=== PATIENT | male | born 1960 | race Caucasian/White ===

== ENCOUNTER 2016-07-14 09:27 | Observation (INO) | payer SELFPAY ==
[~2016-07-14] VITALS: Ht 172.7 cm; Wt 77.0 kg
[2016-07-14] VITALS (13 sets, daily range): BP systolic 144–235; BP diastolic 69–100; PULSE 60–85; RESP 16–20; TEMP 97.7–98.7; O2SAT 94–100
[~2016-07-14 09:27] MED LIST: ADVI200C9 PO; ASPI81TA82 PO; CARV12.52 PO; GLUC1000 PO; LISI-366 PO
[2016-07-14] MEDS ORDERED: LISI40TA PO (09:49)
[2016-07-14] MEDS ORDERED: METF1000 PO (09:49)
[2016-07-14] MEDS ORDERED: ASPI81CH CHEW (09:49)
[2016-07-14] MEDS: NITROGLYCERIN 0.4 MG SL 25 TABS/BTL SL SCH ×3 (10:09→10:49)
[2016-07-14] MEDS: SODIUM CHLORIDE 0.9% FLUSH 10 ML FLUSH IVF PRN ×2 (10:09→11:57)
[2016-07-14 10:14] LABS: AUTOMATED NEUTROPHIL # 5.5 TH/MM3 (1.8-7.7); BASOPHIL # 0.1 TH/MM3 (0-0.2); BASOPHIL % 1.4 % (0.0-2.0); EOSINOPHIL # 0.2 TH/MM3 (0-0.4); HEMATOCRIT 43.8 % (39.0-51.0); HEMO FLAGS DIFF FINAL; LYMPH % 29.8 % (9.0-44.0); LYMPHOCYTE # 2.7 TH/MM3 (1.0-4.8); MEAN CORPUSCULAR HEMOGLOBIN 30.9 PG (27.0-34.0); MEAN CORPUSCULAR HGB CONC 33.9 % (32.0-36.0); MONO % 7.3 % (0.0-8.0); NEUT % 59.5 % (16.0-70.0); PLATELET COUNT 156 TH/MM3 (150-450); RED BLOOD COUNT 4.82 MIL/MM3 (4.50-5.90); RED CELL DISTRIBUTION WIDTH 13.7 % (11.6-17.2); WHITE BLOOD COUNT 9.2 TH/MM3 (4.0-11.0)
[2016-07-14 10:30] LABS: INTERNATIONAL NORMALIZED RATIO 0.9 RATIO; PROTHROMBIN TIME - PATIENT 10.3 SEC (9.8-11.6)
[2016-07-14 10:44] LABS: ANION GAP 6 MEQ/L (5-15); AST (GOT) 42 U/L (15-37); BICARBONATE 29.8 MEQ/L (21.0-32.0); BLOOD UREA NITROGEN 19 MG/DL (7-18); CHLORIDE 103 MEQ/L (98-107); GLOMERULAR FILTRATION RATE 102 ML/MIN (>89); MAGNESIUM 1.7 MG/DL (1.5-2.5); POTASSIUM 3.6 MEQ/L (3.5-5.1); SODIUM (NA) 139 MEQ/L (136-145)
[2016-07-14 10:49] LABS: ALKALINE PHOSPHATASE 105 U/L (45-117); ALT (GPT) 58 U/L (12-78); TOTAL BILIRUBIN ADULT 0.5 MG/DL (0.2-1.0)
--- NOTE | 2016-07-14 10:51 | RADRPT ---
EXAM DATE/TIME: 07/14/2016 10:22 [facility] COMPARISON: CHEST SINGLE AP, February 03, 2016, 12:43. INDICATIONS : Chest pain and shortness of breath. MEDICAL HISTORY : None. SURGICAL HISTORY : Two cardiac stents. ENCOUNTER: Initial ACUITY: 1 day PAIN SCORE: 8/10 LOCATION: chest FINDINGS: A single view of the chest demonstrates the lungs to be symmetrically aerated without evidence of mas s, infiltrate or effusion. The cardiomediastinal contours are unremarkable. Osseous structures are intact. CONCLUSION: Normal examination. Mabel Gomez MD on July 14, 2016 at 10:50 Board Certified Radiologist. This report was verified electronically.
[2016-07-14 11:28] LABS: CREATINE KINASE 80 U/L (39-308)
--- NOTE | 2016-07-14 11:47 | PD ---
HPI Chief Complaint: Chest Pain Time Seen by Provider: 09:57 Travel History International Travel<30 days: No Contact w/Intl Traveler<30days: No Traveled to known affect area: No History of Present Illness HPI 56-year-old male presents emergency department for chest pain tightness in the center of his chest occasionally radiating down his right arm for the past few days. Patient states Fairly severe approximately 0400 this morning. Patient states he ran out of his baby aspirin subjective full dose aspirin prior to arrival. Has not tried anything else to help relieve his pain. Patient states that approximately 56 years ago patient had a cardiac catheterization requiring stents placed Dr. Watosn did this. 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 He also states that he follows with Doctor Tu Robins and was told that he may have some small carotid bruits and has an "MRI" of his neck ordered which she has not been able to do because doesn't have the funds to do so. He denies any headache focal weakness blurred vision neck pain. And states that "this feels just like last time I had a heart attack". Patient denies any shortness of breath abdominal pain nausea vomiting diarrhea constipation. Patient states she's not had any drugs or alcohol for over 6 months. PFSH Past Medical History Arthritis: Yes (rheumatoid hands) Asthma: No Autoimmune Disease: Yes Blood Disorders: No Depression: Yes Heart Rhythm Problems: No Cancer: No Cardiac Catheterization: Yes Cardiovascular Problems: Yes High Cholesterol: No Chemotherapy: No Chest Pain: Yes Congestive Heart Failure: No Cerebrovascular Accident: No Coronary Artery Disease: Yes Diabetes: Yes Patient Takes Glucophage: Yes Diminished Hearing: Yes (Left) Diverticulitis: Yes Endocrine: Yes (per hx.. diagnosed as diabetic but not currently treated) Gastrointestinal Disorders: Yes GERD: No Genitourinary: Yes Hepatitis: Yes (C) Hiatal Hernia: No Hypertension: Yes Kidney Stones: Yes Musculoskeletal: Yes Neurologic: Yes Psychiatric: No Reproductive: No Respiratory: No Myocardial Infarction: Yes (2009) Thyroid Disease: No Ulcer: No Tetanus Vaccination: Unknown Influenza Vaccination: No Past Surgical History Abdominal Surgery: Yes ( partial colectomy) Appendectomy: Yes Cardiac Surgery: No Cholecystectomy: No Coronary Artery Bypass Graft: No Coronary Stent: Yes (2 STENTS) Ear Surgery: No Endocrine Surgery: No Eye Surgery: No Genitourinary Surgery: No Gynecologic Surgery: No Hysterectomy: No Neurologic Surgery: No Oral Surgery: No Thoracic Surgery: No Tonsillectomy: Yes Other Surgery: Yes Family History Family Myocardial Infarction: Yes Social History 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) Tobacco Use: Yes (1 PPD) Substance Use: No Allergies-Medications (Allergen,Severity, Reaction): Coded Allergies: Anzemet (Verified Allergy, Severe, 02/03/16) Penicillin (Verified Allergy, Severe, 02/03/16) Reported Meds & Prescriptions Reported Meds & Active Scripts Active Reported Lisinopril 40 Mg Tab 40 Mg PO DAILY Aspirin 81 Mg Chew 81 Mg CHEW DAILY Metformin (Metformin HCl) 1,000 Mg Tab 1,000 Mg PO BIDPC With meals Review of Systems Except as stated in HPI: all other systems reviewed are Neg Physical Exam Narrative GENERAL: [Well-developed well-nourished, smells of cigarette smoke in no apparent distress. SKIN: Warm and dry. HEAD: Atraumatic. Normocephalic. EYES: Pupils equal and round. No scleral icterus. No injection or drainage. ENT: No nasal bleeding or discharge. Mucous membranes pink and moist. NECK: Trachea midline. No JVD. CARDIOVASCULAR: Regular rate and rhythm. No murmur appreciated. 2+ bilateral equal pulses in all 4 extremity's. No carotid bruits appreciated. RESPIRATORY: No accessory muscle use. Clear to auscultation. Breath sounds equal bilaterally. GASTROINTESTINAL: Abdomen soft, non-tender, nondistended. Hepatic and splenic margins not palpable. MUSCULOSKELETAL: No obvious deformities. No clubbing. No cyanosis. No edema. NEUROLOGICAL: Awake and alert. No obvious cranial nerve deficits. Motor grossly within normal limits. Normal speech. PSYCHIATRIC: Appropriate mood and affect; insight and judgment normal. Data Data Last Documented VS Vital Signs Date Time Temp Pulse Resp B/P Pulse Ox O2 Delivery O2 Flow Rate FiO2 07/14/16 11:30 62 16 152/72 98 Room Air 07/14/16 09:29 97.7 Orders Electrocardiogram (07/14/16 ) Ckmb (Isoenzyme) Profile (07/14/16 09:57) Complete Blood Count With Diff (07/14/16 09:57) Comprehensive Metabolic Panel (07/14/16 09:57) Magnesium (Mg) (07/14/16 09:57) Prothrombin Time / Inr (Pt) (07/14/16 09:57) Act Partial Throm Time (Ptt) (07/14/16 09:57) Troponin I (07/14/16 09:57) Lipase (07/14/16 09:57) Chest, Single Ap (07/14/16 09:57) Ecg Monitoring (07/14/16 09:57) Bilateral Bp Monitoring (07/14/16 09:57) Iv Access Insert/Monitor (07/14/16 09:57) Oximetry (07/14/16 09:57) Oxygen Administration (07/14/16 09:57) Sodium Chloride 0.9% Flush (Ns Flush) (07/14/16 10:00) Nitroglycerin Sl (Nitrostat Sl) (07/14/16 10:15) Admit Order (Ed Use Only) (07/14/16 ) Labs Laboratory Tests Test 07/14/16 10:00 White Blood Count 9.2 TH/MM3 Red Blood Count 4.82 MIL/MM3 Hemoglobin 14.9 GM/DL Hematocrit 43.8 % Mean Corpuscular Volume 91.0 FL Mean Corpuscular Hemoglobin 30.9 PG Mean Corpuscular Hemoglobin 33.9 % Concent Red Cell Distribution Width 13.7 % Platelet Count 156 TH/MM3 Mean Platelet Volume 10.3 FL Neutrophils (%) (Auto) 59.5 % Lymphocytes (%) (Auto) 29.8 % Monocytes (%) (Auto) 7.3 % Eosinophils (%) (Auto) 2.0 % Basophils (%) (Auto) 1.4 % Neutrophils # (Auto) 5.5 TH/MM3 Lymphocytes # (Auto) 2.7 TH/MM3 Monocytes # (Auto) 0.7 TH/MM3 Eosinophils # (Auto) 0.2 TH/MM3 Basophils # (Auto) 0.1 TH/MM3 CBC Comment DIFF FINAL Differential Comment Prothrombin Time 10.3 SEC Prothromb Time International 0.9 RATIO Ratio Activated Partial 27.0 SEC Thromboplast Time Sodium Level 139 MEQ/L Potassium Level 3.6 MEQ/L Chloride Level 103 MEQ/L Carbon Dioxide Level 29.8 MEQ/L Anion Gap 6 MEQ/L Blood Urea Nitrogen 19 MG/DL Creatinine 0.78 MG/DL Estimat Glomerular Filtration 102 ML/MIN Rate Random Glucose 118 MG/DL Calcium Level 9.0 MG/DL Magnesium Level 1.7 MG/DL Total Bilirubin 0.5 MG/DL Aspartate Amino Transf 42 U/L (AST/SGOT) Alanine Aminotransferase 58 U/L (ALT/SGPT) Alkaline Phosphatase 105 U/L Total Creatine Kinase 80 U/L Troponin I LESS THAN 0.02 NG/ML Total Protein 7.6 GM/DL Albumin 3.7 GM/DL Lipase 102 U/L [facility] Medical Decision Making Medical Screen Exam Complete: Yes Emergency Medical Condition: Yes Interpretation(s) EKG shows sinus bradycardia rate of 59, intervals otherwise within normal limits. Borderline left axis deviation, normal R-wave progression. LVH. No concerning ST T changes. This an abnormal EKG. Differential Diagnosis ACS, AMI, costochondritis, pericarditis, pneumonia. Narrative Course Patient roomed in the emergency department, appears well in no apparent distress. Initial workup including troponin EKG CBC and CMP within normal limits. Chest x-ray within normal limits. Discussed with the patient given his history recommended observation period in the chest pain center and he is agreeable. Last 24 hours Impressions Chest X-Ray 07/14/16 0957 Signed Impressions: Service Date/Time: Thursday, July 14, 2016 10:22 - CONCLUSION: Normal examination. Mabel Gomez MD Nitroglycerin was given and did have some modest relief and his pain he requested something more was given 2 mg morphine. Diagnosis Primary Impression: Chest pain Qualified Code: R07.9 - Chest pain, unspecified type Admitting Information Admitting Physician Requests: Observation Condition: Stable Martinez Lezama MD Jul 14, 2016 11:47
[2016-07-14] MEDS ORDERED: MORPHINE SULFATE 4 MG/ML INJ IV PUSH ONE (12:00)
[2016-07-14] MEDS ORDERED: ACETAMINOPHEN 500 MG CPLT PO PRN (12:15)
[2016-07-14] MEDS ORDERED: NITROGLYCERIN 0.4 MG SL 25 TABS/BTL SL PRN (12:15)
[2016-07-14] MEDS ORDERED: ONDANSETRON HCL 4 MG/2 ML VIAL IV PRN (12:15)
[2016-07-14] MEDS ORDERED: SODIUM CHLORIDE 0.9% FLUSH 10 ML FLUSH IV FLUSH PRN (12:15)
[2016-07-14] MEDS ORDERED: NITROGLYCERIN 2% OINT 1 GM PACKET TOPICAL SCH (14:00)
[2016-07-14] MEDS ORDERED: RESP: ALBUTEROL 2.5 MG/3 ML NEB (PRN) NEB (15:30)
[2016-07-14] MEDS ORDERED: KETOROLAC TROMETHAMINE 30 MG/ML (IVP) VIAL IV PUSH ONE (15:30)
[2016-07-14] MEDS ORDERED: PILL SPLITTER OTHER PRN (15:45)
[2016-07-14] MEDS: METOPROLOL TARTRATE 25 MG TAB PO SCH ×2 (16:00→21:05)
--- NOTE | 2016-07-14 16:14 | EKG ---
Date Performed: 07/14/2016 Time Performed: 13:16:25 PTAGE: 56 years EKG: Sinus rhythm BORDERLINE LEFT AXIS DEVIATION NONSPECIFIC ST & T-WAVE ABNORMALITY ABNORMAL ECG PREVIOUS TRACING : 07/14/2016 09.46 Since previous tracing, no significant change noted DOCTOR: Dustin Sanchez Interpretating Date/Time 07/14/2016 16:12:47
[2016-07-14] MEDS ORDERED: GLUCAGON 1 MG/ML VIAL OTHER PRN (16:15)
[2016-07-14] MEDS ORDERED: DEXTROSE 50% IN WATER 50 ML VIAL(D50) IV PUSH PRN (16:15)
[2016-07-14] MEDS: RESP: ALBUTEROL 2.5 MG/3 ML NEB (SCH) INH ×2 (16:29→20:03)
[2016-07-14] MEDS ORDERED: cloNIDine HCL 0.1 MG TAB PO PRN (16:30)
[2016-07-14] MEDS ORDERED: ACETAMINOPHEN/HYDROcodone 325 MG/5 MG TAB PO PRN (16:45)
--- NOTE | 2016-07-14 17:19 | EKG ---
Date Performed: 07/14/2016 Time Performed: 09:46:41 PTAGE: 56 years EKG: SINUS BRADYCARDIA WITH SINUS ARRHYTHMIA BORDERLINE LEFT AXIS DEVIATION NONSPECIFIC ST & T-W AVE ABNORMALITY ST T abnormality slightly more prominent from the old tracing ABNORMAL ECG NO PREVIOUS TRACING DOCTOR: Landon Campos Interpretating Date/Time 07/14/2016 17:17:43
[2016-07-14 17:35] LABS: TOTAL BILIRUBIN ADULT 0.4 MG/DL (0.2-1.0)
[2016-07-14 17:40] LABS: INDIRECT BILIRUBIN 0.3 MG/DL (0.0-0.8)
--- NOTE | 2016-07-14 18:03 | HHI.HP ---
HPI Primary Care Physician Palmer Mae MD Chief Complaint Fatigue, shortness of breath, chest pain History of Present Illness 56-year-old male with known hypertension, diabetes, coronary artery disease, and cardiac stents presents to emergency room with multiple complaints. Over the past 6 weeks he has been fatigued and short of breath on exertion. Describes left anterior chest discomfort characterized as burning and stabbing, no radiation, nonexertional. Chest discomfort over past 6 weeks can occur at any time. Duration varies from minutes to days, severity varies in intensity. No associated symptoms. No known precipitating or relieving factors. This morning states "my whole body felt warm and I had temporal pain and was afraid my BP was elevated." Chest discomfort combined with temporal headache was "unbearable, so he came to the ER." Review of Systems General: Increasing fatigue 6 weeks. No weakness, fever, chills, recent illness , change in appetite HEENT: Headache improved. No vision changes, no nasal congestion or drainage, no dysphasia CV: As stated above. Continues to have chest discomfort. Chest discomfort not similar when he had NE. Endorses intermittent leg pain bilateral calves with ambulation, sometimes as little as 10 feet, relieved with rest. Pending order for carotid bilateral ultrasound from PCP, able to afford test. States "my physician is concerned about my carotids as he heard something in that area." RESP: No current SOB. Exertional shortness of breath for 6 weeks. Reports "smoker's cough." No wheeze wheeze, rhonchi, or hemoptysis. Denies diagnosis of COPD or use of inhalers. Remote pulmonary function tests completed approximately 5 years agostates "my lungs were good then." GI: No nausea, vomiting, bowel changes, diarrhea, constipation, pain, distention , melena, blood in the stool. No change in appetite, no unintentional weight gain or weight loss EXT: No lower leg edema, intermittent leg pain bilateral calves with ambulation , better with rest MS: No discomfort or change in ROM NEURO: No change in memory, dizziness, difficulty with balance, LOC, motor/ sensory deficits PSYCH: No anxiety and depression SKIN: No rashes, no concerning lesions Past Family Social History Allergies: Coded Allergies: Anzemet (Verified Allergy, Severe, 02/03/16) Penicillin (Verified Allergy, Severe, 02/03/16) Past Medical History Hypertension, diabetes, CAD, hepatitis C, NE, cardiac stents , COPD, diverticulosis Past Surgical History Bowel resection due to perforated diverticuli, appendectomy, tonsillectomy Reported Medications Reported Meds & Active Scripts Active Reported Lisinopril 40 Mg Tab 40 Mg PO DAILY Aspirin 81 Mg Chew 81 Mg CHEW DAILY Metformin (Metformin HCl) 1,000 Mg Tab 1,000 Mg PO BIDPC With meals Active Ordered Medications Current Medications Medications (Trade) Dose Ordered Sig/Canelo Route Start Time Stop Time Status Last Admin (Tylenol) 500 mg Q4H PRN PO 07/14/16 12:15 (Zofran Inj) 4 mg Q6H PRN IV 07/14/16 12:15 (Nitrostat Sl) 0.4 mg Q5M PRN SL 07/14/16 12:15 (Aspirin) 325 mg DAILY PO 07/15/16 09:00 (Lopressor) 12.5 mg Q12HR PO 07/14/16 16:00 07/14/16 16:00 (Pill Splitter) 1 ea UNSCH PRN OTHER 07/14/16 15:45 (Prinivil) 40 mg DAILY PO 07/15/16 09:00 (D50w (Vial) Inj) 25 ml UNSCH PRN IV PUSH 07/14/16 16:15 (Glucagon Inj) 1 mg UNSCH PRN OTHER 07/14/16 16:15 (Catapres) 0.1 mg Q6H PRN PO 07/14/16 16:30 ([place] 5-325 Mg) 1 tab Q6H PRN PO 07/14/16 16:45 Family History Noncontributory for early onset cardiovascular disease Social History Life time smoker since age 10. Smokes one pack cigarettes daily. Denies any alcohol or illegal drug use. , unemployed. Sedentary due to fatigue and lower leg pain on exertion. Past cardiac testing 07/13/15Lexi scan conclusionmild LV dilatation and global hypokinesis. No significant reversible perfusion abnormalities. EF 41%. 2007 Cardiac catheterization-1. Non-ST elevation NE 2. Severe disease of the circumflex 3. Successful stenting of the circumflex 4. Normal LV function. Physical Exam Vital Signs Vital Signs Date Time Temp Pulse Resp B/P Pulse Ox O2 Delivery O2 Flow Rate FiO2 07/14/16 16:28 187/76 07/14/16 15:47 68 07/14/16 15:22 98.7 64 18 187/86 94 07/14/16 12:30 16 07/14/16 12:00 60 16 144/91 98 Room Air 07/14/16 11:30 62 16 152/72 98 Room Air 07/14/16 11:00 62 18 173/91 100 Room Air 07/14/16 11:00 16 07/14/16 10:28 68 18 165/69 97 Room Air 07/14/16 10:01 68 16 191/91 100 Room Air 07/14/16 09:59 16 98 Room Air 07/14/16 09:59 Room Air 07/14/16 09:46 68 18 205/95 100 Room Air 07/14/16 09:45 16 98 Room Air 07/14/16 09:29 97.7 74 20 235/100 100 Room Air Physical Exam GENERAL: Alert WN, WD, NAD, pleasant, male HEAD: NC, AT EYES: Sclera clear, conjunctiva without injection, pupils equal and round ENT: Mucous membranes pink and moist NECK: Supple, no masses, trachea midline CV: RRR, 2/6 systolic murmur, rub, gallop, no JVD, S1-S2 no S3-S4. Bilateral carotid and femoral bruits. Decreased hair distribution bilateral feet and ankles. RESP: Diminished lung sounds throughout, faint expiratory wheeze, prolonged expiratory phase. No crackles or rhonchi. Symmetrical chest rise, nonlabored, able to speak in full sentences ABD: Soft, NT, ND, no masses, positive bowel tones EXT: Pulses +24, no dependent edema. MS: Normal tone 4 extremities, nontender, no obvious deformities, full range of motion NEURO: CN II through CN XII grossly intact, motor strength 5/5, gait WNL PSYCH: A+O 3, pleasant affect, appropriate speech, appropriate mood and affect , insight and judgment SKIN: Normal turgor, normal texture, no lesions, no rashes, sluggish cap refill Laboratory Laboratory Tests Test 07/14/16 07/14/16 10:00 13:15 White Blood Count 9.2 Red Blood Count 4.82 Hemoglobin 14.9 Hematocrit 43.8 Mean Corpuscular Volume 91.0 Mean Corpuscular Hemoglobin 30.9 Mean Corpuscular Hemoglobin 33.9 Concent Red Cell Distribution Width 13.7 Platelet Count 156 Mean Platelet Volume 10.3 Neutrophils (%) (Auto) 59.5 Lymphocytes (%) (Auto) 29.8 Monocytes (%) (Auto) 7.3 Eosinophils (%) (Auto) 2.0 Basophils (%) (Auto) 1.4 Neutrophils # (Auto) 5.5 Lymphocytes # (Auto) 2.7 Monocytes # (Auto) 0.7 Eosinophils # (Auto) 0.2 Basophils # (Auto) 0.1 CBC Comment DIFF FINAL Differential Comment Prothrombin Time 10.3 Prothromb Time International 0.9 Ratio Activated Partial 27.0 Thromboplast Time Sodium Level 139 Potassium Level 3.6 Chloride Level 103 Carbon Dioxide Level 29.8 Anion Gap 6 Blood Urea Nitrogen 19 Creatinine 0.78 Estimat Glomerular Filtration 102 Rate Random Glucose 118 Calcium Level 9.0 Magnesium Level 1.7 Total Bilirubin 0.5 Aspartate Amino Transf 42 (AST/SGOT) Alanine Aminotransferase 58 (ALT/SGPT) Alkaline Phosphatase 105 Total Creatine Kinase 80 73 Troponin I LESS THAN 0.02 0.02 Total Protein 7.6 Albumin 3.7 Lipase 102 Result Diagram: 07/14/16 1000 07/14/16 1000 Imaging Last Impressions Chest X-Ray 07/14/16 0957 Signed Impressions: Service Date/Time: Thursday, July 14, 2016 10:22 - CONCLUSION: Normal examination. Mabel Gomez MD Course EKG 3 EKG show normal sinus rhythm, left axis deviation, and nonspecific ST changes Assessment and Plan Assessment and Plan #1 Chest pain-admitted to chest pain center. Ruled out with 3 EKGs, cardiac enzymes, and will be monitored overnight. Seen and evaluated by Dr. Sanchez. Discussed in length chest pain most likely musculoskeletal chest wall pain, noncardiac in nature. Due to multiple risk factors including will complete chemical stress test and add Metoprolol 12.5 mg twice a day. #2 Hypertensionreorder lisinopril 40 mg daily, clonidine 0.1mg every 6 hours PRN, continue to monitor #3 Diabeteshold metformin, low-dose sliding scale insulin #4 CADbilateral carotid ultrasound, arterial femoral artery ultrasound #5 Tobacco use-discuss and encourage patient in length up the importance of tobacco sensation. Encouraged patient to quit smoking. #6 COPDdiscussed in length importance of following with PCP regarding COPD for further pulmonary studies. Respiratory treatments every 6 and every 2 when necessary. Smoking sensation. #7 Musculoskeletal pain-Toradol 30 mg IV 1 dose, Lortab 5 mg every 6 hours when necessary Korin Zamarripa Jul 14, 2016 17:58
--- NOTE | 2016-07-14 20:20 | RADRPT ---
EXAM DATE/TIME: 07/14/2016 19:36 [facility] COMPARISON: No previous studies available for comparison. INDICATIONS : Possible stenosis. MEDICAL HISTORY : Myocardial infarction. Hypertension. Renal calculi. Hearing loss. Coronary artery disease. Diverticul itis. Rhematoid arthritis. Diabetes. ETOH abuse. Hepatitis C. SURGICAL HISTORY : Tonsillectomy. Coronary artery stent. Appendectomy. Partial colectomy. Left toe amputation. ENCOUNTER: Initial ACUITY: 1 day PAIN SCORE: 0/10 LOCATION: Bilateral neck PEAK SYSTOLIC VELOCITIES (cm/sec): ICA/CCA RATIO: Right: 1.3 Left: 1.0 ICA: Right: 52 Left: 114 CCA: Right: 42 Left: 112 ECA: Right: 58 Left: 135 VERTEBRAL: Right: 65 antegrade Left: 101 antegrade Elevated flow velocities and ICA/CCA ratios have been found to correlate with increased degrees of vessel stenosis, calculated as percentage of diameter relative to a normal segment of distal ICA/CCA FINDINGS: There is mild to moderate visible plaque formation in the carotid arteries bilaterally, especially on the right. There is blunting of the waveforms on the right but no definite evidence for hemodynamica lly significant stenosis. Vertebral artery flow antegrade. CONCLUSION: 1. Mild to moderate visible plaque formation the carotid arteries bilaterally. Abnormal blunted wavef orms in the right common carotid and internal carotid artery that could indicate a more proximal sten osis. Salazar Veloz MD on July 14, 2016 at 20:14 Board Certified Radiologist. This report was verified electronically.
[2016-07-14] MEDS ORDERED: SODIUM CHLORIDE 0.9% FLUSH 10 ML FLUSH IV FLUSH SCH (21:00)
[2016-07-14] MEDS: INSULIN ASPART SUPPLEMENTAL SCALE SQ SCH (21:00)
[2016-07-15] MEDS: RESP: ALBUTEROL 2.5 MG/3 ML NEB (SCH) INH ×2 (03:29→10:00)
[2016-07-15 03:45] VITALS: BP 153/78; PULSE 94; RESP 18; TEMP 97.9; O2SAT 97
[2016-07-15] MEDS: INSULIN ASPART SUPPLEMENTAL SCALE SQ SCH ×2 (07:00→11:00)
[2016-07-15 08:00] VITALS: PULSE 84
[2016-07-15 08:09] VITALS: BP 168/77; PULSE 64; RESP 18; TEMP 98.1; O2SAT 95
[2016-07-15] MEDS ORDERED: LISINOPRIL 20 MG TAB PO SCH (09:00)
[2016-07-15] MEDS ORDERED: ASPIRIN 325 MG TAB PO SCH (09:00)
[2016-07-15] MEDS ORDERED: REGADENOSON INJ 0.4 MG/5 ML SYR ONE (09:43)
[2016-07-15 10:44] VITALS: O2SAT 96
--- NOTE | 2016-07-15 11:32 | RADRPT ---
EXAM DATE/TIME: 07/15/2016 09:21 [facility] COMPARISON: MYOCARDIAL PERF PHARM SPECT, GATED W/EF, July 13, 2015, 8:24. INDICATIONS : Chest discomfort for 6 weeks. Angina. Coronary artery disease. DOSE: 25.8 mCi Tc99m Myoview at stress. 8.1 mCi Tc99m Myoview at rest. 0.4 mg Lexiscan STRESS SYMPTOMS: Chest tightness, headache and flushness. EJECTION FRACTION: 58% MEDICAL HISTORY : Myocardial infarction. Hepatitis C. Hypertension. Smoker. SURGICAL HISTORY : Coronary artery stent. Colon resection. Left toes cut off. ENCOUNTER: Initial ACUITY: 2 months PAIN SCALE: 3/10 LOCATION: Bilateral chest TECHNIQUE: The patient underwent pharmacologic stress with infusion of prescribed dose. Continuous ECG tracing was monitored during stress. Gated SPECT imaging was performed after stress and conventional SPECT i maging was performed at rest. The examination was performed on a SPECT/CT scanner, both attenuation and non-corrected datasets were reviewed. FINDINGS: DISTRIBUTION: The maximum perfused segment at stress is in the septal wall. PERFUSION STUDY: The pattern of perfusion at stress is within normal limits. GATED STUDY: Stable pattern of mild left ventricular chamber enlargement and global slight hypokinesis. CONCLUSION: Stable appearance of mild LV dilation and global hypokinesis. No significant reversible perfusion abn ormality.. RISK CATEGORY: Intermediate (1-3% annual modality rate) Mabel Gomez MD on July 15, 2016 at 11:26 Board Certified Radiologist. This report was verified electronically.
[2016-07-15 12:34] VITALS: BP 169/81; PULSE 63; RESP 18; TEMP 95.8; O2SAT 97
--- NOTE | 2016-07-15 12:34 | HHI.DCPOC ---
Discharge Care Plan Diagnosis: (1) Chest pain (2) Uncontrolled hypertension (3) Hx of coronary artery disease (4) Tobacco dependency (5) Carotid artery disease (6) Peripheral arterial disease (7) COPD (chronic obstructive pulmonary disease) Goals to Promote Your Health * To prevent worsening of your condition and complications * To maintain your health at the optimal level Directions to Meet Your Goals Take your medications as prescribed Follow your dietary instruction Follow activity as directed Keep your appointments as scheduled Take your immunizations and boosters as scheduled If your symptoms worsen call your PCP, if no PCP go to Urgent Care Center or Emergency Room Smoking is Dangerous to Your Health. Avoid second hand smoke Call the 24-hour hour crisis hotline for domestic abuse at Dyana Diaz Jul 15, 2016 12:34
[2016-07-15] MEDS ORDERED: AMLO5TAB2 PO (12:39)
[2016-07-15] MEDS: METOPROLOL TARTRATE 25 MG TAB PO SCH (12:53)
--- NOTE | 2016-07-15 13:14 | RADRPT ---
EXAM DATE/TIME: 07/15/2016 00:00 [facility] COMPARISON: No previous studies available for comparison. INDICATIONS : Bilateral Lower Extremity Claudication TECHNIQUE: Five-station segmental examination of the lower extremities was performed. Pulsed-cuff waveform tracings and pressures were recorded. Ankle-brachial indices and toe-brachial indices were calculated. PRESSURES (mmHg): Brachial (arm): Right 142 Left 147 Lower Thigh: Right 119 Left 90 Calf: Right 130 Left 78 Ankle: Right 131 Left 102 Toe: Right 124 Left 77 ENEIDA: Right 0.89 Left 0.69 TBI: Right 0.84 Left 0.52 PULSED CUFF WAVEFORMS: Demonstrate normal amplitude within the right lower extremity but demonstrates blunting of the wavefo martha within the left knee and ankle as well as the left toe. CONCLUSION: The right ENEIDA is borderline low at the left lower extremity ENEIDA is consistent with lower extremity ar terial disease. Mabel Gomez MD on July 15, 2016 at 13:08 Board Certified Radiologist. This report was verified electronically.
--- NOTE | 2016-07-15 13:38 | TR ---
Date Performed: 07/15/2016 Time Performed: 10:06:44 DOCTOR: Dustin Sanchez DRUG LIST: CLINICAL HISTORY: CHEST PAIN REASON FOR TEST: REASON FOR ENDING: OBSERVATION: CONCLUSION: Lexiscan stress test was performed under standard four minute protocol. Radionucl[place] e was injected one minute prior to ending the test. No electrocardiographic abormalities were present to suggest ischemia. Nuclear imaging and interpretation are pending. COMMENTS:
--- NOTE | 2016-07-15 13:40 | EKG ---
Date Performed: 07/14/2016 Time Performed: 16:11:38 PTAGE: 56 years EKG: Sinus rhythm MARKED LEFT AXIS DEVIATION NONSPECIFIC T-WAVE ABNORMALITY PROLONGED QT INTERVAL ABNORMAL ECG PREVIOUS TRACING : 07/14/2016 13.16 Since previous tracing, no significant change noted DOCTOR: Dustin Sanchez Interpretating Date/Time 07/15/2016 13:39:06
[2016-07-24] MEDS ORDERED: LISI40TA PO (12:07)
[2016-07-24] MEDS ORDERED: METF1000 PO (12:07)
[2016-07-24] MEDS ORDERED: ASPI325T PO (12:07)
[2016-07-24] MEDS ORDERED: AMLO5TAB2 PO (12:07)
[2016-07-24] MEDS ORDERED: PRAV20TA2 PO (12:17)
[2016-09-21] MEDS ORDERED: CILO100T PO ×2 (15:28→15:38)
== END 2016-07-15 16:42 | disposition home or self-care (01) ==
LOC: NEPA 09:27 → NEDA 11:44 → NEPHCDU 13:57
DX: R07.9 Chest pain, unspecified (principal); I10 Essential (primary) hypertension; E11.9 Type 2 diabetes mellitus without complications; I25.10 Atherosclerotic heart disease of native coronary artery without angina pectoris; J44.9 Chronic obstructive pulmonary disease, unspecified; M79.1 Myalgia; F17.200 Nicotine dependence, unspecified, uncomplicated; I25.2 Old myocardial infarction; M06.842 Other specified rheumatoid arthritis, left hand; M06.841 Other specified rheumatoid arthritis, right hand; F32.9 Major depressive disorder, single episode, unspecified; Z79.82 Long term (current) use of aspirin; Z88.0 Allergy status to penicillin; Z88.8 Allergy status to other drugs, medicaments and biological substances; Z95.5 Presence of coronary angioplasty implant and graft; Z89.422 Acquired absence of other left toe(s); Z86.19 Personal history of other infectious and parasitic diseases; Z79.84 Long term (current) use of oral hypoglycemic drugs
CPT/HCPCS: 71010; 78452; 80053; 80076; 82550; 82948; 83690; 83735; 84484; 85025; 85610; 85730; 93005; 93017; 93880; 93923; 94640; 94664; 99285; A9502; G0378; J1885; J2270; J2785; J7613

== ENCOUNTER 2017-02-27 07:12 | Inpatient (IN) | payer SELFPAY ==
[~2017-02-27] VITALS: Ht 172.7 cm; Wt 78.0 kg
[~2017-02-27 07:12] MED LIST changes: -ADVI200C9 PO; +AMLO5TAB2 PO; +ASPI-183 PO; +ASPI-516 CHEW; -ASPI81TA82 PO; -CARV12.52 PO; +CILO100T PO; -GLUC1000 PO; -LISI-366 PO; +LISI40TA PO; +METF1000 PO; +PRAV20TA2 PO
[2017-02-27 07:14] VITALS: BP 170/80; PULSE 84; RESP 16; TEMP 97.8; O2SAT 100
[2017-02-27] MEDS ORDERED: SODIUM CHLORIDE 0.9% FLUSH 10 ML FLUSH IVF PRN ×2 (07:30→08:45)
[2017-02-27] MEDS ORDERED: SODIUM CHLOR 0.9% 1000 ML INJ 1,000 ML IV ONE ×2 (07:30→08:45)
[2017-02-27 07:33] VITALS: BP 165/79; PULSE 82; RESP 18; O2SAT 98
[2017-02-27 07:46] VITALS: PULSE 82; O2SAT 98
--- NOTE | 2017-02-27 07:47 | PD ---
HPI Chief Complaint: Diabetic Time Seen by Provider: 07:24 Travel History International Travel<30 days: No Contact w/Intl Traveler<30days: No Traveled to known affect area: No History of Present Illness HPI 56 y/o male presents with two-week history of general ill feeling, thirsty and increased urination. He states his sugars have also been running high over this timeframe. He states Dr. Mae is his primary care physician and he tried to get in with them but he could not get an appointment for a couple weeks and as it was getting worse he elected to come here. He states his sugar has just been reading high over the past couple weeks with his last sugar checked this morning as high. He states he feels worse when he moves around. He denies other modifying factors. Quality is just not feeling himself and tired. Severity is progressive. Duration is couple of weeks. PFSH Past Medical History Arthritis: Yes (rheumatoid hands) Asthma: No Blood Disorders: No Depression: Yes Heart Rhythm Problems: No Cancer: No Cardiac Catheterization: Yes Cardiovascular Problems: Yes High Cholesterol: No Chemotherapy: No Chest Pain: No Congestive Heart Failure: No Cerebrovascular Accident: No Coronary Artery Disease: Yes Diabetes: Yes Patient Takes Glucophage: Yes Diminished Hearing: Yes (Left) Diverticulitis: Yes Endocrine: Yes (diabetes) Gastrointestinal Disorders: Yes GERD: No Hepatitis: Yes (C) Hiatal Hernia: No Hypertension: Yes Kidney Stones: Yes Psychiatric: No Reproductive: No Respiratory: No Myocardial Infarction: Yes (2009) Thyroid Disease: No Ulcer: No Tetanus Vaccination: < 5 Years Influenza Vaccination: No Past Surgical History Abdominal Surgery: Yes ( partial colectomy) Appendectomy: Yes Cardiac Surgery: No Cholecystectomy: No Coronary Artery Bypass Graft: No Coronary Stent: Yes (2 STENTS) Ear Surgery: No Endocrine Surgery: No Eye Surgery: No Genitourinary Surgery: No Gynecologic Surgery: No Hysterectomy: No Neurologic Surgery: No Oral Surgery: No Thoracic Surgery: No Tonsillectomy: Yes Family History Family Myocardial Infarction: Yes (father had mi) Social History 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) Tobacco Use: Yes (1 PPD) Substance Use: No (states last drug use was one year ago) Allergies-Medications (Allergen,Severity, Reaction): Coded Allergies: [email or web address] (Unverified Allergy, Severe, 12/04/16) penicillin G (Unverified Allergy, Severe, 12/04/16) Reported Meds & Prescriptions Reported Meds & Active Scripts Active Aspirin 325 Mg Tab 325 Mg PO DAILY Amlodipine (Amlodipine Besylate) 5 Mg Tab 5 Mg PO DAILY Lisinopril 40 Mg Tab 40 Mg PO DAILY Metformin (Metformin HCl) 1,000 Mg Tab 1,000 Mg PO BIDPC With meals Review of Systems Except as stated in HPI: all other systems reviewed are Neg Physical Exam Narrative GENERAL: Well-nourished, well-developed patient. SKIN: Warm and dry. HEAD: Normocephalic and atraumatic. EYES: No injection or drainage. ENT: No nasal drainage noted. NECK: Supple, trachea midline. CARDIOVASCULAR: Regular rate and rhythm RESPIRATORY: Breath sounds equal bilaterally at apices. No accessory muscle use. GASTROINTESTINAL: Abdomen soft, non-tender, nondistended. EXTREMITIES: No edema. NEUROLOGICAL: Awake and alert. Moves all extremities and sensory grossly within normal limits. Normal speech. Data Data Last Documented VS Vital Signs Date Time Temp Pulse Resp B/P (MAP) Pulse Ox O2 Delivery O2 Flow Rate FiO2 02/27/17 09:07 73 16 149/73 (98) 96 Room Air 02/27/17 07:14 97.8 Orders Orders Electrocardiogram (02/27/17 07:30) Complete Blood Count With Diff (02/27/17 07:30) Comprehensive Metabolic Panel (02/27/17 07:30) Magnesium (Mg) (02/27/17 07:30) Phosphorus (Po4) (02/27/17 07:30) Beta Hydroxybutyrate (Acetone) (02/27/17 07:30) Urinalysis - C+S If Indicated (02/27/17 07:30) Blood Gas Venous (Vbg) (02/27/17 07:30) Blood Glucose (02/27/17 07:30) Ecg Monitoring (02/27/17 07:30) Iv Access Insert/Monitor (02/27/17 07:30) Oximetry (02/27/17 07:30) NPO (02/27/17 07:30) Sodium Chloride 0.9% Flush (Ns Flush) (02/27/17 07:30) Sodium Chlor 0.9% 1000 Ml Inj (Ns 1000 M (02/27/17 07:30) Troponin I (02/27/17 07:30) Ckmb (Isoenzyme) Profile (02/27/17 07:30) Chest, Single Ap (02/27/17 ) Vascular Access Team Consult/P PRN (02/27/17 07:42) Vascular Poc Ultrasound (02/27/17 ) Sodium Chloride 0.9% Flush (Ns Flush) (02/27/17 08:45) Levofloxacin 750 Mg Premix Inj (Levaquin (02/27/17 08:45) Sodium Chlor 0.9% 1000 Ml Inj (Ns 1000 M (02/27/17 08:45) Admit Order (Ed Use Only) (02/27/17 09:12) Labs Laboratory Tests Test 02/27/17 07:37 02/27/17 08:41 White Blood Count 13.9 TH/MM3 Red Blood Count 5.20 MIL/MM3 Hemoglobin 16.4 GM/DL Hematocrit 48.5 % Mean Corpuscular Volume 93.3 FL Mean Corpuscular Hemoglobin 31.6 PG Mean Corpuscular Hemoglobin Concent 33.9 % Red Cell Distribution Width 12.4 % Platelet Count 170 TH/MM3 Mean Platelet Volume 12.2 FL Neutrophils (%) (Auto) 66.0 % Lymphocytes (%) (Auto) 26.3 % Monocytes (%) (Auto) 5.4 % Eosinophils (%) (Auto) 1.6 % Basophils (%) (Auto) 0.7 % Neutrophils # (Auto) 9.2 TH/MM3 Lymphocytes # (Auto) 3.7 TH/MM3 Monocytes # (Auto) 0.7 TH/MM3 Eosinophils # (Auto) 0.2 TH/MM3 Basophils # (Auto) 0.1 TH/MM3 CBC Comment AUTO DIFF Differential Comment AUTO DIFF CONFIRMED Platelet Estimate NORMAL Platelet Morphology Comment ENLARGED Urine Color LIGHT-YELLOW Urine Turbidity CLEAR Urine pH 5.5 Urine Specific [place] 1.025 Urine Protein NEG mg/dL Urine Glucose (UA) 1000 mg/dL Urine Ketones 10 mg/dL Urine Occult Blood NEG Urine Nitrite NEG Urine Bilirubin NEG Urine Urobilinogen LESS THAN 2.0 MG/DL Urine Leukocyte Esterase NEG Urine RBC 1 /hpf Urine WBC 4 /hpf Urine Squamous Epithelial Cells <1 /hpf Urine Hyaline Casts 1 /lpf Microscopic Urinalysis Comment CULT NOT INDICATED Blood Urea Nitrogen 39 MG/DL Creatinine 1.75 MG/DL Random Glucose 776 MG/DL Total Protein 8.1 GM/DL Albumin 3.9 GM/DL Calcium Level 9.3 MG/DL Phosphorus Level 3.1 MG/DL Magnesium Level 2.1 MG/DL Alkaline Phosphatase 145 U/L Aspartate Amino Transf (AST/SGOT) 44 U/L Alanine Aminotransferase (ALT/SGPT) 55 U/L Total Bilirubin 0.8 MG/DL Sodium Level 121 MEQ/L Potassium Level 4.9 MEQ/L Chloride Level 88 MEQ/L Carbon Dioxide Level 20.4 MEQ/L Anion Gap 13 MEQ/L Estimat Glomerular Filtration Rate 40 ML/MIN Total Creatine Kinase 62 U/L Troponin I LESS THAN 0.02 NG/ML B-Hydroxybutyrate 2.54 MMOL/L Blood Gas Puncture Site DRAWN BY RN Blood Gas Patient Temperature 98.6 Venous Blood pH 7.33 Venous Blood Partial Pressure CO2 48 mmHg Venous Blood Partial Pressure O2 28 mmHg Venous Blood HCO3 25 mmol/L Venous Blood Oxygen Saturation 45 % Venous Blood Oxygen Content 10.3 Vol % Venous Blood Base Excess -0.5 mmol/L Blood Gas Inspired Oxygen 21 % MDM Medical Decision Making Medical Screen Exam Complete: Yes Emergency Medical Condition: Yes Medical Record Reviewed: Yes (past history confirmed) Interpretation(s) EKG is sinus rhythm at 80 without consecutive T-wave inversion or consecutive ST segment elevation or depression, mild Peaked T V3 V4 V5 CBC & BMP Diagram 02/27/17 07:37 Total Protein 8.1, Albumin 3.9, Calcium Level 9.3, Phosphorus Level 3.1, Magnesium Level 2.1, Alkaline Phosphatase 145 H, Aspartate Amino Transf (AST/ SGOT) 44 H, Alanine Aminotransferase (ALT/SGPT) 55, Total Bilirubin 0.8 Last 24 hours Impressions Chest X-Ray 02/27/17 0000 Signed Impressions: Service Date/Time: Monday, February 27, 2017 07:50 - CONCLUSION: 1. No acute cardiopulmonary abnormality is identified to explain the clinical symptoms. 2. Questionable nodular opacity overlying the left lower lung zone. Suggest correlating with any recent chest CTs, if performed. If not available, consider elective chest CT for further evaluation. Moi Fuentes MD given intermittent cough and leukocytosis will treat area on chest xray with levaquin VBG after fluid shows improvement of bicarbonate to 24.6 and pH is 7.33 Differential Diagnosis DKA, electrolyte abnormality, renal failure, UTI, atypical cardiac.... Narrative Course Will check blood work, chest x-ray, urinalysis, EKG and dose with IV fluids and reevaluate when updating patient on chest xray he notes intermittent productive cough, denies other concerns and agrees to admit for fluids and glucose control and further care Physician Communication Physician Communication resident team agrees to admit under dr nielson Diagnosis Primary Impression: Acute renal failure Qualified Codes: N17.9 - Acute kidney failure, unspecified Additional Impressions: Poorly controlled diabetes mellitus Leukocytosis Qualified Codes: D72.829 - Elevated white blood cell count, unspecified Admitting Information Admitting Physician Requests: Admit Bina Becker MD Feb 27, 2017 07:47
[2017-02-27 07:50] LABS: AUTOMATED NEUTROPHIL # 9.2 TH/MM3 (1.8-7.7); BASOPHIL # 0.1 TH/MM3 (0-0.2); BASOPHIL % 0.7 % (0.0-2.0); EOSINOPHIL # 0.2 TH/MM3 (0-0.4); EOSINOPHIL % 1.6 % (0.0-4.0); HEMATOCRIT 48.5 % (39.0-51.0); LYMPH % 26.3 % (9.0-44.0); LYMPHOCYTE # 3.7 TH/MM3 (1.0-4.8); MEAN CELL VOLUME 93.3 FL (80.0-100.0); MEAN CORPUSCULAR HEMOGLOBIN 31.6 PG (27.0-34.0); MEAN CORPUSCULAR HGB CONC 33.9 % (32.0-36.0); MONO % 5.4 % (0.0-8.0); PLATELET COUNT 170 TH/MM3 (150-450); RED CELL DISTRIBUTION WIDTH 12.4 % (11.6-17.2); WHITE BLOOD COUNT 13.9 TH/MM3 (4.0-11.0)
[2017-02-27 07:53] LABS: HEMO FLAGS AUTO DIFF
[2017-02-27 07:59] LABS: BLOOD, URINE NEG (NEG); COMMENT (UR) CULT NOT INDICATED; CULTURE IF INDICATED CULT NOT INDICATED; GLUCOSE,URINE 1000 mg/dL (NEG); HYALINE CAST, URINE 1 /lpf (RARE); KETONE, URINE 10 mg/dL (NEG); NITRITE,URINE NEG (NEG); PH, URINE 5.5 (5.0-8.5); SQUAMOUS EPITHELIAL CELL URINE <1 /hpf (0-5); URINE COLOR LIGHT-YELLOW (YELLW/STRAW)
--- NOTE | 2017-02-27 08:14 | RADRPT ---
EXAM DATE/TIME: 02/27/2017 07:50 [facility] COMPARISON: CHEST SINGLE AP, July 14, 2016, 10:22. INDICATIONS : Short of breath, high blood sugar. MEDICAL HISTORY : Diabetes mellitus type II. Myocardial infarction. SURGICAL HISTORY : Coronary artery stent. ENCOUNTER: Initial ACUITY: 1 day PAIN SCORE: 2/10 LOCATION: Bilateral chest FINDINGS: Portable AP view of the chest demonstrates a normal-sized cardiac silhouette with calcification of th e aorta. No effusion, consolidation, or pneumothorax is seen. There is a questionable nodular opacity overlying the left lower lungs. Bones and soft tissues demonstrate no acute finding. CONCLUSION: 1. No acute cardiopulmonary abnormality is identified to explain the clinical symptoms. 2. Questionable nodular opacity overlying the left lower lung zone. Suggest correlating with any rece nt chest CTs, if performed. If not available, consider elective chest CT for further evaluation. Moi Fuentes MD on February 27, 2017 at 8:11 Board Certified Radiologist. This report was verified electronically.
[2017-02-27 08:18] LABS: ALKALINE PHOSPHATASE 145 U/L (45-117); ALT (GPT) 55 U/L (12-78); ANION GAP 13 MEQ/L (5-15); AST (GOT) 44 U/L (15-37); BETA-HYDROXYBUTYRATE 2.54 MMOL/L (0.00-0.39); BICARBONATE 20.4 MEQ/L (21.0-32.0); BLOOD UREA NITROGEN 39 MG/DL (7-18); CHLORIDE 88 MEQ/L (98-107); GLOMERULAR FILTRATION RATE 40 ML/MIN (>89); MAGNESIUM 2.1 MG/DL (1.5-2.5); POTASSIUM 4.9 MEQ/L (3.5-5.1); TOTAL BILIRUBIN ADULT 0.8 MG/DL (0.2-1.0)
[2017-02-27 08:27] LABS: PLATELET ESTIMATE SMEAR NORMAL (NORMAL); PLATELET MORPHOLOGY ENLARGED (NORMAL)
[2017-02-27 08:28] LABS: SCAN/DIFF AUTO DIFF CONFIRMED
[2017-02-27 08:36] LABS: CREATINE KINASE 62 U/L (39-308)
[2017-02-27 08:38] LABS: SODIUM (NA) 121 MEQ/L (136-145)
[2017-02-27] MEDS ORDERED: LEVOFLOXACIN 750 MG PREMIX INJ 150 ML IV ONE (08:45)
[2017-02-27 08:51] LABS: BLOOD GAS VENOUS BASE EXCESS -0.5 mmol/L (-2-2); BLOOD GAS VENOUS HCO3 25 mmol/L (22-26); BLOOD GAS VENOUS O2 CONTENT 10.3 Vol % (9.0-17.0); BLOOD GAS VENOUS O2 HGB SAT 45 % (70-76); BLOOD GAS VENOUS PCO2 48 mmHg (44-48); BLOOD GAS VENOUS PO2 28 mmHg (35-40); BLOOD GAS VENOUS pH 7.33 (7.360-7.400); TEMP CORR TO 98.6
[2017-02-27 08:53] LABS: CRITICAL VALUE YES
[2017-02-27 08:54] LABS: FIO2 21 %; STAT YES
[2017-02-27 09:07] VITALS: BP 149/73; PULSE 73; RESP 16; O2SAT 96
[2017-02-27] MEDS ORDERED: INSULIN ASPART 1,000 UNITS/10 ML VIAL SQ ONE ×3 (09:30→21:15)
[2017-02-27] MEDS ORDERED: SODIUM CHLORIDE 0.9% FLUSH 10 ML FLUSH IV FLUSH PRN (09:30)
--- NOTE | 2017-02-27 09:35 | HHI.HP ---
HPI Service Family Medicine Primary Care Physician No Primary Care Physician Admission Diagnosis diabetes poor control, acute renal failure Diagnoses: International Travel<30 Days: No Contact w/Intl Traveler<30days: No Known Affected Area: No History of Present Illness Patient is a 56-year-old Male with PMHx for HTN and DM2 presented to the ED due to complaints of malaise for the past 2 weeks. Pt stated that for the past 2 wks he has had symptoms of increased urination, increased thirst and nausea. Pt stated he has eaten very little due to the nausea. Endorses fatigue, low energy , chills, and dysuria. Denies CP, fever, diarrhea. Pt reports he has been taking metformin BID. (Mona Mane MD, R1) Review of Systems Constitutional: COMPLAINS OF: Chills, Change in appetite, DENIES: Fever, Weight loss Endocrine: DENIES: Heat/cold intolerance Eyes: COMPLAINS OF: Blurred vision (since) Ears, nose, mouth, throat: DENIES: Tinnitus, Ear Pain Respiratory: COMPLAINS OF: Cough (2 wks, productive sputum, morfin in color, quantity has remained the same ), Sputum production, DENIES: Wheezing, Hemoptysis, Shortness of breath Cardiovascular: DENIES: Chest pain, Palpitations Gastrointestinal: COMPLAINS OF: Constipation (last BM was 2 weeks ago), Nausea , DENIES: Abdominal pain, Vomiting Musculoskeletal: COMPLAINS OF: Muscle aches (chronic) Integumentary: DENIES: Rash Neurologic: DENIES: Headache, Paresthesias (Mona Mane MD, R1) Past Family Social History Past Medical History Hepatitis C, ischemic heart disease x2 stents (heart attack 6 yrs ago), type 2 diabetes mellitus, hypertension, disease of addiction, disease of alcoholism. Past Surgical History 2000 had diverticulitis with rupture, temporary colostomy and reanastomosis. Reported Medications (Mona Mane MD, R1) Allergies: Coded Allergies: [email or web address] (Unverified Allergy, Severe, 12/04/16) penicillin G (Unverified Allergy, Severe, 12/04/16) Family History 1Father from a motor vehicle accident, mother is 84 and doing reasonably well. -1 sister of breast cancer, a sister and brother are alive and well. -1 son, 1 youngest daughter alive and in good health. -Patient's oldest daughter was murdered 2 weeks ago. 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 Formally educated through 10 years of high school. Pt lives in [place] house (transitional house) Smokes 1 pack per day Denies alcohol and illicit drug use (Mona Mane MD, R1) Physical Exam Vital Signs Vital Signs Date Time Temp Pulse Resp B/P (MAP) Pulse Ox O2 Delivery O2 Flow Rate FiO2 02/27/17 09:07 73 16 149/73 (98) 96 Room Air 02/27/17 07:46 82 98 Room Air 02/27/17 07:33 82 18 98 Room Air 02/27/17 07:33 82 18 165/79 (107) 98 Room Air 02/27/17 07:14 97.8 84 16 170/80 (110) 100 Room Air Physical Exam GENERAL: This is a well-nourished, well-developed patient, in no apparent distress. SKIN: No rashes, ecchymoses or lesions. Cool and dry. HEAD: Atraumatic. Normocephalic. No temporal or scalp tenderness. EYES: Pupils equal round and reactive. Extraocular motions intact. No scleral icterus. No injection or drainage. ENT: Nose without bleeding, purulent drainage or septal hematoma. Throat without erythema, tonsillar hypertrophy or exudate. Uvula midline. Airway patent. NECK: Trachea midline. No JVD or lymphadenopathy. Supple, nontender, no meningeal signs. CARDIOVASCULAR: Normal S1 and S2. Regular rate and rhythm without murmurs, gallops, or rubs. RESPIRATORY: Clear to auscultation. Breath sounds equal bilaterally. No wheezes , rales, or rhonchi. GASTROINTESTINAL: Abdomen soft, non-tender, nondistended. No hepato-splenomegaly , or palpable masses. No guarding. MUSCULOSKELETAL: Extremities without clubbing, cyanosis, or edema. No joint tenderness, effusion, or edema noted. No calf tenderness. Negative Homans sign bilaterally. NEUROLOGICAL: Awake and alert. Cranial nerves II through XII intact. Motor and sensory grossly within normal limits. Five out of 5 muscle strength in all muscle groups. Normal speech. Laboratory Laboratory Tests Test 02/27/17 07:37 02/27/17 08:41 White Blood Count 13.9 Red Blood Count 5.20 Hemoglobin 16.4 Hematocrit 48.5 Mean Corpuscular Volume 93.3 Mean Corpuscular Hemoglobin 31.6 Mean Corpuscular Hemoglobin Concent 33.9 Red Cell Distribution Width 12.4 Platelet Count 170 Mean Platelet Volume 12.2 Neutrophils (%) (Auto) 66.0 Lymphocytes (%) (Auto) 26.3 Monocytes (%) (Auto) 5.4 Eosinophils (%) (Auto) 1.6 Basophils (%) (Auto) 0.7 Neutrophils # (Auto) 9.2 Lymphocytes # (Auto) 3.7 Monocytes # (Auto) 0.7 Eosinophils # (Auto) 0.2 Basophils # (Auto) 0.1 CBC Comment AUTO DIFF Differential Comment AUTO DIFF CONFIRMED Platelet Estimate NORMAL Platelet Morphology Comment ENLARGED Urine Color LIGHT-YELLOW Urine Turbidity CLEAR Urine pH 5.5 Urine Specific [place] 1.025 Urine Protein NEG Urine Glucose (UA) 1000 Urine Ketones 10 Urine Occult Blood NEG Urine Nitrite NEG Urine Bilirubin NEG Urine Urobilinogen LESS THAN 2.0 Urine Leukocyte Esterase NEG Urine RBC 1 Urine WBC 4 Urine Squamous Epithelial Cells <1 Urine Hyaline Casts 1 Microscopic Urinalysis Comment CULT NOT INDICATED Blood Urea Nitrogen 39 Creatinine 1.75 Random Glucose 776 Total Protein 8.1 Albumin 3.9 Calcium Level 9.3 Phosphorus Level 3.1 Magnesium Level 2.1 Alkaline Phosphatase 145 Aspartate Amino Transf (AST/SGOT) 44 Alanine Aminotransferase (ALT/SGPT) 55 Total Bilirubin 0.8 Sodium Level 121 Potassium Level 4.9 Chloride Level 88 Carbon Dioxide Level 20.4 Anion Gap 13 Estimat Glomerular Filtration Rate 40 Total Creatine Kinase 62 Troponin I LESS THAN 0.02 B-Hydroxybutyrate 2.54 Blood Gas Puncture Site DRAWN BY RN Blood Gas Patient Temperature 98.6 Venous Blood pH 7.33 Venous Blood Partial Pressure CO2 48 Venous Blood Partial Pressure O2 28 Venous Blood HCO3 25 Venous Blood Oxygen Saturation 45 Venous Blood Oxygen Content 10.3 Venous Blood Base Excess -0.5 Blood Gas Inspired Oxygen 21 (Mona Mane MD, R1) Result Diagram: 02/27/17 0737 02/27/17 0737 Imaging Last Impressions Chest X-Ray 02/27/17 0000 Signed Impressions: Service Date/Time: Monday, February 27, 2017 07:50 - CONCLUSION: 1. No acute cardiopulmonary abnormality is identified to explain the clinical symptoms. 2. Questionable nodular opacity overlying the left lower lung zone. Suggest correlating with any recent chest CTs, if performed. If not available, consider elective chest CT for further evaluation. Moi Fuentes MD (Mona Mane MD, R1) Septic Shock Reassessment Heart: Regular rate and rhythm Lungs: Clear Skin: Warm, Dry Peripheral Pulses: Bounding Right Radial Bounding Left Radial Bounding Right Popliteal Bounding Left Popliteal Bounding Right Dorsalis Pedis Bounding Left Dorsalis Pedis Bounding Right Posterior Tibial Bounding Left Posterior Tibial Capillary Refill: <2 seconds (Mona Mane MD, R1) Caprini VTE Risk Assessment Caprini VTE Risk Assessment: Mod/High Risk (score >= 2) Caprini Risk Assessment Model Point Value = 1 Point Value = 2 Point Value = 3 Point Value = 5 Age 41-60 Minor surgery BMI > 25 kg/m2 Swollen legs Varicose veins or History of unexplained or recurrent spontaneous Oral contraceptives or hormone replacement Sepsis (< 1 month) Serious lung disease, including pneumonia (< 1 month) Abnormal pulmonary function Acute myocardial infarction Congestive heart failure (< 1 month) History of inflammatory bowel disease Medical patient at bed rest Age 61-74 Arthroscopic surgery Major open surgery (> 45 min) Laparoscopic surgery (> 45 min) Malignancy Confined to bed (> 72 hours) Immobilizing plaster cast Central venous access Age >= 75 History of VTE Family history of VTE Factor V Leiden Prothrombin [id number] Lupus anticoagulant Anticardiolipin antibodies Elevated serum homocysteine Heparin-induced thrombocytopenia Other congenital or acquired thrombophilia Stroke (< 1 month) Elective arthroplasty Hip, pelvis, or leg fracture Acute spinal cord injury (< 1 month) Prophylaxis Regimen Total Risk Factor Score Risk Level Prophylaxis Regimen 0-1 Low Early ambulation 2 Moderate Order ONE of the following: *Sequential Compression Device (SCD) *Heparin 5000 units SQ BID 3-4 Higher Order ONE of the following medications: *Heparin 5000 units SQ TID *Enoxaparin/Lovenox 40 mg SQ daily (WT < 150 kg, CrCl > 30 mL/min) *Enoxaparin/Lovenox 30 mg SQ daily (WT < 150 kg, CrCl > 10-29 mL/min) *Enoxaparin/Lovenox 30 mg SQ BID (WT < 150 kg, CrCl > 30 mL/min) AND/OR *Sequential Compression Device (SCD) 5 or more Highest Order ONE of the following medications: *Heparin 5000 units SQ TID (Preferred with Epidurals) *Enoxaparin/Lovenox 40 mg SQ daily (WT < 150 kg, CrCl > 30 mL/min) *Enoxaparin/Lovenox 30 mg SQ daily (WT < 150 kg, CrCl > 10-29 mL/min) *Enoxaparin/Lovenox 30 mg SQ BID (WT < 150 kg, CrCl > 30 mL/min) AND *Sequential Compression Device (SCD) (Mona Mane MD, R1) Assessment and Plan Assessment and Plan Patient is a 56-year-old Male presented to the ED due to 2 week hx of malaise, dysuria. Patient admitted for management of HHS. Code Status Full code Discussed Condition With sdw Dr. Chavez and Dr. Gallagher (Mona Mane MD, R1) Attending Attestation Patient seen and examined. Case reviewed and discussed with the resident team. Agree with plan of care as discussed with me and documented in the resident note. pt seen on admission with the residents. agree with treatment for HHS (Amy Chavez MD) Problem List: (1) Type 2 diabetes mellitus with hyperosmolar nonketotic hyperglycemia ICD Codes: E11.01 - Type 2 diabetes mellitus with hyperosmolarity with coma Status: Acute Plan: Patient found to have blood glucose of 776 on admission. Pt currently stable. -In the ED pt given fluid bolus x 2 -Beta-hydroxybutyrate 2.54, WBC- 13.9. H/H WNL, VBG- 7.33/ Co2-48/ pO2-28/HCO3- 25 -negative- UA -Na- 121, likely pseudohyponatremia, corrected 132, will continue to monitor -c/w IVF 1/2NS-Kcl @ 250mls/hr -Pt given 20 units of insulin to help control hyperglycemia, will continue to monitor and adjust insulin as needed -last A1C- 9 on 07/12/15, will repeat -BG checks Q1h until BG 200 then will restart patient on diabetic diet -f/u series BMP Q4h (2) Hypertension ICD Codes: I10 - Essential (primary) hypertension Status: Acute Plan: slightly hypertensive on admission 165/79 -c/w HTN home medications -continue to monitor vs (3) Nutrition, metabolism, and development symptoms ICD Codes: R63.8 - Other symptoms and signs concerning food and fluid intake Plan: Fluids: 250mls/hr 1/2NS and KCl 20mEq Electrolytes: Na-121 on admission, will continue to monitor and replete at needed Nutrition: NPO, once BG read of 200 will restart diabetic diet DVT ppx: lovenox 40mg Q24h SQ (Mona Mane MD, R1) Physician Certification 2 Midnight Certification Type: Admission for Inpatient Services Order for Inpatient Services The services are ordered in accordance with Medicare regulations or non- Medicare payer requirements, as applicable. In the case of services not specified as inpatient-only, they are appropriately provided as inpatient services in accordance with the 2-midnight benchmark. Estimated LOS (days): 2 days is the estimated time the patient will need to remain in the hospital, assuming treatment plan goals are met and no additional complications. Post-Hospital Plan: Not yet determined (Mona Mane MD, R1) Problem Qualifiers (1) Hypertension: Qualified Codes: I10 - Essential (primary) hypertension Mona Mane MD, R1 Feb 27, 2017 09:35 Amy Chavez MD Feb 28, 2017 13:55
[2017-02-27] MEDS ORDERED: ONDANSETRON HCL 4 MG/2 ML VIAL IVP PRN (10:30)
[2017-02-27] MEDS ORDERED: SENNOSIDES 8.6 MG TAB PO PRN (10:30)
[2017-02-27] MEDS ORDERED: LACTULOSE SYRUP 20 GM/30 ML CUP PO PRN (10:30)
[2017-02-27] MEDS ORDERED: ZOLPIDEM TARTRATE 5 MG TAB PO PRN (10:30)
[2017-02-27] MEDS ORDERED: BISACODYL 10 MG SUPP RECTAL PRN (10:30)
[2017-02-27] MEDS ORDERED: MAGNESIUM HYDROXIDE SUSP 30 ML CUP PO PRN (10:30)
[2017-02-27] MEDS ORDERED: NALOXONE HCL 0.4 MG/ML AMP IV PUSH PRN (10:30)
[2017-02-27] MEDS ORDERED: ACETAMINOPHEN 325 MG TAB PO PRN (10:30)
[2017-02-27] MEDS: 1/2 NS + KCL 20 MEQ INJ 1,000 ML IV SCH ×3 (11:33→17:16)
[2017-02-27] MEDS: DOCUSATE SODIUM 50 MG/SENNA 8.6 MG TAB PO SCH ×2 (11:34→20:43)
--- NOTE | 2017-02-27 12:51 | EKG ---
Date Performed: 02/27/2017 Time Performed: 07:47:59 PTAGE: 56 years EKG: Sinus rhythm MARKED LEFT AXIS DEVIATION NONSPECIFIC T-WAVE ABNORMALITY ABNORMAL ECG PREVIOUS TRACING : 07/14/2016 16.11 DOCTOR: Ash Fletcher Interpretating Date/Time 02/27/2017 12:49:04
[2017-02-27 13:44] LABS: BICARBONATE 23.3 MEQ/L (21.0-32.0)
[2017-02-27] MEDS: ENOXAPARIN SODIUM 40 MG/0.4 ML SYRINGE SQ SCH (14:04)
[2017-02-27] MEDS ORDERED: DEXTROSE 50% IN WATER 50 ML VIAL(D50) IV PUSH PRN (14:45)
[2017-02-27] MEDS ORDERED: GLUCAGON 1 MG/ML VIAL OTHER PRN (14:45)
[2017-02-27 16:00] LABS: POTASSIUM 4.7 MEQ/L (3.5-5.1)
[2017-02-27 16:03] VITALS: BP 134/65; PULSE 69; RESP 18; TEMP 98.3; O2SAT 96
[2017-02-27] MEDS ORDERED: PROMETHAZINE INJ 25 MG/ML VIAL IM PRN (16:15)
[2017-02-27] MEDS: LISINOPRIL 20 MG TAB PO SCH (17:12)
[2017-02-27 20:00] VITALS: BP 122/61; PULSE 79; PULSE 80; RESP 18; TEMP 98.7; O2SAT 99
[2017-02-27] MEDS: NS + KCL 20 MEQ INJ 1,000 ML IV SCH (20:41)
[2017-02-27] MEDS ORDERED: INSULIN DETEMIR 100 UNITS/ML VIAL SQ SCH (21:00)
[2017-02-27] MEDS ORDERED: INSULIN ASPART SUPPLEMENTAL SCALE SQ SCH (21:00)
[2017-02-27] MEDS ORDERED: SODIUM CHLORIDE 0.9% FLUSH 10 ML FLUSH IV FLUSH SCH (21:00)
[2017-02-27] MEDS ORDERED: INSULIN DETEMIR 100 UNITS/ML VIAL SQ ONE (21:15)
[2017-02-28] VITALS (8 sets, daily range): BP systolic 128–148; BP diastolic 60–71; PULSE 66–74; RESP 18–20; TEMP 98.1–98.8; O2SAT 95–99
[2017-02-28] MEDS: NS + KCL 20 MEQ INJ 1,000 ML IV SCH ×3 (05:16→19:27)
[2017-02-28] MEDS: INSULIN ASPART SUPPLEMENTAL SCALE SQ SCH ×4 (08:00→22:23)
[2017-02-28] MEDS: INSULIN ASPART 1,000 UNITS/10 ML VIAL SQ SCH ×3 (08:00→17:00)
[2017-02-28 08:32] LABS: AUTOMATED NEUTROPHIL # 5.8 TH/MM3 (1.8-7.7); BASOPHIL % 0.4 % (0.0-2.0); EOSINOPHIL # 0.2 TH/MM3 (0-0.4); EOSINOPHIL % 2.3 % (0.0-4.0); HEMATOCRIT 39.9 % (39.0-51.0); HEMO FLAGS DIFF FINAL; LYMPH % 29.2 % (9.0-44.0); LYMPHOCYTE # 2.7 TH/MM3 (1.0-4.8); MEAN CELL VOLUME 89.7 FL (80.0-100.0); MEAN CORPUSCULAR HEMOGLOBIN 31.2 PG (27.0-34.0); MEAN CORPUSCULAR HGB CONC 34.8 % (32.0-36.0); MONO % 5.1 % (0.0-8.0); PLATELET COUNT 130 TH/MM3 (150-450); RED BLOOD COUNT 4.45 MIL/MM3 (4.50-5.90); RED CELL DISTRIBUTION WIDTH 12.1 % (11.6-17.2); WHITE BLOOD COUNT 9.2 TH/MM3 (4.0-11.0)
[2017-02-28] MEDS: amLODIPine BESYLATE 5 MG TAB PO SCH (08:43)
[2017-02-28] MEDS: ASPIRIN 325 MG TAB PO SCH (08:43)
[2017-02-28] MEDS: INSULIN DETEMIR 100 UNITS/ML VIAL SQ SCH ×2 (08:44→22:23)
[2017-02-28] MEDS: DOCUSATE SODIUM 50 MG/SENNA 8.6 MG TAB PO SCH ×2 (08:44→21:00)
[2017-02-28] MEDS: LISINOPRIL 20 MG TAB PO SCH (08:44)
[2017-02-28 08:49] LABS: POTASSIUM 4.1 MEQ/L (3.5-5.1)
--- NOTE | 2017-02-28 12:09 | HHI.HP ---
[facility] Service Family Medicine Primary Care Physician No Primary Care Physician Admission Diagnosis diabetes poor control, acute renal failure Diagnoses: (1) Type 2 diabetes mellitus with hyperosmolar nonketotic hyperglycemia Diagnosis: Principal (2) Hypertension Diagnosis: Principal (3) Nutrition, metabolism, and development symptoms Diagnosis: Principal International Travel<30 Days: No Contact w/Intl Traveler<30days: No Known Affected Area: No History of Present Illness Mr Abarca is a 56-year-old Male with PMHx for HTN and DM2 who presented to the ED due to complaints of malaise for the past 2 weeks. Pt stated that for the past 2 wks he has had symptoms of increased urination, increased thirst and nausea. Pt stated he has eaten very little due to the nausea. Endorses fatigue, low energy, chills, and dysuria. Denies CP, fever, diarrhea. Pt reports he has been taking metformin BID. He suffered the loss of his daughter because of murder 2 weeks ago and has been grieving for that period of time. Overnight, he had improvement of his glucoses overall and wishes to talk to a Supply Planner. He has used insulin in the past and reports being comfortable with this and with checking his glucoses at home. He denied any suicidal or homicidal ideation when he was admitted. There is however a temporal link between his grief and his worsening health with the high sugars. He does not feel back to normal today. Review of Systems Other Constitutional: COMPLAINS OF: Chills, Change in appetite, DENIES: Fever, Weight loss Endocrine: DENIES: Heat/cold intolerance Eyes: COMPLAINS OF: Blurred vision (since) Ears, nose, mouth, throat: DENIES: Tinnitus, Ear Pain Respiratory: COMPLAINS OF: Cough (2 wks, productive sputum, morfin in color, quantity has remained the same ), Sputum production, DENIES: Wheezing, Hemoptysis, Shortness of breath Cardiovascular: DENIES: Chest pain, Palpitations Gastrointestinal: COMPLAINS OF: Constipation (last BM was 2 weeks ago), Nausea , DENIES: Abdominal pain, Vomiting Musculoskeletal: COMPLAINS OF: Muscle aches (chronic) Integumentary: DENIES: Rash Neurologic: DENIES: Headache, Paresthesias Past Family Social History Past Medical History Hepatitis C, ischemic heart disease x2 stents (heart attack 6 yrs ago), type 2 diabetes mellitus, hypertension, disease of addiction, disease of alcoholism. Past Surgical History 2001 had diverticulitis with rupture, temporary colostomy and reanastomosis. Allergies: Coded Allergies: [email or web address] (Unverified Allergy, Severe, 12/04/16) penicillin G (Unverified Allergy, Severe, 12/04/16) Family History Father from a motor vehicle accident, mother is 84 and doing reasonably well. -1 sister of breast cancer, a sister and brother are alive and well. -1 son, 1 youngest daughter alive and in good health. -Patient's oldest daughter was murdered 2 weeks ago. 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 Formally educated through 10 years of high school. Pt lives in [facility] (transitional house) Smokes 1 pack per day Denies alcohol and illicit drug use Physical Exam Vital Signs Vital Signs Date Time Temp Pulse Resp B/P (MAP) Pulse Ox O2 Delivery O2 Flow Rate FiO2 02/28/17 09:00 99 Room Air 02/28/17 08:00 98.1 70 20 143/66 (91) 99 02/28/17 04:00 98.3 73 18 136/65 (88) 99 02/28/17 00:00 98.8 68 18 128/60 (82) 95 02/27/17 20:00 79 02/27/17 20:00 Room Air 02/27/17 20:00 98.7 80 18 122/61 (81) 99 02/27/17 17:12 02/27/17 16:03 98.3 69 18 134/65 (88) 96 02/27/17 16:00 96 Room Air Physical Exam GENERAL: This is a well-nourished, well-developed patient, in no apparent physical distress. No ketone smell on his breath. No increased rate of breathing. hungry SKIN: No rashes, ecchymoses or lesions. Cool and dry. HEAD: Atraumatic. Normocephalic. EYES: Pupils equal round and reactive. Extraocular motions intact. No scleral icterus. No injection or drainage. ENT: Nose without bleeding, purulent drainage or septal hematoma. Throat without erythema, tonsillar hypertrophy or exudate. Uvula midline. Airway patent. NECK: Trachea midline. No JVD or lymphadenopathy. Supple, nontender, no meningeal signs. CARDIOVASCULAR: Normal S1 and S2. Regular rate and rhythm without murmurs, gallops, or rubs. RESPIRATORY: Clear to auscultation. Breath sounds equal bilaterally. No wheezes , rales, or rhonchi. GASTROINTESTINAL: Abdomen soft, non-tender, nondistended. No hepato-splenomegaly , or palpable masses. No guarding. MUSCULOSKELETAL: Extremities without clubbing, cyanosis, or edema. No joint tenderness, effusion, or edema noted. No calf tenderness. Negative Homans sign bilaterally. NEUROLOGICAL: Awake and alert. Cranial nerves II through XII intact. Motor and sensory grossly within normal limits including feet. Five out of 5 muscle strength in all muscle groups. Normal speech. Laboratory Laboratory Tests Test 02/27/17 12:15 02/27/17 15:26 02/28/17 07:40 Blood Urea Nitrogen 35 32 24 Creatinine 1.38 1.12 0.76 Random Glucose 477 296 258 Calcium Level 8.9 8.4 8.3 Sodium Level 132 132 134 Potassium Level 5.0 4.7 4.1 Chloride Level 99 103 105 Carbon Dioxide Level 23.3 24.0 20.0 Anion Gap 10 5 9 Estimat Glomerular Filtration Rate 53 67 105 White Blood Count 9.2 Red Blood Count 4.45 Hemoglobin 13.9 Hematocrit 39.9 Mean Corpuscular Volume 89.7 Mean Corpuscular Hemoglobin 31.2 Mean Corpuscular Hemoglobin Concent 34.8 Red Cell Distribution Width 12.1 Platelet Count 130 Mean Platelet Volume 11.6 Neutrophils (%) (Auto) 63.0 Lymphocytes (%) (Auto) 29.2 Monocytes (%) (Auto) 5.1 Eosinophils (%) (Auto) 2.3 Basophils (%) (Auto) 0.4 Neutrophils # (Auto) 5.8 Lymphocytes # (Auto) 2.7 Monocytes # (Auto) 0.5 Eosinophils # (Auto) 0.2 Basophils # (Auto) 0.0 CBC Comment DIFF FINAL Differential Comment Date/Time Source Procedure Growth Status 02/28/17 06:00 Urine Clean Catch Urine Culture Pending Received Result Diagram: 02/28/17 0740 02/28/17 0740 Imaging Last Impressions Chest X-Ray 02/27/17 0000 Signed Impressions: Service Date/Time: Monday, February 27, 2017 07:50 - CONCLUSION: 1. No acute cardiopulmonary abnormality is identified to explain the clinical symptoms. 2. Questionable nodular opacity overlying the left lower lung zone. Suggest correlating with any recent chest CTs, if performed. If not available, consider elective chest CT for further evaluation. MD Duong Can VTE Risk Assessment Caprini VTE Risk Assessment: Mod/High Risk (score >= 2) Caprini Risk Assessment Model Point Value = 1 Point Value = 2 Point Value = 3 Point Value = 5 Age 41-60 Minor surgery BMI > 25 kg/m2 Swollen legs Varicose veins or History of unexplained or recurrent spontaneous Oral contraceptives or hormone replacement Sepsis (< 1 month) Serious lung disease, including pneumonia (< 1 month) Abnormal pulmonary function Acute myocardial infarction Congestive heart failure (< 1 month) History of inflammatory bowel disease Medical patient at bed rest Age 61-74 Arthroscopic surgery Major open surgery (> 45 min) Laparoscopic surgery (> 45 min) Malignancy Confined to bed (> 72 hours) Immobilizing plaster cast Central venous access Age >= 75 History of VTE Family history of VTE Factor V Leiden Prothrombin [id number] Lupus anticoagulant Anticardiolipin antibodies Elevated serum homocysteine Heparin-induced thrombocytopenia Other congenital or acquired thrombophilia Stroke (< 1 month) Elective arthroplasty Hip, pelvis, or leg fracture Acute spinal cord injury (< 1 month) Prophylaxis Regimen Total Risk Factor Score Risk Level Prophylaxis Regimen 0-1 Low Early ambulation 2 Moderate Order ONE of the following: *Sequential Compression Device (SCD) *Heparin 5000 units SQ BID 3-4 Higher Order ONE of the following medications: *Heparin 5000 units SQ TID *Enoxaparin/Lovenox 40 mg SQ daily (WT < 150 kg, CrCl > 30 mL/min) *Enoxaparin/Lovenox 30 mg SQ daily (WT < 150 kg, CrCl > 10-29 mL/min) *Enoxaparin/Lovenox 30 mg SQ BID (WT < 150 kg, CrCl > 30 mL/min) AND/OR *Sequential Compression Device (SCD) 5 or more Highest Order ONE of the following medications: *Heparin 5000 units SQ TID (Preferred with Epidurals) *Enoxaparin/Lovenox 40 mg SQ daily (WT < 150 kg, CrCl > 30 mL/min) *Enoxaparin/Lovenox 30 mg SQ daily (WT < 150 kg, CrCl > 10-29 mL/min) *Enoxaparin/Lovenox 30 mg SQ BID (WT < 150 kg, CrCl > 30 mL/min) AND *Sequential Compression Device (SCD) Assessment and Plan Assessment and Plan Patient is a 56-year-old Male presented to the ED due to 2 week hx of malaise, dysuria. Patient admitted for management of HHS. Problem List: (1) Type 2 diabetes mellitus with hyperosmolar nonketotic hyperglycemia ICD Codes: E11.01 - Type 2 diabetes mellitus with hyperosmolarity with coma Status: Acute Plan: Patient found to have blood glucose of 776 on admission. Pt currently stable. -In the ED pt given fluid bolus x 2 -Beta-hydroxybutyrate 2.54, WBC- 13.9. H/H WNL, VBG- 7.33/ Co2-48/ pO2-28/HCO3- 25 -negative- UA -Na- 121, likely pseudohyponatremia, corrected 132, will continue to monitor -c/w IVF 1/2NS-Kcl @ 250mls/hr -Pt given 20 units of insulin to help control hyperglycemia, will continue to monitor and adjust insulin as needed -last A1C- 9 on 07/12/15, will repeat -BG checks Q1h until BG 200 then will restart patient on diabetic diet -f/u series BMP Q4h, can check less frequently today as he is improved with HHS patients normally require 6-8 liters of fluid so will continue that today (2) Hypertension ICD Codes: I10 - Essential (primary) hypertension Status: Acute Plan: slightly hypertensive on admission 165/79 -c/w HTN home medications -continue to monitor vs (3) Nutrition, metabolism, and development symptoms ICD Codes: R63.8 - Other symptoms and signs concerning food and fluid intake Plan: Fluids: 250mls/hr 1/2NS and KCl 20mEq Electrolytes: Na-121 on admission, will continue to monitor and replete at needed Nutrition: NPO, once BG read of 200 will restart diabetic diet DVT ppx: lovenox 40mg Q24h SQ will watch for any signs of alcohol withdrawal as he had a substance abuse problem but has been abstinent for awhile but grief can increase the chance of relapse Problem Qualifiers (1) Hypertension: Qualified Codes: I10 - Essential (primary) hypertension Amy Chavez MD Feb 28, 2017 12:09
[2017-02-28] MEDS: ENOXAPARIN SODIUM 40 MG/0.4 ML SYRINGE SQ SCH (13:00)
[2017-02-28 20:57] LABS: HEMOGLOBIN A1a 1.1 %; HEMOGLOBIN A1b 1.4 %; HEMOGLOBIN Ao 70.5 %; HEMOGLOBIN F 2.4 %; HEMOGLOBIN LA1C 3.2 %
[2017-03-01] VITALS: BP 121/60; PULSE 71; RESP 16; TEMP 98.5; O2SAT 97
[2017-03-01] MEDS: NS + KCL 20 MEQ INJ 1,000 ML IV SCH ×3 (00:27→06:44)
[2017-03-01 04:00] VITALS: BP 150/74; PULSE 68; RESP 18; TEMP 98.4; O2SAT 95
[2017-03-01] MEDS: INSULIN ASPART 1,000 UNITS/10 ML VIAL SQ SCH (08:00)
[2017-03-01] MEDS: INSULIN ASPART SUPPLEMENTAL SCALE SQ SCH (08:00)
[2017-03-01] MEDS: INSULIN DETEMIR 100 UNITS/ML VIAL SQ SCH (09:00)
[2017-03-01 09:24] VITALS: BP 158/79; PULSE 66; RESP 18; TEMP 98.4; O2SAT 94
[2017-03-01] MEDS: LISINOPRIL 20 MG TAB PO SCH (09:25)
[2017-03-01] MEDS: amLODIPine BESYLATE 5 MG TAB PO SCH (09:25)
[2017-03-01] MEDS: DOCUSATE SODIUM 50 MG/SENNA 8.6 MG TAB PO SCH (09:25)
[2017-03-01] MEDS: ASPIRIN 325 MG TAB PO SCH (09:26)
[2017-03-01 09:55] LABS: BICARBONATE 19.1 MEQ/L (21.0-32.0)
[2017-03-01] MEDS ORDERED: NOVOINJ3 SQ (10:36)
--- NOTE | 2017-03-01 10:37 | HHI.DCPOC ---
Discharge Care Plan Diagnosis: (1) Type 2 diabetes mellitus with hyperosmolar nonketotic hyperglycemia (2) Acute renal failure (3) Hypertension (4) Dyslipidemia (high LDL; low HDL) Goals to Promote Your Health * To prevent worsening of your condition and complications * To maintain your health at the optimal level Directions to Meet Your Goals Take your medications as prescribed Follow your dietary instruction Follow activity as directed Keep your appointments as scheduled Take your immunizations and boosters as scheduled If your symptoms worsen call your PCP, if no PCP go to Urgent Care Center or Emergency Room Smoking is Dangerous to Your Health. Avoid second hand smoke Call the 24-hour hour crisis hotline for domestic abuse at Sunday Gallagher MD R2 Mar 01, 2017 10:37 am
[2017-03-01] MEDS ORDERED: NOVOLOGP2 SQ (12:34)
[2017-03-01] MEDS ORDERED: [UNRECOGNIZED DRUG - CODE] (12:34)
--- NOTE | 2017-03-01 12:38 | HHI.FPPN ---
Subjective Remarks No acute events overnight. Vitals as noted below. Today he feels well, denies CP /SOB. Still a little lightheaded occasionally but much less so than admission. Would like to go home today. (Sunday Gallagher MD R2) Objective Vitals Vital Signs Date Time Temp Pulse Resp B/P (MAP) Pulse Ox O2 Delivery O2 Flow Rate FiO2 03/01/17 09:24 98.4 66 18 158/79 (105) 94 03/01/17 04:00 98.4 68 18 150/74 (99) 95 03/01/17 04:00 Room Air 03/01/17 00:00 Room Air 03/01/17 00:00 98.5 71 16 121/60 (80) 97 02/28/17 20:13 73 02/28/17 20:00 98.1 74 18 137/69 (91) 97 02/28/17 20:00 Room Air 02/28/17 16:00 98.2 66 20 141/67 (91) 96 I/O 02/28/17 02/28/17 02/28/17 03/01/17 03/01/17 03/01/17 07:00 15:00 23:00 07:00 15:00 23:00 Intake Total 1324 ml 960 ml 2457 ml Output Total 800 ml 1100 ml 1600 ml 400 ml Balance 524 ml -140 ml 857 ml -400 ml Intake Oral 240 ml 960 ml 750 ml IV Total 1084 ml 1707 ml Output Urine Total 800 ml 1100 ml 1600 ml 400 ml # Voids 1 # Bowel Movements 1 1 1 (Sunday Gallagher MD R2) Result Diagram: 02/28/17 0740 03/01/17 0735 Imaging Last Impressions Chest X-Ray 02/27/17 0000 Signed Impressions: Service Date/Time: Monday, February 27, 2017 07:50 - CONCLUSION: 1. No acute cardiopulmonary abnormality is identified to explain the clinical symptoms. 2. Questionable nodular opacity overlying the left lower lung zone. Suggest correlating with any recent chest CTs, if performed. If not available, consider elective chest CT for further evaluation. Moi Fuentes MD Objective Remarks Gen: WDWN thin adult white male sitting in chair by window in NAD Vitals: As above Lungs: CTAB. No distress. No crackles or wheezes. Heart: NRRR, normal S1/S2, no murmur MSK: No cyanosis or edema Neuro: Awake, alert. Moves all extremities without difficulty. (Sunday Gallagher MD R2) A/P Assessment and Plan Patient is a 56-year-old male presenting with: (Sunday Gallagher MD R2) Attending Attestation Patient seen and examined. Case reviewed and discussed with the resident team. Agree with plan of care as discussed with me and documented in the resident note. he knows how to use insulin to keep his glucoses from rising too high. after his daughters he may have eaten very poorly and may be fine in the future on his regular diabetic meds (Amy Chavez MD) Problem List: (1) Type 2 diabetes mellitus with hyperosmolar nonketotic hyperglycemia ICD Codes: E11.01 - Type 2 diabetes mellitus with hyperosmolarity with coma Status: Resolved Plan: Patient found to have blood glucose of 776 on admission. Corrected with insulin. BSG last 24 hours 145-255 -Discharge home with metformin 1000 mg BIDPC and sliding scale insulin -F/u with Dr. Mae in 3-5 days (2) Hypertension ICD Codes: I10 - Essential (primary) hypertension Status: Chronic Plan: BP normal for most measurements, but occasionally in the 150s - Continue home BP meds - F/u with Dr. Mae as above (Sunday Gallagher MD R2) Problem Qualifiers (1) Hypertension: Qualified Codes: I10 - Essential (primary) hypertension Sunday Gallagher MD R2 Mar 01, 2017 12:38 Amy Chavez MD Mar 02, 2017 15:28
--- NOTE | 2017-03-01 13:37 | HHI.DS ---
Discharge Summary Admission Date Feb 27, 2017 at 09:16 Discharge Date: Mar 01, 2017 Admitting Diagnosis diabetes poor control, acute renal failure (1) Type 2 diabetes mellitus with hyperosmolar nonketotic hyperglycemia Diagnosis: Principal Plan: Patient found to have blood glucose of 776 on admission. Corrected with insulin. BSG last 24 hours 145-255 -Discharge home with metformin 1000 mg BIDPC and sliding scale insulin -F/u with Dr. Mae in 3-5 days ICD Codes: E11.01 - Type 2 diabetes mellitus with hyperosmolarity with coma Status: Resolved (2) Hypertension Diagnosis: Secondary Plan: BP normal for most measurements, but occasionally in the 150s - Continue home BP meds - F/u with Dr. Mae as above ICD Codes: I10 - Essential (primary) hypertension Status: Chronic Brief History Mr Abarca is a 56-year-old Male with PMHx for HTN and DM2 who presented to the ED due to complaints of malaise for the past 2 weeks. Pt stated that for the past 2 wks he has had symptoms of increased urination, increased thirst and nausea. Pt stated he has eaten very little due to the nausea. Endorses fatigue, low energy, chills, and dysuria. Denies CP, fever, diarrhea. Pt reports he has been taking metformin BID. He suffered the loss of his daughter because of murder 2 weeks ago and has been grieving for that period of time. Overnight, he had improvement of his glucoses overall and wishes to talk to a Head Of Talent Management. He has used insulin in the past and reports being comfortable with this and with checking his glucoses at home. He denied any suicidal or homicidal ideation when he was admitted. There is however a temporal link between his grief and his worsening health with the high sugars. He does not feel back to normal today. CBC/BMP: 02/28/17 0740 03/01/17 0735 Significant Findings Laboratory Tests Test 02/27/17 07:37 02/27/17 08:41 02/27/17 12:15 02/27/17 15:26 White Blood Count 13.9 TH/MM3 (4.0-11.0) Mean Platelet Volume 12.2 FL (7.0-11.0) Neutrophils # (Auto) 9.2 TH/MM3 (1.8-7.7) Platelet Morphology Comment ENLARGED (NORMAL) Urine Glucose (UA) 1000 mg/dL (NEG) Urine Ketones 10 mg/dL (NEG) Blood Urea Nitrogen 39 MG/DL (7-18) 35 MG/DL (7-18) 32 MG/DL (7-18) Creatinine 1.75 MG/DL (0.60-1.30) 1.38 MG/DL (0.60-1.30) Random Glucose 776 MG/DL (74-106) 477 MG/DL (74-106) 296 MG/DL (74-106) Alkaline Phosphatase 145 U/L (45-117) Aspartate Amino Transf (AST/SGOT) 44 U/L (15-37) Sodium Level 121 MEQ/L (136-145) 132 MEQ/L (136-145) 132 MEQ/L (136-145) Chloride Level 88 MEQ/L (98-107) Carbon Dioxide Level 20.4 MEQ/L (21.0-32.0) Estimat Glomerular Filtration Rate 40 ML/MIN (>89) 53 ML/MIN (>89) 67 ML/MIN (>89) Troponin I LESS THAN 0.02 NG/ML B-Hydroxybutyrate 2.54 MMOL/L (0.00-0.39) Venous Blood pH 7.33 (7.360-7.400) Venous Blood Partial Pressure O2 28 mmHg (35-40) Venous Blood Oxygen Saturation 45 % (70-76) Calcium Level 8.4 MG/DL (8.5-10.1) Test 02/28/17 07:40 03/01/17 07:35 Red Blood Count 4.45 MIL/MM3 (4.50-5.90) Platelet Count 130 TH/MM3 (150-450) Mean Platelet Volume 11.6 FL (7.0-11.0) Blood Urea Nitrogen 24 MG/DL (7-18) Random Glucose 258 MG/DL (74-106) 189 MG/DL (74-106) Calcium Level 8.3 MG/DL (8.5-10.1) 7.8 MG/DL (8.5-10.1) Sodium Level 134 MEQ/L (136-145) Carbon Dioxide Level 20.0 MEQ/L (21.0-32.0) 19.1 MEQ/L (21.0-32.0) Hemoglobin A1c 15.5 % (4.3-6.0) Imaging Last Impressions Chest X-Ray 02/27/17 0000 Signed Impressions: Service Date/Time: Monday, February 27, 2017 07:50 - CONCLUSION: 1. No acute cardiopulmonary abnormality is identified to explain the clinical symptoms. 2. Questionable nodular opacity overlying the left lower lung zone. Suggest correlating with any recent chest CTs, if performed. If not available, consider elective chest CT for further evaluation. Moi Fuentes MD PE at Discharge Gen: WDWN thin adult white male sitting in chair by window in NAD Vitals: As above Lungs: CTAB. No distress. No crackles or wheezes. Heart: NRRR, normal S1/S2, no murmur MSK: No cyanosis or edema Neuro: Awake, alert. Moves all extremities without difficulty. Hospital Course Admitted due to uncontrolled diabetes with HHS without coma. Initial glucose 776. He was made NPO and given short-acting subcutaneous insulin which brought sugar down to the mid-200s. Patient was given a diet and an insulin regimen including long-acting and preprandial insulin was started, titrated to maintain blood sugar goal 140-180. IV fluids were also started due to acute renal failure which resolved on hospital day 1. Blood sugar stable for discharge on hospital day 2. He is to be discharged with his home metformin as well as a sliding scale insulin. Follow up with PCP advised in 3-5 days. Pt Condition on Discharge: Good Discharge Disposition: Discharge Home Discharge Instructions DIET: Follow Instructions for: Diabetic Diet Activities you can perform: Regular-No Restrictions Follow up Referrals: PCP Follow-up - 3-5 Days with Palmer Mae MD New Medications: Easy Comfort Insulin Syr 31G X 5/16" 0.5 ml (Easy Comfort Insulin Syr 31G X 5/16 " 0.5 ml) 31 Gauge X 5/16" Mis EA .ROUTE DIRECTED for Blood Sugar Management, #1 For sliding scale insulin administration before meals and at bedtime Insulin Aspart Inj (Novolog Inj) 1,000 Unit/10 Ml Vial 1-9 UNITS SQ ACHS for Blood Sugar Management, #10 ML 0 Refills Max dose at bedtime:(4)units; sugars less than 70,(0)units; sugars 150-199,(1) unit; sugars 200-249,(3) units; sugars 250-299,(5) units; sugars 300-349,(7) units; sugars greater than 349,(9) units Continued Medications: Amlodipine (Amlodipine) 5 Mg Tab 5 MG PO DAILY for Blood Pressure Management, #30 TAB 11 Refills Aspirin (Aspirin) 325 Mg Tab 325 MG PO DAILY, #100 TAB 0 Refills Lisinopril (Lisinopril) 40 Mg Tab 40 MG PO DAILY for Blood Pressure Management, #30 TAB 11 Refills Metformin (Metformin) 1,000 Mg Tab 1000 MG PO BIDPC for Blood Sugar Management, #60 TAB 11 Refills With meals Sunday Gallagher MD R2 Mar 01, 2017 13:37
[2017-03-05] MEDS ORDERED: AMLO10TA2 PO ×2 (11:51→12:02)
[2017-03-05] MEDS ORDERED: insulin SQ (11:51)
[2017-03-05] MEDS ORDERED: BUPR150CR PO (11:59)
[2017-03-05] MEDS ORDERED: LISI40TA PO (12:02)
[2017-03-05] MEDS ORDERED: METF1000 PO (12:02)
== END 2017-03-01 12:42 | disposition home or self-care (01) | DRG 638 ==
LOC: NEPE 07:12 → NEDA 09:16 → N04B 15:37
PROVIDERS: ADMIT Family Medicine; ATTEND Family Medicine
DX: E11.00 Type 2 diabetes mellitus with hyperosmolarity without nonketotic hyperglycemic-hyperosmolar coma (NKHHC) (principal); N17.9 Acute kidney failure, unspecified; E11.65 Type 2 diabetes mellitus with hyperglycemia; I10 Essential (primary) hypertension; I25.10 Atherosclerotic heart disease of native coronary artery without angina pectoris; I25.2 Old myocardial infarction; H91.92 Unspecified hearing loss, left ear; F17.210 Nicotine dependence, cigarettes, uncomplicated; F32.9 Major depressive disorder, single episode, unspecified; Z79.84 Long term (current) use of oral hypoglycemic drugs; Z86.19 Personal history of other infectious and parasitic diseases; Z88.0 Allergy status to penicillin; Z95.5 Presence of coronary angioplasty implant and graft
CPT/HCPCS: 71010; 76937; 80048; 80053; 81001; 82010; 82550; 82805; 82948; 83036; 83735; 84100; 84484; 85025; 87086; 93005; 96374; J1650; J1815; J1956; J3480; J7030

== ENCOUNTER 2017-07-22 13:20 | Inpatient (IN) | payer SELFPAY ==
[2017-07-22] VITALS (13 sets, daily range): BP systolic 140–172; BP diastolic 72–93; PULSE 70–89; RESP 11–20; TEMP 98.3–98.4; O2SAT 93–100
[~2017-07-22] VITALS: Ht 172.7 cm; Wt 79.4 kg
[~2017-07-22 13:20] MED LIST changes: +AMLO10TA2 PO; -AMLO5TAB2 PO; -ASPI-516 CHEW; +BUPR150CR PO; -CILO100T PO; +NOVO7030P2 SQ; +NOVOLOGP2 SQ; -PRAV20TA2 PO; +[UNRECOGNIZED DRUG - CODE]; +insulin SQ
--- NOTE | 2017-07-22 14:20 | RADRPT ---
EXAM DATE/TIME: 07/22/2017 13:59 [facility] COMPARISON: No previous studies available for comparison. INDICATIONS : Chest pain. Dizziness. Headache. Disoriented. MEDICAL HISTORY : Diabetes mellitus type II. Myocardial infarction. SURGICAL HISTORY : Coronary artery stent. ENCOUNTER: Subsequent ACUITY: 2 days PAIN SCORE: 5/10 LOCATION: Left upper chest FINDINGS: PA and lateral views of the chest demonstrate the lungs to be symmetrically aerated without evidence of mass, infiltrate or effusion. The cardiomediastinal contours are unremarkable. Osseous structure s are intact. CONCLUSION: The lungs are clear. Les Ann MD on July 22, 2017 at 14:18 Board Certified Radiologist. This report was verified electronically.
[2017-07-22] MEDS ORDERED: ASPIRIN 81 MG CHEW TAB PO ONE (15:00)
--- NOTE | 2017-07-22 15:03 | PD ---
HPI Chief Complaint: Chest Pain Time Seen by Provider: 14:46 Travel History International Travel<30 days: No Contact w/Intl Traveler<30days: No Traveled to known affect area: No History of Present Illness HPI 57-year-old male with history of diabetes, hypertension, CAD with 2 cardiac stents, here for evaluation of chest pain, lightheadedness, dizziness, head pain. Patient reports his symptoms started a couple of days ago with intermittent episodes of lightheadedness with bitemporal pain. This morning he began to experience left-sided chest pain which he describes as a pressure. He reports that his symptoms collectively feel similar to when he had an GA several years ago that required cardiac stents. Chart review shows that the patient has had issues with substance abuse. He states he is currently in drug court and has not used alcohol or any illicit drugs in over a year and a half. He denies fevers or chills. No paresthesias or motor deficits. He does smoke cigarettes. PFSH Past Medical History Arthritis: Yes (rheumatoid hands) Asthma: No Autoimmune Disease: No Blood Disorders: No Depression: Yes Heart Rhythm Problems: No Cancer: No Cardiac Catheterization: Yes Cardiovascular Problems: Yes High Cholesterol: No Chemotherapy: No Chest Pain: No Congestive Heart Failure: No Cerebrovascular Accident: No Coronary Artery Disease: Yes Diabetes: Yes Diminished Hearing: Yes (Left) Diverticulitis: Yes Endocrine: Yes (diabetes) Gastrointestinal Disorders: Yes GERD: No Genitourinary: Yes Hepatitis: Yes (C) Hiatal Hernia: No Hypertension: Yes Kidney Stones: Yes Musculoskeletal: Yes Neurologic: Yes Psychiatric: No Reproductive: No Respiratory: No Myocardial Infarction: Yes (2009) Thyroid Disease: No Ulcer: No Past Surgical History Abdominal Surgery: Yes ( partial colectomy) Appendectomy: Yes Cardiac Surgery: No Cholecystectomy: No Coronary Artery Bypass Graft: No Coronary Stent: Yes (2 STENTS) Ear Surgery: No Endocrine Surgery: No Eye Surgery: No Genitourinary Surgery: No Gynecologic Surgery: No Hysterectomy: No Neurologic Surgery: No Oral Surgery: No Thoracic Surgery: No Tonsillectomy: Yes Social History 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) Tobacco Use: Yes (1 PPD) Substance Use: Yes (extensive drug abuse) Allergies-Medications (Allergen,Severity, Reaction): Coded Allergies: dolasetron (Unverified Allergy, Severe, 07/22/17) penicillin G (Unverified Allergy, Severe, 07/22/17) Reported Meds & Prescriptions Reported Meds & Active Scripts Active Novolin 70-30 Inj (Insulin Human Isoph/Insulin Regular) 1,000 Unit/10 Ml Vial 15 Units SQ TWICE A DAY Amlodipine (Amlodipine Besylate) 10 Mg Tab 10 Mg PO DAILY Lisinopril 40 Mg Tab 40 Mg PO DAILY Metformin (Metformin HCl) 1,000 Mg Tab 1,000 Mg PO BIDPC With meals Novolog Inj (Insulin Aspart) 1,000 Unit/10 Ml Vial 1-9 Units SQ ACHS Max dose at bedtime:(4)units; sugars less than 70,(0)units; sugars 150-199,(1) unit; sugars 200-249,(3) units; sugars 250-299,(5) units; sugars 300-349,(7) units; sugars greater than 349,(9) units Aspirin 325 Mg Tab 325 Mg PO DAILY Review of Systems Except as stated in HPI: all other systems reviewed are Neg Physical Exam Narrative GENERAL: Well-developed, well-nourished, comfortable, no apparent distress. SKIN: Focused skin assessment warm/dry. HEAD: Atraumatic. Normocephalic. EYES: Pupils equal and round. No scleral icterus. No injection or drainage. ENT: Mucous membranes pink and moist. NECK: Trachea midline. No JVD. CARDIOVASCULAR: Regular rate and rhythm. Distal pulses brisk and equal bilaterally. RESPIRATORY: No accessory muscle use. Clear to auscultation. Breath sounds equal bilaterally. GASTROINTESTINAL: Abdomen soft, non-tender, nondistended. MUSCULOSKELETAL: No obvious deformities. No clubbing. No cyanosis. No edema. NEUROLOGICAL: Awake and alert. No obvious cranial nerve deficits. Motor grossly within normal limits. Normal speech. PSYCHIATRIC: Appropriate mood and affect; insight and judgment normal. Data Data Last Documented VS Vital Signs Date Time Temp Pulse Resp B/P (MAP) Pulse Ox O2 Delivery O2 Flow Rate FiO2 07/22/17 16:30 72 19 153/81 (105) Room Air 07/22/17 16:05 96 07/22/17 13:38 98.4 Orders Orders Electrocardiogram (07/22/17 13:40) Basic Metabolic Panel (Bmp) (07/22/17 13:40) Ckmb (Isoenzyme) Profile (07/22/17 13:40) Complete Blood Count With Diff (07/22/17 13:40) Magnesium (Mg) (07/22/17 13:40) Prothrombin Time / Inr (Pt) (07/22/17 13:40) Act Partial Throm Time (Ptt) (07/22/17 13:40) Troponin I (07/22/17 13:40) Chest, Pa & Lat (07/22/17 13:40) Urinalysis - C+S If Indicated (07/22/17 14:58) Drug Screen, Random Urine (07/22/17 14:58) Aspirin Chew (Aspirin Chew) (07/22/17 15:00) Nitroglycerin Sl (Nitrostat Sl) (07/22/17 15:00) Labs Laboratory Tests Test 07/22/17 15:00 07/22/17 15:20 Urine Color YELLOW Urine Turbidity CLEAR Urine pH 6.5 Urine Specific [place] 1.023 Urine Protein NEG mg/dL Urine Glucose (UA) NEG mg/dL Urine Ketones NEG mg/dL Urine Occult Blood NEG Urine Nitrite NEG Urine Bilirubin NEG Urine Urobilinogen 2.0 MG/DL Urine Leukocyte Esterase NEG Urine RBC 1 /hpf Urine WBC LESS THAN 1 /hpf Urine Mucus FEW /lpf Microscopic Urinalysis Comment CULT NOT INDICATED Urine Opiates Screen NEG Urine Barbiturates Screen NEG Urine Amphetamines Screen NEG Urine Benzodiazepines Screen NEG Urine Cocaine Screen NEG Urine Cannabinoids Screen NEG White Blood Count 9.6 TH/MM3 Red Blood Count 4.74 MIL/MM3 Hemoglobin 14.6 GM/DL Hematocrit 42.4 % Mean Corpuscular Volume 89.6 FL Mean Corpuscular Hemoglobin 30.9 PG Mean Corpuscular Hemoglobin Concent 34.5 % Red Cell Distribution Width 12.9 % Platelet Count 215 TH/MM3 Mean Platelet Volume 9.4 FL Neutrophils (%) (Auto) 52.9 % Lymphocytes (%) (Auto) 39.0 % Monocytes (%) (Auto) 5.4 % Eosinophils (%) (Auto) 2.1 % Basophils (%) (Auto) 0.6 % Neutrophils # (Auto) 5.1 TH/MM3 Lymphocytes # (Auto) 3.7 TH/MM3 Monocytes # (Auto) 0.5 TH/MM3 Eosinophils # (Auto) 0.2 TH/MM3 Basophils # (Auto) 0.1 TH/MM3 CBC Comment DIFF FINAL Differential Comment Prothrombin Time 9.8 SEC Prothromb Time International Ratio 1.0 RATIO Activated Partial Thromboplast Time 24.8 SEC Blood Urea Nitrogen 18 MG/DL Creatinine 0.80 MG/DL Random Glucose 165 MG/DL Calcium Level 8.8 MG/DL Magnesium Level 1.7 MG/DL Sodium Level 140 MEQ/L Potassium Level 4.0 MEQ/L Chloride Level 105 MEQ/L Carbon Dioxide Level 27.5 MEQ/L Anion Gap 8 MEQ/L Estimat Glomerular Filtration Rate 99 ML/MIN Total Creatine Kinase 47 U/L Troponin I LESS THAN 0.02 NG/ML MDM Medical Decision Making Medical Screen Exam Complete: Yes Emergency Medical Condition: Yes Medical Record Reviewed: Yes Interpretation(s) EKG: Sinus, rate 77, normal axis, normal intervals, no acute ischemic abnormality. Differential Diagnosis ACS, pneumothorax, pericarditis, PE, pneumonia, musculoskeletal pain Narrative Course Vital signs reviewed. CBC is unremarkable. BMP is unremarkable. Cardiac enzymes are negative. Chest x-ray: The lungs are clear. The patient was made aware of all findings. He is resting comfortably. Reports no improvement in pain with nitroglycerin. He was given a full aspirin. He overall appears comfortable. He will be admitted to the chest pain center for further cardiac evaluation. He is amenable to this plan. Diagnosis Primary Impression: Chest pain Qualified Codes: R07.9 - Chest pain, unspecified Additional Impression: Type 2 diabetes mellitus with hyperosmolar nonketotic hyperglycemia Stanislav Sinha MD Jul 22, 2017 15:03
[2017-07-22] MEDS: NITROGLYCERIN 0.4 MG SL 25 TABS/BTL SL SCH ×3 (15:32→16:42)
[2017-07-22 15:44] LABS: AUTOMATED NEUTROPHIL # 5.1 TH/MM3 (1.8-7.7); BASOPHIL # 0.1 TH/MM3 (0-0.2); BASOPHIL % 0.6 % (0.0-2.0); EOSINOPHIL # 0.2 TH/MM3 (0-0.4); EOSINOPHIL % 2.1 % (0.0-4.0); HEMATOCRIT 42.4 % (39.0-51.0); HEMOGLOBIN 14.6 GM/DL (13.0-17.0); LYMPHOCYTE # 3.7 TH/MM3 (1.0-4.8); MEAN CELL VOLUME 89.6 FL (80.0-100.0); MEAN CORPUSCULAR HEMOGLOBIN 30.9 PG (27.0-34.0); MEAN CORPUSCULAR HGB CONC 34.5 % (32.0-36.0); MEAN PLATELET VOLUME 9.4 FL (7.0-11.0); MONO % 5.4 % (0.0-8.0); MONOCYTE # 0.5 TH/MM3 (0-0.9); NEUT % 52.9 % (16.0-70.0); PLATELET COUNT 215 TH/MM3 (150-450); RED BLOOD COUNT 4.74 MIL/MM3 (4.50-5.90); RED CELL DISTRIBUTION WIDTH 12.9 % (11.6-17.2); WHITE BLOOD COUNT 9.6 TH/MM3 (4.0-11.0)
[2017-07-22 15:58] LABS: PROTHROMBIN TIME - PATIENT 9.8 SEC (9.8-11.6)
[2017-07-22 16:00] LABS: BILIRUBIN, URINE NEG (NEG); BLOOD, URINE NEG (NEG); GLUCOSE,URINE NEG (NEG); KETONE, URINE NEG (NEG); MUCUS URINE FEW /lpf (OCC); NITRITE,URINE NEG (NEG); PH, URINE 6.5 (5.0-8.5); URINE COLOR YELLOW (YELLW/STRAW); URINE LEUKOCYTE ESTERASE NEG (NEG)
[2017-07-22 16:06] LABS: BICARBONATE 27.5 MEQ/L (21.0-32.0); BLOOD UREA NITROGEN 18 MG/DL (7-18); CALCIUM 8.8 MG/DL (8.5-10.1); CHLORIDE 105 MEQ/L (98-107); GLOMERULAR FILTRATION RATE 99 ML/MIN (>89); GLUCOSE,RANDOM 165 MG/DL (74-106); MAGNESIUM 1.7 MG/DL (1.5-2.5); SODIUM (NA) 140 MEQ/L (136-145)
[2017-07-22 16:09] LABS: TROPONIN I LESS THAN 0.02 NG/ML (0.02-0.05)
[2017-07-22] MEDS ORDERED: SODIUM CHLORIDE 0.9% FLUSH 10 ML FLUSH IV FLUSH PRN (19:15)
[2017-07-22] MEDS ORDERED: ACETAMINOPHEN 325 MG TAB PO ONE (20:15)
[2017-07-22 20:18] LABS: TROPONIN I LESS THAN 0.02 NG/ML (0.02-0.05)
[2017-07-22] MEDS: SODIUM CHLORIDE 0.9% FLUSH 10 ML FLUSH IV FLUSH SCH (23:13)
[2017-07-22] MEDS ORDERED: MORPHINE SULFATE 4 MG/ML INJ IV SCH (23:15)
[2017-07-22 23:35] LABS: TROPONIN I LESS THAN 0.02 NG/ML (0.02-0.05)
[2017-07-23] VITALS (10 sets, daily range): BP systolic 131–172; BP diastolic 67–84; PULSE 68–92; RESP 15–18; TEMP 98.1–98.7; O2SAT 94–98
[2017-07-23] MEDS ORDERED: NITROGLYCERIN 0.4 MG SL 25 TABS/BTL SL PRN (07:30)
[2017-07-23] MEDS ORDERED: ONDANSETRON HCL 4 MG/2 ML VIAL IV PUSH PRN (07:30)
--- NOTE | 2017-07-23 08:18 | HHI.HP ---
HPI Primary Care Physician Palmer Mae MD Chief Complaint Dizziness, headache, chest pain History of Present Illness 57 year old male with known CAD, cardiac stents, and current smoker presents to ER with multiple complaints. Onset 3 days ago. Reports episodes of "feeling dizzy" followed by "feeling extremely cold and disoriented and my temples hurt. " Episodes fairly regularly last 3 days. No vision changes, fever, or current illness. Upon awakening yesterday symptoms continued with accompanying chest pain. Location left anterior chest. Characterized as sharp. Moderate in severity. No radiation. Duration lasted all day "until maybe 9 pm." Associated symptoms of dyspnea and nausea. Endorses nausea may be due to headache. Denied vomiting or diaphoresis. No known precipitating factors. Relieving factors "pain shot given in ER." Denies any current chest pain. Endorses similar pain in the past approximately 7 years ago before requiring cardiac stents. Currently reports headache in "my temples." Endorses sinus drainage and congestion. No vision changes. No LOC. No recent injury or trauma. Review of Systems General: No fatigue,weakness, fever, chills, recent illness, or change in appetite. As stated above. HEENT: Intermittent headaches located bilateral temples, no vision changes. Current nasal congestion with intermittent drainage. CV: As states above. No current chest pain or pressure. Endorses intermittent leg pain after walking short distances. Continues to have intermittent dizziness, described as "feeling disoriented or foggy." RESP: No SOB, cough, wheeze or recent URI. Current smoker. GI: Nausea resolved. No vomiting or bowel changes. : No dysuria, urgency, frequency EXT: No lower leg edema, no paraesthesias MS: No discomfort or change in ROM NEURO: No change in memory, difficulty with balance, LOC, or motor/sensory deficits PSYCH: No anxiety, depression SKIN: No rashes, no concerning lesions Past Family Social History Allergies: Coded Allergies: dolasetron (Unverified Allergy, Severe, 07/22/17) penicillin G (Unverified Allergy, Severe, 07/22/17) Past Medical History Hypertension, type 2 diabetes, coronary artery disease, hepatitis C, [place], diverticulosis, COPD Past Surgical History Bowel resection due to perforated diverticulitis, appendectomy, tonsillectomy, Left foot trauma with repair (age 6) Reported Medications Reported Meds & Active Scripts Active Novolin 70-30 Inj (Insulin Human Isoph/Insulin Regular) 1,000 Unit/10 Ml Vial 15 Units SQ TWICE A DAY Amlodipine (Amlodipine Besylate) 10 Mg Tab 10 Mg PO DAILY Lisinopril 40 Mg Tab 40 Mg PO DAILY Metformin (Metformin HCl) 1,000 Mg Tab 1,000 Mg PO BIDPC With meals Novolog Inj (Insulin Aspart) 1,000 Unit/10 Ml Vial 1-9 Units SQ ACHS Max dose at bedtime:(4)units; sugars less than 70,(0)units; sugars 150-199,(1) unit; sugars 200-249,(3) units; sugars 250-299,(5) units; sugars 300-349,(7) units; sugars greater than 349,(9) units Aspirin 325 Mg Tab 325 Mg PO DAILY Active Ordered Medications Current Medications Medications (Trade) Dose Ordered Sig/Canelo Route Start Time Stop Time Status Last Admin (NS Flush) 2 ml UNSCH PRN IV FLUSH 07/22/17 19:15 (NS Flush) 2 ml BID IV FLUSH 07/22/17 21:00 07/22/17 23:13 (Tylenol) 500 mg Q4H PRN PO 07/23/17 07:30 (Zofran Inj) 4 mg Q6H PRN IV PUSH 07/23/17 07:30 UNV (Nitrostat Sl) 0.4 mg Q5M PRN SL 07/23/17 07:30 (Aspirin) 325 mg DAILY PO 07/23/17 09:00 Family History Noncontributory for early onset cardiovascular disease. Social History Known coronary artery disease, diabetes, and hypertension. Not on cholesterol medication due to hepatitis C history. Current smoker 47 year pack history. Denies any alcohol or illegal drug use. Endorse a sedentary lifestyle. Past cardiac testing 07/15/2016 Lexiscan-stable pattern of mild LV dilatation and global hypokinesis. No signs of reversible perfusion. EF 58% 07/13/2015 Lexiscan-mild LV dilatation and global hypokinesis. No significant reversible perfusion abnormalities. EF 43% 2007 cardiac catheterization 1. Non-ST elevation [place] 2. Severe disease of the circumflex. 3. Successful stenting of the circumflex. 4. Normal LV function. Physical Exam Vital Signs Vital Signs Date Time Temp Pulse Resp B/P (MAP) Pulse Ox O2 Delivery O2 Flow Rate FiO2 07/23/17 07:07 98.5 80 18 136/76 (96) 94 07/23/17 04:05 69 07/23/17 03:50 98.1 78 18 140/74 (96) 95 07/22/17 23:28 17 07/22/17 23:21 80 07/22/17 23:02 21 07/22/17 22:21 98.3 82 18 149/72 (97) 93 07/22/17 20:18 07/22/17 19:42 83 18 164/85 (111) 98 Nasal Cannula 2.00 07/22/17 18:30 74 15 168/90 (116) 97 Nasal Cannula 2.00 07/22/17 18:00 74 15 163/91 (115) 97 Nasal Cannula 2.00 07/22/17 17:30 70 11 157/81 (106) 96 Nasal Cannula 2.00 07/22/17 17:00 72 12 140/82 (101) 96 Nasal Cannula 2.00 07/22/17 16:55 14 07/22/17 16:44 87 12 148/93 (111) 94 Nasal Cannula 2.00 07/22/17 16:30 72 19 153/81 (105) Room Air 07/22/17 16:05 70 20 150/82 (104) 96 Room Air 07/22/17 15:30 74 12 149/79 (102) 95 Room Air 07/22/17 15:13 80 12 170/82 (111) 96 Room Air 07/22/17 13:38 98.4 89 18 172/79 (110) 100 Physical Exam GENERAL: Alert WN, WD, NAD, male HEAD: NC, AT EYES: Sclera clear, conjunctiva without injection, pupils equal and round NECK: Supple, no masses, trachea midline CV: RRR, 2/6 systolic murmur, rub, gallop, no JVD, S1-S2 no S3-S4. Bilateral carotid and femoral bruits. RESP: Diminished lungs throughout bilateral, no crackles, wheeze, or rhonchi, symmetrical chest rise, nonlabored, able to speak in full sentences ABD: Soft, NT, ND, no masses, positive bowel tones EXT: Pulses x2+4, no dependent edema MS: Normal tone x4 extremities, left foot obvious deformities s/p traumatic injury, full range of motion NEURO: CN II through CN XII grossly intact, motor strength 5/5 PSYCH: A+Ox3, pleasant affect, appropriate speech, mood, insight and judgment SKIN: Normal turgor, normal texture, no lesions, no rashes, decreased bilateral extremities hair distribution Laboratory Laboratory Tests Test 07/22/17 15:00 07/22/17 15:20 07/22/17 19:00 07/22/17 22:40 Urine Color YELLOW Urine Turbidity CLEAR Urine pH 6.5 Urine Specific [place] 1.023 Urine Protein NEG Urine Glucose (UA) NEG Urine Ketones NEG Urine Occult Blood NEG Urine Nitrite NEG Urine Bilirubin NEG Urine Urobilinogen 2.0 Urine Leukocyte Esterase NEG Urine RBC 1 Urine WBC LESS THAN 1 Urine Mucus FEW Microscopic Urinalysis Comment CULT NOT INDICATED Urine Opiates Screen NEG Urine Barbiturates Screen NEG Urine Amphetamines Screen NEG Urine Benzodiazepines Screen NEG Urine Cocaine Screen NEG Urine Cannabinoids Screen NEG White Blood Count 9.6 Red Blood Count 4.74 Hemoglobin 14.6 Hematocrit 42.4 Mean Corpuscular Volume 89.6 Mean Corpuscular Hemoglobin 30.9 Mean Corpuscular Hemoglobin Concent 34.5 Red Cell Distribution Width 12.9 Platelet Count 215 Mean Platelet Volume 9.4 Neutrophils (%) (Auto) 52.9 Lymphocytes (%) (Auto) 39.0 Monocytes (%) (Auto) 5.4 Eosinophils (%) (Auto) 2.1 Basophils (%) (Auto) 0.6 Neutrophils # (Auto) 5.1 Lymphocytes # (Auto) 3.7 Monocytes # (Auto) 0.5 Eosinophils # (Auto) 0.2 Basophils # (Auto) 0.1 CBC Comment DIFF FINAL Differential Comment Prothrombin Time 9.8 Prothromb Time International Ratio 1.0 Activated Partial Thromboplast Time 24.8 Blood Urea Nitrogen 18 Creatinine 0.80 Random Glucose 165 Calcium Level 8.8 Magnesium Level 1.7 Sodium Level 140 Potassium Level 4.0 Chloride Level 105 Carbon Dioxide Level 27.5 Anion Gap 8 Estimat Glomerular Filtration Rate 99 Total Creatine Kinase 47 38 37 Troponin I LESS THAN 0.02 LESS THAN 0.02 LESS THAN 0.02 Result Diagram: 07/22/17 1520 07/22/17 1520 Imaging Last 48 hours Impressions Chest X-Ray 07/22/17 1340 Signed Impressions: Service Date/Time: Saturday, July 22, 2017 13:59 - CONCLUSION: The lungs are clear. Les Ann MD Course EKG Normal sinus rhythm, left axis deviation, nonspecific ST changes Caprini VTE Risk Assessment Caprini VTE Risk Assessment: No/Low Risk (score <= 1) Caprini Risk Assessment Model Point Value = 1 Point Value = 2 Point Value = 3 Point Value = 5 Age 41-60 Minor surgery BMI > 25 kg/m2 Swollen legs Varicose veins or History of unexplained or recurrent spontaneous Oral contraceptives or hormone replacement Sepsis (< 1 month) Serious lung disease, including pneumonia (< 1 month) Abnormal pulmonary function Acute myocardial infarction Congestive heart failure (< 1 month) History of inflammatory bowel disease Medical patient at bed rest Age 61-74 Arthroscopic surgery Major open surgery (> 45 min) Laparoscopic surgery (> 45 min) Malignancy Confined to bed (> 72 hours) Immobilizing plaster cast Central venous access Age >= 75 History of VTE Family history of VTE Factor V Leiden Prothrombin [id number] Lupus anticoagulant Anticardiolipin antibodies Elevated serum homocysteine Heparin-induced thrombocytopenia Other congenital or acquired thrombophilia Stroke (< 1 month) Elective arthroplasty Hip, pelvis, or leg fracture Acute spinal cord injury (< 1 month) Prophylaxis Regimen Total Risk Factor Score Risk Level Prophylaxis Regimen 0-1 Low Early ambulation 2 Moderate Order ONE of the following: *Sequential Compression Device (SCD) *Heparin 5000 units SQ BID 3-4 Higher Order ONE of the following medications: *Heparin 5000 units SQ TID *Enoxaparin/Lovenox 40 mg SQ daily (WT < 150 kg, CrCl > 30 mL/min) *Enoxaparin/Lovenox 30 mg SQ daily (WT < 150 kg, CrCl > 10-29 mL/min) *Enoxaparin/Lovenox 30 mg SQ BID (WT < 150 kg, CrCl > 30 mL/min) AND/OR *Sequential Compression Device (SCD) 5 or more Highest Order ONE of the following medications: *Heparin 5000 units SQ TID (Preferred with Epidurals) *Enoxaparin/Lovenox 40 mg SQ daily (WT < 150 kg, CrCl > 30 mL/min) *Enoxaparin/Lovenox 30 mg SQ daily (WT < 150 kg, CrCl > 10-29 mL/min) *Enoxaparin/Lovenox 30 mg SQ BID (WT < 150 kg, CrCl > 30 mL/min) AND *Sequential Compression Device (SCD) Assessment and Plan Assessment and Plan #1 Chest pain-no chest pain center. Ruled out with 3 sets of EKGs, cardiac enzymes, monitor on telemetry overnight. Seen and evaluated by Dr. Zuleyka Watson. Discussed because of his past cardiac history, will proceed with chemical cardiac testing this a.m. If unremarkable, plans to be discharged with follow-up with Dr. Mae. Patient agreeable to plan of care. #2 Cephalgia-encouraged use of Tylenol, discussed discomfort may be related to sinus pressure and current allergy symptoms, encouraged symptom management with OTC medication, keeping a headache dairy, and follow up with his PCP. #3 History of hypertension-continue lisinopril and amlodipine #4 History of CAD-encouraged establishing with a director voice, continue aspirin , Lexiscan this morning. Upon discharge last year metoprolol prescription provided, it is unclear why he no longer taking. Discussed importance of beta victoria therapy. Follow up with PCP. #5 Tobacco use-strongly encouraged and stressed the importance of tobacco cessation. Instructed to quit smoking, especially with reported claudication after walking short distances. #6 History of Hepatitis C-discussed speaking with his PCP to determine if he is a candidate for hepatitis curative medications. Discussed calling local health department for possible assistance or programs for Hepatitis C curative therapy. Korin Zamarripa Jul 23, 2017 08:18
[2017-07-23] MEDS ORDERED: DEXTROSE 50% IN WATER 50 ML VIAL(D50) IV PUSH PRN ×2 (08:30→17:15)
[2017-07-23] MEDS ORDERED: GLUCAGON 1 MG/ML VIAL OTHER PRN (08:30)
[2017-07-23] MEDS: ACETAMINOPHEN 500 MG CPLT PO PRN ×2 (08:49→20:46)
[2017-07-23] MEDS: SODIUM CHLORIDE 0.9% FLUSH 10 ML FLUSH IV FLUSH SCH ×3 (08:50→20:31)
[2017-07-23] MEDS ORDERED: LISINOPRIL 20 MG TAB PO SCH (09:00)
[2017-07-23] MEDS ORDERED: ASPIRIN 325 MG TAB PO SCH (09:00)
[2017-07-23] MEDS ORDERED: PILL SPLITTER OTHER PRN (10:45)
[2017-07-23] MEDS ORDERED: REGADENOSON INJ 0.4 MG/5 ML SYR ONE (10:47)
[2017-07-23] MEDS ORDERED: PROMETHAZINE HCL 25 MG TAB PO PRN (11:00)
[2017-07-23] MEDS: INSULIN ASPART SUPPLEMENTAL SCALE SQ SCH ×3 (12:00→20:47)
--- NOTE | 2017-07-23 12:09 | RADRPT ---
EXAM DATE/TIME: 07/23/2017 10:32 [facility] COMPARISON: MYOCARDIAL PERF PHARM SPECT, GATED W/EF, July 15, 2016, 9:21. INDICATIONS : Left sided chest pain. Angina. Coronary artery disease. DOSE: 26.1 mCi Tc99m Myoview at stress. 8.1 mCi Tc99m Myoview at rest. 0.4 mg Lexiscan STRESS SYMPTOMS: Shortness of breath. EJECTION FRACTION: 43% (prior ejection fraction in June 2016 was 58%). MEDICAL HISTORY : Myocardial infarction. Hypertension. Hepatitis C. SURGICAL HISTORY : Coronary artery stent. CABG Colectomy. ENCOUNTER: Initial ACUITY: 1 day PAIN SCALE: 3/10 LOCATION: Left chest TECHNIQUE: The patient underwent pharmacologic stress with infusion of prescribed dose. Continuous ECG tracing was monitored during stress. Gated SPECT imaging was performed after stress and conventional SPECT i maging was performed at rest. The examination was performed on a SPECT/CT scanner, both attenuation and non-corrected datasets were reviewed. FINDINGS: DISTRIBUTION: The maximum perfused segment at stress is in the infero-septal wall. PERFUSION STUDY: There is mild decreased perfusion in the inferior lateral wall, approximately 40% less than the best perfused wall. There is evidence of mild, incomplete redistribution and this segment. The summed stre ss score is 8. The pattern of uptake throughout the remainder of the left ventricular segments is wit hin normal limits. GATED STUDY: There is decreased wall motion in the inferolateral segments and no significant wall thickening appre ciated. Intact wall motion in the upper segments.. CONCLUSION: 1. Small size moderate severity partially reversible perfusion defect involving the inferolateral wal l apical and mid ventricular segments. There is associated hypokinesia in these segments. 2. The overall ejection fraction has decreased significantly since prior exam in June 2016, now wisam ured at 43%. RISK CATEGORY: Intermediate (1-3% Annual Mortality Rate) Les Ann MD on July 23, 2017 at 12:02 Board Certified Radiologist. This report was verified electronically.
[2017-07-23] MEDS ORDERED: NITROGLYCERIN INJ 5 ML ONE (14:11)
[2017-07-23] MEDS ORDERED: VERAPAMIL HCL 5 MG/2 ML VIAL ONE (14:11)
[2017-07-23] MEDS ORDERED: HEPARIN-NS/PF FLUSH BAG 2,000 ML IV FLUSH ONE (14:11)
[2017-07-23] MEDS ORDERED: HEPARIN SODIUM - IV 10,000 UNITS/10 ML VIAL ONE (14:11)
[2017-07-23] MEDS ORDERED: MIDAZOLAM HCL 2 MG/2 ML VIAL ONE (14:11)
--- NOTE | 2017-07-23 14:32 | MB ---
cc: Yang Hood DO DATE: 07/23/2017 REASON FOR CONSULTATION: Chest pain, abnormal stress test. HISTORY OF PRESENT ILLNESS: Arcadio Abarca is a pleasant 57-year-old male who presented to [facility] Emergency Room due to multiple symptoms. He states that he has had chest pain, which is located over the left side of his wall and characterized as sharp versus achy. It does not appear to radiate anywhere. It had been on and off all throughout the day until later that night. He has also been short of breath and somewhat nauseous. He also had some headaches, but this has since resolved. He states that pain is similar to around 7 years ago when he required a cardiac stent. In seeing him, he is currently without chest pain, shortness of breath or headache. PAST MEDICAL HISTORY: 1. Coronary artery disease. 2. Hypertension. 3. Type 2 diabetes mellitus. 4. Hepatitis C. 5. Diverticulosis. 6. Chronic obstructive pulmonary disease. PAST SURGICAL HISTORY: 1. Bowel resection due to perforated diverticulitis. 2. Appendectomy. 3. Tonsillectomy. 4. Left foot trauma with repair (age 6). ALLERGIES: 1. . 2. PENICILLIN. MEDICATIONS: 1. Norvasc 10 mg daily. 2. Lisinopril 10 mg daily. 3. Aspirin 325 mg daily. 4. Metformin 1000 mg b.i.d. 5. NovoLog sliding scale. 6. Novolin 70/30, 15 units twice a day. FAMILY HISTORY: Denies premature coronary artery disease or sudden cardiac within the family. SOCIAL HISTORY: The patient has smoked for a number of years around a pack per day. Denies alcohol or drug abuse. REVIEW OF SYSTEMS: Fourteen systems were reviewed including osteopathic pertinent positives and negatives above, otherwise negative. PHYSICAL EXAMINATION: VITAL SIGNS: Temperature 98.7, heart rate 73, blood pressure 131/74, respirations 18, pulse oximetry 95% on room air. GENERAL: The patient appears well, no acute distress. Alert, awake and oriented x 3. HEENT: Extraocular muscles intact. Mucous membranes moist. NECK: Supple. No JVD at 45 degrees. No carotid bruits heard bilaterally. Carotid upstroke is brisk in nature. HEART: Regular rate and rhythm. Positive for and second heart sounds with no noted murmurs, gallops or rubs. LUNGS: Clear to auscultation bilaterally. No wheezes, rales or rhonchi. ABDOMEN: Soft, nontender, nondistended. No organomegaly noted. EXTREMITIES: Show no clubbing, cyanosis or edema. Femoral distal pulses are intact bilaterally. NEUROLOGIC: No focal deficits. SKIN: Warm, dry and intact. OSTEOPATHIC: No kyphoscoliosis, lordosis or paraspinal tender points. LABORATORY DATA: Hemoglobin 14.6, hematocrit 42.4, platelets 215. Potassium 4.0, BUN 18, creatinine 0.8. Troponin negative x 3. Electrocardiogram (07/22/2017 at 2227): Sinus rhythm, PVC, incomplete right bundle branch block, left anterior fascicular block, possible age undetermined inferior infarct. IMPRESSION: 1. Atypical chest pain. 2. Abnormal stress test. 3. History of coronary artery disease. 4. History of hepatitis C. 5. Hypertension. 6. Diabetes mellitus. 7. Chronic obstructive pulmonary disease. RECOMMENDATIONS: 1. Mr. Abarca presented due to chest pain and was found to have an abnormal stress test and so, he will be recommended cardiac catheterization. Risks, benefits and alternatives have been explained to him and he consented to such. 2. He will continue to be n.p.o. We will plan to cath this afternoon. 3. His metformin will need to be held for 48 hours post-cath. 4. Further recommendations will be made based on the hospital course. 5. Risks, benefits and alternatives have been explained to him and he consented to such. Thank you for allowing me to see Arcadio Abarca. If there are any questions, please do not hesitate to call. DO ARABELLA Márquez/STELLA , 02:10 PM , 02:31 PM
--- NOTE | 2017-07-23 15:24 | CATHPROC ---
[facility] HIS Report Study Information Study Number Admission Scheduled Start Study Start [id number] Jul 22 2017 4:45PM 07/23/2017 Jul 23 2017 2:07PM [facility] Cardiac Catheterization Admit Source Facility Department Emergency department [facility] Physician and Clinical Staff Initial Yang Ellis Billing Department Supervisor Jacqui Lynn,RN Recorder Amy Red,RT(R) Scrub June HoweRT(R) (BS) Procedures Performed Procedure Location (Site) Vessel Name Coronary Angiograms LCA Left Coronary Coronary Angiograms RCA Right Coronary L Heart Cath PTCA ADD ON'S Wire insertion Radial (right) Radial Art. Equipment Time Real Estate Transaction Manager Description Size Mfg Part Number Used/Scraped TRANSDUCER, TRUWAVE [id number] 14:23 SHIPLEY Xtelligent Media * Used W/QuantaporeCK *[id number] *[id number] *[id number] 14:23 Hotalot PACK, CCL CUSTOM * Used *[id number] 14:23 Hotalot SUPPORT, ARTERIAL ADULT 30050 *[id number] Used [id number] 14:42 MEDTRONIC JL 3.5 DXTERITY CATHETER FR 5 Used *[id number] 14:52 MEDTRONIC/AVE EBU 3.5 Z2 GUIDE CATHETER FR 6 Used *[id number] 14:55 cisimple 30 SU INDEFLATOR Used *[id number] BAND, RADIAL COMPRESSION TR [id number] 14:46 Embarke MEDICAL 29CM Used LARGE 29 *[id number] 14:23 cisimple WIRE, EXCHANGE 260CM 3MMJ 260CM Used *[id number] 14:23 NAMIC MANIFOLD, 4 PORT * Used *[id number] 14:23 NYCOMED OMNIPAQUE, 350 MG, 150ML 150ML [id number] Used 14:55 NYCOMED OMNIPAQUE, 350 MG, 50ML 50ML [id number] Used [id number] 14:23 [employer] MEDICAL BLANKET,WARM AIR CCL * Used *[id number] SHEATH, FR6 TRANSRADIAL RM*[id number] 14:23 TER[employer]artis [employer] MEDICAL FR 6 Used SLENDER 10CM *[id number] 14:53 VOL[place]O PRIME WIRE, VERRATA 185CM 185CM [id number] *[id number] Used Equipment Model, Serial, Lot Number and Expiration Data Description Model Number Serial Number Lot Number Expiration Date DANIEL GUERRERO [id number] 06-19-2020 History: Current Medications Medication Dosage/Unit Route Frequency Last Date/Time Taken Glucophage NOVOLOG LISINOPRIL ASA Insulin History: Allergies Allergy Reaction penicillin G dolasetron History: Risk Factors Family History of Hypertension Dyslipidemia Previous [place] Previous Heart Failure Premature CAD No Yes Yes No No Prior Valve Prior PCI Prior PCIDate Prior CABG Surgery No Yes 04/22/2007 No Cerebrovascular Peripheral Artery Chronic Lung On Dialysis Diabetes Diabetes Therapy Disease Disease Disease No No Yes Yes Yes Oral History: Risk Factors Selection Items Current Smoker History: CV Disease Selection Items Known CAD History: Stress Tests Stress or Imaging Studies Performed Yes Standard Exercise Stress Test No Stress Echo No Stress Test SPECT Stress Test SPECT Result Stress Test SPECT Ischemia Risk/Extent Yes Positive Intermediate Stress Test CMR No Cardiac CTA Coronary Calcium Score No No History: Other Disease Selection Items CAD HTN History: Other Current Smoker Method Yes Cigarettes Labs Hgb (g/dl) Hct (%) RBC (MIL/MM3) WBC (l/cumm) Platelets (thousands) 11.60-17.00 35.00-51.00 4.00-5.90 4.00-11.00 150.00-450.00 14.6 42.4 4.7 96 215 Glucose (mg/dl) BUN (mg/dl) Creatinine (mg/dl) BUN:Creatinine (1:x) 74.00-106.00 7.00-18.00 0.50-1.30 10.00-20.00 165 18 0.8 22.5 Na (meq/l) K (meq/l) Cl (meq/l) CO2 (mmol/L) Ca (mg/dl) 136.00-145.00 3.50-5.10 98.00-107.00 21.00-32.00 8.50-10.10 140 4 105 27.5 8.8 INR (PTT:PT) 0.90-1.10 1 Troponin I (ng/ml) CPK (u/l) CPK-MB (ng/ML) 0.02-0.05 26.00-308.00 0.50-3.60 0.02 37 Not Drawn Medication Medication Total Dose (Bolus/Oral) Medication Total Dosage/Unit 1% XYLOCAINE 20 mL FENTANYL 25 mcg HEPARIN 5000 units RADIAL COCKTAIL 5 mL (Bolus) VERSED 1 mg Medications (Bolus/Oral) Medication Time Given Dosage/Unit Administered By Reason VERSED 07/23/2017 2:31:53 PM 1 mg Jacqui Lynn 1 mg VERSED given in lab by Jacqui Lynn, MAYRA via Peripheral IV. FENTANYL 07/23/2017 2:32:05 PM 25 mcg Jacqui Lynn 25 mcg FENTANYL given in lab by Jacqui Lynn, MAYRA via Peripheral IV. 1% XYLOCAINE 07/23/2017 2:32:30 PM 20 mL Yang Hood 20 mL 1% XYLOCAINE given in lab by Yang Hood in Right Radial via Subcutaneous. Ntg 200mcg Verapamil 2.5mg Heparin RADIAL COCKTAIL 07/23/2017 2:37:00 PM 5 mL (Bolus) Raz Hoodent 3000U 5 mL (Bolus) RADIAL COCKTAIL given in lab by Yang Hood via Radial. Using [Solution Name]. R carlos: Ntg 200mcg Verapamil 2.5mg Heparin 3000U. 3400 units of heparin HEPARIN 07/23/2017 2:52:33 PM 5000 units Jacqui Lynn 5000 units HEPARIN given in lab by Jacqui Lynn, MAYRA via Peripheral IV. Medication (Drip) Medication Time Given Dosage/Unit Concentration/Unit Diluent (ml) Solutio n IV Solutions 07/23/2017 2:07:34 PM 0 mL (IV) 500 NaCl .9 Patient arrived on IV Solutions in Right Antecubital via Peripheral IV. Pump/Drip Flow = 20 ml/hr usi ng NaCl .9. Initial Case Assessment Cardiovascular HR Rhythm NIBP Chest Pain 77 reg 178/90 0 Edema Present Skin color Skin None Normal Warm Circulatory - Right Pulses Dorsalis Pedis Femoral 2 3 Scale (0,1,2,3,4,d) Circulatory - Left Pulses Dorsalis Pedis Femoral 2 3 Scale (0,1,2,3,4,d) Circulatory - Lower Extremities Color Lower Right Color Lower Left Normal Normal Neurological State Oriented to time-place- Alert Moves all extremities person Respiration - General Respiration Rate SpO2 (%) (B/min) 11 96 Final Case Assessment Cardiovascular HR Rhythm NIBP Chest Pain 79 reg 155/94 0 Edema Present Skin color Skin None Normal Warm Circulatory - Right Pulses Dorsalis Pedis Femoral 2 3 Scale (0,1,2,3,4,d) Circulatory - Left Pulses Dorsalis Pedis Femoral 2 3 Scale (0,1,2,3,4,d) Circulatory - Lower Extremities Color Lower Right Color Lower Left Normal Normal Neurological State Oriented to time-place- Alert Moves all extremities person Respiration - General Respiration Rate SpO2 (%) (B/min) 8 97 Chronological Log Time Study Chronological Log 14:05:16 Patient arrived via Bed. 14:07:22 Patient Name, D.O.B, / Armband Verified By R.N. 14:07:23 Consent signed by the physician and the patient and verified by the [facility] staff. 14:07:24 Pre-op and post- op instructions given; patient acknowledges understanding of instructions. 14:07:25 Verbal Stimulation=2 Physical Stimulation=2 Airway=2 Respiration=2 TOTAL=8. (0=absent, 1=li mited, 2=present) 14:07:26 Presedation assessment performed by [facility] RN. 14:07:29 Patient has been NPO for More than 6Hrs. 14:07:30 Skin Breakdown-none 14:07:32 Patient Warmer Placed on the Table. 14:07:33 Ortiz Prominences Protected 14:07:33 A # 20 IV was noted in the Antecubital (right). Grade = 0 14:07:34 Patient arrived on IV Solutions in Right Antecubital via Peripheral IV. Pump/Drip Flow = 20 ml/hr using NaCl .9. 14:07:35 History and physical on the chart or being dictated. Assessment: Initial Case, HR=77 BPM, Rhythm=reg, BAFL=771/90 mmhg, Chest Pain=0, Edema=None, Co derik=Normal, Skin = Warm Right Pulses: Jimmie Ped=2, Femoral=3 Left Pulses: Jimmie Ped=2, Femoral=3 14:07:36 Lower Right Extremities: Color=Normal Lower Left Extremities: Color=Normal Neurological: State=Alert, Ox3, POLK Respiration: Resp=11 B/min, SpO2=96 % Vitals capture started with the following parameters, Patient=Adult, Interval=5 min, Initial Pr gbhdnb=364 mmHg, 14:10:34 Deflation Rate=5 mmHg, Cuff placed on left arm 14:11:14 HR=75 bpm, PTMX=815/75 mmhg, SpO2=96.0 %, Resp=15 B/min, Pain=0, Rafy=10, Watts=2 14:16:15 HR=75 bpm, OHJD=151/87 mmhg, SpO2=97.0 %, Resp=8 B/min, Pain=0, Rafy=10, Watts=2 14:18:53 Reference ECG taken 14:21:16 HR=80 bpm, QFAY=304/90 mmhg, SpO2=97.0 %, Resp=11 B/min, Pain=0, Rafy=10, Watts=2 14:22:36 Right Radial and groin(s) prepped with 2% chlorhexidine, and draped after a 3 min. waiting time. 14:22:45 MD arrived. 14:26:21 HR=72 bpm, LBFB=601/79 mmhg, SpO2=97.0 %, Resp=13 B/min, Pain=0, Rafy=10, Watts=2 14:29:31 Pressure channel 1 zeroed. 14:31:18 HR=77 bpm, JCGW=559/83 mmhg, SpO2=98.0 %, Resp=10 B/min Time Out. Correct patient, correct procedure, correct physician, power injector not loaded with contrast with surgical 14:31:19 team present. Time Out Concurred by MD and individual staff in procedure. 14:31:29 Case Start 14:31:53 1 mg VERSED given in lab by Jacqui Lynn, MAYRA via Peripheral IV. 14:32:05 25 mcg FENTANYL given in lab by Jacqui Lynn, MAYRA via Peripheral IV. 14:32:30 20 mL 1% XYLOCAINE given in lab by Yang Hood in Right Radial via Subcutaneous. 14:36:13 HR=81 bpm, XXRH=798/88 mmhg, SpO2=97.0 %, Resp=11 B/min, Pain=0, Rafy=10, Watts=2 14:36:36 Access site was Radial Artery. 14:36:43 A wire was inserted via Radial (right). A SHEATH, FR6 TRANSRADIAL SLENDER 10CM FR 6 was advanced into the Radial (right) using the Perc utaneous 14:36:50 technique. 5 mL (Bolus) RADIAL COCKTAIL given in lab by Yang Hood via Radial. Using [Solution Na me]. Reason: Ntg 14:37:00 200mcg Verapamil 2.5mg Heparin 3000U. 3400 units of heparin A JR 4.0 INFINITI CATHETER FR 5 was advanced over a wire. OMNIPAQUE, 350 MG, 150ML 150ML was us ed for 14:37:43 injections. Recorded Pressure: LV, HR=92, Condition=Condition 1 14:39:10 (Left Ventricle) LV 152/2/5 Recorded Pressure: LV, Ao, HR=91, Condition=Condition 1 14:39:27 (Left Ventricle) LV 155/0/5, (Aorta) Ao 156/80/112 14:40:26 The RCA was injected and visualized at various angles. OMNIPAQUE, 350 MG, 150ML 150ML used . Recorded Pressure: Ao, HR=85, Condition=Condition 1 14:40:57 (Aorta) Ao 146/76/105 14:41:14 HR=84 bpm, XYRL=566/78 mmhg, SpO2=93.0 %, Resp=16 B/min, Pain=0, Rafy=10, Watts=2 14:41:14 Catheter was removed A JL 3.5 DXTERITY CATHETER FR 5 was advanced over a wire. OMNIPAQUE, 350 MG, 150ML 150ML was us ed for 14:41:39 injections. 14:46:13 HR=80 bpm, TTWX=933/87 mmhg, SpO2=94.0 %, Resp=11 B/min, Pain=0, Rafy=10, Watts=2 14:50:02 The LCA was injected and visualized at various angles. OMNIPAQUE, 350 MG, 150ML 150ML used . 14:51:10 Catheter was removed 14:51:17 HR=73 bpm, TRIU=640/79 mmhg, SpO2=95.0 %, Resp=11 B/min, Pain=0, Rafy=10, Watts=2 A EBU 3.5 Z2 GUIDE CATHETER FR 6 was advanced over a wire. OMNIPAQUE, 350 MG, 150ML 150ML was u sed for 14:51:28 injections. 14:52:33 5000 units HEPARIN given in lab by Jacqui Lynn RN via Peripheral IV. 14:54:43 OMNIPAQUE, 350 MG, 50ML 50ML and 30 SU INDEFLATOR added. 14:56:13 HR=73 bpm, XFLD=505/81 mmhg, SpO2=94.0 %, Resp=12 B/min, Pain=0, Rafy=10, Watts=2 14:56:27 Pressure channel 1 zeroed. 14:58:00 A PRIME WIRE, VERRATA 185CM 185CM was inserted via Radial (right). 15:01:15 HR=75 bpm, OBBH=937/83 mmhg, SpO2=94.0 %, Resp=16 B/min, Pain=0, Rafy=10, Watts=2 15:04:23 Interventional wire has crossed the lesion 15:05:58 Flow Wire was was placed in the LAD Mid. The FFR measures ~FFR~ percent. The IFR measures 0 .89 Percent. 15:06:14 HR=76 bpm, RDFH=875/94 mmhg, SpO2=95.0 %, Resp=12 B/min, Pain=0, Rafy=10, Watts=2 15:06:46 The PRIME WIRE, VERRATA 185CM 185CM was removed. 15:07:44 Catheter was removed Assessment: Final Case, HR=79 BPM, Rhythm=reg, JVFI=731/94 mmhg, Chest Pain=0, Edema=None, [place] r=Normal, Skin = Warm Right Pulses: Jimmie Ped=2, Femoral=3 Left Pulses: Jimmie Ped=2, Femoral=3 15:07:52 Lower Right Extremities: Color=Normal Lower Left Extremities: Color=Normal Neurological: State=Alert, Ox3, POLK Respiration: Resp=8 B/min, SpO2=97 % 15:08:24 Catheter(s) removed without difficulty Radial Compression Device Used. 11 mLs of air placed in BAND, RADIAL COMPRESSION TR LARGE 29 29 CM. Affected 15:08:27 hand 98 % O2 saturation. 15:08:41 Case End 15:09:06 Sterile dressing applied to site 15:09:09 No case complications noted. 15:09:10 Cine recording checked. 15:09:12 Bedside Report will be given. 15:09:17 A Left Heart Cath was performed. 15:09:19 Clinical correlaton risk stratification. 15:11:19 HR=72 bpm, WGKQ=175/77 mmhg, SpO2=97.0 %, Resp=8 B/min, Pain=0, Rafy=10, Watts=2 End Study - Contrast Media Used In Study Contrast Total Opened (mL) Total Used (mL) Total Wasted (mL) Omnipaque 75 75 0 End Study - Maximum Contrast Load Max Contrast Load (mL) 512.5 End Study - Radiation Exposure Fluoro Time (minutes) 6.4 End Study - Sheaths Sheaths Pulled By Sheath Hold Time (min) June Howe End Study - Patient Disposition Complications Transferred To No Critical Care Bed
--- NOTE | 2017-07-23 16:22 | MA ---
cc: Yang Hood DO DATE: 07/23/2017 PROCEDURE: Left heart catheterization, coronary angiogram, moderate sedation 40 minutes, IFR LAD. PREPROCEDURE DIAGNOSIS: Chest pain, abnormal stress test. POSTPROCEDURE DIAGNOSIS: Multivessel coronary artery disease. MEDICATIONS: Versed 0.5 mg, fentanyl 25 mcg, verapamil 2.5 mg, nitro 200 mcg, heparin 8400 units. CONTRAST USED: 75 mL FLUOROSCOPY: 6.4 minutes. SEDATION: Moderate sedation 40 minutes. ESTIMATED BLOOD LOSS: 10 mL PROCEDURAL SUMMARY: Salazar Abarca is a pleasant 57-year-old male who presented to [facility] Emergency Room due to chest pain. He underwent stress testing which showed inferolateral ischemia. Because of this, he was recommended cardiac catheterization. Risks, benefits and alternatives were explained and he consented to such. He was brought to the lab and prepped in the usual sterile fashion. The right radial artery was accessed using modified Seldinger technique and placement of a 5/6 Italian slender sheath. This was easily aspirated and flushed. A JR4 was advanced over J-wire to the ascending aorta and across the aortic valve for measurement of left ventricular pressure. This was pulled back across the aortic valve showing no significant gradient of aortic stenosis. JR4 was used to perform selective angiography of the right coronary artery system. This is exchanged out for a JL 3.5, which was used to perform selective angiography of the left coronary artery system. As there was concern for significant disease of the RCA as well as an occlusion of the left circumflex and at least moderate disease of the LAD, I felt that further investigation of the LAD was necessary to determine possibility of coronary artery bypass grafting candidacy. An EBU guide was engaged in the left main. The patient was given additional heparin. A Prowater wire was advanced into the distal LAD. IFR was measured at 0.89, showing significant stenosis. The wire was removed. The guide was removed over a J wire. Radial band was placed over the arteriotomy site for hemostasis. The patient left the union laborer cardiovascularly stable. FINDINGS: Left main normal size vessel with 30% disease ostial. It bifurcates into an LAD and circumflex. LAD normal size vessel with no significant disease in the proximal portion. The mid portion after 2 diagonals has a 70% lesion. The first diagonal is normal size with no significant disease. The second diagonal has ostial 60% disease. Left circumflex 100% occluded in the proximal portion at the previous stent. Distally, there is significant otcg-mo-gmuv collaterals which fill a large obtuse marginal. RCA 70-80% long tubular lesion throughout the mid portion. Distally it is a dominant vessel with a 60% lesion before the takeoff of the PDA and PLB. It does supply minimal collaterals to the distal left circumflex. LVEDP 5. IMPRESSION: 1. Multivessel coronary artery disease. 2. Chest pain. 3. Abnormal stress test. 4. Tobacco abuse. RECOMMENDATIONS: 1. Mr. Abarca presented with chest pain and was found to have multivessel disease. Because of that, we recommended coronary artery bypass grafting. 2. I have discussed the case with CT surgery and they will see him in consultation. 3. As he did have chest pain at rest, which was similar to when he needed his previous stent, I feel it is reasonable to place him on a heparin drip 1 hour after his TR band is removed. 4. We will check a 2-D echo to look at his overall left ventricular function, cardiac structure and possible valvulopathies. 5. As he did present with chest pain while at rest and will be worked up from CT surgery standpoint, I feel that he should be made inpatient and consideration of bypass grafting while inpatient. 6. I will plan on stopping his SATHISH inhibitor therapy in anticipation of coronary artery bypass grafting. He will be placed on beta victoria and statin therapy. Thank you for allowing me to see Phong Abarca. If there are any questions, please do not hesitate to call. Yang Hood DO VGP/TL , 03:53 PM , 04:21 PM
[2017-07-23] MEDS ORDERED: IOHEXOL 350 MG/ML 100 ML BTL (for Cath Lab) OTHER ONE (16:27)
[2017-07-23] MEDS ORDERED: PAPAVERINE INJ 60 MG, NITROGLYCERIN INJ 100 MCG, DILTIAZEM INJ 100 MG in SODIUM CHLORID... IRRIGATION SCH (17:15)
[2017-07-23] MEDS ORDERED: INSULIN REGULAR (IV INFUSION) 100 UNITS in SODIUM CHLORIDE 0.9% INJ 99 ML IV PRN (17:15)
[2017-07-23] MEDS ORDERED: METOPROLOL TARTRATE 25 MG TAB PO SCH (17:15)
[2017-07-23] MEDS ORDERED: VANCOMYCIN INJ 1,250 MG in SODIUM CHLOR 0.9% 250 ML INJ 250 ML IV SCH (17:15)
[2017-07-23] MEDS ORDERED: CHLORHEXIDINE GLUCONATE 4% SOLN 120 ML BTL TOPICAL SCH (17:15)
[2017-07-23] MEDS ORDERED: VANCOMYCIN INJ 1,000 MG in SODIUM CHLORIDE 0.9% IRR BTL 1,000 ML IRRIGATION SCH (17:15)
[2017-07-23] MEDS ORDERED: SODIUM CHLORIDE 0.9% FLUSH 10 ML FLUSH IV FLUSH PRN (17:15)
--- NOTE | 2017-07-23 17:31 | TR ---
Date Performed: 07/23/2017 Time Performed: 10:53:59 DOCTOR: Zuleyka Watson DRUG LIST: CLINICAL HISTORY: ANGINA CHEST PAIN REASON FOR TEST: Angina REASON FOR ENDING: OBSERVATION: CONCLUSION: Lexiscan stress test was performed under standard four minute protocol. Radionuclid e was injected one minute prior to ending the test. No electrocardiographic abormalities were present to suggest ischemia. Nuclear imaging and interpretation are pending. COMMENTS:
[2017-07-23 17:34] LABS: HEMATOCRIT 40.7 % (39.0-51.0); HEMOGLOBIN 13.9 GM/DL (13.0-17.0); MEAN CELL VOLUME 89.1 FL (80.0-100.0); MEAN CORPUSCULAR HEMOGLOBIN 30.5 PG (27.0-34.0); MEAN CORPUSCULAR HGB CONC 34.2 % (32.0-36.0); MEAN PLATELET VOLUME 10.2 FL (7.0-11.0); PLATELET COUNT 198 TH/MM3 (150-450); RED BLOOD COUNT 4.56 MIL/MM3 (4.50-5.90); RED CELL DISTRIBUTION WIDTH 12.8 % (11.6-17.2); WHITE BLOOD COUNT 11.4 TH/MM3 (4.0-11.0)
--- NOTE | 2017-07-23 17:36 | EKG ---
Date Performed: 07/22/2017 Time Performed: 22:27:54 PTAGE: 57 years EKG: Sinus rhythm WITH OCCASIONAL VENTRICULAR PREMATURE COMPLEXES INCOMPLETE RIGHT BUNDLE BRANCH BLOCK LEFT ANTERIOR F ASCICULAR BLOCK INFERIOR MYOCARDIAL INFARCTION ABNORMAL ECG Since PREVIOUS TRACING , no significant change noted PREVIOUS TRACIN07/22/2017 18.32 DOCTOR: Zuleyka Watson Interpretating Date/Time 07/23/2017 17:35:13
--- NOTE | 2017-07-23 17:37 | EKG ---
Date Performed: 07/22/2017 Time Performed: 18:32:42 PTAGE: 57 years EKG: Sinus rhythm WITH SINUS ARRHYTHMIA MARKED LEFT AXIS DEVIATION ABNORMAL ECG Since PREVIOUS TRACING , no significant change noted DOCTOR: Zuleyka Watson Interpretating Date/Time 07/23/2017 17:35:57
--- NOTE | 2017-07-23 17:38 | EKG ---
Date Performed: 07/22/2017 Time Performed: 14:24:02 PTAGE: 57 years EKG: Sinus rhythm MARKED LEFT AXIS DEVIATION ABNORMAL ECG Since PREVIOUS TRACING , no significant change noted PREVIOUS TRACIN02/27/2017 07.47 DOCTOR: Zuleyka Watson Interpretating Date/Time 07/23/2017 17:37:20
[2017-07-23 17:41] LABS: INTERNATIONAL NORMALIZED RATIO 1.1 RATIO
[2017-07-23] MEDS: METOPROLOL TARTRATE 25 MG TAB PO SCH (20:31)
[2017-07-23] MEDS: ATORVASTATIN 80 MG TAB PO SCH (20:31)
[2017-07-23] MEDS: HEPARIN-D5W 25,000 U/250 ML 250 ML IV PRN (20:32)
--- NOTE | 2017-07-23 21:16 | HHI.HP ---
[facility] Service Family Medicine Primary Care Physician Palmer Mae MD Admission Diagnosis Chest Pain Diagnoses: International Travel<30 Days: No Contact w/Intl Traveler<30days: No Known Affected Area: No History of Present Illness Mr. Abarca is a 57-year-old white male with a past medical history of hypertension, CAD, diabetes presenting to to our team for consult after a cardiac catheterization showing multivessel disease. He states that his symptoms started 3 days ago when he started experiencing pain in his bilateral temples. He also felt like the room was spinning. Yesterday he started having chest pain and shortness of breath. Pain was located in his left chest and was a sharp, aching pain. No radiation. Nothing made the pain worse or better. He is also experiencing blurry vision and tinnitus. No heart palpitations. He states that he usually does not have this type of pain, but has bilateral calf pain when he walks. (Lucy Clarke MD R1) Review of Systems Constitutional: COMPLAINS OF: Chills, Dizziness, DENIES: Fever Eyes: COMPLAINS OF: Blurred vision Ears, nose, mouth, throat: COMPLAINS OF: Tinnitus, Vertigo Respiratory: COMPLAINS OF: Shortness of breath Cardiovascular: COMPLAINS OF: Chest pain, DENIES: Palpitations Gastrointestinal: DENIES: Black stools, Bloody stools Integumentary: DENIES: Rash (Lucy Clarke MD R1) Past Family Social History Past Medical History Hypertension Diabetes Rheumatoid arthritis Hepatitis C CAD Past Surgical History Colectomy due to perforation Tonsillectomy Previous cardiac stent placement Reported Medications Reported Meds & Active Scripts Active Novolin 70-30 Inj (Insulin Human Isoph/Insulin Regular) 1,000 Unit/10 Ml Vial 15 Units SQ TWICE A DAY Amlodipine (Amlodipine Besylate) 10 Mg Tab 10 Mg PO DAILY Lisinopril 40 Mg Tab 40 Mg PO DAILY Metformin (Metformin HCl) 1,000 Mg Tab 1,000 Mg PO BIDPC With meals Novolog Inj (Insulin Aspart) 1,000 Unit/10 Ml Vial 1-9 Units SQ ACHS Max dose at bedtime:(4)units; sugars less than 70,(0)units; sugars 150-199,(1) unit; sugars 200-249,(3) units; sugars 250-299,(5) units; sugars 300-349,(7) units; sugars greater than 349,(9) units Aspirin 325 Mg Tab 325 Mg PO DAILY (Lucy Clarke MD R1) Allergies: Coded Allergies: dolasetron (Unverified Allergy, Severe, 07/22/17) penicillin G (Unverified Allergy, Severe, 07/22/17) Family History Father-heart disease Mother-unknown medical history Social History Lives alone 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, heroin, and cocaine Smokes a pack of cigarettes per day, 50 years (Lucy Clarke MD R1) Physical Exam Vital Signs Vital Signs Date Time Temp Pulse Resp B/P (MAP) Pulse Ox O2 Delivery O2 Flow Rate FiO2 07/23/17 15:46 95 Room Air 07/23/17 12:26 98.7 73 18 131/74 (93) 95 07/23/17 08:50 96 21 07/23/17 07:07 98.5 80 18 136/76 (96) 94 07/23/17 04:05 69 07/23/17 03:50 98.1 78 18 140/74 (96) 95 07/22/17 23:28 17 07/22/17 23:21 80 07/22/17 23:02 21 07/22/17 22:21 98.3 82 18 149/72 (97) 93 Physical Exam GENERAL: This is a well-nourished, well-developed patient lying in bed, in no apparent distress. SKIN: No rashes, ecchymoses or lesions. Cool and dry. HEAD: Atraumatic. Normocephalic. EYES: Pupils equal round and reactive. Extraocular motions intact. No scleral icterus. No injection or drainage. ENT: Nose without bleeding, purulent drainage or septal hematoma. Throat without erythema, tonsillar hypertrophy or exudate. Uvula midline. Airway patent. NECK: Trachea midline. No JVD or lymphadenopathy. Supple, nontender, no meningeal signs. CARDIOVASCULAR: Regular rate and rhythm without murmurs, gallops, or rubs. RESPIRATORY: Clear to auscultation. Breath sounds equal bilaterally. No wheezes , rales, or rhonchi. GASTROINTESTINAL: Abdomen soft, non-tender, nondistended. No hepato-splenomegaly , or palpable masses. No guarding. MUSCULOSKELETAL: Extremities without clubbing, cyanosis, or edema. No joint tenderness, effusion, or edema noted. No calf tenderness. NEUROLOGICAL: Awake and alert. Motor and sensory grossly within normal limits. Normal speech. Laboratory Laboratory Tests Test 07/22/17 22:40 07/23/17 16:50 Total Creatine Kinase 37 Troponin I LESS THAN 0.02 White Blood Count 11.4 Red Blood Count 4.56 Hemoglobin 13.9 Hematocrit 40.7 Mean Corpuscular Volume 89.1 Mean Corpuscular Hemoglobin 30.5 Mean Corpuscular Hemoglobin Concent 34.2 Red Cell Distribution Width 12.8 Platelet Count 198 Mean Platelet Volume 10.2 Prothrombin Time 11.0 Prothromb Time International Ratio 1.1 Activated Partial Thromboplast Time 86.4 (Lucy Clarke MD R1) Result Diagram: 07/23/17 1650 07/22/17 1520 Imaging Last Impressions Myocardial Perfusion Scan Nuc Med 07/23/17 0000 Signed Impressions: Service Date/Time: Sunday, July 23, 2017 10:32 - CONCLUSION: 1. Small size moderate severity partially reversible perfusion defect involving the inferolateral wall apical and mid ventricular segments. There is associated hypokinesia in these segments. 2. The overall ejection fraction has decreased significantly since prior exam in June 2016, now measured at 43%%. RISK CATEGORY: Intermediate (1-3%% Annual Mortality Rate) Les Ann MD Chest X-Ray 07/22/17 1340 Signed Impressions: Service Date/Time: Saturday, July 22, 2017 13:59 - CONCLUSION: The lungs are clear. Les Ann MD (Lucy Clarke MD R1) Caprini VTE Risk Assessment Caprini VTE Risk Assessment: Mod/High Risk (score >= 2) Caprini Risk Assessment Model Point Value = 1 Point Value = 2 Point Value = 3 Point Value = 5 Age 41-60 Minor surgery BMI > 25 kg/m2 Swollen legs Varicose veins or History of unexplained or recurrent spontaneous Oral contraceptives or hormone replacement Sepsis (< 1 month) Serious lung disease, including pneumonia (< 1 month) Abnormal pulmonary function Acute myocardial infarction Congestive heart failure (< 1 month) History of inflammatory bowel disease Medical patient at bed rest Age 61-74 Arthroscopic surgery Major open surgery (> 45 min) Laparoscopic surgery (> 45 min) Malignancy Confined to bed (> 72 hours) Immobilizing plaster cast Central venous access Age >= 75 History of VTE Family history of VTE Factor V Leiden Prothrombin [id number] Lupus anticoagulant Anticardiolipin antibodies Elevated serum homocysteine Heparin-induced thrombocytopenia Other congenital or acquired thrombophilia Stroke (< 1 month) Elective arthroplasty Hip, pelvis, or leg fracture Acute spinal cord injury (< 1 month) Prophylaxis Regimen Total Risk Factor Score Risk Level Prophylaxis Regimen 0-1 Low Early ambulation 2 Moderate Order ONE of the following: *Sequential Compression Device (SCD) *Heparin 5000 units SQ BID 3-4 Higher Order ONE of the following medications: *Heparin 5000 units SQ TID *Enoxaparin/Lovenox 40 mg SQ daily (WT < 150 kg, CrCl > 30 mL/min) *Enoxaparin/Lovenox 30 mg SQ daily (WT < 150 kg, CrCl > 10-29 mL/min) *Enoxaparin/Lovenox 30 mg SQ BID (WT < 150 kg, CrCl > 30 mL/min) AND/OR *Sequential Compression Device (SCD) 5 or more Highest Order ONE of the following medications: *Heparin 5000 units SQ TID (Preferred with Epidurals) *Enoxaparin/Lovenox 40 mg SQ daily (WT < 150 kg, CrCl > 30 mL/min) *Enoxaparin/Lovenox 30 mg SQ daily (WT < 150 kg, CrCl > 10-29 mL/min) *Enoxaparin/Lovenox 30 mg SQ BID (WT < 150 kg, CrCl > 30 mL/min) AND *Sequential Compression Device (SCD) (Lucy Clarke MD R1) Assessment and Plan Assessment and Plan 57-year-old white male with past medical history of CAD, hypertension, diabetes presenting with chest pain. We are being consulted for his medical management. Code Status Full code Discussed Condition With Drs. Chavez and Clay (Lucy Clarke MD R1) Attending Attestation Patient seen and examined. Case reviewed and discussed with the resident team. Agree with plan of care as discussed with me and documented in the resident note. he was seen in the post cath unit, he was doing well and amenable to getting bypass (Amy Chavez MD) Problem List: (1) CAD (coronary artery disease) ICD Codes: I25.10 - Atherosclerotic heart disease of [place] coronary artery without angina pectoris Status: Chronic Plan: 57-year-old white male with a past medical history of coronary artery disease status post previous stent placement presenting with chest pain. Troponins negative 3. EKG showing inferior myocardial infarction. Cardiac stress test was abnormal. Patient status post cardiac catheterization which showed multivessel coronary artery disease. CT surgery consulted by Cardiology for coronary artery bypass grafting Cardiology recommendations -Heparin drip -Echocardiogram -D/C SATHISH inhibitor and place on beta-v[place] and statin Atorvastatin 80 mg at bedtime Metoprolol tartrate 25 mg every 12 hours (2) Hypertension ICD Codes: I10 - Essential (primary) hypertension Status: Chronic Plan: Amlodipine 10 mg p.o. daily Metoprolol tartrate 25 mg p.o. every 12 hours (3) Type 2 diabetes mellitus ICD Codes: E11.9 - Type 2 diabetes mellitus without complications Status: Chronic Plan: Bedside glucose monitoring Sliding scale NovoLog insulin low dose regimen Hypoglycemia protocol (4) FEN Status: Acute Plan: Fluids: none at this time Electrolytes: monitor and replete as needed Nutrition: NPO DVT Prophylaxis: Early ambulation. Heparin drip GI Prophylaxis: None indicated at this time (Lucy Clarke MD R1) Physician Certification 2 Midnight Certification Type: Admission for Inpatient Services Order for Inpatient Services The services are ordered in accordance with Medicare regulations or non- Medicare payer requirements, as applicable. In the case of services not specified as inpatient-only, they are appropriately provided as inpatient services in accordance with the 2-midnight benchmark. Estimated LOS (days): 4 days is the estimated time the patient will need to remain in the hospital, assuming treatment plan goals are met and no additional complications. Post-Hospital Plan: Not yet determined (Lucy Clarke MD R1) Problem Qualifiers (1) CAD (coronary artery disease): Qualified Codes: I25.110 - Atherosclerotic heart disease of [place] coronary artery with unstable angina pectoris (2) Hypertension: Qualified Codes: I10 - Essential (primary) hypertension (3) Type 2 diabetes mellitus: Qualified Codes: E11.8 - Type 2 diabetes mellitus with unspecified complications Lucy Clarke MD R1 Jul 23, 2017 21:16 Amy Chavez MD Jul 24, 2017 15:12
[2017-07-23] MEDS ORDERED: IBUPROFEN 800 MG TAB PO ONE (21:45)
[2017-07-23] MEDS ORDERED: HEPARIN SODIUM - IV 10,000 UNITS/10 ML VIAL IV PUSH PRN ×2 (21:45)
--- NOTE | 2017-07-23 23:18 | RADRPT ---
EXAM DATE/TIME: 07/23/2017 22:22 [facility] COMPARISON: No previous studies available for comparison. INDICATIONS : PreOp cardiac surgery. MEDICAL HISTORY : Myocardial infarction. Hypertension. Renal calculi. Hearing loss. Coronary artery disease. Diverticul itis. Rhematoid arthritis. Diabetes. ETOH abuse. Hepatitis C. SURGICAL HISTORY : Tonsillectomy. Coronary artery stent. Appendectomy. Partial colectomy. Left toe amputation. ENCOUNTER: Initial ACUITY: 1 day PAIN SCORE: 0/10 LOCATION: Bilateral legs. TECHNIQUE: Venous ultrasound of the left and right leg was performed from the inguinal ligament to the proximal calf. Real-time, color Doppler and spectral tracing, compression and augmentation techniques were us ed. FINDINGS: RIGHT LEG: There is normal compressibility of the deep venous system from the inguinal region to the proximal ca lf. No echogenic clot is seen in the lumen of the common femoral, femoral, popliteal, and posterior tibial veins. There is a normal response of the venous system to proximal and distal augmentation an d respiration. LEFT LEG: There is normal compressibility of the deep venous system from the inguinal region to the proximal ca lf. No echogenic clot is seen in the lumen of the common femoral, femoral, popliteal, and posterior tibial veins. There is a normal response of the venous system to proximal and distal augmentation an d respiration. CONCLUSION: Normal examination. Moi Pan MD on July 23, 2017 at 23:16 Board Certified Radiologist. This report was verified electronically.
--- NOTE | 2017-07-23 23:18 | RADRPT ---
EXAM DATE/TIME: 07/23/2017 22:08 [facility] COMPARISON: No previous studies available for comparison. INDICATIONS : PreOp cardiac surgery. MEDICAL HISTORY : Myocardial infarction. Hypertension. Renal calculi. Hearing loss. Coronary artery disease. Diverticul itis. Rhematoid arthritis. Diabetes. ETOH abuse. Hepatitis C. SURGICAL HISTORY : Tonsillectomy. Coronary artery stent. Appendectomy. Partial colectomy. Left toe amputation. ENCOUNTER: Subsequent ACUITY: 1 day PAIN SCORE: 0/10 LOCATION: Bilateral neck PEAK SYSTOLIC VELOCITIES (cm/sec): ICA/CCA RATIO: Right: 1.4 Left: 0.8 ICA: Right: 46.1 Left: 85.0 CCA: Right: 33.9 Left: 105.7 ECA: Right: 51.1 Left: 115.6 VERTEBRAL: Right: 56.5 antegrade Left: 77.3 antegrade Elevated flow velocities and ICA/CCA ratios have been found to correlate with increased degrees of vessel stenosis, calculated as percentage of diameter relative to a normal segment of distal ICA/CCA FINDINGS: RIGHT CAROTID: Moderate calcific plaquing. No significant stenosis is visualized. The waveforms are within normal l imits. LEFT CAROTID: Moderate calcific plaquing. No significant stenosis is visualized. The waveforms are within normal l imits. VERTEBRAL ARTERIES: Antegrade flow is seen in both vertebral arteries. MISCELLANEOUS: None. CONCLUSION: No evidence of flow-limiting carotid stenosis. Moi Pan MD on July 23, 2017 at 23:15 Board Certified Radiologist. This report was verified electronically.
--- NOTE | 2017-07-23 23:23 | RADRPT ---
EXAM DATE/TIME: 07/23/2017 22:29 [facility] COMPARISON: No previous studies available for comparison. INDICATIONS : PreOp cardiac surgery. MEDICAL HISTORY : Myocardial infarction. Hypertension. Renal calculi. Hearing loss. Coronary artery disease. Diverticul itis. Rhematoid arthritis. Diabetes. ETOH abuse. Hepatitis C. SURGICAL HISTORY : Tonsillectomy. Coronary artery stent. Appendectomy. Partial colectomy. Left toe amputation. ENCOUNTER: Initial ACUITY: 1 day PAIN SCORE: 0/10 LOCATION: Bilateral legs. GREATER SAPHENOUS VEIN THIGH: PROXIMAL: Right 6 mm Left 7 mm MID: Right 2 mm Left 3 mm DISTAL: Right 2 mm Left 2 mm CALF: PROXIMAL: Right 2 mm Left 2 mm MID: Right 2 mm Left Non-visualized DISTAL: Right 1 mm Left Non-visualized FINDINGS: The venous system of the lower extremities are patent by color Doppler imaging. Measurements of the leg veins (in mm) are listed above. CONCLUSION: Patent saphenous veins bilaterally Moi Pan MD on July 23, 2017 at 23:20 Board Certified Radiologist. This report was verified electronically.
[2017-07-24] VITALS (28 sets, daily range): BP systolic 120–163; BP diastolic 59–80; PULSE 58–92; RESP 15–16; TEMP 98.1–98.8; O2SAT 95–98
[2017-07-24 04:14] LABS: AUTOMATED NEUTROPHIL # 5.3 TH/MM3 (1.8-7.7); BASOPHIL % 0.5 % (0.0-2.0); EOSINOPHIL # 0.3 TH/MM3 (0-0.4); EOSINOPHIL % 3.2 % (0.0-4.0); HEMATOCRIT 41.2 % (39.0-51.0); HEMOGLOBIN 14.1 GM/DL (13.0-17.0); MEAN CELL VOLUME 89.2 FL (80.0-100.0); MEAN CORPUSCULAR HEMOGLOBIN 30.6 PG (27.0-34.0); MEAN CORPUSCULAR HGB CONC 34.3 % (32.0-36.0); MEAN PLATELET VOLUME 9.7 FL (7.0-11.0); MONO % 6.4 % (0.0-8.0); MONOCYTE # 0.7 TH/MM3 (0-0.9); NEUT % 50.9 % (16.0-70.0); PLATELET COUNT 190 TH/MM3 (150-450); RED BLOOD COUNT 4.62 MIL/MM3 (4.50-5.90); RED CELL DISTRIBUTION WIDTH 12.7 % (11.6-17.2); WHITE BLOOD COUNT 10.4 TH/MM3 (4.0-11.0)
[2017-07-24 04:46] LABS: ALBUMIN 3.2 GM/DL (3.4-5.0); AST (GOT) 40 U/L (15-37); BLOOD UREA NITROGEN 19 MG/DL (7-18); CALCIUM 8.8 MG/DL (8.5-10.1); CHLORIDE 105 MEQ/L (98-107); CREATININE 0.77 MG/DL (0.60-1.30); DIRECT BILIRUBIN ADULT 0.1 MG/DL (0.0-0.2); GLOMERULAR FILTRATION RATE 103 ML/MIN (>89); GLUCOSE,RANDOM 133 MG/DL (74-106); SODIUM (NA) 139 MEQ/L (136-145)
[2017-07-24 04:47] LABS: ALT (GPT) 53 U/L (12-78); CHOLESTEROL 163 MG/DL (120-200); TRIGLYCERIDES 124 MG/DL (42-150)
[2017-07-24 04:49] LABS: ALKALINE PHOSPHATASE 104 U/L (45-117); HDL CHOLESTEROL 28.1 MG/DL (40.0-60.0); INDIRECT BILIRUBIN 0.3 MG/DL (0.0-0.8); LDL CHOLESTEROL 110 MG/DL (0-99); TOTAL BILIRUBIN ADULT 0.4 MG/DL (0.2-1.0); TOTAL PROTEIN 7.3 GM/DL (6.4-8.2)
[2017-07-24] MEDS: INSULIN ASPART SUPPLEMENTAL SCALE SQ SCH ×4 (07:47→20:55)
[2017-07-24] MEDS: ASPIRIN 81 MG CHEW TAB CHEW SCH (08:33)
[2017-07-24] MEDS: METOPROLOL TARTRATE 25 MG TAB PO SCH ×2 (08:33→20:55)
[2017-07-24] MEDS: SODIUM CHLORIDE 0.9% FLUSH 10 ML FLUSH IV FLUSH SCH ×3 (08:34→20:56)
[2017-07-24] MEDS: ACETAMINOPHEN 500 MG CPLT PO PRN ×2 (08:36→17:47)
--- NOTE | 2017-07-24 10:30 | PD.CAR.PN ---
CVT Progress Note Subjective/Hospital Course: 57/ male presented with chest pain , Hx CAD stent 7 years ago + cath / for surgery in am no chest pain last pm sts data discussed with pt RISK SCORES About the STS Risk Calculator Procedure: CAB Only Risk of Mortality: 0.816% Morbidity or Mortality: 10.599% Long Length of Stay: 4.211% Short Length of Stay: 52.529% Permanent Stroke: 0.728% Prolonged Ventilation: 7.502% DSW Infection: 0.662% Renal Failure: 1.438% Reoperation: 4.401% Objective: GENERAL: SKIN: Warm and dry. HEAD: Normocephalic. EYES: No scleral icterus. No injection or drainage. NECK: Supple, trachea midline. No JVD or lymphadenopathy. CARDIOVASCULAR: Regular rate and rhythm without murmurs, gallops, or rubs. RESPIRATORY: Breath sounds equal bilaterally. No accessory muscle use. GASTROINTESTINAL: Abdomen soft, non-tender, nondistended. MUSCULOSKELETAL: No cyanosis, or edema. BACK: Nontender without obvious deformity. No CVA tenderness. Vital Signs Date Time Temp Pulse Resp B/P (MAP) Pulse Ox O2 Delivery O2 Flow Rate FiO2 07/24/17 10:00 60 07/24/17 09:00 70 07/24/17 08:00 92 07/24/17 07:46 98.1 68 16 144/77 (99) 97 07/24/17 07:00 62 07/24/17 06:21 63 07/24/17 05:00 63 07/24/17 04:00 65 07/24/17 03:37 98.2 70 15 145/80 (101) 96 07/24/17 03:00 67 07/24/17 02:00 65 07/24/17 01:00 65 07/24/17 00:00 69 07/23/17 23:47 98.2 68 15 140/67 (91) 98 07/23/17 23:00 69 07/23/17 22:00 72 07/23/17 21:00 82 07/23/17 20:30 92 07/23/17 20:30 98.6 82 15 172/84 (113) 97 07/23/17 15:46 95 Room Air 07/23/17 12:26 98.7 73 18 131/74 (93) 95 Labs: Laboratory Tests Test 07/24/17 03:40 07/24/17 09:44 White Blood Count 10.4 TH/MM3 (4.0-11.0) Red Blood Count 4.62 MIL/MM3 (4.50-5.90) Hemoglobin 14.1 GM/DL (13.0-17.0) Hematocrit 41.2 % (39.0-51.0) Mean Corpuscular Volume 89.2 FL (80.0-100.0) Mean Corpuscular Hemoglobin 30.6 PG (27.0-34.0) Mean Corpuscular Hemoglobin Concent 34.3 % (32.0-36.0) Red Cell Distribution Width 12.7 % (11.6-17.2) Platelet Count 190 TH/MM3 (150-450) Mean Platelet Volume 9.7 FL (7.0-11.0) Neutrophils (%) (Auto) 50.9 % (16.0-70.0) Lymphocytes (%) (Auto) 39.0 % (9.0-44.0) Monocytes (%) (Auto) 6.4 % (0.0-8.0) Eosinophils (%) (Auto) 3.2 % (0.0-4.0) Basophils (%) (Auto) 0.5 % (0.0-2.0) Neutrophils # (Auto) 5.3 TH/MM3 (1.8-7.7) Lymphocytes # (Auto) 4.0 TH/MM3 (1.0-4.8) Monocytes # (Auto) 0.7 TH/MM3 (0-0.9) Eosinophils # (Auto) 0.3 TH/MM3 (0-0.4) Basophils # (Auto) 0.0 TH/MM3 (0-0.2) CBC Comment DIFF FINAL Differential Comment Activated Partial Thromboplast Time 37.1 SEC (24.3-30.1) Blood Urea Nitrogen 19 MG/DL (7-18) Creatinine 0.77 MG/DL (0.60-1.30) Random Glucose 133 MG/DL (74-106) Total Protein 7.3 GM/DL (6.4-8.2) Albumin 3.2 GM/DL (3.4-5.0) Calcium Level 8.8 MG/DL (8.5-10.1) Alkaline Phosphatase 104 U/L (45-117) Aspartate Amino Transf (AST/SGOT) 40 U/L (15-37) Alanine Aminotransferase (ALT/SGPT) 53 U/L (12-78) Total Bilirubin 0.4 MG/DL (0.2-1.0) Direct Bilirubin 0.1 MG/DL (0.0-0.2) Sodium Level 139 MEQ/L (136-145) Potassium Level 3.8 MEQ/L (3.5-5.1) Chloride Level 105 MEQ/L (98-107) Carbon Dioxide Level 25.0 MEQ/L (21.0-32.0) Anion Gap 9 MEQ/L (5-15) Estimat Glomerular Filtration Rate 103 ML/MIN (>89) Indirect Bilirubin 0.3 MG/DL (0.0-0.8) Triglycerides Level 124 MG/DL (42-150) Cholesterol Level 163 MG/DL (120-200) LDL Cholesterol 110 MG/DL (0-99) HDL Cholesterol 28.1 MG/DL (40.0-60.0) Cholesterol/HDL Ratio 5.80 RATIO Result Diagram: 07/24/17 0340 07/24/17 0340 Telemetry: NSR (1) Unstable angina Plan: for surgery in am (2) Tobacco dependency (3) COPD (chronic obstructive pulmonary disease) (4) CAD (coronary artery disease) (5) HTN (hypertension) (6) Type 2 diabetes mellitus Mabel Gonzalez Jul 24, 2017 10:30
--- NOTE | 2017-07-24 10:57 | MB ---
cc: Mabel Gonzalez Jacqueline R ARNP DATE: 07/24/2017 HISTORY OF PRESENT ILLNESS: A 57-year-old male presented with chest pain, has a history of a coronary stent to the circumflex [address] Watson, nonradiating. The pain was off and on throughout the day prior to coming in. He also had some headaches. The pain he states was similar to the pain he had when he required his cardiac stent. Troponins were negative; however, he had a nuclear stress test, which showed a small-sized, moderately reversible perfusion defect in the inferolateral wall with an EF of approximately 43%. He underwent cardiac catheterization by Dr. Hood, which showed left main disease at 40%, proximal LAD 20%, mid-distal 70%, diagonal 60%, the circumflex 100% and the RCA 70%. We were consulted to evaluate for coronary artery bypass grafting x4. PAST MEDICAL HISTORY: Includes coronary artery disease, hypertension, diabetes mellitus type 2, hepatitis C, diverticulosis, COPD. PAST SURGICAL HISTORY: Include bowel resection due to a perforated diverticulitis [address] Frazier, appendectomy, tonsillectomy. He had some left foot trauma repair at age 6. ALLERGIES: INCLUDE DOLASETRON AND PENICILLIN. HOME MEDICATIONS: Include: 1. Norvasc. 2. Lisinopril. 3. Aspirin. 4. Metformin. 5. NovoLog insulin twice a day. FAMILY HISTORY: Denies any premature coronary artery disease or sudden cardiac . SOCIAL HISTORY: The patient is single, does have 2 grown children. The patient has been smoking for approximately 50 years. 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 He has been in a drug treatment program since and alcohol addictions program. REVIEW OF SYSTEMS: GENERAL: No night sweats, fever, heat and cold intolerance. SKIN: No psoriasis, itching or hives. HEENT: No blurred vision, hearing loss. RESPIRATORY: Some shortness of breath. No cough. CARDIOVASCULAR: As above in the HPI. GASTROINTESTINAL: No diarrhea or vomiting. GENITOURINARY: No burning, frequency, urgency. CENTRAL NERVOUS SYSTEM: No history of TIA, CVA or seizure disorder. ENDOCRINOLOGY: Positive for diabetes. PHYSICAL EXAMINATION: VITAL SIGNS: Blood pressure 140/70, heart rate of 70, afebrile. O2 saturation 97 on room air. GENERAL: Awake, alert, in no acute distress. HEENT: Head is normocephalic, atraumatic. Pupils equal and reactive. Oral mucosa pink, moist. NECK: Supple. No JVD. CARDIOVASCULAR: Heart sounds S1, S2. Regular rate and rhythm. No rubs, murmurs, or gallops. LUNGS: Clear to auscultation. No wheezes, rales or rhonchi. ABDOMEN: Soft, nontender. No masses or organomegaly. EXTREMITIES: No cyanosis, clubbing, or edema. LABORATORY DATA: Shows hemoglobin 14, hematocrit of 41, white cell count of 10, platelet count of 190. Sodium 139, potassium 3.8, BUN 19, creatinine 0.77, AST of 40, ALT of 53. Troponin negative. Triglycerides 124, cholesterol 163, LDL 110, HDL 28. INR 1.0. Urinalysis is unremarkable. Tox screen is negative. MRSA pending. IMAGING STUDIES: Carotid ultrasound unremarkable. Lower extremity ultrasound, no DVT. IMPRESSION: This is a 57-year-old male with multiple risk factors including coronary artery disease, hypertension, diabetes mellitus. Cardiac solis have been evaluated by Dr. Sudha Hunter. PLAN: Plan will be for coronary artery bypass grafting x4. Plan will be for 07/25/2017. Further planning per Dr. Sudha Hunter. PREET Bynum MD JRT/STELLA , 10:27 AM , 10:56 AM
--- NOTE | 2017-07-24 12:29 | ECHRPT ---
Indication: CAD CONCLUSIONS The left ventricular systolic function is moderately reduced with an estimated ejection fraction in the range of 40-45%. Wall thickness is measured at the upper limits of normal. Normal left ventricular size. [id number] mitral valve regurgitation. There is trace tricuspid valve regurgitation. Trivial pulmonary valve regurgitation. BP: 144 / 77 HR: 61 Rhythm: Sinus MEASUREMENTS (Male / Female) Normal Values Technical Quality:Fair 2D ECHO LV Diastolic Diameter PLAX 4.7 cm 4.2 - 5.9 / 3.9 - 5.3 cm LV Systolic Diameter PLAX 3.7 cm IVS Diastolic Thickness 1.0 cm 0.6 - 1.0 / 0.6 - 0.9 cm LVPW Diastolic Thickness 0.9 cm 0.6 - 1.0 / 0.6 - 0.9 cm LV Relative Wall Thickness 0.4 RV Internal Dim ED PLAX 3.9 cm LVOT Diameter 2.3 cm LA Systolic Diameter LX 3.6 cm 3.0 - 4.0 / 2.7 - 3.8 cm M-MODE Aortic Root Diameter MM 2.9 cm LA Systolic Diameter MM 3.8 cm LA Ao Ratio MM 1.3 AV Cusp Separation MM 2.0 cm DOPPLER AV Peak Velocity 112.0 cm/s AV Peak Gradient 5.0 mmHg LVOT Peak Velocity 79.7 cm/s LVOT Peak Gradient 2.5 mmHg AV Area Cont Eq pk 3.0 cm MV Area PHT 3.3 cm Mitral E Point Velocity 49.8 cm/s Mitral A Point Velocity 66.7 cm/s Mitral E to A Ratio 0.7 LV E' Lateral Velocity 7.9 cm/s Mitral E to LV E' Lateral Ratio 6.3 LV E' Septal Velocity 5.9 cm/s Mitral E to LV E' Septal Ratio 8.4 FINDINGS LEFT VENTRICLE The left ventricular systolic function is moderately reduced with an estimated ejection fraction in the range of 40-45%. Wall thickness is measured at the upper limits of normal. Normal left ventricular size. RIGHT VENTRICLE Normal right ventricular size and systolic function. LEFT ATRIUM The left atrial size is normal. RIGHT ATRIUM The right atrial size is normal. ATRIAL SEPTUM Normal atrial septal thickness without atrial level shunting by limited color doppler interrogation. AORTA The aortic root and proximal ascending aorta are normal in size on limited imaging. MITRAL VALVE Structurally normal mitral valve. [id number] mitral valve regurgitation. AORTIC VALVE Trileaflet aortic valve. No aortic valve stenosis or regurgitation. TRICUSPID VALVE Structurally normal tricuspid valve. There is trace tricuspid valve regurgitation. PULMONARY VALVE Trivial pulmonary valve regurgitation. VESSELS The inferior vena cava is normal in size. PERICARDIUM No pericardial effusion. Leonel Olmos MD, FACC, [facility] [place] (Electronically Signed) Final Date:24 July 2017 12:28
[2017-07-24] MEDS: HEPARIN-D5W 25,000 U/250 ML 250 ML IV PRN (13:26)
--- NOTE | 2017-07-24 14:31 | PD.CARD.PN ---
Subjective Subjective Remarks No events overnight No chest pain Objective Medications Current Medications Medications (Trade) Dose Ordered Sig/Canelo Route Start Time Stop Time Status Last Admin (Tylenol) 500 mg Q4H PRN PO 07/23/17 07:30 07/24/17 08:36 (Nitrostat Sl) 0.4 mg Q5M PRN SL 07/23/17 07:30 (Norvasc) 10 mg DAILY PO 07/23/17 09:00 07/24/17 08:33 (D50w (Vial) Inj) 50 ml UNSCH PRN IV PUSH 07/23/17 08:30 (Glucagon Inj) 1 mg UNSCH PRN OTHER 07/23/17 08:30 (NovoLOG SUPPLEMENTAL SCALE) 1 ACHS SLIDING SCALE SQ 07/23/17 12:00 07/24/17 11:29 (Phenergan) 12.5 mg Q6H PRN PO 07/23/17 11:00 (Pill Splitter) 1 ea UNSCH PRN OTHER 07/23/17 10:45 (Heparin Inj) 5,000 units UNSCH PRN IV PUSH 07/23/17 21:45 (Heparin Inj) 2,500 units UNSCH PRN IV PUSH 07/23/17 21:45 07/24/17 04:33 Heparin Sodium/ Dextrose 250 ml @ 10 mls/hr TITRATE PRN IV 07/23/17 15:45 07/24/17 13:26 (Lopressor) 25 mg Q12HR PO 07/23/17 21:00 07/24/17 08:33 (Aspirin Chew) 81 mg DAILY CHEW 07/24/17 09:00 07/24/17 08:33 (Lipitor) 80 mg HS PO 07/23/17 21:00 07/23/17 20:31 (NS Flush) 2 ml BID IV FLUSH 07/23/17 21:00 (NS Flush) 2 ml UNSCH PRN IV FLUSH 07/23/17 17:15 Papaverine HCl 60 mg/Nitroglycerin 100 mcg/Diltiazem HCl 100 mg/Sodium Chloride 100 ml @ 0 mls/hr BOOK COVERER IRRIGATION 07/23/17 17:15 07/30/17 17:14 Vancomycin HCl 1000 mg/Sodium Chloride 1,000 ml @ 0 mls/hr BOOK COVERER IRRIGATION 07/23/17 17:15 07/30/17 17:14 Vancomycin HCl 1250 mg/Sodium Chloride 262.5 ml @ 262.5 mls/ hr BOOK COVERER IV 07/23/17 17:15 07/30/17 17:14 (Lopressor) 12.5 mg BOOK COVERER PO 07/23/17 17:15 07/30/17 17:14 (Hibiclens 4% Top Soln) 1 applic BOOK COVERER TOPICAL 07/23/17 17:15 07/30/17 17:14 Insulin Human Regular 100 units/ Sodium Chloride 100 ml @ 3 mls/hr TITRATE PRN IV 07/23/17 17:15 07/30/17 17:14 (D50w (Vial) Inj) 50 ml UNSCH PRN IV PUSH 07/23/17 17:15 (Cardizem) 60 mg Q6HR PO 07/24/17 18:00 Vital Signs / I&O Vital Signs Date Time Temp Pulse Resp B/P (MAP) Pulse Ox O2 Delivery O2 Flow Rate FiO2 07/24/17 14:00 63 07/24/17 13:00 70 07/24/17 12:00 58 07/24/17 11:24 98.5 63 16 136/73 (94) 95 07/24/17 11:00 62 07/24/17 10:00 60 07/24/17 09:00 70 07/24/17 08:00 92 07/24/17 07:46 98.1 68 16 144/77 (99) 97 07/24/17 07:46 68 07/24/17 07:00 62 07/24/17 06:21 63 07/24/17 05:00 63 07/24/17 04:00 65 07/24/17 03:37 98.2 70 15 145/80 (101) 96 07/24/17 03:00 67 07/24/17 02:00 65 07/24/17 01:00 65 07/24/17 00:00 69 07/23/17 23:47 98.2 68 15 140/67 (91) 98 07/23/17 23:00 69 07/23/17 22:00 72 07/23/17 21:00 82 07/23/17 20:30 92 07/23/17 20:30 98.6 82 15 172/84 (113) 97 07/23/17 15:46 95 Room Air I/O 07/23/17 07/23/17 07/23/17 07/24/17 07/24/17 07/24/17 07:00 15:00 23:00 07:00 15:00 23:00 Intake Total 572 ml Output Total 300 ml Balance 272 ml Intake Oral 480 ml IV Total 92 ml Output Urine Total 300 ml # Bowel Movements 0 Physical Exam GENERAL: NAD, AAOx3 SKIN: Warm and dry. HEAD: Atraumatic. Normocephalic. EYES: Pupils equal and round. No scleral icterus. No injection or drainage. ENT: No nasal bleeding or discharge. Mucous membranes pink and moist. NECK: Trachea midline. No JVD. CARDIOVASCULAR: Regular rate and rhythm. RESPIRATORY: No accessory muscle use. Clear to auscultation. Breath sounds equal bilaterally. GASTROINTESTINAL: Abdomen soft, non-tender, nondistended. Hepatic and splenic margins not palpable. MUSCULOSKELETAL: Extremities without clubbing, cyanosis, or edema. No obvious deformities. Right radial no hematoma, neurovascularly intact NEUROLOGICAL: Awake and alert. No obvious cranial nerve deficits. Motor grossly within normal limits. Five out of 5 muscle strength in the arms and legs. Normal speech. PSYCHIATRIC: Appropriate mood and affect; insight and judgment normal. Laboratory Laboratory Tests Test 07/23/17 16:50 07/23/17 22:14 07/24/17 03:40 07/24/17 09:44 White Blood Count 11.4 TH/MM3 10.4 TH/MM3 Red Blood Count 4.56 MIL/MM3 4.62 MIL/MM3 Hemoglobin 13.9 GM/DL 14.1 GM/DL Hematocrit 40.7 % 41.2 % Mean Corpuscular Volume 89.1 FL 89.2 FL Mean Corpuscular Hemoglobin 30.5 PG 30.6 PG Mean Corpuscular Hemoglobin Concent 34.2 % 34.3 % Red Cell Distribution Width 12.8 % 12.7 % Platelet Count 198 TH/MM3 190 TH/MM3 Mean Platelet Volume 10.2 FL 9.7 FL Prothrombin Time 11.0 SEC Prothromb Time International Ratio 1.1 RATIO Activated Partial Thromboplast Time 86.4 SEC 29.9 SEC 37.1 SEC Neutrophils (%) (Auto) 50.9 % Lymphocytes (%) (Auto) 39.0 % Monocytes (%) (Auto) 6.4 % Eosinophils (%) (Auto) 3.2 % Basophils (%) (Auto) 0.5 % Neutrophils # (Auto) 5.3 TH/MM3 Lymphocytes # (Auto) 4.0 TH/MM3 Monocytes # (Auto) 0.7 TH/MM3 Eosinophils # (Auto) 0.3 TH/MM3 Basophils # (Auto) 0.0 TH/MM3 CBC Comment DIFF FINAL Differential Comment Blood Urea Nitrogen 19 MG/DL Creatinine 0.77 MG/DL Random Glucose 133 MG/DL Total Protein 7.3 GM/DL Albumin 3.2 GM/DL Calcium Level 8.8 MG/DL Alkaline Phosphatase 104 U/L Aspartate Amino Transf (AST/SGOT) 40 U/L Alanine Aminotransferase (ALT/SGPT) 53 U/L Total Bilirubin 0.4 MG/DL Direct Bilirubin 0.1 MG/DL Sodium Level 139 MEQ/L Potassium Level 3.8 MEQ/L Chloride Level 105 MEQ/L Carbon Dioxide Level 25.0 MEQ/L Anion Gap 9 MEQ/L Estimat Glomerular Filtration Rate 103 ML/MIN Indirect Bilirubin 0.3 MG/DL Triglycerides Level 124 MG/DL Cholesterol Level 163 MG/DL LDL Cholesterol 110 MG/DL HDL Cholesterol 28.1 MG/DL Cholesterol/HDL Ratio 5.80 RATIO Nasal Screen MRSA (PCR) MRSA NOT DETECTED Test 07/24/17 11:01 Activated Partial Thromboplast Time 42.8 SEC Assessment and Plan Problem List: (1) Unstable angina ICD Codes: I20.0 - Unstable angina (2) Tobacco dependency ICD Codes: F17.200 - Nicotine dependence, unspecified, uncomplicated Status: Acute (3) COPD (chronic obstructive pulmonary disease) ICD Codes: J44.9 - Chronic obstructive pulmonary disease, unspecified Status: Acute (4) CAD (coronary artery disease) ICD Codes: I25.10 - Atherosclerotic heart disease of [place] coronary artery without angina pectoris Status: Chronic (5) HTN (hypertension) ICD Codes: I10 - Essential (primary) hypertension (6) Type 2 diabetes mellitus ICD Codes: E11.9 - Type 2 diabetes mellitus without complications Status: Chronic Assessment and Plan 1) MVCAD Plan for CABG tomorrow Con't heparin drip 2) Tobacco cessation 3) EF 40-45% 4) SATHISH-I stopped for anticipated CABG Yang Hood DO Jul 24, 2017 14:31
--- NOTE | 2017-07-24 15:09 | HHI.HP ---
[facility] Service Family Medicine Primary Care Physician Palmer Mae MD Admission Diagnosis Chest Pain Diagnoses: (1) CAD (coronary artery disease) Diagnosis: Principal (2) Hypertension Diagnosis: Principal (3) Type 2 diabetes mellitus Diagnosis: Principal (4) FEN Diagnosis: Principal International Travel<30 Days: No Contact w/Intl Traveler<30days: No Known Affected Area: No History of Present Illness Mr. Abarca is a 57-year-old white male with a past medical history of hypertension, CAD, diabetes presenting to to our team for consult after a cardiac catheterization showed multivessel disease. He states that his symptoms started 3 days ago when he started experiencing pain in his bilateral temples. He also felt like the room was spinning. the day before yesterday he started having chest pain and shortness of breath. Pain was located in his left chest and was a sharp, aching pain. No radiation. Nothing made the pain worse or better. He is also experiencing blurry vision and tinnitus. No heart palpitations. He states that he usually does not have this type of pain, but has bilateral calf pain when he walks. He was originally in the chest pain center and had a positive stress test. His subsequent cath showed multivessel disease so he has been referred for bypass which is expected tomorrow. Review of Systems Constitutional: DENIES: Diaphoretic episodes, Fever Ears, nose, mouth, throat: DENIES: Running Nose, Sinus Pain Respiratory: COMPLAINS OF: Shortness of breath, DENIES: Sputum production Cardiovascular: COMPLAINS OF: Chest pain, Dyspnea on Exertion Gastrointestinal: DENIES: Abdominal pain Musculoskeletal: COMPLAINS OF: Back pain Integumentary: DENIES: Abnormal pigmentation Neurologic: DENIES: Abnormal gait, Tremor, Poor Balance Other Constitutional: COMPLAINS OF: Chills, Dizziness, DENIES: Fever Eyes: COMPLAINS OF: Blurred vision Ears, nose, mouth, throat: COMPLAINS OF: Tinnitus, Vertigo Respiratory: COMPLAINS OF: Shortness of breath Cardiovascular: COMPLAINS OF: Chest pain, DENIES: Palpitations Gastrointestinal: DENIES: Black stools, Bloody stools Integumentary: DENIES: Rash Past Family Social History Past Medical History Hypertension Diabetes Rheumatoid arthritis Hepatitis C CAD Past Surgical History Colectomy due to perforation Tonsillectomy Previous cardiac stent placement Allergies: Coded Allergies: [email or web address] (Unverified Allergy, Severe, 07/22/17) penicillin G (Unverified Allergy, Severe, 07/22/17) Family History Father-heart disease Mother-unknown medical history Social History Lives alone 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, heroin, and cocaine Smokes a pack of cigarettes per day, 50 years Physical Exam Vital Signs Vital Signs Date Time Temp Pulse Resp B/P (MAP) Pulse Ox O2 Delivery O2 Flow Rate FiO2 07/24/17 14:00 63 07/24/17 13:00 70 07/24/17 12:00 58 07/24/17 11:24 98.5 63 16 136/73 (94) 95 07/24/17 11:00 62 07/24/17 10:00 60 07/24/17 09:00 70 07/24/17 08:00 92 07/24/17 07:46 98.1 68 16 144/77 (99) 97 07/24/17 07:46 68 07/24/17 07:00 62 07/24/17 06:21 63 07/24/17 05:00 63 07/24/17 04:00 65 07/24/17 03:37 98.2 70 15 145/80 (101) 96 07/24/17 03:00 67 07/24/17 02:00 65 07/24/17 01:00 65 07/24/17 00:00 69 07/23/17 23:47 98.2 68 15 140/67 (91) 98 07/23/17 23:00 69 07/23/17 22:00 72 07/23/17 21:00 82 07/23/17 20:30 92 07/23/17 20:30 98.6 82 15 172/84 (113) 97 07/23/17 15:46 95 Room Air Physical Exam GENERAL: This is a well-nourished, well-developed patient lying in bed, in no apparent distress. SKIN: No rashes, ecchymoses or lesions. Cool and dry. HEAD: Atraumatic. Normocephalic. EYES: Pupils equal round and reactive. Extraocular motions intact. No scleral icterus. No injection or drainage. ENT: Nose without bleeding, purulent drainage or septal hematoma. Airway patent. NECK: Trachea midline. No JVD or lymphadenopathy. Supple, nontender, no meningeal signs. CARDIOVASCULAR: Regular rate and rhythm with systolic 2/4 murmur, no gallops, or rubs. RESPIRATORY: Clear to auscultation. Breath sounds equal bilaterally. No wheezes , rales, or rhonchi. GASTROINTESTINAL: Abdomen soft, non-tender, nondistended. No hepato-splenomegaly , or palpable masses. No guarding. MUSCULOSKELETAL: Extremities without clubbing, cyanosis, or edema. No joint tenderness, effusion, or edema noted. No calf tenderness. NEUROLOGICAL: Awake and alert. Motor and sensory grossly within normal limits. Normal speech. Laboratory Laboratory Tests Test 07/23/17 16:50 07/23/17 22:14 07/24/17 03:40 07/24/17 09:44 White Blood Count 11.4 10.4 Red Blood Count 4.56 4.62 Hemoglobin 13.9 14.1 Hematocrit 40.7 41.2 Mean Corpuscular Volume 89.1 89.2 Mean Corpuscular Hemoglobin 30.5 30.6 Mean Corpuscular Hemoglobin Concent 34.2 34.3 Red Cell Distribution Width 12.8 12.7 Platelet Count 198 190 Mean Platelet Volume 10.2 9.7 Prothrombin Time 11.0 Prothromb Time International Ratio 1.1 Activated Partial Thromboplast Time 86.4 29.9 37.1 Neutrophils (%) (Auto) 50.9 Lymphocytes (%) (Auto) 39.0 Monocytes (%) (Auto) 6.4 Eosinophils (%) (Auto) 3.2 Basophils (%) (Auto) 0.5 Neutrophils # (Auto) 5.3 Lymphocytes # (Auto) 4.0 Monocytes # (Auto) 0.7 Eosinophils # (Auto) 0.3 Basophils # (Auto) 0.0 CBC Comment DIFF FINAL Differential Comment Blood Urea Nitrogen 19 Creatinine 0.77 Random Glucose 133 Total Protein 7.3 Albumin 3.2 Calcium Level 8.8 Alkaline Phosphatase 104 Aspartate Amino Transf (AST/SGOT) 40 Alanine Aminotransferase (ALT/SGPT) 53 Total Bilirubin 0.4 Direct Bilirubin 0.1 Sodium Level 139 Potassium Level 3.8 Chloride Level 105 Carbon Dioxide Level 25.0 Anion Gap 9 Estimat Glomerular Filtration Rate 103 Indirect Bilirubin 0.3 Triglycerides Level 124 Cholesterol Level 163 LDL Cholesterol 110 HDL Cholesterol 28.1 Cholesterol/HDL Ratio 5.80 Nasal Screen MRSA (PCR) MRSA NOT DETECTED Test 07/24/17 11:01 Activated Partial Thromboplast Time 42.8 Result Diagram: 07/24/17 0340 07/24/17 0340 Imaging Last Impressions Myocardial Perfusion Scan Nuc Med 07/23/17 0000 Signed Impressions: Service Date/Time: Sunday, July 23, 2017 10:32 - CONCLUSION: 1. Small size moderate severity partially reversible perfusion defect involving the inferolateral wall apical and mid ventricular segments. There is associated hypokinesia in these segments. 2. The overall ejection fraction has decreased significantly since prior exam in June 2016, now measured at 43%%. RISK CATEGORY: Intermediate (1-3%% Annual Mortality Rate) Les Ann MD Chest X-Ray 07/22/17 1340 Signed Impressions: Service Date/Time: Saturday, July 22, 2017 13:59 - CONCLUSION: The lungs are clear. Les Ann MD Caprini VTE Risk Assessment Caprini VTE Risk Assessment: Mod/High Risk (score >= 2) Caprini Risk Assessment Model Point Value = 1 Point Value = 2 Point Value = 3 Point Value = 5 Age 41-60 Minor surgery BMI > 25 kg/m2 Swollen legs Varicose veins or History of unexplained or recurrent spontaneous Oral contraceptives or hormone replacement Sepsis (< 1 month) Serious lung disease, including pneumonia (< 1 month) Abnormal pulmonary function Acute myocardial infarction Congestive heart failure (< 1 month) History of inflammatory bowel disease Medical patient at bed rest Age 61-74 Arthroscopic surgery Major open surgery (> 45 min) Laparoscopic surgery (> 45 min) Malignancy Confined to bed (> 72 hours) Immobilizing plaster cast Central venous access Age >= 75 History of VTE Family history of VTE Factor V Leiden Prothrombin [id number] Lupus anticoagulant Anticardiolipin antibodies Elevated serum homocysteine Heparin-induced thrombocytopenia Other congenital or acquired thrombophilia Stroke (< 1 month) Elective arthroplasty Hip, pelvis, or leg fracture Acute spinal cord injury (< 1 month) Prophylaxis Regimen Total Risk Factor Score Risk Level Prophylaxis Regimen 0-1 Low Early ambulation 2 Moderate Order ONE of the following: *Sequential Compression Device (SCD) *Heparin 5000 units SQ BID 3-4 Higher Order ONE of the following medications: *Heparin 5000 units SQ TID *Enoxaparin/Lovenox 40 mg SQ daily (WT < 150 kg, CrCl > 30 mL/min) *Enoxaparin/Lovenox 30 mg SQ daily (WT < 150 kg, CrCl > 10-29 mL/min) *Enoxaparin/Lovenox 30 mg SQ BID (WT < 150 kg, CrCl > 30 mL/min) AND/OR *Sequential Compression Device (SCD) 5 or more Highest Order ONE of the following medications: *Heparin 5000 units SQ TID (Preferred with Epidurals) *Enoxaparin/Lovenox 40 mg SQ daily (WT < 150 kg, CrCl > 30 mL/min) *Enoxaparin/Lovenox 30 mg SQ daily (WT < 150 kg, CrCl > 10-29 mL/min) *Enoxaparin/Lovenox 30 mg SQ BID (WT < 150 kg, CrCl > 30 mL/min) AND *Sequential Compression Device (SCD) Assessment and Plan Assessment and Plan 57-year-old white male with past medical history of CAD, hypertension, diabetes presenting with chest pain. We are being admitting as he will need bypass surgery Problem List: (1) CAD (coronary artery disease) ICD Codes: I25.10 - Atherosclerotic heart disease of [place] coronary artery without angina pectoris Status: Chronic Plan: 57-year-old white male with a past medical history of coronary artery disease status post previous stent placement presenting with chest pain. Troponins negative 3. EKG showing inferior myocardial infarction. Cardiac stress test was abnormal. Patient status post cardiac catheterization which showed multivessel coronary artery disease. CT surgery consulted by Cardiology for coronary artery bypass grafting Cardiology recommendations -Heparin drip -Echocardiogram -D/C SATHISH inhibitor and place on beta-victor[place] and statin Atorvastatin 80 mg at bedtime Metoprolol tartrate 25 mg every 12 hours (2) Hypertension ICD Codes: I10 - Essential (primary) hypertension Status: Chronic Plan: Amlodipine 10 mg p.o. daily Metoprolol tartrate 25 mg p.o. every 12 hours (3) Type 2 diabetes mellitus ICD Codes: E11.9 - Type 2 diabetes mellitus without complications Status: Chronic Plan: Bedside glucose monitoring Sliding scale NovoLog insulin low dose regimen Hypoglycemia protocol (4) FEN Status: Acute Plan: Fluids: none at this time Electrolytes: monitor and replete as needed Nutrition: NPO after midnight DVT Prophylaxis: Early ambulation. Heparin drip GI Prophylaxis: None indicated at this time Physician Certification 2 Midnight Certification Type: Admission for Inpatient Services Order for Inpatient Services The services are ordered in accordance with Medicare regulations or non- Medicare payer requirements, as applicable. In the case of services not specified as inpatient-only, they are appropriately provided as inpatient services in accordance with the 2-midnight benchmark. Estimated LOS (days): 5 5 days is the estimated time the patient will need to remain in the hospital, assuming treatment plan goals are met and no additional complications. Post-Hospital Plan: Not yet determined Problem Qualifiers (1) CAD (coronary artery disease): Qualified Codes: I25.110 - Atherosclerotic heart disease of [place] coronary artery with unstable angina pectoris (2) Hypertension: Qualified Codes: I10 - Essential (primary) hypertension (3) Type 2 diabetes mellitus: Qualified Codes: E11.8 - Type 2 diabetes mellitus with unspecified complications Amy Chavez MD Jul 24, 2017 15:08
[2017-07-24] MEDS ORDERED: DILTIAZEM HCL 60 MG TAB PO SCH (18:00)
[2017-07-24 20:47] LABS: HEMOGLOBIN A1C 8.1 % (4.3-6.0)
[2017-07-24] MEDS: ATORVASTATIN 80 MG TAB PO SCH (20:55)
[2017-07-25] VITALS (15 sets, daily range): BP systolic 93–149; BP diastolic 45–75; PULSE 56–83; RESP 16–20; TEMP 97.7–98.6; O2SAT 90–98
[2017-07-25] MEDS: METOPROLOL TARTRATE 25 MG TAB PO SCH (05:55)
[2017-07-25] MEDS ORDERED: HEPARIN SODIUM - SQ 10,000 UNITS/ML VIAL ONE (06:24)
[2017-07-25] MEDS ORDERED: VANCOMYCIN HCL 1000 MG VIAL ONE (06:24)
[2017-07-25] MEDS ORDERED: methylPREDNISolone SOD SUCC 125 MG/2 ML VIAL ONE (06:24)
[2017-07-25] MEDS ORDERED: POVIDONE IODINE 5% (ANTISEPSIS KIT) 4 APPLICATIONS EACH NARE PRN (06:30)
[2017-07-25] MEDS ORDERED: LACTATED RINGER'S 1000 ML IV PRN (06:30)
[2017-07-25] MEDS ORDERED: CHLORHEXIDINE GLUCONATE 2 % 1 PACK (2 CLOTHS) TOPICAL PRN (06:30)
[2017-07-25] MEDS ORDERED: ACETAMINOPHEN 1000 MG/100 ML 100 ML IV ONE (06:42)
[2017-07-25] MEDS ORDERED: SUGAMMADEX SODIUM 200 MG/2 ML VIAL IV PUSH ONE (06:42)
[2017-07-25] MEDS ORDERED: fentaNYL CITRATE 250 MCG/5 ML AMP ONE ×2 (06:43→08:41)
[2017-07-25] MEDS ORDERED: MIDAZOLAM HCL 5 MG/5 ML VIAL ONE (06:43)
[2017-07-25] MEDS ORDERED: ALBUMIN 25% INJ 50 ML IV ONE (07:33)
[2017-07-25] MEDS ORDERED: POTASSIUM CHLORIDE 20 MEQ/10 ML VIAL ONE (07:33)
[2017-07-25] MEDS ORDERED: CARDIOPLEGIC IRR 2,000 ML ONE (07:33)
[2017-07-25] MEDS ORDERED: CALCIUM CHLORIDE 10% SOLN 1 GRAM/10 ML SYR ONE (07:34)
[2017-07-25] MEDS ORDERED: HEPARIN SODIUM - IV 10,000 UNITS/10 ML VIAL ONE (07:34)
[2017-07-25] MEDS ORDERED: SODIUM BICARBONATE 8.4% INJ 50 ML ONE (07:34)
[2017-07-25] MEDS ORDERED: MANNITOL INJ 100 ML ONE (07:34)
[2017-07-25] MEDS: INSULIN ASPART SUPPLEMENTAL SCALE SQ SCH ×2 (08:00→10:53)
[2017-07-25] MEDS: ASPIRIN 81 MG CHEW TAB CHEW SCH (09:00)
[2017-07-25] MEDS: SODIUM CHLORIDE 0.9% FLUSH 10 ML FLUSH IV FLUSH SCH ×3 (09:00→22:10)
--- NOTE | 2017-07-25 11:04 | PD.OP ---
cc: Zuleyka Watson MD; Sudha Hunter MD; Yang Hood DO Operative Report Date of Surgery: Jul 25, 2017 Preoperative Diagnosis: (1) CAD (coronary artery disease) (2) Unstable angina Postoperative Diagnosis: same Procedure: CABG x 4 DOLAN to LAD SVG to D2 SVG to OM SVG to PDA EVH Anesthesia: Dr. Reese Surgeon: Sudha Hunter Statement Clerks Supervisor(s): MART Cameron Operation and Findings: The risks, benefits, complications, treatment options, and expected outcomes were discussed with the patient. The possibilities of reaction to medication, pulmonary aspiration, perforation of viscus, bleeding, recurrent infection, the need for additional procedures, failure to diagnose a condition, and creating a complication requiring transfusion or operation were discussed with the patient. The patient concurred with the proposed plan, giving informed consent. The site of surgery properly noted/marked. The patient was taken to Operating Room, identified as Arcadio Abarca and the procedure verified as CABG, EVH. A Time Out was held and the above information confirmed. Standard monitoring lines and Betancourt catheter were placed. General anesthesia was induced. The patient was prepped and draped in a sterile fashion. A median sternotomy was performed and electrocautery was used to obtain hemostasis. The left internal mammary artery was procured as a pedicle from the 7th rib to the 1st rib in the usual manner. Simultaneously left greater saphenous vein was procured from the left leg using a minimally invasive endoscopic technique. The vein was prepared for anastomosis and the leg wound was irrigated and closed in 2 layers. The pericardium was opened and a pericardial sling was created using interrupted 0 silk sutures. The patient was heparinized for cardiopulmonary bypass and the distal mammary pedicle was instrumented for anastomosis. The heart was instrumented for cardiopulmonary bypass in the usual manner. Antegrade blood cardioplegia was employed. The patient was placed on cardiopulmonary bypass. An aortic cross-clamp was applied and the heart was arrested using cold blood cardioplegia. Antegrade cardioplegia was administered after he each anastomosis. After adequate arrest, the distal right coronary circulation was investigated and the PDA was opened with a [place] blade and found to be a 1.5 millimeter good target. Saphenous vein was approximated to the PDA artery using a running 7 0 Prolene suture. The graft was measured for length and orientation and the proximal anastomosis was constructed to the ascending aorta using a running 5 0 Prolene suture after creating an aortotomy with a 5 millimeter punch. The OM artery was opened with a [place] blade and found to be a 1.5 millimeter good target. Saphenous vein was approximated to the OM artery using a running 7 0 Prolene suture. The graft was measured for length and orientation and the proximal anastomosis was constructed to the ascending aorta using a running 5 0 Prolene suture after creating an aortotomy with a 5 millimeter punch. The 2nd diagonal artery was then opened with a [place] blade and found to be a 1.5 millimeter good target. Saphenous vein was approximated to the D2 artery using a running 7 0 Prolene suture. The graft was measured for length and orientation and was suspended from the pericardium. The distal LAD was opened with a [place] blade and found to be a 1.5 millimeter good target. The left internal mammary artery was approximated to the LAD using a running 7 0 Prolene suture. The pedicle was attached to the epicardium using interrupted 5 0 silk suture. The patient was systemically rewarmed and received a hotshot dose of warm blood cardioplegia. The aorta was vented and the proximal anastomosis to the D2 graft was accomplished using a running 5 0 Prolene suture after creating an aortotomy was a 5 millimeter punch. The cross-clamp was removed and all proximal and distal anastomoses were examined for hemostasis. The patient was weaned from cardiopulmonary bypass. Protamine was given. There was no adverse reaction. Decannulation was carried out without incident. Wound was checked for hemostasis which was obtained using electrocautery. A 36 [place] mediastinal and 32 [place] left pleural chest tubes were placed and secured to the skin with 0 silk suture. The sternum was closed with stainless steel wire. The fascia was closed with 1. PDS. The subcutaneous tissue was closed using a running 2-0 Vicryl suture. The skin was closed with 4-0 Monocryl. Sterile dressings were placed. At the end of the operation, all sponge, instruments, and needle counts were correct. The patient was transferred to the CVICU in stable condition. Findings: Good distal targets. Palpable scattered areas of plaque in the ascending aorta XC: 58 min CPB: 71 min Drains: mediastinal x 1 pleural x 1 Complications: none Disposition: to CVICU in stable condition Sudha Hunter MD Jul 25, 2017 11:04
[2017-07-25] MEDS ORDERED: LACTATED RINGER'S 1000 ML INJ 500 ML IV PRN (11:05)
[2017-07-25] MEDS ORDERED: MAGNESIUM SULFATE INJ 2 GM in SODIUM CHLORIDE 0.9% INJ 100 ML IV PRN ×4 (11:15)
[2017-07-25] MEDS ORDERED: ACETAMINOPHEN 650 MG SUPP RECTAL PRN (11:15)
[2017-07-25] MEDS ORDERED: SODIUM BICARBONATE 8.4% SOLN 50 MEQ/50 ML VIAL IV PUSH PRN ×2 (11:15)
[2017-07-25] MEDS ORDERED: Post-op Orders (for Pharmacy) OTHER ONE (11:15)
[2017-07-25] MEDS ORDERED: ACETAMINOPHEN 325 MG TAB PO PRN (11:15)
[2017-07-25] MEDS ORDERED: ONDANSETRON HCL 4 MG/2 ML VIAL IV PUSH PRN (11:15)
[2017-07-25] MEDS ORDERED: RESP: ALBUTEROL 2.5 MG/IPRATROPIUM 0.5 MG NEB (PRN) NEB (11:15)
[2017-07-25] MEDS ORDERED: DEXTROSE 50% IN WATER 50 ML VIAL(D50) IV PUSH PRN (11:15)
[2017-07-25] MEDS ORDERED: POTASSIUM CHLORIDE 20 MEQ CONTROLLED RELEASE TAB PO PRN ×2 (11:15)
[2017-07-25] MEDS ORDERED: ALBUMIN 5% INJ 250 ML IV PRN (11:15)
[2017-07-25] MEDS ORDERED: SODIUM CHLORIDE 0.9% FLUSH 10 ML FLUSH IV FLUSH PRN (11:15)
[2017-07-25] MEDS ORDERED: RESP: RACEPINEPHRINE 2.25% 0.5 ML NEB NEB PRN (11:15)
[2017-07-25] MEDS ORDERED: CLEVIDIPINE INJ 50 ML IV PRN (11:15)
[2017-07-25] MEDS ORDERED: DEXMEDETOMIDINE INJ 200 MCG in SODIUM CHLORIDE 0.9% INJ 50 ML IV PRN (11:15)
[2017-07-25] MEDS ORDERED: METOPROLOL TARTRATE 5 MG/5 ML VIAL IV PUSH PRN (11:15)
[2017-07-25] MEDS ORDERED: hydrALAZINE HCL 20 MG/ML VIAL IV PUSH PRN (11:15)
[2017-07-25] MEDS ORDERED: CALCIUM CHLORIDE INJ 1 GM in SODIUM CHLORIDE 0.9% INJ 100 ML IV PRN (11:15)
[2017-07-25] MEDS ORDERED: CALCIUM CHLORIDE 10% 1 GRAM/10 ML VIAL IV PUSH PRN (11:15)
[2017-07-25] MEDS ORDERED: INSULIN REGULAR (IV INFUSION) 100 UNITS in SODIUM CHLORIDE 0.9% INJ 99 ML IV PRN (11:15)
[2017-07-25] MEDS ORDERED: POTASSIUM CHLOR 20 MEQ PREMIX 100 ML IV PRN ×3 (11:15)
[2017-07-25] MEDS ORDERED: NITROGLYCERIN 50 MG/DEXTROSE 5% SOLN 250 ML BTL IV ONE (12:00)
[2017-07-25] MEDS ORDERED: NORMOSOL R INJ 1,000 ML IV ONE (12:00)
[2017-07-25] MEDS ORDERED: PHENYLEPHRINE HCL 10 MG/ML VIAL IV ONE (12:00)
[2017-07-25] MEDS ORDERED: PROTAMINE SULFATE 250 MG/25 ML VIAL IV ONE (12:00)
[2017-07-25] MEDS ORDERED: VECURONIUM BROMIDE 10 MG VIAL IV ONE (12:00)
[2017-07-25] MEDS ORDERED: LACTATED RINGER'S 1000 ML INJ 2,000 ML IV ONE (12:00)
[2017-07-25] MEDS ORDERED: MAGNESIUM SULFATE 1 GM/2 ML VIAL IV ONE (12:00)
[2017-07-25] MEDS ORDERED: DEXMEDETOMIDINE HCL 200 MCG/2 ML VIAL IV ONE (12:00)
[2017-07-25] MEDS ORDERED: HEPARIN SODIUM - SQ 10,000 UNITS/ML VIAL OTHER ONE (12:00)
[2017-07-25] MEDS ORDERED: ARTIFICIAL TEARS OPTH OINT 3.5 APPLIC/3.5 GM TUBO EACH EYE ONE (12:00)
[2017-07-25] MEDS ORDERED: SODIUM CHLORID 0.9% 500 ML INJ 500 ML IV ONE (12:00)
[2017-07-25] MEDS ORDERED: ePHEDrine/NS 25 MG/5 ML SYRINGE IV ONE (12:00)
[2017-07-25] MEDS ORDERED: PHENYLEPH/NS 1000 MCG/10 ML SYR IV ONE (12:00)
[2017-07-25] MEDS ORDERED: NS 100 ML (PAB BAG) 300 ML IV ONE (12:00)
[2017-07-25] MEDS ORDERED: AMINOCAPROIC ACID INJ 250 MG/ML 20 ML VIAL IV ONE (12:00)
[2017-07-25] MEDS ORDERED: SODIUM CHLOR 0.9% 250 ML INJ 750 ML IV ONE (12:00)
--- NOTE | 2017-07-25 12:41 | RADRPT ---
EXAM DATE/TIME: 07/25/2017 11:56 [place] COMPARISON: CHEST PA & LAT, July 22, 2017, 13:59. INDICATIONS : Post CABG MEDICAL HISTORY : Myocardial infarction. Hypertension. Renal calculi. Hearing loss. Coronary artery disease. Diverticul itis. Rhematoid arthritis. Diabetes. ETOH abuse. Hepatitis C. SURGICAL HISTORY : Tonsillectomy. Coronary artery stent. Appendectomy. Partial colectomy. Left toe amputationt ENCOUNTER: Subsequent ACUITY: 3 days PAIN SCORE: Non-responsive. LOCATION: chest FINDINGS: Mild atelectasis at the bases, left more so than right. No effusion. No pneumothorax. Heart size within normal limits. Patient is immediate status post median sternotomy and CABG. There i s mediastinal drain and left chest tube. No pneumothorax. There is a nasogastric tube and tip projects over the right medial lung base. Endotracheal tube tip i s approximately 4 cm above the lesvia. There is a left subclavian central venous catheter with tip in the superior vena cava. CONCLUSION: 1. Postop CABG. The nasogastric tube is in the right lung, relayed to the postoperative team by phone . 2. Otherwise appropriate position of the lines and tubes. 3. Mild bibasilar atelectasis. No pneumothorax. Moi Ross MD on July 25, 2017 at 12:34 Board Certified Radiologist. This report was verified electronically.
[2017-07-25] MEDS: ACETAMINOPHEN 1000 MG/100 ML 100 ML IV SCH ×2 (12:48→17:58)
--- NOTE | 2017-07-25 12:56 | PD.CARD.PN ---
Subjective Subjective Remarks Post-CABG Intubated and sedated No vasopressors Objective Medications Current Medications Medications (Trade) Dose Ordered Sig/Canelo Route Start Time Stop Time Status Last Admin (Tylenol) 500 mg Q4H PRN PO 07/23/17 07:30 07/24/17 17:47 (Norvasc) 10 mg DAILY PO 07/23/17 09:00 07/24/17 08:33 (Phenergan) 12.5 mg Q6H PRN PO 07/23/17 11:00 (Pill Splitter) 1 ea UNSCH PRN OTHER 07/23/17 10:45 (Aspirin Chew) 81 mg DAILY CHEW 07/24/17 09:00 07/24/17 08:33 (Lipitor) 80 mg HS PO 07/23/17 21:00 07/24/17 20:55 (NS Flush) 2 ml BID IV FLUSH 07/23/17 21:00 (NS Flush) 2 ml UNSCH PRN IV FLUSH 07/23/17 17:15 Papaverine HCl 60 mg/Nitroglycerin 100 mcg/Diltiazem HCl 100 mg/Sodium Chloride 100 ml @ 0 mls/hr PATTERN DUPLICATOR IRRIGATION 07/23/17 17:15 07/30/17 17:14 07/25/17 09:08 Vancomycin HCl 1000 mg/Sodium Chloride 1,000 ml @ 0 mls/hr PATTERN DUPLICATOR IRRIGATION 07/23/17 17:15 07/30/17 17:14 07/25/17 09:16 Vancomycin HCl 1250 mg/Sodium Chloride 262.5 ml @ 262.5 mls/ hr PATTERN DUPLICATOR IV 07/23/17 17:15 07/30/17 17:14 07/25/17 07:30 (Lopressor) 12.5 mg PATTERN DUPLICATOR PO 07/23/17 17:15 07/30/17 17:14 (Hibiclens 4% Top Soln) 1 applic PATTERN DUPLICATOR TOPICAL 07/23/17 17:15 07/30/17 17:14 07/25/17 05:55 (D50w (Vial) Inj) 50 ml UNSCH PRN IV PUSH 07/23/17 17:15 Lactated Ringer's 1,000 ml @ 30 mls/hr Q24H PRN IV 07/25/17 06:30 07/28/17 06:29 (Chlorhexidine 2% Cloth) 3 pack PATTERN DUPLICATOR PRN TOPICAL 07/25/17 06:30 07/28/17 06:29 (NS Flush) 2 ml BID IV FLUSH 07/25/17 21:00 UNV (NS Flush) 2 ml UNSCH PRN IV FLUSH 07/25/17 11:15 UNV Dexmedetomidine HCl 200 mcg/ Sodium Chloride 52 ml @ 3.87 mls/hr TITRATE PRN IV 07/25/17 11:15 Clevidipine 50 ml @ 2 mls/hr TITRATE PRN IV 07/25/17 11:15 Albumin Human 250 ml @ 250 mls/hr UNSCH PRN IV 07/25/17 11:15 Lactated Ringer's 500 ml @ 500 mls/hr Q1H PRN IV 07/25/17 11:05 UNV (Post-op Orders (for Pharmacy)) STAT ONCE OTHER 07/25/17 11:15 07/25/17 11:16 UNV Vancomycin HCl 1000 mg/Sodium Chloride 250 ml @ 250 mls/hr Q12H IV 07/25/17 19:00 07/26/17 19:59 (Aspirin Chew) 81 mg DAILY PO 07/26/17 09:00 UNV (Protonix) 40 mg DAILY@06 PO 07/26/17 06:00 UNV (Cordarone) 400 mg Q8HR PO 07/25/17 14:00 UNV (Tylenol) 650 mg Q4H PRN PO 07/25/17 11:15 UNV (Tylenol Supp) 650 mg Q4H PRN RECTAL 07/25/17 11:15 UNV Acetaminophen 100 ml @ 400 mls/hr Q6H IV 07/25/17 13:00 07/26/17 07:14 07/25/17 12:48 (Percocet 5-325 Mg) 1 tab Q3H PRN PO 07/25/17 11:15 UNV (fentaNYL INJ) 25 mcg Q1H PRN IV PUSH 07/25/17 11:15 (Zofran Inj) 4 mg Q6H PRN IV PUSH 07/25/17 11:15 UNV (Apresoline Inj) 10 mg Q4H PRN IV PUSH 07/25/17 11:15 UNV (Lopressor Inj) 2.5 mg Q1H PRN IV PUSH 07/25/17 11:15 UNV Potassium Chloride 100 ml @ 50 mls/hr UNSCH PRN IV 07/25/17 11:15 Potassium Chloride 100 ml @ 50 mls/hr UNSCH PRN IV 07/25/17 11:15 Potassium Chloride 100 ml @ 50 mls/hr UNSCH PRN IV 07/25/17 11:15 (KCl) 20 meq UNSCH PRN PO 07/25/17 11:15 UNV (KCl) 40 meq UNSCH PRN PO 07/25/17 11:15 UNV Magnesium Sulfate 2 gm/Sodium Chloride 104 ml @ 100 mls/hr UNSCH PRN IV 07/25/17 11:15 Magnesium Sulfate 2 gm/Sodium Chloride 104 ml @ 50 mls/hr UNSCH PRN IV 07/25/17 11:15 Calcium Chloride 1 gm/Sodium Chloride 110 ml @ 100 mls/hr UNSCH PRN IV 07/25/17 11:15 (Calcium Chloride Inj) 0.5 gm UNSCH PRN IV PUSH 07/25/17 11:15 UNV Insulin Human Regular 100 units/ Sodium Chloride 100 ml @ 3 mls/hr TITRATE PRN IV 07/25/17 11:15 (D50w (Vial) Inj) 50 ml UNSCH PRN IV PUSH 07/25/17 11:15 UNV (Sodium Bicarbonate 8.4% Inj) 50 meq UNSCH PRN IV PUSH 07/25/17 11:15 UNV (Sodium Bicarbonate 8.4% Inj) 100 meq UNSCH PRN IV PUSH 07/25/17 11:15 UNV (Duoneb Neb) 1 ampule Q6HR NEB NEB 07/25/17 16:00 UNV (Duoneb Neb) 1 ampule Q2HR NEB PRN NEB 07/25/17 11:15 UNV (Racepinephrine 2.25% Neb) 0.5 ml UNSCH X1 PRN NEB 07/25/17 11:15 UNV Vital Signs / I&O Vital Signs Date Time Temp Pulse Resp B/P (MAP) Pulse Ox O2 Delivery O2 Flow Rate FiO2 07/25/17 12:32 76 07/25/17 11:30 98.3 72 18 95/54 (68) 90 101/48 (65) 07/25/17 11:30 60 07/25/17 11:28 93 60 07/25/17 06:00 66 07/25/17 04:30 98.6 63 16 149/75 (99) 98 07/25/17 04:00 64 07/25/17 03:00 58 07/25/17 02:00 56 07/25/17 01:00 62 07/25/17 00:00 64 07/25/17 00:00 98.5 64 16 129/60 (83) 98 07/24/17 23:00 62 07/24/17 22:00 64 07/24/17 21:00 63 07/24/17 20:45 98 21 07/24/17 20:00 98.7 66 16 163/80 (107) 98 07/24/17 20:00 66 07/24/17 18:00 73 07/24/17 17:00 75 07/24/17 16:00 70 07/24/17 15:44 98.8 70 16 120/59 (79) 98 07/24/17 15:00 73 07/24/17 14:00 63 07/24/17 13:00 70 I/O 07/24/17 07/24/17 07/24/17 07/25/17 07/25/17 07/25/17 07:00 15:00 23:00 07:00 15:00 23:00 Intake Total 572 ml 840 ml 240 ml 2750 ml Output Total 300 ml 900 ml 600 ml 300 ml Balance 272 ml -60 ml -360 ml 2450 ml Intake Oral 480 ml 840 ml 240 ml IV Total 92 ml Autotransfusion 750 ml Other 2000 ml Output Urine Total 300 ml 900 ml 600 ml 300 ml # Bowel Movements 0 1 Physical Exam GENERAL: Intubated and sedated SKIN: Warm and dry. HEAD: Atraumatic. Normocephalic. EYES: Pupils equal and round. No scleral icterus. No injection or drainage. ENT: No nasal bleeding or discharge. Mucous membranes pink and moist. NECK: Trachea midline. No JVD. CARDIOVASCULAR: Regular rate and rhythm. Sternotomy covered RESPIRATORY: No accessory muscle use. Clear to auscultation. Breath sounds equal bilaterally. GASTROINTESTINAL: Abdomen soft, non-tender, nondistended. Hepatic and splenic margins not palpable. MUSCULOSKELETAL: Extremities without clubbing, cyanosis, or edema. No obvious deformities. Right radial no hematoma, neurovascularly intact NEUROLOGICAL: Intubated and sedated Laboratory Laboratory Tests Test 07/24/17 17:09 Activated Partial Thromboplast Time 44.7 SEC Assessment and Plan Problem List: (1) Unstable angina ICD Codes: I20.0 - Unstable angina (2) Tobacco dependency ICD Codes: F17.200 - Nicotine dependence, unspecified, uncomplicated Status: Acute (3) COPD (chronic obstructive pulmonary disease) ICD Codes: J44.9 - Chronic obstructive pulmonary disease, unspecified Status: Acute (4) CAD (coronary artery disease) ICD Codes: I25.10 - Atherosclerotic heart disease of [place] coronary artery without angina pectoris Status: Chronic (5) HTN (hypertension) ICD Codes: I10 - Essential (primary) hypertension (6) Type 2 diabetes mellitus ICD Codes: E11.9 - Type 2 diabetes mellitus without complications Status: Chronic Assessment and Plan 1) MVCAD s/p CABGx4 POD #0 DOLAN to LAD SVG to D2 SVG to OM SVG to PDA 2) Tobacco cessation 3) EF 40-45% 4) SATHISH-I stopped for anticipated CABG 5) Extubate per CT surgery criteria Problem Qualifiers (1) CAD (coronary artery disease): Qualified Codes: I25.110 - Atherosclerotic heart disease of [place] coronary artery with unstable angina pectoris (2) Type 2 diabetes mellitus: Qualified Codes: E11.8 - Type 2 diabetes mellitus with unspecified complications Yang Hood DO Jul 25, 2017 12:56
[2017-07-25] MEDS: AMIODARONE 200 MG TAB PO SCH ×2 (14:00→22:10)
--- NOTE | 2017-07-25 16:00 | HHI.FF ---
Face to Face Verification Diagnosis: (1) Type 2 diabetes mellitus with hyperosmolar nonketotic hyperglycemia (2) Tobacco abuse (3) CAD (coronary artery disease) (4) Hypertension (5) COPD (chronic obstructive pulmonary disease) (6) S/P CABG x 4 Home Health Nursing Order: Signs/symptoms of disease process Diabetic education Medication education-adverse effect Wound care and dressing changes Nursing assessment with vital signs Instructions: Heart and Vascular Surgery patients *Special attention to sternal dressing Mandatory frequency Assess and evaluation, 4 days in a row The next week 3X week 2 times a week for 4 weeks 1 time a week for 5 weeks Schedule Heart and Vascular patients for full 60 day certification period Initial visit Review Open Heart Surgery Discharge Instructions (Sternal precautions, Activity, Elastic hose, Incision care, Driving, Incentive spirometry, Smoking, [place], Work and other) Need Betadine to paint incision Medication reconciliation Importance of follow up care/ check on appointments Make calendar record temperature daily When to call [facility] nurse, review instructions, phone list Incentive Spirometry, demonstration Visit 1- Begin discharge instruction for patient family and/ or caregiver using teach back method- Signs and symptoms of infection Disease characteristics Medicines and side effects Foods and nutrition/ appetite Infection control/ hand washing/ hygiene Visit 2- Continue teaching Discharge instructions- include additional information on smoking cessation , sternal dressing (sternal vac) Visit 3- Continue teaching- Cough and deep breathing, incision monitoring. Choose my plate Visit 4- Continue teaching- Discuss limitations Discuss how they are feeling Discuss progress toward goals Remaining visits- continue teaching and monitoring For any questions please call : Saturday 8am-5pm Heart & Vascular Surgery Office ( Dr. Chacon & Dr. Hunter), After Hours / Nights (5pm -8am) Weekends and Holidays Please call [facility] Cardiac Intermediate Care Unit (CIC) Charge Nurse PREVENA Single Use Negative Wound Therapy System Caregiver Instruction Sheet 1. A Prevena dressing system was applied to the chest incision during surgery , to promote wound healing. It works via a suction device (negative pressure wound therapy) to remove low to moderate levels of exudate (drainage) and infectious materials. We recommend that the device stay in place for up to seven days, from day of surgery. 2. Day of Surgery___4// Day of Removal __4/12/18 3. The dressing should only be removed by a health rn patient care. Please arrange removal of device to coincide with Home Health visit and or with Nursing staff at Rehab 4. If skin reddening or irritation of skin occurs, or excessive drainage, please notify the Cardiovascular Surgeons office at [phone]. 5. Light showering is permissible; however the pump should be disconnected and placed in safe location, where it will not get wet. The dressing should not be exposed to direct spray or submerged in water. No bath tub / shower only. Ensure the end of the tubing attached to the dressing is facing down so that water does not enter the top of the tube. 6. To remove Prevena dressing: press purple button to turn off device / remove the suction. Then disconnect the tubing from the pump. The fixation strips should be stretched away from the skin and the dressing lifted at one corner and peeled back until it has been fully removed. 7. After removal, it is ok to shower daily using liquid dial soap and clean wash cloth, rinse and pat dry, and leave incision open to air dry. For any concerns regarding Prevena dressing, and or wounds, please contact Della Ventura, patient navigator at [phone] or notify the Cardiovascular Surgeons office at [phone]. Incentive spirometry Q1 hr x 10, while awake, also use acapella device hourly whole awake Sternal Breast Bone Precautions: NO pushing or pulling, ( pt must use sternal pillow to support chest with all activities and with coughing ( takes up to 3 months breast bone to heal ) Daily incision care: ok to shower daily, no tub bath. Wash all incisions with liquid dial soap, clean wash cloth to each site, rinse and pat dry. Observe for any signs of infection, such as drainage which is dark yellow, barrow, green or foul smelling. Immediately report to the surgeon any drainage from the chest incision, or legs, and for any abnormal drainage from the chest tube sites. Notify surgeon if any temp >101.5 degrees F. When specialty dressing removed/ or if you do not have one, continue to shower daily as above, then rinse and pat incision dry and paint with betadine daily x 5 days. Allow steri strips to fall off if you have any. Avoid lotions, creams, salves, oils, etc. for the first month Please see attached forms for additional instructions regarding post Open Heart specialty wound vacuum dressings. HAIDER or Prevena , Dressing to be removed by Nursing staff on For Dr. Hunter patients , please obtain CBC, BMP, PA & Lat CXR in 2 weeks, results to Dr. Hunter ( prescription will be given) ( ) (Tele: [phone]) , F/U appointment: as per [place] instructions: PCP in 2 weeks, CV surgeon 2 weeks, [employer] Trainer 3-4 weeks For any questions regarding incisions/ dressing / meds / post op care or above Symptoms, Saturday 8am-5pm Heart & Vascular Surgery Office ( Dr. Chacon & Dr. Hunter), After Hours / Nights (5pm -8am) Weekends and Holidays Please call [facility] Cardiac Intermediate Care Unit (CIC) Charge Nurse I have seen patient Arcadio Arreola Jr Tevin on 07/25/17. My clinical findings support the need for the requested home health care services because: Deconditioned w/ increased weakness I certify that my clinical findings support that this patient is homebound because: Post-op weakness Mabel Gonzalez Jul 25, 2017 16:00
[2017-07-25] MEDS: RESP: ALBUTEROL 2.5 MG/IPRATROPIUM 0.5 MG NEB (SCH) NEB ×2 (16:48→22:20)
--- NOTE | 2017-07-25 17:49 | HHI.FPPN ---
Subjective Remarks Patient seen and examined s/p CABG today. Patient is awake sitting in chair. Patient endorses chest pain at the site of surgery. Denies crushing or radiation of the pain. Denies SOB or other respiratory complaints. He is otherwise without complaints or questions. (Reggie Williamson MD R2) Objective Vitals Vital Signs Date Time Temp Pulse Resp B/P (MAP) Pulse Ox O2 Delivery O2 Flow Rate FiO2 07/25/17 15:00 71 07/25/17 15:00 97.7 79 18 104/62 (76) 97 93/45 (61) 07/25/17 13:30 96 Nasal Cannula 4.00 07/25/17 13:30 97 Nasal Cannula 4.00 07/25/17 13:30 96 Nasal Cannula 4 07/25/17 12:32 76 07/25/17 11:30 98.3 72 18 95/54 (68) 90 101/48 (65) 07/25/17 11:30 60 07/25/17 11:28 93 60 07/25/17 06:00 66 07/25/17 04:30 98.6 63 16 149/75 (99) 98 07/25/17 04:00 64 07/25/17 03:00 58 07/25/17 02:00 56 07/25/17 01:00 62 07/25/17 00:00 64 07/25/17 00:00 98.5 64 16 129/60 (83) 98 07/24/17 23:00 62 07/24/17 22:00 64 07/24/17 21:00 63 07/24/17 20:45 98 21 07/24/17 20:00 98.7 66 16 163/80 (107) 98 07/24/17 20:00 66 07/24/17 18:00 73 I/O 07/24/17 07/24/17 07/24/17 07/25/17 07/25/17 07/25/17 06:59 14:59 22:59 06:59 14:59 22:59 Intake Total 572 ml 840 ml 240 ml 3100 ml Output Total 300 ml 900 ml 600 ml 300 ml Balance 272 ml -60 ml -360 ml 2800 ml Intake Oral 480 ml 840 ml 240 ml IV Total 92 ml 350 ml Autotransfusion 750 ml Other 2000 ml Output Urine Total 300 ml 900 ml 600 ml 300 ml # Bowel Movements 0 1 (Reggie Williamson MD R2) Result Diagram: 07/24/17 03407/24/17 034 Objective Remarks GENERAL: Sitting in chair, NAD SKIN: No rashes, ecchymoses or lesions. Cool and dry. HEAD: Atraumatic. Normocephalic. EYES: EOMI. No scleral icterus. No injection or drainage. ENT: Airway patent. MMM. NECK: Trachea midline. No JVD. Supple. CARDIOVASCULAR: Regular rate and rhythm without murmurs, gallops, or rubs. RESPIRATORY: Clear to auscultation. Breath sounds equal bilaterally. No wheezes , rales, or rhonchi. GASTROINTESTINAL: Abdomen soft, non-tender, nondistended MUSCULOSKELETAL: Extremities without edema. No calf tenderness. NEUROLOGICAL: Awake and alert. Motor and sensory grossly within normal limits. Normal speech. (Reggie Williamson MD R2) A/P Assessment and Plan 57-year-old white male with past medical history of CAD, hypertension, diabetes presented with chest pain and found to have multivessel CAD on cath by cardiology, now s/p CABG x4. (Reggie Williamson MD R2) Attending Attestation Patient seen and examined. Case reviewed and discussed with the resident team. Agree with plan of care as discussed with me and documented in the resident note. he is doing remarkably well and has no complaints (Amy Chavez MD) Problem List: (1) CAD (coronary artery disease) ICD Codes: I25.10 - Atherosclerotic heart disease of [place] coronary artery without angina pectoris Status: Chronic Plan: 57-year-old white male with a past medical history of coronary artery disease status post previous stent placement presented with chest pain. Troponins negative 3. EKG showing inferior myocardial infarction. Cardiac stress test was abnormal. Patient status post cardiac catheterization which showed multivessel coronary artery disease. CT surgery consulted by Cardiology, patient underwent CABG x4 Continue management in the postop period per CT surgery (2) Hypertension ICD Codes: I10 - Essential (primary) hypertension Status: Chronic Plan: Amlodipine 10 mg p.o. daily (3) Type 2 diabetes mellitus ICD Codes: E11.9 - Type 2 diabetes mellitus without complications Status: Chronic Plan: Bedside glucose monitoring Sliding scale NovoLog insulin low dose regimen (4) FEN Status: Acute Plan: Fluids: none at this time Electrolytes: monitor and replete as needed Nutrition: Heart healthy DVT ppx: per CT surgery GI ppx: protonix (Reggie Williamson MD R2) Problem Qualifiers (1) CAD (coronary artery disease): Qualified Codes: I25.110 - Atherosclerotic heart disease of [place] coronary artery with unstable angina pectoris (2) Hypertension: Qualified Codes: I10 - Essential (primary) hypertension (3) Type 2 diabetes mellitus: Qualified Codes: E11.8 - Type 2 diabetes mellitus with unspecified complications Reggie Williamson MD R2 Jul 25, 2017 17:49 Amy Chavez MD Jul 28, 2017 11:57
[2017-07-25] MEDS: oxyCODONE/ACETAMINOPHEN 5 MG/325 MG TAB PO PRN ×2 (18:12→22:26)
[2017-07-25] MEDS: VANCOMYCIN INJ 1,000 MG in SODIUM CHLOR 0.9% 250 ML INJ 250 ML IV SCH (18:29)
[2017-07-25] MEDS: ATORVASTATIN 80 MG TAB PO SCH (22:09)
[2017-07-26] VITALS (10 sets, daily range): BP systolic 99–137; BP diastolic 58–66; PULSE 72–96; RESP 18–20; TEMP 97.8–98.7; O2SAT 92–98
[2017-07-26] MEDS: ACETAMINOPHEN 1000 MG/100 ML 100 ML IV SCH ×2 (00:05→05:43)
[2017-07-26] MEDS: RESP: ALBUTEROL 2.5 MG/IPRATROPIUM 0.5 MG NEB (SCH) NEB ×3 (04:11→20:51)
[2017-07-26] MEDS: oxyCODONE/ACETAMINOPHEN 5 MG/325 MG TAB PO PRN ×5 (04:31→23:41)
[2017-07-26] MEDS: PANTOPRAZOLE SOD 40 MG DELAYED RELEASE TAB PO SCH (05:42)
[2017-07-26] MEDS: AMIODARONE 200 MG TAB PO SCH ×3 (05:42→20:42)
[2017-07-26] MEDS: VANCOMYCIN INJ 1,000 MG in SODIUM CHLOR 0.9% 250 ML INJ 250 ML IV SCH ×2 (05:44→17:58)
[2017-07-26 06:10] LABS: HEMATOCRIT 33.8 % (39.0-51.0); HEMOGLOBIN 11.4 GM/DL (13.0-17.0); MEAN CELL VOLUME 90.4 FL (80.0-100.0); MEAN CORPUSCULAR HEMOGLOBIN 30.6 PG (27.0-34.0); MEAN CORPUSCULAR HGB CONC 33.8 % (32.0-36.0); MEAN PLATELET VOLUME 10.2 FL (7.0-11.0); PLATELET COUNT 132 TH/MM3 (150-450); RED BLOOD COUNT 3.74 MIL/MM3 (4.50-5.90); RED CELL DISTRIBUTION WIDTH 12.5 % (11.6-17.2); WHITE BLOOD COUNT 20.7 TH/MM3 (4.0-11.0)
--- NOTE | 2017-07-26 06:21 | RADRPT ---
EXAM DATE/TIME: 07/26/2017 05:15 [place] COMPARISON: CHEST SINGLE AP, July 25, 2017, 11:56. INDICATIONS : Status post CABG MEDICAL HISTORY : Myocardial infarction. Hypertension. Renal calculi. Hearing loss. Coronary artery disease. Diverticul itis. Rhematoid arthritis. Diabetes. ETOH abuse. Hepatitis C. SURGICAL HISTORY : Tonsillectomy. Coronary artery stent. Appendectomy. Partial colectomy. Left toe amputation. ENCOUNTER: Initial ACUITY: 1 day PAIN SCORE: Non-responsive. LOCATION: Bilateral chest FINDINGS: Single AP view of the chest. Median sternotomy wires are again seen. Endotracheal tube and nasogastri c tube are no longer present. Left subclavian central venous catheter and left-sided chest tube remai n in place. Lung volumes are decreased. Mild bilateral symmetric lower lung zone opacity likely repre sent atelectasis. No evidence of pleural effusion or pneumothorax. CONCLUSION: Endotracheal tube and nasogastric tube no longer seen. Decreased lung volumes with mild bilateral low er lung zone opacity likely representing atelectasis. Noel Amaya MD on July 26, 2017 at 6:17 Board Certified Radiologist. This report was verified electronically.
[2017-07-26 06:46] LABS: BICARBONATE 23.3 MEQ/L (21.0-32.0); CALCIUM 7.8 MG/DL (8.5-10.1); CREATININE 0.68 MG/DL (0.60-1.30); MAGNESIUM 1.8 MG/DL (1.5-2.5)
[2017-07-26] MEDS ORDERED: SOD PHOSPHATE/SOD BIPHOSPHATE (ADULT) ENEMA 133ML RECTAL PRN (08:45)
[2017-07-26] MEDS ORDERED: GLUCAGON 1 MG/ML VIAL OTHER PRN (08:45)
[2017-07-26] MEDS ORDERED: BISACODYL 10 MG SUPP RECTAL PRN (08:45)
[2017-07-26] MEDS ORDERED: DEXTROSE 50% IN WATER 50 ML VIAL(D50) IV PUSH PRN (08:45)
--- NOTE | 2017-07-26 08:47 | EKG ---
Date Performed: 07/26/2017 Time Performed: 04:25:44 PTAGE: 57 years EKG: Sinus rhythm Inferior infarct - age undetermined Abnormal ECG NO PREVIOUS TRACING DOCTOR: Lefty May Interpretating Date/Time 07/26/2017 08:45:03
[2017-07-26] MEDS ORDERED: POTASSIUM CHLORIDE 10 MEQ CONTROLLED RELEASE TAB PO ONE (09:00)
[2017-07-26] MEDS: SODIUM CHLORIDE 0.9% FLUSH 10 ML FLUSH IV FLUSH SCH ×2 (09:00→20:41)
[2017-07-26] MEDS ORDERED: INSULIN DETEMIR 100 UNITS/ML VIAL SQ ONE (09:10)
[2017-07-26] MEDS ORDERED: FUROSEMIDE 20 MG/2 ML VIAL IV PUSH ONE (09:15)
[2017-07-26] MEDS: ASPIRIN 81 MG CHEW TAB PO SCH (09:34)
[2017-07-26] MEDS: MAGNESIUM HYDROXIDE SUSP 30 ML CUP PO SCH (09:34)
[2017-07-26] MEDS: MULTIVITAMINS/MINERALS THERAPEUTIC TAB PO SCH (09:35)
[2017-07-26] MEDS: DOCUSATE SODIUM 100 MG CAP PO SCH ×2 (09:35→20:41)
--- NOTE | 2017-07-26 09:36 | HHI.FPPN ---
Subjective Remarks Patient seen and examined this morning. He states that he is doing well. Has no complaints at this time. His pain is well-controlled. He is eating/drinking well. His griffin was d/c'd and he has urinated. No BM. No chest pain sx like he had upon admission, but does have pain at the surgical site. No shortness of breath, no abdominal pain, no nausea/vomiting. He has not yet ambulated, will later today with PT. (Lucy Clarke MD R1) Objective Vitals Vital Signs Date Time Temp Pulse Resp B/P (MAP) Pulse Ox O2 Delivery O2 Flow Rate FiO2 07/26/17 07:00 97 Nasal Cannula 4.00 07/26/17 07:00 84 07/26/17 07:00 98.0 83 18 99/64 (76) 97 Arterial Line 07/26/17 06:30 20 07/26/17 06:30 20 07/26/17 04:00 98.3 85 20 110/62 (78) 94 07/26/17 03:00 82 07/26/17 01:00 94 Nasal Cannula 4.00 07/26/17 00:00 97.8 96 20 103/58 (73) 92 07/25/17 23:50 20 07/25/17 23:00 83 07/25/17 22:20 95 Nasal Cannula 3.00 07/25/17 19:30 94 Nasal Cannula 3.00 07/25/17 19:00 75 07/25/17 19:00 97.8 74 20 103/57 (72) 94 07/25/17 15:00 71 07/25/17 15:00 97.7 79 18 104/62 (76) 97 93/45 (61) 07/25/17 13:30 96 Nasal Cannula 4.00 07/25/17 13:30 97 Nasal Cannula 4.00 07/25/17 13:30 96 Nasal Cannula 4 07/25/17 12:32 76 07/25/17 11:30 98.3 72 18 95/54 (68) 90 101/48 (65) 07/25/17 11:30 60 07/25/17 11:28 93 60 I/O 07/25/17 07/25/17 07/25/17 07/26/17 07/26/17 07/26/17 07:00 15:00 23:00 07:00 15:00 23:00 Intake Total 240 ml 3100 ml 730 ml 1243 ml 354 ml Output Total 600 ml 300 ml 1215 ml 1915 ml Balance -360 ml 2800 ml -485 ml -672 ml 354 ml Intake Oral 240 ml 480 ml 960 ml IV Total 350 ml 250 ml 283 ml 354 ml Autotransfusion 750 ml Other 2000 ml Output Urine Total 600 ml 300 ml 1025 ml 1655 ml Gastric Drainage Total 0 ml Chest Tube Drainage Total 190 ml 260 ml # Bowel Movements 1 0 0 (Lucy Clarke MD R1) Result Diagram: 07/26/17 0530 07/26/17 0530 Imaging Last Impressions Chest X-Ray 07/26/17 0500 Signed Impressions: Service Date/Time: Wednesday, July 26, 2017 05:15 - CONCLUSION: Endotracheal tube and nasogastric tube no longer seen. Decreased lung volumes with mild bilateral lower lung zone opacity likely representing atelectasis. Noel Amaya MD Myocardial Perfusion Scan Nuc Med 07/23/17 0000 Signed Impressions: Service Date/Time: Sunday, July 23, 2017 10:32 - CONCLUSION: 1. Small size moderate severity partially reversible perfusion defect involving the inferolateral wall apical and mid ventricular segments. There is associated hypokinesia in these segments. 2. The overall ejection fraction has decreased significantly since prior exam in June 2016, now measured at 43%%. RISK CATEGORY: Intermediate (1-3%% Annual Mortality Rate) Les Ann MD Lower Extremity Ultrasound 07/23/17 0000 Signed Impressions: Service Date/Time: Sunday, July 23, 2017 22:29 - CONCLUSION: Patent saphenous veins bilaterally Moi Pan MD Carotid Artery Ultrasound 07/23/17 0000 Signed Impressions: Service Date/Time: Sunday, July 23, 2017 22:08 - CONCLUSION: No evidence of flow-limiting carotid stenosis. Moi Pan MD Objective Remarks GENERAL: Sitting in chair, NAD SKIN: No rashes, ecchymoses or lesions. Cool and dry. Midline chest wound vac dressing suctioning sanguinous fluid HEAD: Atraumatic. Normocephalic. EYES: EOMI. No scleral icterus. No injection or drainage. ENT: Airway patent. MMM. NECK: Trachea midline. No JVD. Supple. CARDIOVASCULAR: Regular rate and rhythm without murmurs, gallops, or rubs. RESPIRATORY: Clear to auscultation. Breath sounds equal bilaterally. No wheezes , rales, or rhonchi. GASTROINTESTINAL: Abdomen soft, non-tender, nondistended MUSCULOSKELETAL: Extremities without edema. No calf tenderness. NEUROLOGICAL: Awake and alert. Motor and sensory grossly within normal limits. Normal speech. Procedures Cardiac catheterization on 07/23 CABG x4 on 07/25 (Lucy Clarke MD R1) A/P Assessment and Plan 57-year-old white male with past medical history of CAD, hypertension, diabetes presented with chest pain and found to have multivessel CAD on cath by cardiology, now s/p CABG x4. (Lucy Clarke MD R1) Attending Attestation Patient seen and examined. Case reviewed and discussed with the resident team. Agree with plan of care as discussed with me and documented in the resident note. still has chest tube but otherwise is great (Amy Chavez MD) Problem List: (1) CAD (coronary artery disease) ICD Codes: I25.10 - Atherosclerotic heart disease of [place] coronary artery without angina pectoris Status: Chronic Plan: 57-year-old white male with a past medical history of coronary artery disease status post previous stent placement presented with chest pain. Troponins negative 3. EKG showing inferior myocardial infarction. Cardiac stress test was abnormal. Patient status post cardiac catheterization which showed multivessel coronary artery disease. CT surgery consulted by Cardiology, patient underwent CABG x4 on 07/25, now POD #1 Continue management in the postop period per CT surgery (2) Hypertension ICD Codes: I10 - Essential (primary) hypertension Status: Chronic Plan: Amlodipine 10 mg p.o. daily (3) Type 2 diabetes mellitus ICD Codes: E11.9 - Type 2 diabetes mellitus without complications Status: Chronic Plan: Bedside glucose monitoring Sliding scale NovoLog insulin low dose regimen (4) FEN Status: Acute Plan: Fluids: none at this time Electrolytes: monitor and replete as needed Nutrition: Heart healthy DVT ppx: per CT surgery GI ppx: protonix (Lucy Clarke MD R1) Problem Qualifiers (1) CAD (coronary artery disease): Qualified Codes: I25.110 - Atherosclerotic heart disease of [place] coronary artery with unstable angina pectoris (2) Hypertension: Qualified Codes: I10 - Essential (primary) hypertension (3) Type 2 diabetes mellitus: Qualified Codes: E11.8 - Type 2 diabetes mellitus with unspecified complications Lucy Clarke MD R1 Jul 26, 2017 09:36 Amy Chavez MD Jul 28, 2017 11:57
--- NOTE | 2017-07-26 10:06 | PD.CAR.PN ---
CVT Progress Note Subjective/Hospital Course: A 57-year-old male presented with chest pain, has a history of a coronary stent to the circumflex [address] Watson, nonradiating. He stated that the pain was similar to the pain he had when he required his cardiac stent. Troponins were negative; however, he had a nuclear stress test, which showed a small-sized, moderately reversible perfusion defect in the inferolateral wall with an EF of approximately 43%. He underwent cardiac catheterization by Dr. Hood, which showed left main disease at 40%, proximal LAD 20%, mid-distal 70 %, diagonal 60%, the circumflex 100% and the RCA 70%. We were consulted to evaluate for coronary artery bypass grafting x4. PAST MEDICAL HISTORY: Includes coronary artery disease, hypertension, diabetes mellitus type 2, hepatitis C, diverticulosis, COPD. PAST SURGICAL HISTORY: Include bowel resection due to a perforated diverticulitis [address] Frazier, 07/25 surgery : CABG x 4, DOLAN to LAD, SVG to D2, SVG to OM, SVG to PDA, L EVH extubated after surgery + IV steroids x 1 , crystalloid 2000cc, 750cc cell saver, 150cc EBL 07/26 remains on 02 at 4 liter gentle diuresis , pulm toileting nebs, ezpap OOB ambulate , start low dose BB this evening transfer to stepdown Objective: GENERAL: A& O x 3 SKIN: Warm and dry. prevena dressing to chest / incision intact to left leg HEAD: Normocephalic. EYES: No scleral icterus. No injection or drainage. NECK: Supple, trachea midline. No JVD or lymphadenopathy. CARDIOVASCULAR: Regular rate and rhythm without murmurs, gallops, or rubs. RESPIRATORY: Breath sounds equal bilaterally. No accessory muscle use. few crackles in bases , chest tube to wall suction/ drained 260cc/ 12hrs GASTROINTESTINAL: Abdomen soft, non-tender, nondistended. MUSCULOSKELETAL: No cyanosis, or edema. BACK: Nontender without obvious deformity. No CVA tenderness. Vital Signs Date Time Temp Pulse Resp B/P (MAP) Pulse Ox O2 Delivery O2 Flow Rate FiO2 07/26/17 07:00 97 Nasal Cannula 4.00 07/26/17 07:00 84 07/26/17 07:00 98.0 83 18 99/64 (76) 97 Arterial Line 07/26/17 06:30 20 07/26/17 06:30 20 07/26/17 04:00 98.3 85 20 110/62 (78) 94 07/26/17 03:00 82 07/26/17 01:00 94 Nasal Cannula 4.00 07/26/17 00:00 97.8 96 20 103/58 (73) 92 07/25/17 23:50 20 07/25/17 23:00 83 07/25/17 22:20 95 Nasal Cannula 3.00 07/25/17 19:30 94 Nasal Cannula 3.00 07/25/17 19:00 75 07/25/17 19:00 97.8 74 20 103/57 (72) 94 07/25/17 15:00 71 07/25/17 15:00 97.7 79 18 104/62 (76) 97 93/45 (61) 07/25/17 13:30 96 Nasal Cannula 4.00 07/25/17 13:30 97 Nasal Cannula 4.00 07/25/17 13:30 96 Nasal Cannula 4 07/25/17 12:32 76 07/25/17 11:30 98.3 72 18 95/54 (68) 90 101/48 (65) 07/25/17 11:30 60 07/25/17 11:28 93 60 Labs: Laboratory Tests Test 07/26/17 05:30 White Blood Count 20.7 TH/MM3 (4.0-11.0) Red Blood Count 3.74 MIL/MM3 (4.50-5.90) Hemoglobin 11.4 GM/DL (13.0-17.0) Hematocrit 33.8 % (39.0-51.0) Mean Corpuscular Volume 90.4 FL (80.0-100.0) Mean Corpuscular Hemoglobin 30.6 PG (27.0-34.0) Mean Corpuscular Hemoglobin Concent 33.8 % (32.0-36.0) Red Cell Distribution Width 12.5 % (11.6-17.2) Platelet Count 132 TH/MM3 (150-450) Mean Platelet Volume 10.2 FL (7.0-11.0) Blood Urea Nitrogen 16 MG/DL (7-18) Creatinine 0.68 MG/DL (0.60-1.30) Random Glucose 134 MG/DL (74-106) Calcium Level 7.8 MG/DL (8.5-10.1) Magnesium Level 1.8 MG/DL (1.5-2.5) Sodium Level 137 MEQ/L (136-145) Potassium Level 4.2 MEQ/L (3.5-5.1) Chloride Level 105 MEQ/L (98-107) Carbon Dioxide Level 23.3 MEQ/L (21.0-32.0) Anion Gap 9 MEQ/L (5-15) Estimat Glomerular Filtration Rate 119 ML/MIN (>89) Result Diagram: 07/26/1730 07/26/17529 (1) Unstable angina (2) S/P CABG x 4 Plan: ASA, statin BB OOB ambulate gentle diuresis pulm toileting CM to eval HHC at discharge (3) Tobacco dependency Plan: smoking cessation (4) COPD (chronic obstructive pulmonary disease) Plan: nebs, wean 02 (5) CAD (coronary artery disease) (6) HTN (hypertension) (7) Type 2 diabetes mellitus Plan: insulin sliding scale diabetic diet bid levemir Problem Qualifiers (1) CAD (coronary artery disease): Qualified Codes: I25.110 - Atherosclerotic heart disease of [place] coronary artery with unstable angina pectoris (2) Type 2 diabetes mellitus: Qualified Codes: E11.8 - Type 2 diabetes mellitus with unspecified complications Mabel Gonzalez Jul 26, 2017 10:06
[2017-07-26] MEDS: INSULIN ASPART SUPPLEMENTAL SCALE SQ SCH ×4 (10:29→22:53)
--- NOTE | 2017-07-26 12:53 | PD.CARD.PN ---
Subjective Subjective Remarks Post-CABG Extubated, doing well Appropriate incisional pain Objective Medications Current Medications Medications (Trade) Dose Ordered Sig/Canelo Route Start Time Stop Time Status Last Admin (Tylenol) 500 mg Q4H PRN PO 07/23/17 07:30 07/24/17 17:47 (Phenergan) 12.5 mg Q6H PRN PO 07/23/17 11:00 (Pill Splitter) 1 ea UNSCH PRN OTHER 07/23/17 10:45 (Lipitor) 80 mg HS PO 07/23/17 21:00 07/25/17 22:09 (NS Flush) 2 ml BID IV FLUSH 07/25/17 21:00 (NS Flush) 2 ml UNSCH PRN IV FLUSH 07/25/17 11:15 Vancomycin HCl 1000 mg/Sodium Chloride 250 ml @ 250 mls/hr Q12H IV 07/25/17 19:00 07/26/17 19:59 07/26/17 05:44 (Aspirin Chew) 81 mg DAILY PO 07/26/17 09:00 07/26/17 09:34 (Protonix) 40 mg DAILY@06 PO 07/26/17 06:00 07/26/17 05:42 (Cordarone) 400 mg Q8HR PO 07/25/17 14:00 07/26/17 05:42 (Tylenol) 650 mg Q4H PRN PO 07/25/17 11:15 (Percocet 5-325 Mg) 1 tab Q3H PRN PO 07/25/17 11:15 07/26/17 11:33 (Zofran Inj) 4 mg Q6H PRN IV PUSH 07/25/17 11:15 (Lopressor Inj) 2.5 mg Q1H PRN IV PUSH 07/25/17 11:15 (D50w (Vial) Inj) 50 ml UNSCH PRN IV PUSH 07/25/17 11:15 (Duoneb Neb) 1 ampule Q2HR NEB PRN NEB 07/25/17 11:15 (Duoneb Neb) 1 ampule Q6HR WHILE AWAKE NEB NEB 07/26/17 14:00 07/28/17 13:59 (Colace) 100 mg BID PO 07/26/17 09:15 07/26/17 09:35 (Theragran M Tab) 1 tab DAILY PO 07/26/17 09:15 07/26/17 09:35 (Milk Of Magnesia Liq) 30 ml DAILY PO 07/26/17 09:00 07/26/17 09:34 (Dulcolax Supp) 10 mg UNSCH PRN RECTAL 07/26/17 08:45 (Miralax) 17 gm DAILY PO 07/27/17 09:00 (Senokot) 8.6 mg HS PO 07/26/17 21:00 (Fleets Enema (Adult)) 118 ml UNSCH PRN RECTAL 07/26/17 08:45 (Lopressor) 12.5 mg BID PO 07/26/17 21:00 (NovoLOG SUPPLEMENTAL SCALE) 1 02,06,10,14,18,22 SQ 07/26/17 10:00 07/27/17 09:59 07/26/17 10:29 (D50w (Vial) Inj) 50 ml UNSCH PRN IV PUSH 07/26/17 08:45 (Glucagon Inj) 1 mg UNSCH PRN OTHER 07/26/17 08:45 (NovoLOG SUPPLEMENTAL SCALE) 1 ACHS SQ 07/27/17 12:00 (Levemir Inj) 5 units Q12HR SQ 07/26/17 21:00 Vital Signs / I&O Vital Signs Date Time Temp Pulse Resp B/P (MAP) Pulse Ox O2 Delivery O2 Flow Rate FiO2 07/26/17 11:00 83 07/26/17 11:00 98.1 82 18 114/60 (78) 94 07/26/17 07:00 97 Nasal Cannula 4.00 07/26/17 07:00 84 07/26/17 07:00 98.0 83 18 99/64 (76) 97 Arterial Line 07/26/17 06:30 20 07/26/17 06:30 20 07/26/17 04:00 98.3 85 20 110/62 (78) 94 07/26/17 03:00 82 07/26/17 01:00 94 Nasal Cannula 4.00 07/26/17 00:00 97.8 96 20 103/58 (73) 92 07/25/17 23:50 20 07/25/17 23:00 83 07/25/17 22:20 95 Nasal Cannula 3.00 07/25/17 19:30 94 Nasal Cannula 3.00 07/25/17 19:00 75 07/25/17 19:00 97.8 74 20 103/57 (72) 94 07/25/17 15:00 71 07/25/17 15:00 97.7 79 18 104/62 (76) 97 93/45 (61) 07/25/17 13:30 96 Nasal Cannula 4.00 07/25/17 13:30 97 Nasal Cannula 4.00 07/25/17 13:30 96 Nasal Cannula 4 I/O 07/25/17 07/25/17 07/25/17 07/26/17 07/26/17 07/26/17 07:00 15:00 23:00 07:00 15:00 23:00 Intake Total 240 ml 3100 ml 730 ml 1243 ml 354 ml Output Total 600 ml 300 ml 1215 ml 1915 ml Balance -360 ml 2800 ml -485 ml -672 ml 354 ml Intake Oral 240 ml 480 ml 960 ml IV Total 350 ml 250 ml 283 ml 354 ml Autotransfusion 750 ml Other 2000 ml Output Urine Total 600 ml 300 ml 1025 ml 1655 ml Gastric Drainage Total 0 ml Chest Tube Drainage Total 190 ml 260 ml # Bowel Movements 1 0 0 Physical Exam GENERAL: NAD, AAOx3 SKIN: Warm and dry. HEAD: Atraumatic. Normocephalic. EYES: Pupils equal and round. No scleral icterus. No injection or drainage. ENT: No nasal bleeding or discharge. Mucous membranes pink and moist. NECK: Trachea midline. No JVD. CARDIOVASCULAR: Regular rate and rhythm. Sternotomy covered RESPIRATORY: No accessory muscle use. Clear to auscultation. Breath sounds equal bilaterally. GASTROINTESTINAL: Abdomen soft, non-tender, nondistended. Hepatic and splenic margins not palpable. MUSCULOSKELETAL: Extremities without clubbing, cyanosis, or edema. No obvious deformities. Right radial no hematoma, neurovascularly intact NEUROLOGICAL: No focal deficits Laboratory Laboratory Tests Test 07/26/17 05:30 White Blood Count 20.7 TH/MM3 Red Blood Count 3.74 MIL/MM3 Hemoglobin 11.4 GM/DL Hematocrit 33.8 % Mean Corpuscular Volume 90.4 FL Mean Corpuscular Hemoglobin 30.6 PG Mean Corpuscular Hemoglobin Concent 33.8 % Red Cell Distribution Width 12.5 % Platelet Count 132 TH/MM3 Mean Platelet Volume 10.2 FL Blood Urea Nitrogen 16 MG/DL Creatinine 0.68 MG/DL Random Glucose 134 MG/DL Calcium Level 7.8 MG/DL Magnesium Level 1.8 MG/DL Sodium Level 137 MEQ/L Potassium Level 4.2 MEQ/L Chloride Level 105 MEQ/L Carbon Dioxide Level 23.3 MEQ/L Anion Gap 9 MEQ/L Estimat Glomerular Filtration Rate 119 ML/MIN Imaging Last 24 hours Impressions Chest X-Ray 07/26/17 0500 Signed Impressions: Service Date/Time: Wednesday, July 26, 2017 05:15 - CONCLUSION: Endotracheal tube and nasogastric tube no longer seen. Decreased lung volumes with mild bilateral lower lung zone opacity likely representing atelectasis. Noel Amaya MD Assessment and Plan Problem List: (1) Unstable angina ICD Codes: I20.0 - Unstable angina (2) S/P CABG x 4 ICD Codes: Z95.1 - Presence of aortocoronary bypass graft (3) Tobacco dependency ICD Codes: F17.200 - Nicotine dependence, unspecified, uncomplicated Status: Acute (4) COPD (chronic obstructive pulmonary disease) ICD Codes: J44.9 - Chronic obstructive pulmonary disease, unspecified Status: Acute (5) CAD (coronary artery disease) ICD Codes: I25.10 - Atherosclerotic heart disease of [place] coronary artery without angina pectoris Status: Chronic (6) HTN (hypertension) ICD Codes: I10 - Essential (primary) hypertension (7) Type 2 diabetes mellitus ICD Codes: E11.9 - Type 2 diabetes mellitus without complications Status: Chronic Assessment and Plan 1) MVCAD s/p CABGx4 POD #1 DOLAN to LAD SVG to D2 SVG to OM SVG to PDA 2) Tobacco cessation 3) EF 40-45% 4) BB/ASA/Amio/Statin 5) Plan to move to Step-down Problem Qualifiers (1) CAD (coronary artery disease): Qualified Codes: I25.110 - Atherosclerotic heart disease of [place] coronary artery with unstable angina pectoris (2) Type 2 diabetes mellitus: Qualified Codes: E11.8 - Type 2 diabetes mellitus with unspecified complications Yang Hood DO Jul 26, 2017 12:53
[2017-07-26] MEDS: ATORVASTATIN 80 MG TAB PO SCH (20:41)
[2017-07-26] MEDS: METOPROLOL TARTRATE 25 MG TAB PO SCH (20:41)
[2017-07-26] MEDS: SENNOSIDES 8.6 MG TAB PO SCH (20:41)
[2017-07-26] MEDS: INSULIN DETEMIR 100 UNITS/ML VIAL SQ SCH (20:41)
[2017-07-27] VITALS (22 sets, daily range): BP systolic 106–146; BP diastolic 62–78; PULSE 74–88; RESP 16–20; TEMP 97.8–98.8; O2SAT 92–97
[2017-07-27] MEDS: INSULIN ASPART SUPPLEMENTAL SCALE SQ SCH ×5 (02:00→21:03)
[2017-07-27] MEDS: oxyCODONE/ACETAMINOPHEN 5 MG/325 MG TAB PO PRN ×6 (02:40→20:51)
[2017-07-27 05:31] LABS: AUTOMATED NEUTROPHIL # 13.5 TH/MM3 (1.8-7.7); BASOPHIL # 0.1 TH/MM3 (0-0.2); BASOPHIL % 0.3 % (0.0-2.0); EOSINOPHIL # 0.1 TH/MM3 (0-0.4); EOSINOPHIL % 0.5 % (0.0-4.0); HEMATOCRIT 34.2 % (39.0-51.0); HEMOGLOBIN 11.6 GM/DL (13.0-17.0); LYMPH % 19.6 % (9.0-44.0); LYMPHOCYTE # 3.7 TH/MM3 (1.0-4.8); MEAN CELL VOLUME 89.7 FL (80.0-100.0); MEAN CORPUSCULAR HEMOGLOBIN 30.4 PG (27.0-34.0); MEAN CORPUSCULAR HGB CONC 33.9 % (32.0-36.0); MEAN PLATELET VOLUME 10.4 FL (7.0-11.0); MONO % 8.3 % (0.0-8.0); MONOCYTE # 1.6 TH/MM3 (0-0.9); NEUT % 71.3 % (16.0-70.0); PLATELET COUNT 141 TH/MM3 (150-450); RED BLOOD COUNT 3.82 MIL/MM3 (4.50-5.90); RED CELL DISTRIBUTION WIDTH 13.1 % (11.6-17.2); WHITE BLOOD COUNT 18.9 TH/MM3 (4.0-11.0)
[2017-07-27] MEDS: AMIODARONE 200 MG TAB PO SCH ×3 (05:39→20:51)
[2017-07-27] MEDS: PANTOPRAZOLE SOD 40 MG DELAYED RELEASE TAB PO SCH (05:39)
[2017-07-27 06:04] LABS: BICARBONATE 27.6 MEQ/L (21.0-32.0); CALCIUM 8.5 MG/DL (8.5-10.1); CREATININE 0.73 MG/DL (0.60-1.30); MAGNESIUM 1.7 MG/DL (1.5-2.5)
[2017-07-27] MEDS ORDERED: oxyCODONE/ACETAMINOPHEN 5 MG/325 MG TAB PO PRN (07:15)
[2017-07-27] MEDS: RESP: ALBUTEROL 2.5 MG/IPRATROPIUM 0.5 MG NEB (SCH) NEB ×2 (07:18→19:50)
[2017-07-27] MEDS: INSULIN DETEMIR 100 UNITS/ML VIAL SQ SCH ×2 (08:16→21:03)
[2017-07-27] MEDS: POLYETHYLENE GLYCOL 17 GM PKG PO SCH (08:16)
[2017-07-27] MEDS: METOPROLOL TARTRATE 25 MG TAB PO SCH ×2 (08:16→20:53)
[2017-07-27] MEDS: MULTIVITAMINS/MINERALS THERAPEUTIC TAB PO SCH (08:16)
[2017-07-27] MEDS: MAGNESIUM HYDROXIDE SUSP 30 ML CUP PO SCH (08:16)
[2017-07-27] MEDS: DOCUSATE SODIUM 100 MG CAP PO SCH ×2 (08:17→20:52)
[2017-07-27] MEDS: ASPIRIN 81 MG CHEW TAB PO SCH (08:17)
[2017-07-27] MEDS: SODIUM CHLORIDE 0.9% FLUSH 10 ML FLUSH IV FLUSH SCH ×2 (08:17→20:58)
--- NOTE | 2017-07-27 10:25 | PD.CAR.PN ---
CVT Progress Note Subjective/Hospital Course: A 57-year-old male presented with chest pain, has a history of a coronary stent to the circumflex [address] Watson, nonradiating. He stated that the pain was similar to the pain he had when he required his cardiac stent. Troponins were negative; however, he had a nuclear stress test, which showed a small-sized, moderately reversible perfusion defect in the inferolateral wall with an EF of approximately 43%. He underwent cardiac catheterization by Dr. Hood, which showed left main disease at 40%, proximal LAD 20%, mid-distal 70 %, diagonal 60%, the circumflex 100% and the RCA 70%. We were consulted to evaluate for coronary artery bypass grafting x4. PAST MEDICAL HISTORY: Includes coronary artery disease, hypertension, diabetes mellitus type 2, hepatitis C, diverticulosis, COPD. PAST SURGICAL HISTORY: Include bowel resection due to a perforated diverticulitis [address] Frazier, 07/25 surgery : CABG x 4, DOLAN to LAD, SVG to D2, SVG to OM, SVG to PDA, L EVH extubated after surgery + IV steroids x 1 , crystalloid 2000cc, 750cc cell saver, 150cc EBL 07/26 remains on 02 at 4 liter gentle diuresis , pulm toileting nebs, ezpap OOB ambulate , start low dose BB this evening transfer to stepdown 07/[address] Ambulate Objective: Vital Signs Date Time Temp Pulse Resp B/P (MAP) Pulse Ox O2 Delivery O2 Flow Rate FiO2 07/27/17 08:00 98.8 78 18 115/75 (88) 97 07/27/17 08:00 78 07/27/17 08:00 97 Nasal Cannula 2.00 07/27/17 07:18 96 Nasal Cannula 2.00 07/27/17 03:27 78 07/27/17 03:27 98.5 88 20 146/66 (92) 93 07/26/17 23:20 98.5 72 19 122/64 (83) 95 07/26/17 23:20 87 07/26/17 20:51 93 Nasal Cannula 2.00 07/26/17 19:40 84 07/26/17 19:40 Nasal Cannula 2.00 07/26/17 19:40 98.7 89 20 121/60 (80) 93 07/26/17 16:00 81 07/26/17 16:00 98.1 81 18 137/66 (89) 98 07/26/17 11:00 83 07/26/17 11:00 98.1 82 18 114/60 (78) 94 Labs: Laboratory Tests Test 07/27/17 05:10 White Blood Count 18.9 TH/MM3 (4.0-11.0) Red Blood Count 3.82 MIL/MM3 (4.50-5.90) Hemoglobin 11.6 GM/DL (13.0-17.0) Hematocrit 34.2 % (39.0-51.0) Mean Corpuscular Volume 89.7 FL (80.0-100.0) Mean Corpuscular Hemoglobin 30.4 PG (27.0-34.0) Mean Corpuscular Hemoglobin Concent 33.9 % (32.0-36.0) Red Cell Distribution Width 13.1 % (11.6-17.2) Platelet Count 141 TH/MM3 (150-450) Mean Platelet Volume 10.4 FL (7.0-11.0) Neutrophils (%) (Auto) 71.3 % (16.0-70.0) Lymphocytes (%) (Auto) 19.6 % (9.0-44.0) Monocytes (%) (Auto) 8.3 % (0.0-8.0) Eosinophils (%) (Auto) 0.5 % (0.0-4.0) Basophils (%) (Auto) 0.3 % (0.0-2.0) Neutrophils # (Auto) 13.5 TH/MM3 (1.8-7.7) Lymphocytes # (Auto) 3.7 TH/MM3 (1.0-4.8) Monocytes # (Auto) 1.6 TH/MM3 (0-0.9) Eosinophils # (Auto) 0.1 TH/MM3 (0-0.4) Basophils # (Auto) 0.1 TH/MM3 (0-0.2) CBC Comment DIFF FINAL Differential Comment Blood Urea Nitrogen 17 MG/DL (7-18) Creatinine 0.73 MG/DL (0.60-1.30) Random Glucose 102 MG/DL (74-106) Calcium Level 8.5 MG/DL (8.5-10.1) Magnesium Level 1.7 MG/DL (1.5-2.5) Sodium Level 135 MEQ/L (136-145) Potassium Level 4.3 MEQ/L (3.5-5.1) Chloride Level 100 MEQ/L (98-107) Carbon Dioxide Level 27.6 MEQ/L (21.0-32.0) Anion Gap 7 MEQ/L (5-15) Estimat Glomerular Filtration Rate 110 ML/MIN (>89) Result Diagram: 07/27/17 0510 07/27/17 0510 (1) Unstable angina (2) S/P CABG x 4 (3) Tobacco dependency (4) COPD (chronic obstructive pulmonary disease) (5) CAD (coronary artery disease) (6) HTN (hypertension) (7) Type 2 diabetes mellitus Problem Qualifiers (1) CAD (coronary artery disease): Qualified Codes: I25.110 - Atherosclerotic heart disease of [place] coronary artery with unstable angina pectoris (2) Type 2 diabetes mellitus: Qualified Codes: E11.8 - Type 2 diabetes mellitus with unspecified complications Lenard Chacon MD Jul 27, 2017 10:25
[2017-07-27] MEDS ORDERED: FUROSEMIDE 20 MG/2 ML VIAL IV PUSH ONE (11:00)
--- NOTE | 2017-07-27 11:01 | PD.CARD.PN ---
Subjective Subjective Remarks Doing well, up and ambulating with PT Appropriate incisional pain Objective Medications Current Medications Medications (Trade) Dose Ordered Sig/Canelo Route Start Time Stop Time Status Last Admin (Tylenol) 500 mg Q4H PRN PO 07/23/17 07:30 07/24/17 17:47 (Phenergan) 12.5 mg Q6H PRN PO 07/23/17 11:00 (Pill Splitter) 1 ea UNSCH PRN OTHER 07/23/17 10:45 (Lipitor) 80 mg HS PO 07/23/17 21:00 07/26/17 20:41 (NS Flush) 2 ml BID IV FLUSH 07/25/17 21:00 07/27/17 08:17 (NS Flush) 2 ml UNSCH PRN IV FLUSH 07/25/17 11:15 (Aspirin Chew) 81 mg DAILY PO 07/26/17 09:00 07/27/17 08:17 (Protonix) 40 mg DAILY@06 PO 07/26/17 06:00 07/27/17 05:39 (Cordarone) 400 mg Q8HR PO 07/25/17 14:00 07/27/17 05:39 (Tylenol) 650 mg Q4H PRN PO 07/25/17 11:15 (Zofran Inj) 4 mg Q6H PRN IV PUSH 07/25/17 11:15 (Lopressor Inj) 2.5 mg Q1H PRN IV PUSH 07/25/17 11:15 (Duoneb Neb) 1 ampule Q2HR NEB PRN NEB 07/25/17 11:15 (Duoneb Neb) 1 ampule Q6HR WHILE AWAKE NEB NEB 07/26/17 14:00 07/28/17 13:59 07/27/17 07:18 (Colace) 100 mg BID PO 07/26/17 09:15 07/27/17 08:17 (Theragran M Tab) 1 tab DAILY PO 07/26/17 09:15 07/27/17 08:16 (Milk Of Magnesia Liq) 30 ml DAILY PO 07/26/17 09:00 07/27/17 08:16 (Dulcolax Supp) 10 mg UNSCH PRN RECTAL 07/26/17 08:45 (Miralax) 17 gm DAILY PO 07/27/17 09:00 07/27/17 08:16 (Senokot) 8.6 mg HS PO 07/26/17 21:00 07/26/17 20:41 (Fleets Enema (Adult)) 118 ml UNSCH PRN RECTAL 07/26/17 08:45 (Lopressor) 12.5 mg BID PO 07/26/17 21:00 07/27/17 08:16 (D50w (Vial) Inj) 50 ml UNSCH PRN IV PUSH 07/26/17 08:45 (Glucagon Inj) 1 mg UNSCH PRN OTHER 07/26/17 08:45 (NovoLOG SUPPLEMENTAL SCALE) 1 ACHS SQ 07/27/17 12:00 (Levemir Inj) 5 units Q12HR SQ 07/26/17 21:00 07/27/17 08:16 (Percocet 5-325 Mg) 1 tab Q4H PRN PO 07/27/17 07:15 (Percocet 5-325 Mg) 2 tab Q4H PRN PO 07/27/17 07:15 07/27/17 08:45 (Lasix Inj) 20 mg ONCE ONCE IV PUSH 07/27/17 11:00 07/27/17 11:01 Vital Signs / I&O Vital Signs Date Time Temp Pulse Resp B/P (MAP) Pulse Ox O2 Delivery O2 Flow Rate FiO2 07/27/17 08:00 98.8 78 18 115/75 (88) 97 07/27/17 08:00 78 07/27/17 08:00 97 Nasal Cannula 2.00 07/27/17 07:18 96 Nasal Cannula 2.00 07/27/17 03:27 78 07/27/17 03:27 98.5 88 20 146/66 (92) 93 07/26/17 23:20 98.5 72 19 122/64 (83) 95 07/26/17 23:20 87 07/26/17 20:51 93 Nasal Cannula 2.00 07/26/17 19:40 84 07/26/17 19:40 Nasal Cannula 2.00 07/26/17 19:40 98.7 89 20 121/60 (80) 93 07/26/17 16:00 81 07/26/17 16:00 98.1 81 18 137/66 (89) 98 I/O 4/6/07/26/17 07/26/17 07/27/17 07/27/17 07/27/17 07:00 15:00 23:00 07:00 15:00 23:00 Intake Total 1243 ml 354 ml 650 ml 480 ml Output Total 1915 ml 560 ml 845 ml Balance -672 ml 354 ml 90 ml -365 ml Intake Oral 960 ml 400 ml 480 ml IV Total 283 ml 354 ml 250 ml Output Urine Total 1655 ml 400 ml 705 ml Chest Tube Drainage Total 260 ml 160 ml 140 ml # Bowel Movements 0 0 0 Physical Exam GENERAL: NAD, AAOx3 SKIN: Warm and dry. HEAD: Atraumatic. Normocephalic. EYES: Pupils equal and round. No scleral icterus. No injection or drainage. ENT: No nasal bleeding or discharge. Mucous membranes pink and moist. NECK: Trachea midline. No JVD. CARDIOVASCULAR: Regular rate and rhythm. Sternotomy covered RESPIRATORY: No accessory muscle use. Clear to auscultation. Breath sounds equal bilaterally. GASTROINTESTINAL: Abdomen soft, non-tender, nondistended. Hepatic and splenic margins not palpable. MUSCULOSKELETAL: Extremities without clubbing, cyanosis, or edema. No obvious deformities. Right radial no hematoma, neurovascularly intact NEUROLOGICAL: No focal deficits Laboratory Laboratory Tests Test 07/27/17 05:10 White Blood Count 18.9 TH/MM3 Red Blood Count 3.82 MIL/MM3 Hemoglobin 11.6 GM/DL Hematocrit 34.2 % Mean Corpuscular Volume 89.7 FL Mean Corpuscular Hemoglobin 30.4 PG Mean Corpuscular Hemoglobin Concent 33.9 % Red Cell Distribution Width 13.1 % Platelet Count 141 TH/MM3 Mean Platelet Volume 10.4 FL Neutrophils (%) (Auto) 71.3 % Lymphocytes (%) (Auto) 19.6 % Monocytes (%) (Auto) 8.3 % Eosinophils (%) (Auto) 0.5 % Basophils (%) (Auto) 0.3 % Neutrophils # (Auto) 13.5 TH/MM3 Lymphocytes # (Auto) 3.7 TH/MM3 Monocytes # (Auto) 1.6 TH/MM3 Eosinophils # (Auto) 0.1 TH/MM3 Basophils # (Auto) 0.1 TH/MM3 CBC Comment DIFF FINAL Differential Comment Blood Urea Nitrogen 17 MG/DL Creatinine 0.73 MG/DL Random Glucose 102 MG/DL Calcium Level 8.5 MG/DL Magnesium Level 1.7 MG/DL Sodium Level 135 MEQ/L Potassium Level 4.3 MEQ/L Chloride Level 100 MEQ/L Carbon Dioxide Level 27.6 MEQ/L Anion Gap 7 MEQ/L Estimat Glomerular Filtration Rate 110 ML/MIN Assessment and Plan Problem List: (1) Unstable angina ICD Codes: I20.0 - Unstable angina (2) S/P CABG x 4 ICD Codes: Z95.1 - Presence of aortocoronary bypass graft (3) Tobacco dependency ICD Codes: F17.200 - Nicotine dependence, unspecified, uncomplicated Status: Acute (4) COPD (chronic obstructive pulmonary disease) ICD Codes: J44.9 - Chronic obstructive pulmonary disease, unspecified Status: Acute (5) CAD (coronary artery disease) ICD Codes: I25.10 - Atherosclerotic heart disease of [place] coronary artery without angina pectoris Status: Chronic (6) HTN (hypertension) ICD Codes: I10 - Essential (primary) hypertension (7) Type 2 diabetes mellitus ICD Codes: E11.9 - Type 2 diabetes mellitus without complications Status: Chronic Assessment and Plan 1) MVCAD s/p CABGx4 POD #2 DOLAN to LAD SVG to D2 SVG to OM SVG to PDA 2) Tobacco cessation 3) EF 40-45% 4) BB/ASA/Amio/Statin 5) Chest tubes output 300 Problem Qualifiers (1) CAD (coronary artery disease): Qualified Codes: I25.110 - Atherosclerotic heart disease of [place] coronary artery with unstable angina pectoris (2) Type 2 diabetes mellitus: Qualified Codes: E11.8 - Type 2 diabetes mellitus with unspecified complications Yang Hood DO Jul 27, 2017 11:01
--- NOTE | 2017-07-27 11:08 | HHI.FPPN ---
Subjective Remarks Patient seen and examined this morning. He states that he is doing well. Still having a lot of chest pain where his wound VAC is suctioning. Otherwise, no other complaints. No anginal chest pain, no shortness of breath, no abdominal pain, no nausea or vomiting, no fevers or chills. (Lucy Clarke MD R1) Objective Vitals Vital Signs Date Time Temp Pulse Resp B/P (MAP) Pulse Ox O2 Delivery O2 Flow Rate FiO2 07/27/17 08:00 98.8 78 18 115/75 (88) 97 07/27/17 08:00 78 07/27/17 08:00 97 Nasal Cannula 2.00 07/27/17 07:18 96 Nasal Cannula 2.00 07/27/17 03:27 78 07/27/17 03:27 98.5 88 20 146/66 (92) 93 07/26/17 23:20 98.5 72 19 122/64 (83) 95 07/26/17 23:20 87 07/26/17 20:51 93 Nasal Cannula 2.00 07/26/17 19:40 84 07/26/17 19:40 Nasal Cannula 2.00 07/26/17 19:40 98.7 89 20 121/60 (80) 93 07/26/17 16:00 81 07/26/17 16:00 98.1 81 18 137/66 (89) 98 I/O 07/26/17 07/26/17 07/26/17 07/27/17 07/27/17 07/27/17 07:00 15:00 23:00 07:00 15:00 23:00 Intake Total 1243 ml 354 ml 650 ml 480 ml Output Total 1915 ml 560 ml 845 ml Balance -672 ml 354 ml 90 ml -365 ml Intake Oral 960 ml 400 ml 480 ml IV Total 283 ml 354 ml 250 ml Output Urine Total 1655 ml 400 ml 705 ml Chest Tube Drainage Total 260 ml 160 ml 140 ml # Bowel Movements 0 0 0 (Lucy Clarke MD R1) Result Diagram: 07/27/17 0510 07/27/17 0510 Objective Remarks GENERAL: Sitting in chair, NAD SKIN: No rashes, ecchymoses or lesions. Cool and dry. Midline chest wound vac dressing suctioning sanguinous fluid HEAD: Atraumatic. Normocephalic. EYES: EOMI. No scleral icterus. No injection or drainage. ENT: Airway patent. MMM. NECK: Trachea midline. No JVD. Supple. CARDIOVASCULAR: Regular rate and rhythm without murmurs, gallops, or rubs. RESPIRATORY: Clear to auscultation. Breath sounds equal bilaterally. No wheezes , rales, or rhonchi. GASTROINTESTINAL: Abdomen soft, non-tender, nondistended MUSCULOSKELETAL: Extremities without edema. No calf tenderness. NEUROLOGICAL: Awake and alert. Motor and sensory grossly within normal limits. Normal speech. Procedures Cardiac catheterization on 07/23 CABG x4 on 07/25 (Lucy Clarke MD R1) A/P Assessment and Plan 57-year-old white male with past medical history of CAD, hypertension, diabetes presented with chest pain and found to have multivessel CAD on cath by cardiology, now s/p CABG x4. (Lucy Clarke MD R1) Attending Attestation Patient seen and examined. Case reviewed and discussed with the resident team. Agree with plan of care as discussed with me and documented in the resident note. progressing daily (Amy Chavez MD) Problem List: (1) CAD (coronary artery disease) ICD Codes: I25.10 - Atherosclerotic heart disease of [place] coronary artery without angina pectoris Status: Chronic Plan: 57-year-old white male with a past medical history of coronary artery disease status post previous stent placement presented with chest pain. Troponins negative 3. EKG showing inferior myocardial infarction. Cardiac stress test was abnormal. Patient status post cardiac catheterization which showed multivessel coronary artery disease. CT surgery consulted by Cardiology, patient underwent CABG x4 on 07/25, now POD #2 Continue management in the postop period per CT surgery (2) Hypertension ICD Codes: I10 - Essential (primary) hypertension Status: Chronic Plan: Amlodipine 10 mg p.o. daily (3) Type 2 diabetes mellitus ICD Codes: E11.9 - Type 2 diabetes mellitus without complications Status: Chronic Plan: Bedside glucose monitoring Sliding scale NovoLog insulin low dose regimen (4) FEN Status: Acute Plan: Fluids: none at this time Electrolytes: monitor and replete as needed Nutrition: Heart healthy DVT ppx: per CT surgery GI ppx: protonix (Lucy Clarke MD R1) Problem Qualifiers (1) CAD (coronary artery disease): Qualified Codes: I25.110 - Atherosclerotic heart disease of [place] coronary artery with unstable angina pectoris (2) Hypertension: Qualified Codes: I10 - Essential (primary) hypertension (3) Type 2 diabetes mellitus: Qualified Codes: E11.8 - Type 2 diabetes mellitus with unspecified complications Lucy Clarke MD R1 Jul 27, 2017 11:08 Amy Chavez MD Jul 28, 2017 11:58
[2017-07-27] MEDS: ATORVASTATIN 80 MG TAB PO SCH (20:51)
[2017-07-27] MEDS: SENNOSIDES 8.6 MG TAB PO SCH (20:52)
[2017-07-28] VITALS (28 sets, daily range): BP systolic 112–158; BP diastolic 60–73; PULSE 69–84; RESP 0–20; TEMP 98–98.9; O2SAT 92–95
[2017-07-28] MEDS: oxyCODONE/ACETAMINOPHEN 5 MG/325 MG TAB PO PRN ×6 (00:40→21:06)
[2017-07-28] MEDS: AMIODARONE 200 MG TAB PO SCH ×3 (04:27→21:06)
[2017-07-28] MEDS: PANTOPRAZOLE SOD 40 MG DELAYED RELEASE TAB PO SCH (04:27)
[2017-07-28] MEDS: RESP: ALBUTEROL 2.5 MG/IPRATROPIUM 0.5 MG NEB (SCH) NEB (07:47)
[2017-07-28] MEDS: INSULIN ASPART SUPPLEMENTAL SCALE SQ SCH ×4 (08:00→21:49)
[2017-07-28] MEDS: MULTIVITAMINS/MINERALS THERAPEUTIC TAB PO SCH (08:40)
[2017-07-28] MEDS: POLYETHYLENE GLYCOL 17 GM PKG PO SCH (08:41)
[2017-07-28] MEDS: DOCUSATE SODIUM 100 MG CAP PO SCH ×2 (08:41→21:00)
[2017-07-28] MEDS: ASPIRIN 81 MG CHEW TAB PO SCH (08:41)
[2017-07-28] MEDS: METOPROLOL TARTRATE 25 MG TAB PO SCH ×2 (08:41→21:06)
[2017-07-28] MEDS: MAGNESIUM HYDROXIDE SUSP 30 ML CUP PO SCH (08:42)
[2017-07-28] MEDS: INSULIN DETEMIR 100 UNITS/ML VIAL SQ SCH ×2 (08:42→21:49)
[2017-07-28] MEDS: SODIUM CHLORIDE 0.9% FLUSH 10 ML FLUSH IV FLUSH SCH ×2 (08:42→21:07)
--- NOTE | 2017-07-28 11:10 | HHI.FPPN ---
Subjective Remarks Patient seen and examined this morning. He states that he is doing great. He has no complaints. No chest pain (other than at the incision site), no shortness of breath, no abdominal pain, no nausea vomiting, no fevers or chills. Has not had a bowel movement. (Lucy Clarke MD R1) Objective Vitals Vital Signs Date Time Temp Pulse Resp B/P (MAP) Pulse Ox O2 Delivery O2 Flow Rate FiO2 07/28/17 10:00 74 07/28/17 09:00 80 07/28/17 08:00 74 07/28/17 07:47 92 21 07/28/17 07:29 71 07/28/17 07:29 98.1 69 18 130/60 (83) 94 07/28/17 07:29 94 Room Air 07/28/17 06:28 78 07/28/17 05:28 72 07/28/17 04:44 73 07/28/17 04:40 98.6 74 17 119/63 (81) 93 07/28/17 03:28 79 07/28/17 02:28 72 07/28/17 01:12 74 07/28/17 00:13 77 07/27/17 23:35 98.8 78 16 106/62 (77) 92 07/27/17 23:34 77 07/27/17 22:35 85 07/27/17 21:00 82 07/27/17 20:15 78 07/27/17 20:05 98.8 82 17 133/67 (89) 97 07/27/17 20:05 97 Room Air 07/27/17 19:52 93 07/27/17 19:09 85 07/27/17 18:00 82 07/27/17 17:00 82 07/27/17 16:00 78 07/27/17 15:30 97.8 81 18 138/78 (98) 95 07/27/17 15:30 81 07/27/17 15:00 80 07/27/17 14:00 82 07/27/17 13:00 88 07/27/17 12:00 75 07/27/17 12:00 96 Nasal Cannula 2.00 07/27/17 12:00 98.6 77 16 130/74 (92) 95 I/O 4/7/18 4/707/27/17 07/28/17 07/28/17 07/28/17 07:00 15:00 23:00 07:00 15:00 23:00 Intake Total 480 ml 1080 ml 480 ml Output Total 845 ml 1595 ml 1155 ml Balance -365 ml -515 ml -675 ml Intake Oral 480 ml 1080 ml 480 ml Output Urine Total 705 ml 1475 ml 1075 ml Chest Tube Drainage Total 140 ml 120 ml 80 ml # Bowel Movements 0 0 (Lucy Clarke MD R1) Result Diagram: 07/27/17 0510 07/27/17 0510 Imaging Last Impressions Chest X-Ray 07/26/17 0500 Signed Impressions: Service Date/Time: Wednesday, July 26, 2017 05:15 - CONCLUSION: Endotracheal tube and nasogastric tube no longer seen. Decreased lung volumes with mild bilateral lower lung zone opacity likely representing atelectasis. Noel Amaya MD Myocardial Perfusion Scan Nuc Med 07/23/17 0000 Signed Impressions: Service Date/Time: Sunday, July 23, 2017 10:32 - CONCLUSION: 1. Small size moderate severity partially reversible perfusion defect involving the inferolateral wall apical and mid ventricular segments. There is associated hypokinesia in these segments. 2. The overall ejection fraction has decreased significantly since prior exam in June 2016, now measured at 43%%. RISK CATEGORY: Intermediate (1-3%% Annual Mortality Rate) Les Ann MD Lower Extremity Ultrasound 07/23/17 0000 Signed Impressions: Service Date/Time: Sunday, July 23, 2017 22:29 - CONCLUSION: Patent saphenous veins bilaterally Moi Pan MD Carotid Artery Ultrasound 07/23/17 0000 Signed Impressions: Service Date/Time: Sunday, July 23, 2017 22:08 - CONCLUSION: No evidence of flow-limiting carotid stenosis. Moi Pan MD Objective Remarks GENERAL: Sitting in chair, NAD SKIN: No rashes, ecchymoses or lesions. Cool and dry. Midline chest wound vac dressing suctioning sanguinous fluid HEAD: Atraumatic. Normocephalic. EYES: EOMI. No scleral icterus. No injection or drainage. ENT: Airway patent. MMM. NECK: Trachea midline. No JVD. Supple. CARDIOVASCULAR: Regular rate and rhythm without murmurs, gallops, or rubs. RESPIRATORY: Clear to auscultation. Breath sounds equal bilaterally. No wheezes , rales, or rhonchi. GASTROINTESTINAL: Abdomen soft, non-tender, nondistended MUSCULOSKELETAL: Extremities without edema. No calf tenderness. NEUROLOGICAL: Awake and alert. Motor and sensory grossly within normal limits. Normal speech. Procedures Cardiac catheterization on 07/23 CABG x4 on 07/25 (Lucy Clarke MD R1) A/P Assessment and Plan 57-year-old white male with past medical history of CAD, hypertension, diabetes presented with chest pain and found to have multivessel CAD on cath by cardiology, now s/p CABG x4. (Lucy Clarke MD R1) Attending Attestation Patient seen and examined. Case reviewed and discussed with the resident team. Agree with plan of care as discussed with me and documented in the resident note. getting his chest tube out today, plans on going home tomorrow if all goes well (Amy Chavez MD) Problem List: (1) CAD (coronary artery disease) ICD Codes: I25.10 - Atherosclerotic heart disease of [place] coronary artery without angina pectoris Status: Chronic Plan: 57-year-old white male with a past medical history of coronary artery disease status post previous stent placement presented with chest pain. Troponin negative 3. EKG showing inferior myocardial infarction. Cardiac stress test was abnormal. Patient status post cardiac catheterization which showed multivessel coronary artery disease. CT surgery consulted by Cardiology, patient underwent CABG x4 on 07/25, now POD #3 Continue management in the postop period per CT surgery (2) Hypertension ICD Codes: I10 - Essential (primary) hypertension Status: Chronic Plan: Amlodipine 10 mg p.o. daily (3) Type 2 diabetes mellitus ICD Codes: E11.9 - Type 2 diabetes mellitus without complications Status: Chronic Plan: Bedside glucose monitoring Sliding scale NovoLog insulin low dose regimen (4) FEN Status: Acute Plan: Fluids: none at this time Electrolytes: monitor and replete as needed Nutrition: Heart healthy DVT ppx: per CT surgery GI ppx: protonix (Lucy Clarke MD R1) Problem Qualifiers (1) CAD (coronary artery disease): Qualified Codes: I25.110 - Atherosclerotic heart disease of [place] coronary artery with unstable angina pectoris (2) Hypertension: Qualified Codes: I10 - Essential (primary) hypertension (3) Type 2 diabetes mellitus: Qualified Codes: E11.8 - Type 2 diabetes mellitus with unspecified complications Lucy Clarke MD R1 Jul 28, 2017 11:10 Amy Chavez MD Jul 28, 2017 11:59
--- NOTE | 2017-07-28 13:06 | PD.CARD.PN ---
Subjective Subjective Remarks Doing well, up and ambulating with PT Appropriate incisional pain Objective Medications Current Medications Medications (Trade) Dose Ordered Sig/Canelo Route Start Time Stop Time Status Last Admin (Tylenol) 500 mg Q4H PRN PO 07/23/17 07:30 07/24/17 17:47 (Phenergan) 12.5 mg Q6H PRN PO 07/23/17 11:00 (Pill Splitter) 1 ea UNSCH PRN OTHER 07/23/17 10:45 (Lipitor) 80 mg HS PO 07/23/17 21:00 07/27/17 20:51 (NS Flush) 2 ml BID IV FLUSH 07/25/17 21:00 07/28/17 08:42 (NS Flush) 2 ml UNSCH PRN IV FLUSH 07/25/17 11:15 (Aspirin Chew) 81 mg DAILY PO 07/26/17 09:00 07/28/17 08:41 (Protonix) 40 mg DAILY@06 PO 07/26/17 06:00 07/28/17 04:27 (Cordarone) 400 mg Q8HR PO 07/25/17 14:00 07/28/17 12:55 (Tylenol) 650 mg Q4H PRN PO 07/25/17 11:15 (Zofran Inj) 4 mg Q6H PRN IV PUSH 07/25/17 11:15 (Lopressor Inj) 2.5 mg Q1H PRN IV PUSH 07/25/17 11:15 (Duoneb Neb) 1 ampule Q2HR NEB PRN NEB 07/25/17 11:15 (Duoneb Neb) 1 ampule Q6HR WHILE AWAKE NEB NEB 07/26/17 14:00 07/28/17 13:59 07/28/17 07:47 (Colace) 100 mg BID PO 07/26/17 09:15 07/28/17 08:41 (Theragran M Tab) 1 tab DAILY PO 07/26/17 09:15 07/28/17 08:40 (Milk Of Magnesia Liq) 30 ml DAILY PO 07/26/17 09:00 07/28/17 08:42 (Dulcolax Supp) 10 mg UNSCH PRN RECTAL 07/26/17 08:45 (Miralax) 17 gm DAILY PO 07/27/17 09:00 07/28/17 08:41 (Senokot) 8.6 mg HS PO 07/26/17 21:00 07/27/17 20:52 (Fleets Enema (Adult)) 118 ml UNSCH PRN RECTAL 07/26/17 08:45 (Lopressor) 12.5 mg BID PO 07/26/17 21:00 07/28/17 08:41 (D50w (Vial) Inj) 50 ml UNSCH PRN IV PUSH 07/26/17 08:45 (Glucagon Inj) 1 mg UNSCH PRN OTHER 07/26/17 08:45 (NovoLOG SUPPLEMENTAL SCALE) 1 ACHS SQ 07/27/17 12:00 07/28/17 12:00 (Levemir Inj) 5 units Q12HR SQ 07/26/17 21:00 07/28/17 08:42 (Percocet 5-325 Mg) 1 tab Q4H PRN PO 07/27/17 07:15 (Percocet 5-325 Mg) 2 tab Q4H PRN PO 07/27/17 07:15 07/28/17 12:55 Vital Signs / I&O Vital Signs Date Time Temp Pulse Resp B/P (MAP) Pulse Ox O2 Delivery O2 Flow Rate FiO2 07/28/17 12:00 83 07/28/17 11:00 98.5 78 0 131/63 (85) 94 07/28/17 11:00 72 07/28/17 10:00 74 07/28/17 09:00 80 07/28/17 08:00 74 07/28/17 07:47 92 21 07/28/17 07:29 71 07/28/17 07:29 98.1 69 18 130/60 (83) 94 07/28/17 07:29 94 Room Air 07/28/17 06:28 78 07/28/17 05:28 72 07/28/17 04:44 73 07/28/17 04:40 98.6 74 17 119/63 (81) 93 07/28/17 03:28 79 07/28/17 02:28 72 07/28/17 01:12 74 07/28/17 00:13 77 07/27/17 23:35 98.8 78 16 106/62 (77) 92 07/27/17 23:34 77 07/27/17 22:35 85 07/27/17 21:00 82 07/27/17 20:15 78 07/27/17 20:05 98.8 82 17 133/67 (89) 97 07/27/17 20:05 97 Room Air 07/27/17 19:52 93 07/27/17 19:09 85 07/27/17 18:00 82 07/27/17 17:00 82 07/27/17 16:00 78 07/27/17 15:30 97.8 81 18 138/78 (98) 95 07/27/17 15:30 81 07/27/17 15:00 80 07/27/17 14:00 82 I/O 07/27/17 07/27/17 07/27/17 07/28/17 07/28/17 07/28/17 07:00 15:00 23:00 07:00 15:00 23:00 Intake Total 480 ml 1080 ml 480 ml Output Total 845 ml 1595 ml 1155 ml Balance -365 ml -515 ml -675 ml Intake Oral 480 ml 1080 ml 480 ml Output Urine Total 705 ml 1475 ml 1075 ml Chest Tube Drainage Total 140 ml 120 ml 80 ml # Bowel Movements 0 0 Physical Exam GENERAL: NAD, AAOx3 SKIN: Warm and dry. HEAD: Atraumatic. Normocephalic. EYES: Pupils equal and round. No scleral icterus. No injection or drainage. ENT: No nasal bleeding or discharge. Mucous membranes pink and moist. NECK: Trachea midline. No JVD. CARDIOVASCULAR: Regular rate and rhythm. Sternotomy covered RESPIRATORY: No accessory muscle use. Clear to auscultation. Breath sounds equal bilaterally. GASTROINTESTINAL: Abdomen soft, non-tender, nondistended. Hepatic and splenic margins not palpable. MUSCULOSKELETAL: Extremities without clubbing, cyanosis, or edema. No obvious deformities. Right radial no hematoma, neurovascularly intact NEUROLOGICAL: No focal deficits Assessment and Plan Problem List: (1) Unstable angina ICD Codes: I20.0 - Unstable angina (2) S/P CABG x 4 ICD Codes: Z95.1 - Presence of aortocoronary bypass graft (3) Tobacco dependency ICD Codes: F17.200 - Nicotine dependence, unspecified, uncomplicated Status: Acute (4) COPD (chronic obstructive pulmonary disease) ICD Codes: J44.9 - Chronic obstructive pulmonary disease, unspecified Status: Acute (5) CAD (coronary artery disease) ICD Codes: I25.10 - Atherosclerotic heart disease of [place] coronary artery without angina pectoris Status: Chronic (6) HTN (hypertension) ICD Codes: I10 - Essential (primary) hypertension (7) Type 2 diabetes mellitus ICD Codes: E11.9 - Type 2 diabetes mellitus without complications Status: Chronic Assessment and Plan 1) MVCAD s/p CABGx4 POD #3 DOLAN to LAD SVG to D2 SVG to OM SVG to PDA 2) Tobacco cessation 3) EF 40-45% 4) BB/ASA/Amio/Statin Possible SATHISH-I before discharge 5) Chest tubes possible out today Problem Qualifiers (1) CAD (coronary artery disease): Qualified Codes: I25.110 - Atherosclerotic heart disease of [place] coronary artery with unstable angina pectoris (2) Type 2 diabetes mellitus: Qualified Codes: E11.8 - Type 2 diabetes mellitus with unspecified complications Yang Hood DO Jul 28, 2017 13:06
--- NOTE | 2017-07-28 13:16 | PD.CAR.PN ---
CVT Progress Note Subjective/Hospital Course: A 57-year-old male presented with chest pain, has a history of a coronary stent to the circumflex [address] Watson, nonradiating. He stated that the pain was similar to the pain he had when he required his cardiac stent. Troponins were negative; however, he had a nuclear stress test, which showed a small-sized, moderately reversible perfusion defect in the inferolateral wall with an EF of approximately 43%. He underwent cardiac catheterization by Dr. Hood, which showed left main disease at 40%, proximal LAD 20%, mid-distal 70 %, diagonal 60%, the circumflex 100% and the RCA 70%. We were consulted to evaluate for coronary artery bypass grafting x4. PAST MEDICAL HISTORY: Includes coronary artery disease, hypertension, diabetes mellitus type 2, hepatitis C, diverticulosis, COPD. PAST SURGICAL HISTORY: Include bowel resection due to a perforated diverticulitis [address] Frazier, 07/25 surgery : CABG x 4, DOLAN to LAD, SVG to D2, SVG to OM, SVG to PDA, L EVH extubated after surgery + IV steroids x 1 , crystalloid 2000cc, 750cc cell saver, 150cc EBL 07/26 remains on 02 at 4 liter gentle diuresis , pulm toileting nebs, ezpap OOB ambulate , start low dose BB this evening transfer to stepdown 07/[address] Ambulate 07/28 Doing well D/C CT Wean Oxygen Discharge planning Objective: Vital Signs Date Time Temp Pulse Resp B/P (MAP) Pulse Ox O2 Delivery O2 Flow Rate FiO2 07/28/17 13:00 81 07/28/17 12:00 83 07/28/17 11:00 98.5 78 0 131/63 (85) 94 07/28/17 11:00 72 07/28/17 10:00 74 07/28/17 09:00 80 07/28/17 08:00 74 07/28/17 07:47 92 21 07/28/17 07:29 71 07/28/17 07:29 98.1 69 18 130/60 (83) 94 07/28/17 07:29 94 Room Air 07/28/17 06:28 78 07/28/17 05:28 72 07/28/17 04:44 73 07/28/17 04:40 98.6 74 17 119/63 (81) 93 07/28/17 03:28 79 07/28/17 02:28 72 07/28/17 01:12 74 07/28/17 00:13 77 07/27/17 23:35 98.8 78 16 106/62 (77) 92 07/27/17 23:34 77 07/27/17 22:35 85 07/27/17 21:00 82 07/27/17 20:15 78 07/27/17 20:05 98.8 82 17 133/67 (89) 97 07/27/17 20:05 97 Room Air 07/27/17 19:52 93 07/27/17 19:09 85 07/27/17 18:00 82 07/27/17 17:00 82 07/27/17 16:00 78 07/27/17 15:30 97.8 81 18 138/78 (98) 95 07/27/17 15:30 81 07/27/17 15:00 80 07/27/17 14:00 82 Result Diagram: 07/27/17 0510 07/27/17 0510 (1) Unstable angina (2) S/P CABG x 4 (3) Tobacco dependency (4) COPD (chronic obstructive pulmonary disease) (5) CAD (coronary artery disease) (6) HTN (hypertension) (7) Type 2 diabetes mellitus Problem Qualifiers (1) CAD (coronary artery disease): Qualified Codes: I25.110 - Atherosclerotic heart disease of [place] coronary artery with unstable angina pectoris (2) Type 2 diabetes mellitus: Qualified Codes: E11.8 - Type 2 diabetes mellitus with unspecified complications Lenard Chacon MD Jul 28, 2017 13:16
[2017-07-28] MEDS: SENNOSIDES 8.6 MG TAB PO SCH (21:00)
[2017-07-28] MEDS: ATORVASTATIN 80 MG TAB PO SCH (21:06)
[2017-07-29] VITALS (18 sets, daily range): BP systolic 130–154; BP diastolic 66–70; PULSE 65–114; RESP 18–19; TEMP 97.6–98.6; O2SAT 95–96
[2017-07-29] MEDS: oxyCODONE/ACETAMINOPHEN 5 MG/325 MG TAB PO PRN ×4 (01:01→13:48)
[2017-07-29] MEDS: AMIODARONE 200 MG TAB PO SCH ×2 (04:47→13:47)
[2017-07-29] MEDS: PANTOPRAZOLE SOD 40 MG DELAYED RELEASE TAB PO SCH (04:48)
[2017-07-29] MEDS: INSULIN ASPART SUPPLEMENTAL SCALE SQ SCH ×2 (08:00→12:20)
[2017-07-29] MEDS: POLYETHYLENE GLYCOL 17 GM PKG PO SCH (08:42)
[2017-07-29] MEDS: MAGNESIUM HYDROXIDE SUSP 30 ML CUP PO SCH (08:43)
[2017-07-29] MEDS: DOCUSATE SODIUM 100 MG CAP PO SCH (08:43)
[2017-07-29] MEDS: ASPIRIN 81 MG CHEW TAB PO SCH (08:43)
[2017-07-29] MEDS: MULTIVITAMINS/MINERALS THERAPEUTIC TAB PO SCH (08:43)
[2017-07-29] MEDS: INSULIN DETEMIR 100 UNITS/ML VIAL SQ SCH (08:44)
[2017-07-29] MEDS: SODIUM CHLORIDE 0.9% FLUSH 10 ML FLUSH IV FLUSH SCH (08:46)
[2017-07-29] MEDS ORDERED: METOPROLOL TARTRATE 25 MG TAB PO SCH (09:00)
[2017-07-29 09:51] LABS: HEMATOCRIT 38.2 % (39.0-51.0); HEMOGLOBIN 12.9 GM/DL (13.0-17.0); MEAN CELL VOLUME 90.8 FL (80.0-100.0); MEAN CORPUSCULAR HEMOGLOBIN 30.7 PG (27.0-34.0); MEAN CORPUSCULAR HGB CONC 33.8 % (32.0-36.0); MEAN PLATELET VOLUME 10.4 FL (7.0-11.0); PLATELET COUNT 176 TH/MM3 (150-450); RED BLOOD COUNT 4.21 MIL/MM3 (4.50-5.90); RED CELL DISTRIBUTION WIDTH 12.9 % (11.6-17.2); WHITE BLOOD COUNT 15.1 TH/MM3 (4.0-11.0)
--- NOTE | 2017-07-29 09:54 | RSPPFT ---
DATE OF PROCEDURE: 07/24/17 COMMENTS: Spirometry with FVC of 2.9, FEV1 of 2.1 and FEV1/FVC ratio at 74%. Post-bronchodilator study was not performed. IMPRESSION: 1. Mild airways obstruction.
[2017-07-29 10:14] LABS: BICARBONATE 25.1 MEQ/L (21.0-32.0); CALCIUM 8.6 MG/DL (8.5-10.1); CREATININE 0.71 MG/DL (0.60-1.30); MAGNESIUM 2.1 MG/DL (1.5-2.5)
--- NOTE | 2017-07-29 10:26 | RADRPT ---
EXAM DATE/TIME: 07/29/2017 08:54 [facility] COMPARISON: CHEST SINGLE AP, July 26, 2017, 5:15. INDICATIONS : Post chest tube removal. MEDICAL HISTORY : Myocardial infarction. Hypertension Renal calculi. Coronary artery disease. Diverticulitis. Rhema toid arthritis. Diabetes. ETOH SURGICAL HISTORY : CABG. Tonsillectomy. Appendectomy. Partial colectomy. ENCOUNTER: Subsequent ACUITY: 4 - 6 days PAIN SCORE: 0/10 LOCATION: Bilateral chest FINDINGS: The cardiac silhouette is normal in transverse diameter. Median sternotomy wires are present. Support lines and tubes have been removed. There is no evidence of pneumothorax. The lungs are free of acut e parenchymal opacity. No effusions are identified. CONCLUSION: Cardiomegaly. No acute pulmonary disease. There is no evidence of pneumothorax. Melvin Saucedo MD on July 29, 2017 at 10:23 Board Certified Radiologist. This report was verified electronically.
[2017-07-29] MEDS ORDERED: METO25TA3 PO (10:58)
[2017-07-29] MEDS ORDERED: OXYC1TAB63 PO (10:58)
[2017-07-29] MEDS ORDERED: THERM PO (10:58)
[2017-07-29] MEDS ORDERED: DOCU1CAP39 PO (10:58)
[2017-07-29] MEDS ORDERED: ASPI81 PO (10:58)
[2017-07-29] MEDS ORDERED: AMIO200T PO (10:58)
[2017-07-29] MEDS ORDERED: ATOR80TA45 PO (10:58)
[2017-07-29] MEDS ORDERED: LISI-515 PO (10:58)
--- NOTE | 2017-07-29 11:05 | PD.CAR.PN ---
CVT Progress Note Subjective/Hospital Course: A 57-year-old male presented with chest pain, has a history of a coronary stent to the circumflex [address] Watson, nonradiating. He stated that the pain was similar to the pain he had when he required his cardiac stent. Troponins were negative; however, he had a nuclear stress test, which showed a small-sized, moderately reversible perfusion defect in the inferolateral wall with an EF of approximately 43%. He underwent cardiac catheterization by Dr. Hood, which showed left main disease at 40%, proximal LAD 20%, mid-distal 70 %, diagonal 60%, the circumflex 100% and the RCA 70%. We were consulted to evaluate for coronary artery bypass grafting x4. PAST MEDICAL HISTORY: Includes coronary artery disease, hypertension, diabetes mellitus type 2, hepatitis C, diverticulosis, COPD. PAST SURGICAL HISTORY: Include bowel resection due to a perforated diverticulitis [address] Frazier, 07/25 surgery : CABG x 4, DOLAN to LAD, SVG to D2, SVG to OM, SVG to PDA, L EVH extubated after surgery + IV steroids x 1 , crystalloid 2000cc, 750cc cell saver, 150cc EBL 07/26 remains on 02 at 4 liter gentle diuresis , pulm toileting nebs, ezpap OOB ambulate , start low dose BB this evening transfer to stepdown 07/[address] Ambulate 07/28 Doing well D/C CT Wean Oxygen Discharge planning 07/29 doing well, on room air remains in NSR stable for discharge from CVS standpoint Objective: GENERAL: A&O x 3 SKIN: Warm and dry. prevena dressing to chest , incision left leg in tact and well approximated HEAD: Normocephalic. EYES: No scleral icterus. No injection or drainage. NECK: Supple, trachea midline. No JVD or lymphadenopathy. CARDIOVASCULAR: Regular rate and rhythm without murmurs, gallops, or rubs. RESPIRATORY: Breath sounds equal bilaterally. No accessory muscle use. GASTROINTESTINAL: Abdomen soft, non-tender, nondistended. MUSCULOSKELETAL: No cyanosis, or edema. BACK: Nontender without obvious deformity. No CVA tenderness. Vital Signs Date Time Temp Pulse Resp B/P (MAP) Pulse Ox O2 Delivery O2 Flow Rate FiO2 07/29/17 10:00 72 07/29/17 09:00 78 07/29/17 08:00 69 07/29/17 07:15 72 07/29/17 07:00 96 Room Air 07/29/17 07:00 97.6 76 19 154/70 (98) 96 07/29/17 06:06 79 07/29/17 05:29 72 07/29/17 04:28 74 07/29/17 04:00 98.6 72 18 130/66 (87) 95 07/29/17 03:17 65 07/29/17 02:23 67 07/29/17 01:21 71 07/29/17 00:04 71 07/28/17 23:45 98.9 72 17 149/70 (96) 93 07/28/17 23:45 69 07/28/17 22:41 78 07/28/17 21:55 70 07/28/17 20:35 95 21 07/28/17 20:20 74 07/28/17 19:45 95 Room Air 07/28/17 19:45 98.0 76 17 158/73 (101) 95 07/28/17 19:16 75 07/28/17 18:00 77 07/28/17 17:00 75 07/28/17 16:00 76 07/28/17 15:00 81 07/28/17 15:00 98.1 69 20 112/61 (78) 95 07/28/17 14:00 84 07/28/17 13:00 81 07/28/17 12:00 83 Labs: Laboratory Tests Test 07/29/17 09:27 White Blood Count 15.1 TH/MM3 (4.0-11.0) Red Blood Count 4.21 MIL/MM3 (4.50-5.90) Hemoglobin 12.9 GM/DL (13.0-17.0) Hematocrit 38.2 % (39.0-51.0) Mean Corpuscular Volume 90.8 FL (80.0-100.0) Mean Corpuscular Hemoglobin 30.7 PG (27.0-34.0) Mean Corpuscular Hemoglobin Concent 33.8 % (32.0-36.0) Red Cell Distribution Width 12.9 % (11.6-17.2) Platelet Count 176 TH/MM3 (150-450) Mean Platelet Volume 10.4 FL (7.0-11.0) Blood Urea Nitrogen 20 MG/DL (7-18) Creatinine 0.71 MG/DL (0.60-1.30) Random Glucose 97 MG/DL (74-106) Calcium Level 8.6 MG/DL (8.5-10.1) Magnesium Level 2.1 MG/DL (1.5-2.5) Sodium Level 133 MEQ/L (136-145) Potassium Level 4.1 MEQ/L (3.5-5.1) Chloride Level 99 MEQ/L (98-107) Carbon Dioxide Level 25.1 MEQ/L (21.0-32.0) Anion Gap 9 MEQ/L (5-15) Estimat Glomerular Filtration Rate 114 ML/MIN (>89) Result Diagram: 07/29/17 0927 07/29/17 0927 (1) Unstable angina (2) S/P CABG x 4 Plan: ASA, statin , BB stable for dc today (3) Tobacco dependency (4) COPD (chronic obstructive pulmonary disease) (5) CAD (coronary artery disease) (6) HTN (hypertension) (7) Type 2 diabetes mellitus Problem Qualifiers (1) CAD (coronary artery disease): Qualified Codes: I25.110 - Atherosclerotic heart disease of [place] coronary artery with unstable angina pectoris (2) Type 2 diabetes mellitus: Qualified Codes: E11.8 - Type 2 diabetes mellitus with unspecified complications Mabel Gonzalez Jul 29, 2017 11:05
--- NOTE | 2017-07-29 11:33 | HHI.FPPN ---
Subjective Remarks Pt seen and examined this morning. He states that he is doing well. No complaints. Is eager to go home. No fevers or chills, no chest pain, no shortness of breath, no abdominal pain, no nausea vomiting. Is urinating and stooling well. (Lucy Clarke MD R1) Objective Vitals Vital Signs Date Time Temp Pulse Resp B/P (MAP) Pulse Ox O2 Delivery O2 Flow Rate FiO2 07/29/17 10:00 72 07/29/17 09:00 78 07/29/17 08:00 69 07/29/17 07:15 72 07/29/17 07:00 96 Room Air 07/29/17 07:00 97.6 76 19 154/70 (98) 96 07/29/17 06:06 79 07/29/17 05:29 72 07/29/17 04:28 74 07/29/17 04:00 98.6 72 18 130/66 (87) 95 07/29/17 03:17 65 07/29/17 02:23 67 07/29/17 01:21 71 07/29/17 00:04 71 07/28/17 23:45 98.9 72 17 149/70 (96) 93 07/28/17 23:45 69 07/28/17 22:41 78 07/28/17 21:55 70 07/28/17 20:35 95 21 07/28/17 20:20 74 07/28/17 19:45 95 Room Air 07/28/17 19:45 98.0 76 17 158/73 (101) 95 07/28/17 19:16 75 07/28/17 18:00 77 07/28/17 17:00 75 07/28/17 16:00 76 07/28/17 15:00 81 07/28/17 15:00 98.1 69 20 112/61 (78) 95 07/28/17 14:00 84 07/28/17 13:00 81 07/28/17 12:00 83 I/O 07/28/17 07/28/17 07/28/17 07/29/17 07/29/17 07/29/17 07:00 15:00 23:00 07:00 15:00 23:00 Intake Total 480 ml 960 ml 1021 ml Output Total 1155 ml 875 ml Balance -675 ml 85 ml 1021 ml Intake Oral 480 ml 960 ml 1021 ml Output Urine Total 1075 ml 875 ml Chest Tube Drainage Total 80 ml # Voids 3 # Bowel Movements 1 (Lucy Clarke MD R1) Result Diagram: 07/29/1792607/29/17926 Objective Remarks GENERAL: Sitting in chair, NAD SKIN: No rashes, ecchymoses or lesions. Cool and dry. Midline chest dressing C/D /I. HEAD: Atraumatic. Normocephalic. EYES: EOMI. No scleral icterus. No injection or drainage. ENT: Airway patent. MMM. NECK: Trachea midline. No JVD. Supple. CARDIOVASCULAR: Regular rate and rhythm without murmurs, gallops, or rubs. RESPIRATORY: Clear to auscultation. Breath sounds equal bilaterally. No wheezes , rales, or rhonchi. GASTROINTESTINAL: Abdomen soft, non-tender, nondistended MUSCULOSKELETAL: Extremities without edema. No calf tenderness. NEUROLOGICAL: Awake and alert. Motor and sensory grossly within normal limits. Normal speech. Procedures Cardiac catheterization on 07/23 CABG x4 on 07/25 (Lucy Clarke MD R1) A/P Assessment and Plan 57-year-old white male with past medical history of CAD, hypertension, diabetes presented with chest pain and found to have multivessel CAD on cath by cardiology, now s/p CABG x4. Discharge Planning Discharge home today with home health (Lucy Clarke MD R1) Attending Attestation Patient seen and examined. Case reviewed and discussed with the resident team. Agree with plan of care as discussed with me and documented in the resident note. he is doing very well and happy to go home with follow up with surgery (Amy Chavez MD) Problem List: (1) CAD (coronary artery disease) ICD Codes: I25.10 - Atherosclerotic heart disease of [place] coronary artery without angina pectoris Status: Chronic Plan: 57-year-old white male with a past medical history of coronary artery disease status post previous stent placement presented with chest pain. Troponin negative 3. EKG showing inferior myocardial infarction. Cardiac stress test was abnormal. Patient status post cardiac catheterization which showed multivessel coronary artery disease. CT surgery consulted by Cardiology, patient underwent CABG x4 on 07/25, now POD #4 -Cleared for d/c (2) Hypertension ICD Codes: I10 - Essential (primary) hypertension Status: Chronic Plan: Amlodipine 10 mg p.o. daily (3) Type 2 diabetes mellitus ICD Codes: E11.9 - Type 2 diabetes mellitus without complications Status: Chronic Plan: Bedside glucose monitoring Sliding scale NovoLog insulin low dose regimen (4) FEN Status: Acute Plan: Fluids: none at this time Electrolytes: monitor and replete as needed Nutrition: Heart healthy DVT ppx: per CT surgery GI ppx: protonix (Lucy Clarke MD R1) Problem Qualifiers (1) CAD (coronary artery disease): Qualified Codes: I25.110 - Atherosclerotic heart disease of [place] coronary artery with unstable angina pectoris (2) Hypertension: Qualified Codes: I10 - Essential (primary) hypertension (3) Type 2 diabetes mellitus: Qualified Codes: E11.8 - Type 2 diabetes mellitus with unspecified complications Lucy Clarke MD R1 Jul 29, 2017 11:33 Amy Chavez MD Jul 30, 2017 12:47
--- NOTE | 2017-07-29 12:04 | HHI.DCPOC ---
Discharge Care Plan Diagnosis: (1) S/P CABG x 4 Goals to Promote Your Health * To prevent worsening of your condition and complications, follow up with your primary care physician, narrow gauge brakeman, and cardiothoracic surgeon after hospital discharge. Directions to Meet Your Goals Take your medications as prescribed Follow your dietary instruction Follow activity as directed Keep your appointments as scheduled Take your immunizations and boosters as scheduled If your symptoms worsen call your PCP, if no PCP go to Urgent Care Center or Emergency Room Smoking is Dangerous to Your Health. Avoid second hand smoke Call the 24-hour hour crisis hotline for domestic abuse at Reggie Williamson MD R2 Jul 29, 2017 12:04
--- NOTE | 2017-07-29 14:56 | PD.CARD.PN ---
Subjective Subjective Remarks Doing well, up and ambulating with PT Appropriate incisional pain Objective Medications Current Medications Medications (Trade) Dose Ordered Sig/Canelo Route Start Time Stop Time Status Last Admin (Tylenol) 500 mg Q4H PRN PO 07/23/17 07:30 07/24/17 17:47 (Phenergan) 12.5 mg Q6H PRN PO 07/23/17 11:00 (Pill Splitter) 1 ea UNSCH PRN OTHER 07/23/17 10:45 (Lipitor) 80 mg HS PO 07/23/17 21:00 07/28/17 21:06 (NS Flush) 2 ml BID IV FLUSH 07/25/17 21:00 07/29/17 08:46 (NS Flush) 2 ml UNSCH PRN IV FLUSH 07/25/17 11:15 (Aspirin Chew) 81 mg DAILY PO 07/26/17 09:00 07/29/17 08:43 (Protonix) 40 mg DAILY@06 PO 07/26/17 06:00 07/29/17 04:48 (Cordarone) 400 mg Q8HR PO 07/25/17 14:00 07/29/17 13:47 (Tylenol) 650 mg Q4H PRN PO 07/25/17 11:15 (Zofran Inj) 4 mg Q6H PRN IV PUSH 07/25/17 11:15 (Lopressor Inj) 2.5 mg Q1H PRN IV PUSH 07/25/17 11:15 (Duoneb Neb) 1 ampule Q2HR NEB PRN NEB 07/25/17 11:15 07/28/17 20:33 (Colace) 100 mg BID PO 07/26/17 09:15 07/29/17 08:43 (Theragran M Tab) 1 tab DAILY PO 07/26/17 09:15 07/29/17 08:43 (Milk Of Magnesia Liq) 30 ml DAILY PO 07/26/17 09:00 07/28/17 08:42 (Miralax) 17 gm DAILY PO 07/27/17 09:00 07/29/17 08:42 (Senokot) 8.6 mg HS PO 07/26/17 21:00 07/27/17 20:52 (Fleets Enema (Adult)) 118 ml UNSCH PRN RECTAL 07/26/17 08:45 (D50w (Vial) Inj) 50 ml UNSCH PRN IV PUSH 07/26/17 08:45 (Glucagon Inj) 1 mg UNSCH PRN OTHER 07/26/17 08:45 (NovoLOG SUPPLEMENTAL SCALE) 1 ACHS SQ 07/27/17 12:00 07/29/17 12:20 (Levemir Inj) 5 units Q12HR SQ 07/26/17 21:00 07/29/17 08:44 (Percocet 5-325 Mg) 1 tab Q4H PRN PO 07/27/17 07:15 (Percocet 5-325 Mg) 2 tab Q4H PRN PO 07/27/17 07:15 07/29/17 13:48 (Lopressor) 25 mg BID PO 07/29/17 09:00 Vital Signs / I&O Vital Signs Date Time Temp Pulse Resp B/P (MAP) Pulse Ox O2 Delivery O2 Flow Rate FiO2 07/29/17 14:00 77 07/29/17 13:00 73 07/29/17 12:04 95 21 07/29/17 12:00 82 07/29/17 11:00 72 07/29/17 11:00 98.1 71 18 131/68 (89) 95 07/29/17 11:00 19 07/29/17 10:00 72 07/29/17 09:00 78 07/29/17 08:00 69 07/29/17 07:15 72 07/29/17 07:00 96 Room Air 07/29/17 07:00 97.6 76 19 154/70 (98) 96 07/29/17 06:06 79 07/29/17 05:29 72 07/29/17 04:28 74 07/29/17 04:00 98.6 72 18 130/66 (87) 95 07/29/17 03:17 65 07/29/17 02:23 67 07/29/17 01:21 71 07/29/17 00:04 71 07/28/17 23:45 98.9 72 17 149/70 (96) 93 07/28/17 23:45 69 07/28/17 22:41 78 07/28/17 21:55 70 07/28/17 20:35 95 21 07/28/17 20:20 74 07/28/17 19:45 95 Room Air 07/28/17 19:45 98.0 76 17 158/73 (101) 95 07/28/17 19:16 75 07/28/17 18:00 77 07/28/17 17:00 75 07/28/17 16:00 76 07/28/17 15:00 81 07/28/17 15:00 98.1 69 20 112/61 (78) 95 I/O 07/28/17 07/28/17 07/28/17 07/29/17 07/29/17 07/29/17 06:59 14:59 22:59 06:59 14:59 22:59 Intake Total 480 ml 960 ml 1021 ml Output Total 1155 ml 875 ml Balance -675 ml 85 ml 1021 ml Intake Oral 480 ml 960 ml 1021 ml Output Urine Total 1075 ml 875 ml Chest Tube Drainage Total 80 ml # Voids 3 # Bowel Movements 1 Physical Exam GENERAL: NAD, AAOx3 SKIN: Warm and dry. HEAD: Atraumatic. Normocephalic. EYES: Pupils equal and round. No scleral icterus. No injection or drainage. ENT: No nasal bleeding or discharge. Mucous membranes pink and moist. NECK: Trachea midline. No JVD. CARDIOVASCULAR: Regular rate and rhythm. Sternotomy covered RESPIRATORY: No accessory muscle use. Clear to auscultation. Breath sounds equal bilaterally. GASTROINTESTINAL: Abdomen soft, non-tender, nondistended. Hepatic and splenic margins not palpable. MUSCULOSKELETAL: Extremities without clubbing, cyanosis, or edema. No obvious deformities. Right radial no hematoma, neurovascularly intact NEUROLOGICAL: No focal deficits Laboratory Laboratory Tests Test 07/29/17 09:27 White Blood Count 15.1 TH/MM3 Red Blood Count 4.21 MIL/MM3 Hemoglobin 12.9 GM/DL Hematocrit 38.2 % Mean Corpuscular Volume 90.8 FL Mean Corpuscular Hemoglobin 30.7 PG Mean Corpuscular Hemoglobin Concent 33.8 % Red Cell Distribution Width 12.9 % Platelet Count 176 TH/MM3 Mean Platelet Volume 10.4 FL Blood Urea Nitrogen 20 MG/DL Creatinine 0.71 MG/DL Random Glucose 97 MG/DL Calcium Level 8.6 MG/DL Magnesium Level 2.1 MG/DL Sodium Level 133 MEQ/L Potassium Level 4.1 MEQ/L Chloride Level 99 MEQ/L Carbon Dioxide Level 25.1 MEQ/L Anion Gap 9 MEQ/L Estimat Glomerular Filtration Rate 114 ML/MIN Imaging Last 24 hours Impressions Chest X-Ray 07/29/17 0000 Signed Impressions: Service Date/Time: Saturday, July 29, 2017 08:54 - CONCLUSION: Cardiomegaly. No acute pulmonary disease. There is no evidence of pneumothorax. Melvin Saucedo MD Assessment and Plan Problem List: (1) Unstable angina ICD Codes: I20.0 - Unstable angina (2) S/P CABG x 4 ICD Codes: Z95.1 - Presence of aortocoronary bypass graft (3) Tobacco dependency ICD Codes: F17.200 - Nicotine dependence, unspecified, uncomplicated Status: Acute (4) COPD (chronic obstructive pulmonary disease) ICD Codes: J44.9 - Chronic obstructive pulmonary disease, unspecified Status: Acute (5) CAD (coronary artery disease) ICD Codes: I25.10 - Atherosclerotic heart disease of [place] coronary artery without angina pectoris Status: Chronic (6) HTN (hypertension) ICD Codes: I10 - Essential (primary) hypertension (7) Type 2 diabetes mellitus ICD Codes: E11.9 - Type 2 diabetes mellitus without complications Status: Chronic Assessment and Plan 1) MVCAD s/p CABGx4 POD #4 DOLAN to LAD SVG to D2 SVG to OM SVG to PDA 2) Tobacco cessation 3) EF 40-45% 4) BB/ASA/Amio/Statin Possible SATHISH-I consideration outpt 5) Chest tubes out 6) Cardiovascularly stable for discharge Problem Qualifiers (1) CAD (coronary artery disease): Qualified Codes: I25.110 - Atherosclerotic heart disease of [place] coronary artery with unstable angina pectoris (2) Type 2 diabetes mellitus: Qualified Codes: E11.8 - Type 2 diabetes mellitus with unspecified complications Yang Hood DO Jul 29, 2017 14:56
--- NOTE | 2017-07-31 09:49 | HHI.DS ---
Discharge Summary Admission Date Jul 23, 2017 at 15:32 Discharge Date: Jul 29, 2017 Admitting Diagnosis Chest Pain (1) CAD (coronary artery disease) Diagnosis: Principal Plan: 57-year-old white male with a past medical history of coronary artery disease status post previous stent placement presented with chest pain. Troponin negative 3. EKG showing inferior myocardial infarction. Cardiac stress test was abnormal. Patient status post cardiac catheterization which showed multivessel coronary artery disease. CT surgery consulted by Cardiology, patient underwent CABG x4 on 07/25, now POD #4 -Cleared for d/c ICD Codes: I25.10 - Atherosclerotic heart disease of [place] coronary artery without angina pectoris Status: Chronic (2) Hypertension Plan: Amlodipine 10 mg p.o. daily ICD Codes: I10 - Essential (primary) hypertension Status: Chronic (3) Type 2 diabetes mellitus Plan: Bedside glucose monitoring Sliding scale NovoLog insulin low dose regimen ICD Codes: E11.9 - Type 2 diabetes mellitus without complications Status: Chronic (4) FEN Plan: Fluids: none at this time Electrolytes: monitor and replete as needed Nutrition: Heart healthy DVT ppx: per CT surgery GI ppx: protonix Status: Acute Procedures Cardiac catheterization on 07/23 CABG x4 on 07/25 Brief History Mr. Abarca is a 57-year-old white male with a past medical history of hypertension, CAD, diabetes presenting to to our team for consult after a cardiac catheterization showed multivessel disease. He states that his symptoms started 3 days ago when he started experiencing pain in his bilateral temples. He also felt like the room was spinning. the day before yesterday he started having chest pain and shortness of breath. Pain was located in his left chest and was a sharp, aching pain. No radiation. Nothing made the pain worse or better. He is also experiencing blurry vision and tinnitus. No heart palpitations. He states that he usually does not have this type of pain, but has bilateral calf pain when he walks. He was originally in the chest pain center and had a positive stress test. His subsequent cath showed multivessel disease so he has been referred for bypass which is expected tomorrow. CBC/BMP: 07/29/17 0927 07/29/17 0927 Significant Findings Laboratory Tests Test 07/29/17 09:27 White Blood Count 15.1 TH/MM3 (4.0-11.0) Red Blood Count 4.21 MIL/MM3 (4.50-5.90) Hemoglobin 12.9 GM/DL (13.0-17.0) Hematocrit 38.2 % (39.0-51.0) Blood Urea Nitrogen 20 MG/DL (7-18) Sodium Level 133 MEQ/L (136-145) PE at Discharge GENERAL: Sitting in chair, NAD SKIN: No rashes, ecchymoses or lesions. Cool and dry. Midline chest dressing C/D /I. HEAD: Atraumatic. Normocephalic. EYES: EOMI. No scleral icterus. No injection or drainage. ENT: Airway patent. MMM. NECK: Trachea midline. No JVD. Supple. CARDIOVASCULAR: Regular rate and rhythm without murmurs, gallops, or rubs. RESPIRATORY: Clear to auscultation. Breath sounds equal bilaterally. No wheezes , rales, or rhonchi. GASTROINTESTINAL: Abdomen soft, non-tender, nondistended MUSCULOSKELETAL: Extremities without edema. No calf tenderness. NEUROLOGICAL: Awake and alert. Motor and sensory grossly within normal limits. Normal speech. Hospital Course Mr. Abarca is a 57-year-old male with a past medical history of CAD who presented to the hospital on 07/23 for chest pain. He is admitted to the chest pain center and underwent cardiac catheterization with cardiology on 07/23. This revealed multivessel disease. He was referred to CT surgery and underwent a CABG 4 on 07/25. He was discharged home on 07/29. Pt Condition on Discharge: Stable Discharge Disposition: Disch w/ Home Health Serv Discharge Instructions DIET: Follow Instructions for: Heart Healthy Diet Activities you can perform: Regular-No Restrictions Follow up Referrals: Cardiology - 4 Weeks with Zuleyka Watson MD PCP Follow-up - 2 Weeks with Palmer Mae MD Surgical - 2 Weeks with Mabel Gonzalez New Orders: BASIC METABOLIC PROF - 2 Weeks CBC NO DIFF - 2 Weeks X-RAY CHEST PA & LAT - 2 Weeks New Medications: Lisinopril (Lisinopril) 20 Mg Tab 20 MG PO DAILY, #30 TAB 2 Refills Amiodarone (Amiodarone) 200 Mg Tab 200 MG PO Q12HR for heart rhythm, #28 TAB no refill , 2 weeks only Aspirin (Tgt Aspirin) 81 Mg Chw 81 MG PO DAILY for Blood Clot Prevention, #30 EA 2 Refills Atorvastatin (Atorvastatin) 80 Mg Tab 80 MG PO HS for Cholesterol Management, #30 TAB 2 Refills Docusate Sodium (Dok) 100 Mg Cap 100 MG PO BID for Constipation, #60 CAP 0 Refills Metoprolol Tartrate (Metoprolol Tartrate) 25 Mg Tab 25 MG PO BID for Broncospasm, #60 TAB 2 Refills Multiple Vitamins W/ Minerals (Thera M Plus) 1 Tab 1 TAB PO DAILY for multi vitamin, #30 TAB 2 Refills Oxycodone HCl/Acetaminophen (Oxycodone-Acetaminophen 5-325) 5 Mg-325 Mg Tablet 1 TAB PO Q4H PRN for PAIN SCALE 1 TO 5, #20 TAB 0 Refills Continued Medications: Insulin Aspart Inj (Novolog Inj) 1,000 Unit/10 Ml Vial 1-9 UNITS SQ ACHS for Blood Sugar Management, #10 ML 0 Refills Max dose at bedtime:(4)units; sugars less than 70,(0)units; sugars 150-199,(1) unit; sugars 200-249,(3) units; sugars 250-299,(5) units; sugars 300-349,(7) units; sugars greater than 349,(9) units Insulin Human Isophane-Regular 70-30 Inj (Novolin 70-30 Inj) 1,000 Unit/10 Ml Vial 15 UNITS SQ twice a day for Blood Sugar Management, #1 ML 10 Refills Metformin (Metformin) 1,000 Mg Tab 1000 MG PO BIDPC for Blood Sugar Management, #60 TAB 11 Refills With meals Discontinued Medications: Amlodipine (Amlodipine) 10 Mg Tab 10 MG PO DAILY for Blood Pressure Management, #30 TAB 10 Refills Aspirin (Aspirin) 325 Mg Tab 325 MG PO DAILY, #100 TAB 0 Refills Lisinopril (Lisinopril) 40 Mg Tab 40 MG PO DAILY for Blood Pressure Management, #30 TAB 11 Refills Lucy Clarke MD R1 Jul 31, 2017 09:49
== END 2017-07-29 15:00 | disposition home health service (06) | DRG 233 ==
LOC: NEPE 13:20 → NEDA 16:45 → NEPGCP 21:40 → OBSVTOIN 07-23 15:32 → HCIS 07-23 16:16 → HCPC 07-23 19:45 → HCIS 07-25 07:00 → HCVI 07-25 11:25 → HCPC 07-26 14:30 → UNDODISIN 07-27 13:21
PROVIDERS: ADMIT Family Medicine; ATTEND Family Medicine
PROC: 4A023N7 Measurement of Cardiac Sampling and Pressure, Left Heart, Percutaneous Approach (ICD-10-PCS; principal; 2017-07-23)
PROC: B2111ZZ Fluoroscopy of Multiple Coronary Arteries using Low Osmolar Contrast (ICD-10-PCS; 2017-07-23)
PROC: 021209W Bypass Coronary Artery, Three Arteries from Aorta with Autologous Venous Tissue, Open Approach (ICD-10-PCS; 2017-07-25)
PROC: 06BQ4ZZ Excision of Left Saphenous Vein, Percutaneous Endoscopic Approach (ICD-10-PCS; 2017-07-25)
PROC: 5A1221Z Performance of Cardiac Output, Continuous (ICD-10-PCS; 2017-07-25)
PROC: 02100Z9 Bypass Coronary Artery, One Artery from Left Internal Mammary, Open Approach (ICD-10-PCS; 2017-07-25 06:59)
DX: I25.110 Atherosclerotic heart disease of native coronary artery with unstable angina pectoris (principal); E11.00 Type 2 diabetes mellitus with hyperosmolarity without nonketotic hyperglycemic-hyperosmolar coma (NKHHC); I25.82 Chronic total occlusion of coronary artery; E11.51 Type 2 diabetes mellitus with diabetic peripheral angiopathy without gangrene; T82.855A Stenosis of coronary artery stent, initial encounter; J44.9 Chronic obstructive pulmonary disease, unspecified; R51 Headache; I10 Essential (primary) hypertension; B19.20 Unspecified viral hepatitis C without hepatic coma; F17.210 Nicotine dependence, cigarettes, uncomplicated; M06.9 Rheumatoid arthritis, unspecified; F10.21 Alcohol dependence, in remission; H91.92 Unspecified hearing loss, left ear; F32.9 Major depressive disorder, single episode, unspecified; Z79.84 Long term (current) use of oral hypoglycemic drugs; I25.2 Old myocardial infarction; Z79.4 Long term (current) use of insulin
CPT/HCPCS: 36430; 71045; 71046; 78452; 80048; 80061; 80076; 80307; 81001; 82550; 82948; 83036; 83735; 84484; 85025; 85027; 85610; 85730; 86850; 86900; 86901; 86920; 87641; 93005; 93017; 93306; 93458; 93571; 93880; 93970; 93998; 94002; 94010; 94060; 94150; 94640; 94664; 94667; 94668; 94726; 94729; 96374; 99152; 99153; A9502; C1769; C1887; C1893; G0378; J0131; J1644; J1815; J1940; J2150; J2250; J2270; J2370; J2440; J2720; J2785; J2930; J3010; J3370; J3475; J3480; J7040; J7050; J7120; P9016; P9045; P9047; Q9967

== ENCOUNTER → 2017-08-13 | Outpatient (CLI) | payer SELFPAY ==
[~2017-08-13] MED LIST changes: +AMIO200T PO; -AMLO10TA2 PO; -ASPI-183 PO; +ASPI81 PO; +ATOR80TA45 PO; -BUPR150CR PO; +DOCU1CAP39 PO; +LISI-515 PO; -LISI40TA PO; +METO25TA3 PO; +OXYC1TAB63 PO; +THERM PO; -[UNRECOGNIZED DRUG - CODE]; -insulin SQ
--- NOTE | 2017-08-13 11:46 | RADRPT ---
EXAM DATE/TIME: 08/13/2017 11:28 [facility] COMPARISON: CHEST SINGLE AP, February 03, 2016, 12:43. CHEST SINGLE AP, July 29, 2017, 8:54. CHEST PA & LAT, Ap 2017, 13:59. INDICATIONS : Follow up CABG. MEDICAL HISTORY : Myocardial infarction. Hypertension Renal calculi. Coronary artery disease.Diverticulitis. Rhematoid arthritis. Diabetes. ETOH SURGICAL HISTORY : CABG. Tonsillectomy. Appendectomy. Partial colectomy. ENCOUNTER: Initial ACUITY: 3 weeks PAIN SCORE: 0/10 LOCATION: Bilateral chest FINDINGS: PA and lateral views of the chest. Median sternotomy wires are present. Calcified granuloma right earnestine g base. The lungs are otherwise clear. Cardiomediastinal silhouette within normal limits. No evidence of pleural effusion or pneumothorax. Old mild upper thoracic vertebral body compression fracture def ormities. CONCLUSION: No acute cardiopulmonary disease identified. Noel Amaya MD on August 13, 2017 at 11:38 Board Certified Radiologist. This report was verified electronically.
== END ==
LOC: HRAD 11:12
PROVIDERS: ATTEND Thoracic Surgery (Cardiothoracic Vascular Surgery)
DX: Z95.1 Presence of aortocoronary bypass graft (principal)
CPT/HCPCS: 71046

== ENCOUNTER 2017-08-27 18:54 | Observation (INO) | payer SELFPAY ==
[~2017-08-27] VITALS: Ht 172.7 cm; Wt 80.0 kg
[2017-08-27 19:01] VITALS: BP 213/92; PULSE 66; RESP 16; TEMP 97.7; O2SAT 100
--- NOTE | 2017-08-27 19:48 | RADRPT ---
EXAM DATE/TIME: 08/27/2017 19:29 [facility] COMPARISON: CHEST SINGLE AP, July 29, 2017, 8:54. INDICATIONS : Chest pain. MEDICAL HISTORY : Myocardial infarction. Hypertension Renal calculi. Coronary artery disease.Diverticulitis. Rhematoid arthritis. Diabetes. SURGICAL HISTORY : CABG. Tonsillectomy. Appendectomy. Partial colectomy. ENCOUNTER: Initial ACUITY: 1 day PAIN SCORE: 3/10 LOCATION: Bilateral chest FINDINGS: A single view of the chest demonstrates the lungs to be symmetrically aerated without evidence of mas s, infiltrate or effusion. The patient is status post sternotomy. The cardiomediastinal contours are unremarkable. Osseous structures are intact. CONCLUSION: No acute disease. Moi Lentz MD on August 27, 2017 at 19:46 Board Certified Radiologist. This report was verified electronically.
[2017-08-27 19:49] VITALS: BP 183/87; PULSE 64; RESP 18; O2SAT 98
[2017-08-27 19:50] LABS: AUTOMATED NEUTROPHIL # 6.8 TH/MM3 (1.8-7.7); BASOPHIL # 0.1 TH/MM3 (0-0.2); BASOPHIL % 0.8 % (0.0-2.0); EOSINOPHIL # 1.5 TH/MM3 (0-0.4); EOSINOPHIL % 10.7 % (0.0-4.0); HEMATOCRIT 42.4 % (39.0-51.0); HEMOGLOBIN 14.2 GM/DL (13.0-17.0); LYMPH % 31.3 % (9.0-44.0); LYMPHOCYTE # 4.3 TH/MM3 (1.0-4.8); MEAN CELL VOLUME 90.9 FL (80.0-100.0); MEAN CORPUSCULAR HEMOGLOBIN 30.5 PG (27.0-34.0); MEAN CORPUSCULAR HGB CONC 33.5 % (32.0-36.0); MEAN PLATELET VOLUME 10.1 FL (7.0-11.0); MONO % 7.1 % (0.0-8.0); NEUT % 50.1 % (16.0-70.0); PLATELET COUNT 174 TH/MM3 (150-450); RED BLOOD COUNT 4.67 MIL/MM3 (4.50-5.90); RED CELL DISTRIBUTION WIDTH 13.2 % (11.6-17.2); WHITE BLOOD COUNT 13.6 TH/MM3 (4.0-11.0)
[2017-08-27 20:09] LABS: ALBUMIN 3.5 GM/DL (3.4-5.0); ALT (GPT) 83 U/L (12-78); AST (GOT) 59 U/L (15-37); BLOOD UREA NITROGEN 22 MG/DL (7-18); CHLORIDE 106 MEQ/L (98-107); CREATININE 0.85 MG/DL (0.60-1.30); DIRECT BILIRUBIN ADULT 0.1 MG/DL (0.0-0.2); GLOMERULAR FILTRATION RATE 92 ML/MIN (>89); GLUCOSE,RANDOM 107 MG/DL (74-106); MAGNESIUM 1.7 MG/DL (1.5-2.5); SODIUM (NA) 139 MEQ/L (136-145)
[2017-08-27 20:13] LABS: ALKALINE PHOSPHATASE 159 U/L (45-117); INDIRECT BILIRUBIN 0.2 MG/DL (0.0-0.8); TOTAL BILIRUBIN ADULT 0.3 MG/DL (0.2-1.0); TOTAL PROTEIN 7.3 GM/DL (6.4-8.2); TROPONIN I LESS THAN 0.02 NG/ML (0.02-0.05)
--- NOTE | 2017-08-27 20:20 | PD ---
HPI Chief Complaint: Chest Pain Time Seen by Provider: 19:24 Travel History International Travel<30 days: No Contact w/Intl Traveler<30days: No Traveled to known affect area: No History of Present Illness HPI The patient is a 57 year old male who presents to the [facility] emergency department with a history of chest pain that he reports began on Saturday. The patient reports that the chest pain is in the left side of his chest. He reports that it is a pressure sensation that lasted for 20 minutes on Saturday and then recurred again today and at that time lasted for 10 minutes. The patient's recent history is complicated by undergoing a four-vessel coronary artery bypass grafting procedure 5 weeks ago. The patient reports that the pain is similar to the pain he had prior to his surgery. The patient reports that since Saturday he is also been experiencing a bitemporal headache, dizzy sensation, and nausea. He reports that the symptoms are also similar to the pain he had prior to surgery. He reports that his primary care physician is Dr. Mae. He is having home health come out and visit. He reports that his home health nurse recommended that he come to the emergency department. He reports that he had a blood pressure taken while sitting and then standing and his blood pressure precipitously dropped according to the nurse. He denies having any vomiting. On review of systems, he denies having any recent fevers, cough or congestion, neck pain, shortness of breath, abdominal pain, diarrhea, urinary symptoms, one-sided weakness, slurred speech, facial droop, difficulty with word finding ability, or numbness or tingling to his extremities. The patient reports that he has had a diminished appetite over the last 2 days. [facility] Past Medical History Narrative Medical The patient's past medical history is significant for hypertension, coronary artery disease, diabetes mellitus, rheumatoid arthritis, hepatitis C. 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- HAS HEARING AMPLIFIER (NOT WITH HIME)) Diverticulitis: Yes Endocrine: Yes (diabetes) Gastrointestinal Disorders: Yes (COLON RESECTION) GERD: Yes Genitourinary: Yes Headaches: Yes Hepatitis: Yes (C) Hiatal Hernia: No Hypertension: Yes Kidney Stones: Yes Musculoskeletal: Yes Neurologic: Yes Psychiatric: No Reproductive: No Respiratory: No Myocardial Infarction: Yes (2009) Thyroid Disease: No Ulcer: No Tetanus Vaccination: Unknown Influenza Vaccination: No Past Surgical History Narrative Surgical The patient's past surgical history is significant for cardiac catheterization with 2 prior stents being placed, coronary artery bypass grafting of 4 vessels 5 weeks ago, colectomy, tonsillectomy Abdominal Surgery: Yes (PARTIAL COLECTOMY) Appendectomy: Yes Cholecystectomy: No Coronary Artery Bypass Graft: No Coronary Stent: Yes (2 STENTS) Ear Surgery: No Endocrine Surgery: No Eye Surgery: No Genitourinary Surgery: No Gynecologic Surgery: No Hysterectomy: No Neurologic Surgery: No Oral Surgery: No Thoracic Surgery: No Tonsillectomy: Yes Family History Family Myocardial Infarction: Yes (father had mi) Social History Alcohol Use: No Tobacco Use: Yes (6 cigs per day) Substance Use: No (DRUG HX) Allergies-Medications (Allergen,Severity, Reaction): Coded Allergies: dolasetron (Unverified Allergy, Severe, 08/27/17) penicillin G (Unverified Allergy, Severe, 08/27/17) Reported Meds & Prescriptions Reported Meds & Active Scripts Active Lisinopril 20 Mg Tab 20 Mg PO DAILY Thera M Plus (Multivitamins/Minerals Therapeutic) 1 Tab 1 Tab PO DAILY Dok (Docusate Sodium) 100 Mg Cap 100 Mg PO BID Oxycodone-Acetaminophen 5-325 (Oxycodone HCl/Acetaminophen) 5 Mg-325 Mg Tablet 1 Tab PO Q4H PRN Tgt Aspirin (Aspirin) 81 Mg Chw 81 Mg PO DAILY Metoprolol Tartrate 25 Mg Tab 25 Mg PO BID Atorvastatin (Atorvastatin Calcium) 80 Mg Tab 80 Mg PO HS Novolin 70-30 Inj (Insulin Human Isoph/Insulin Regular) 1,000 Unit/10 Ml Vial 15 Units SQ TWICE A DAY Metformin (Metformin HCl) 1,000 Mg Tab 1,000 Mg PO BIDPC With meals Novolog Inj (Insulin Aspart) 1,000 Unit/10 Ml Vial 1-9 Units SQ ACHS Max dose at bedtime:(4)units; sugars less than 70,(0)units; sugars 150-199,(1) unit; sugars 200-249,(3) units; sugars 250-299,(5) units; sugars 300-349,(7) units; sugars greater than 349,(9) units Review of Systems Except as stated in HPI: all other systems reviewed are Neg General / Constitutional: No: Fever Eyes: No: Visual changes HENT: Positive: Headaches, No: Neck Pain Cardiovascular: Positive: Chest Pain or Discomfort Respiratory: Positive: Shortness of Breath Gastrointestinal: Positive: Nausea, No: Vomiting, Diarrhea, Abdominal Pain Genitourinary: No: Dysuria Musculoskeletal: No: Pain Skin: No Rash Neurologic: Positive: Headache, No: Weakness, Focal Abnormalities, Change in Mentation, Slurred Speech, Sensory Disturbance Psychiatric: No: Depression Endocrine: No: Polydipsia Hematologic/Lymphatic: No: Easy Bruising Physical Exam Narrative General: The patient is a well-developed well-nourished male in no acute distress. Head and Neck exam: Head is normocephalic atraumatic. Eyes: EOMI, pupils are equal round and reactive to light. Nose: Midline septum with pink mucous membranes Mouth: Dentition unremarkable. Moist mucus membranes. Posterior oropharynx is not erythematous. No tonsillar hypertrophy. Uvula midline. Airway patent. Neck: No palpable lymphadenopathy. No nuchal rigidity. No thyromegaly. Cardiovascular: Regular rate and rhythm without murmurs, gallops, or rubs. No pulse deficit to the extremities on simultaneous auscultation and palpation of his radial artery. The patient is noted to have a sternotomy wound that appears to be healing well. The patient has no signs of erythema, edema, or drainage from the wound Lungs: Clear to auscultation bilaterally. No wheezes, rhonchi, or rales. Abdomen: Soft, without tenderness to palpation in all 4 quadrants of the abdomen. No guarding, rebound, or rigidity. Normal bowel sounds are audible. No tenderness on palpation of McBurney's point. Extremities: No clubbing, cyanosis, or edema. 2+ pulses in all 4 extremities. No calf tenderness on palpation. Back: No costovertebral angle tenderness to palpation. Neurologic Exam: Grossly nonfocal. Skin Exam: No rash noted. Intact skin that is warm and dry. Data Data Last Documented VS Vital Signs Date Time Temp Pulse Resp B/P (MAP) Pulse Ox O2 Delivery O2 Flow Rate FiO2 08/27/17 21:21 62 18 141/71 (94) 98 Room Air 08/27/17 19:01 97.7 Orders Orders Electrocardiogram (08/27/17:24) Complete Blood Count With Diff (08/27/17 19:24) Basic Metabolic Panel (Bmp) (08/27/17 19:24) Ckmb (Isoenzyme) Profile (08/27/17:24) Troponin I (08/27/17:) Chest, Single Ap (08/27/17:24) Iv Access Insert/Monitor (08/27/17:) Ecg Monitoring (08/27/17:) Oxygen Administration (08/27/17) Oximetry (08/27/17:) B-Type Natriuretic Peptide (08/27/17:) Ct Pulmonary Angiogram (08/27/17:) Hepatic Functional Panel (08/27/17:) Magnesium (Mg) (08/27/17:) Aspirin Chew (Aspirin Chew) (08/27/17 20:30) Nitroglycerin 2% Oint (Nitroglycerin 2% (08/27/17 20:30) Nitroglycerin Sl (Nitrostat Sl) (08/27/17 20:30) Sodium Chlor 0.9% 1000 Ml Inj (Ns 1000 M (08/27/17 20:30) Morphine Inj (Morphine Inj) (08/27/17 20:30) Prochlorperazine Inj (Compazine Inj) (08/27/17 20:30) Ct Brain W/O Iv Contrast(Rout) (08/27/17 20:39) Morphine Inj (Morphine Inj) (08/27/17 20:39) Iohexol 350 Inj (Omnipaque 350 Inj) (08/27/17 21:03) Orthostatic Vital Signs (08/27/17 22:14) Admit Order (Ed Use Only) (08/27/17 22:22) Labs Laboratory Tests Test 08/27/17:27 White Blood Count 13.6 TH/MM3 Red Blood Count 4.67 MIL/MM3 Hemoglobin 14.2 GM/DL Hematocrit 42.4 % Mean Corpuscular Volume 90.9 FL Mean Corpuscular Hemoglobin 30.5 PG Mean Corpuscular Hemoglobin Concent 33.5 % Red Cell Distribution Width 13.2 % Platelet Count 174 TH/MM3 Mean Platelet Volume 10.1 FL Neutrophils (%) (Auto) 50.1 % Lymphocytes (%) (Auto) 31.3 % Monocytes (%) (Auto) 7.1 % Eosinophils (%) (Auto) 10.7 % Basophils (%) (Auto) 0.8 % Neutrophils # (Auto) 6.8 TH/MM3 Lymphocytes # (Auto) 4.3 TH/MM3 Monocytes # (Auto) 1.0 TH/MM3 Eosinophils # (Auto) 1.5 TH/MM3 Basophils # (Auto) 0.1 TH/MM3 CBC Comment DIFF FINAL Differential Comment Blood Urea Nitrogen 22 MG/DL Creatinine 0.85 MG/DL Random Glucose 107 MG/DL Total Protein 7.3 GM/DL Albumin 3.5 GM/DL Calcium Level 9.0 MG/DL Magnesium Level 1.7 MG/DL Alkaline Phosphatase 159 U/L Aspartate Amino Transf (AST/SGOT) 59 U/L Alanine Aminotransferase (ALT/SGPT) 83 U/L Total Bilirubin 0.3 MG/DL Direct Bilirubin 0.1 MG/DL Sodium Level 139 MEQ/L Potassium Level 4.2 MEQ/L Chloride Level 106 MEQ/L Carbon Dioxide Level 25.0 MEQ/L Anion Gap 8 MEQ/L Estimat Glomerular Filtration Rate 92 ML/MIN Indirect Bilirubin 0.2 MG/DL Total Creatine Kinase 61 U/L Troponin I LESS THAN 0.02 NG/ML B-Type Natriuretic Peptide 107 PG/ML MDM Medical Decision Making Medical Screen Exam Complete: Yes Emergency Medical Condition: Yes Medical Record Reviewed: Yes Differential Diagnosis Acute coronary syndrome, versus pulmonary embolism, versus pericardial effusion , versus pneumonia, versus intracranial hemorrhage Narrative Course During the course of the patient's emergency department visit, the patient's history, examination, and differential diagnosis were reviewed with the patient. The patient was placed on a manager monitoring with oximetry and frequent blood pressure monitoring. The patient had IV access obtained and blood work sent for analysis. The patient had an EKG done on arrival that shows a sinus rhythm heart rate of 63, QRS duration 100 ms, QTC [address] segment elevation. T waves are inverted in V1. The patient was initially provided Morphine 2 mg IV, Compazine 5 mg IV for nausea, sublingual nitroglycerin every 5 minutes 3 as needed chest pain, aspirin 243 mg p.o. 1. Nitroglycerin 1 inch to the chest wall. The patient's studies were reviewed and remarkable for A CBC that shows a white count of 13.6, hemoglobin 14.2, platelets 174 with 10.7 eosinophils, CMP is remarkable for a BUN of 22, glucose 107, AST of 59, ALT 83, alk phos 159, initial set of cardiac enzymes are within normal limits, BNP is 107. Chest x- ray shows no acute cardiopulmonary disease, CT scan of the brain shows no acute intracranial abnormality. CTA to rule out PE shows no evidence of pulmonary embolism, chronic peripheral interstitial disease, emphysematous changes, granulomas, status post sternotomy. The patient's results were discussed with the patient, including the plan of care. I explained that further testing and/ or monitoring is indicated based on the patient's history, examination, and/ or laboratory findings. Therefore, I recommended admission for additional evaluation. The patient expressed understanding and was agreeable with this plan. The patient was admitted to the hospital in stable condition and sent to a bed under the care of the family practice residents. Physician Communication Physician Communication The patient's case including history, pertinent physical examination findings, and laboratory studies were discussed with the family practice residents. It was agreed that the patient would be admitted to the family practice residents service. Diagnosis Primary Impression: Chest pain, rule out acute myocardial infarction Admitting Information Admitting Physician Requests: Janiya Contreras MD August 27, 2017 20:20
[2017-08-27] MEDS ORDERED: NITROGLYCERIN 0.4 MG SL 25 TABS/BTL SL PRN (20:30)
[2017-08-27] MEDS ORDERED: MORPHINE SULFATE 2 MG/ML SYRINGE IV PUSH ONE (20:30)
[2017-08-27] MEDS ORDERED: PROCHLORPERAZINE INJ 10 MG/2 ML VIAL IV PUSH ONE (20:30)
[2017-08-27] MEDS ORDERED: NITROGLYCERIN 2% OINT 1 GM PACKET TOPICAL ONE (20:30)
[2017-08-27] MEDS ORDERED: SODIUM CHLOR 0.9% 1000 ML INJ 1,000 ML IV SCH (20:30)
[2017-08-27] MEDS ORDERED: ASPIRIN 81 MG CHEW TAB CHEW ONE (20:30)
[2017-08-27] MEDS ORDERED: MORPHINE SULFATE 4 MG/ML INJ ONE (20:39)
[2017-08-27] MEDS ORDERED: IOHEXOL 350 MG/ML 10 ML VIAL (for RAD DIAG) IVCONTRAST ONE (21:03)
[2017-08-27 21:21] VITALS: BP 141/71; PULSE 62; RESP 18; O2SAT 98
--- NOTE | 2017-08-27 21:23 | RADRPT ---
EXAM DATE/TIME: 08/27/2017 20:41 [facility] COMPARISON: No previous studies available for comparison. INDICATIONS : Headache. RADIATION DOSE: 56.35 CTDIvol (mGy) MEDICAL HISTORY : Diabetes mellitus type 2. Hepatitis C. Cardiovascular disease SURGICAL HISTORY : CABG ENCOUNTER: Initial ACUITY: 1 day PAIN SCALE: 7/10 LOCATION: cranial TECHNIQUE: Multiple contiguous axial images were obtained of the head. Using automated exposure control and adj ustment of the mA and/or kV according to patient size, radiation dose was kept as low as reasonably a chievable to obtain optimal diagnostic quality images. DICOM format image data is available electro nically for review and comparison. FINDINGS: CEREBRUM: The ventricles are normal for age. No evidence of midline shift, mass lesion, hemorrhage or acute in farction. No extra-axial fluid collections are seen. POSTERIOR FOSSA: The cerebellum and brainstem are intact. The 4th ventricle is midline. The cerebellopontine angle i s unremarkable. EXTRACRANIAL: The visualized portion of the orbits is intact. SKULL: The calvaria is intact. No evidence of skull fracture. There is sclerosis and fluid seen within the left mastoid air cells. There is minimal mucosal thickening at the right maxillary sinus. CONCLUSION: 1. No intracranial abnormality seen. 2. Suspected chronic change of the left mastoid air cells. 3. Minimal right maxillary sinus disease. Moi Lentz MD on August 27, 2017 at 21:20 Board Certified Radiologist. This report was verified electronically.
--- NOTE | 2017-08-27 21:46 | RADRPT ---
EXAM DATE/TIME: 08/27/2017 20:45 [facility] COMPARISON: No previous studies available for comparison. INDICATIONS : Shortness of breath IV CONTRAST: 60 cc Omnipaque 350 (iohexol) IV RADIATION DOSE: 9.52 CTDIvol (mGy) MEDICAL HISTORY : Diabetes mellitus type 2. Hepatitis C. Cardiovascular diseaseHypertension SURGICAL HISTORY : CABG ENCOUNTER: Initial ACUITY: 1 day PAIN SCALE: 7/10 LOCATION: chest TECHNIQUE: Volumetric scanning of the chest was performed using a pulmonary embolism protocol MIP images were re constructed. Using automated exposure control and adjustment of the mA and/or kV according to patien t size, radiation dose was kept as low as reasonably achievable to obtain optimal diagnostic quality images. DICOM format image data is available electronically for review and comparison. Follow-up recommendations for detected pulmonary nodules are based at a minimum on nodule size and pa tient risk factors according to Fleischner Society Guidelines. FINDINGS: PULMONARY ARTERIES: No filling defects are seen in the pulmonary arteries through the segmental level. LUNGS: There is peripheral interstitial disease. There is emphysematous change in the upper lungs. A calcifi ed granuloma in the right upper lung and a larger calcified granuloma in the right middle lobe. PLEURAE: There is no pleural thickening or pleural effusion. MEDIASTINUM: There is good visualization of the great vessels of the middle mediastinum. No evidence of mediastin al or hilar adenopathy/mass. Calcifications are seen in the [place] coronary arteries. The patient is status post sternotomy. 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 This is a normal variant. MUSCULOSKELETAL: Within normal limits for patient age. MISCELLANEOUS: The visualized upper abdominal organs demonstrate no acute abnormality. CONCLUSION: 1. No pulmonary embolus. 2. Chronic peripheral interstitial disease. 3. Emphysematous change. 4. Granulomas. 5. Status post sternotomy. Moi Lentz MD on August 27, 2017 at 21:40 Board Certified Radiologist. This report was verified electronically.
--- NOTE | 2017-08-27 22:24 | HHI.HP ---
HPI Service Family Medicine Primary Care Physician Palmer Mae MD Admission Diagnosis chest pain Diagnoses: International Travel<30 Days: No Contact w/Intl Traveler<30days: No Known Affected Area: No History of Present Illness Mr. Abarca is a pleasant 57 y/o male with a PMHx of T2DM, CAD s/p CABG in July 2017, Hepatitis C, who is being taken care of by his PCP Dr. Mae. He reports today with three days of chest pain: HPI: Saturday, August 25, 2017 started having headaches (localized to the temples) and experienced having left sided chest pain. He had very bad left sided chest pain for several hours on the same day. This pain was similar to the pain he had prior to requiring the CABG in July. At this time he was extremely dizzy, nauseated, and without an appetite. He woke up on Saturday feeling better. He was out and about, shopping. On Saturday his symptoms returned. He was feeling dizzy , having pain in the hoahaoism regions, and feeling very confused. Stating, "I almost felt like I was drunk." A home health nurse took BP laying down and sitting up t it dropped "drastically while I was sitting up." The home health nurse recommended coming into the hospital for evaluation. The headaches are 10/10, pressure, localized to both temporal regions. Currently , the headache is a 4-5 / 10. When he came in the pain had him in tears. Denies blurry vision or vomiting. Denies any new stiff neck or fevers. Chest pain when he came into the hospital was a 4-5/10, left side. Constant pain. Took ibuprofen 4 (200 mg tablets) twice per day (6 hours apart). That seems to help the chest pain. Pain does not radiate into left arm, but on Saturday the chest pain radiated to right arm. The chest pain is described as a heat-like pain. The chest pain does not seem to be related to meals. He says that this chest pain is completely different from the chest pain he had post operatively. Not associated with diaphoresis. Chest pain is there when he is sitting still. Denies fevers, chills, blurry vision, vertigo, numbness or tingling, weakness on one side of body. Denies blood in his urine or stools. Denies difficulty with breathing. Denies swelling in his legs. +Ringing in his left ear. +Has felt his heart skipping a beat (a couple of times over the past several days). +Warmth and pain in his calves when walking. 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 SKIN: No rashes, ecchymoses or lesions. Cool and dry. HEAD: Atraumatic. Normocephalic. No temporal or scalp tenderness. EYES: Pupils equal round and reactive. Extraocular motions intact. No scleral icterus. No injection or drainage. ENT: Nose without bleeding, purulent drainage or septal hematoma. Throat without erythema, tonsillar hypertrophy or exudate. Uvula midline. Airway patent. NECK: Trachea midline. No JVD or lymphadenopathy. Supple, nontender, no meningeal signs. CARDIOVASCULAR: regular, no murmurs, 5 cm midline scar healing well. Pulses equal to all extremities. No edema in lower extremities. RESPIRATORY: Clear to auscultation. Breath sounds equal bilaterally. No wheezes , rales, or rhonchi. GASTROINTESTINAL: Abdomen soft, non-tender, nondistended. No hepato-splenomegaly , or palpable masses. No guarding. MUSCULOSKELETAL: Extremities without clubbing, cyanosis, or edema. No joint tenderness, effusion, or edema noted. No calf tenderness. Negative Homans sign bilaterally. Missing several toes on left foot. NEUROLOGICAL: Awake and alert. Cranial nerves II through XII intact. Motor and sensory grossly within normal limits. Five out of 5 muscle strength in all muscle groups. Normal speech. Laboratory Laboratory Tests Test 08/27/17 19:27 White Blood Count 13.6 Red Blood Count 4.67 Hemoglobin 14.2 Hematocrit 42.4 Mean Corpuscular Volume 90.9 Mean Corpuscular Hemoglobin 30.5 Mean Corpuscular Hemoglobin Concent 33.5 Red Cell Distribution Width 13.2 Platelet Count 174 Mean Platelet Volume 10.1 Neutrophils (%) (Auto) 50.1 Lymphocytes (%) (Auto) 31.3 Monocytes (%) (Auto) 7.1 Eosinophils (%) (Auto) 10.7 Basophils (%) (Auto) 0.8 Neutrophils # (Auto) 6.8 Lymphocytes # (Auto) 4.3 Monocytes # (Auto) 1.0 Eosinophils # (Auto) 1.5 Basophils # (Auto) 0.1 CBC Comment DIFF FINAL Differential Comment Blood Urea Nitrogen 22 Creatinine 0.85 Random Glucose 107 Total Protein 7.3 Albumin 3.5 Calcium Level 9.0 Magnesium Level 1.7 Alkaline Phosphatase 159 Aspartate Amino Transf (AST/SGOT) 59 Alanine Aminotransferase (ALT/SGPT) 83 Total Bilirubin 0.3 Direct Bilirubin 0.1 Sodium Level 139 Potassium Level 4.2 Chloride Level 106 Carbon Dioxide Level 25.0 Anion Gap 8 Estimat Glomerular Filtration Rate 92 Indirect Bilirubin 0.2 Total Creatine Kinase 61 Troponin I LESS THAN 0.02 B-Type Natriuretic Peptide 107 Result Diagram: 08/27/17192608/27/171926 Imaging Last [address] 08/27/172038 Signed Impressions: Service Date/Time: Sunday, August 27, 2017 20:41 - CONCLUSION: 1. No intracranial abnormality seen. 2. Suspected chronic change of the left mastoid air cells. 3. Minimal right maxillary sinus disease. Moi Lentz MD CT Angiography 08/27/171926 Signed Impressions: Service Date/Time: Sunday, August 27, 2017 20:45 - CONCLUSION: 1. No pulmonary embolus. 2. Chronic peripheral interstitial disease. 3. Emphysematous change. 4. Granulomas. 5. Status post sternotomy. Moi Lentz MD Chest X-Ray 08/27/171923 Signed Impressions: Service Date/Time: Sunday, August 27, 2017 19:29 - CONCLUSION: No acute disease. Moi Lentz MD Caprini VTE Risk Assessment Caprini VTE Risk Assessment: Mod/High Risk (score >= 2) Caprini Risk Assessment Model Point Value = 1 Point Value = 2 Point Value = 3 Point Value = 5 Age 41-60 Minor surgery BMI > 25 kg/m2 Swollen legs Varicose veins or History of unexplained or recurrent spontaneous Oral contraceptives or hormone replacement Sepsis (< 1 month) Serious lung disease, including pneumonia (< 1 month) Abnormal pulmonary function Acute myocardial infarction Congestive heart failure (< 1 month) History of inflammatory bowel disease Medical patient at bed rest Age 61-74 Arthroscopic surgery Major open surgery (> 45 min) Laparoscopic surgery (> 45 min) Malignancy Confined to bed (> 72 hours) Immobilizing plaster cast Central venous access Age >= 75 History of VTE Family history of VTE Factor V Leiden Prothrombin [id number] Lupus anticoagulant Anticardiolipin antibodies Elevated serum homocysteine Heparin-induced thrombocytopenia Other congenital or acquired thrombophilia Stroke (< 1 month) Elective arthroplasty Hip, pelvis, or leg fracture Acute spinal cord injury (< 1 month) Prophylaxis Regimen Total Risk Factor Score Risk Level Prophylaxis Regimen 0-1 Low Early ambulation 2 Moderate Order ONE of the following: *Sequential Compression Device (SCD) *Heparin 5000 units SQ BID 3-4 Higher Order ONE of the following medications: *Heparin 5000 units SQ TID *Enoxaparin/Lovenox 40 mg SQ daily (WT < 150 kg, CrCl > 30 mL/min) *Enoxaparin/Lovenox 30 mg SQ daily (WT < 150 kg, CrCl > 10-29 mL/min) *Enoxaparin/Lovenox 30 mg SQ BID (WT < 150 kg, CrCl > 30 mL/min) AND/OR *Sequential Compression Device (SCD) 5 or more Highest Order ONE of the following medications: *Heparin 5000 units SQ TID (Preferred with Epidurals) *Enoxaparin/Lovenox 40 mg SQ daily (WT < 150 kg, CrCl > 30 mL/min) *Enoxaparin/Lovenox 30 mg SQ daily (WT < 150 kg, CrCl > 10-29 mL/min) *Enoxaparin/Lovenox 30 mg SQ BID (WT < 150 kg, CrCl > 30 mL/min) AND *Sequential Compression Device (SCD) Assessment and Plan Assessment and Plan 57 y/o male PMHx of T2DM, s/p CABG in July 2017, CAD, RA, and hypertension, presenting with 3 days of chest pain. Will be admitted for further evaluation. Code Status Full Code. Problem List: (1) Chest pain ICD Codes: R07.9 - Chest pain, unspecified Status: Acute Plan: May be related to underlying ischemia / ACS, vs. musculoskeletal chest pain, vs. hypertensive urgency/emergency, vs. acid reflux, vs. esophageal spasms. PE lower on differential given negative CTA. Initial EKG and troponin showing no signs of ischemia. Cont to trend q 6 hrs overnight. Aspirin 243 mg given x 1 in ED. Morphine 2 mg IV for break through CP. Nitroglycerin paste q 6 hrs. Oxygen as needed. Beta-victoria as below. Consult CT surgery or cardiology if any change in clinical status or any indication of ACS. (2) Headache ICD Codes: R51 - Headache Plan: Likely tension type headaches vs. hypertensive urgency (BP on admission was 213/92). Control BP as below. CT head reassuring for no acute intracranial process. Neuro exam reassuring and without deficits. Continue to monitor. (3) Dyslipidemia (high LDL; low HDL) ICD Codes: E78.4 - Other hyperlipidemia Status: Acute Plan: Continue home statin. (4) Type 2 diabetes mellitus with hyperosmolar nonketotic hyperglycemia ICD Codes: E11.01 - Type 2 diabetes mellitus with hyperosmolarity with coma Status: Resolved Plan: Continue metformin 1000 bid and SSI. (5) Hypertension ICD Codes: I10 - Essential (primary) hypertension Status: Chronic Plan: Uncontrolled on admission. Cont lisinopril 20 , metoprolol 25 bid, and nitro past q 6 hrs. Clonidine 0.1 mg q 6 hr SBP > 160/90 mm Hg. (6) FEN Status: Acute Plan: Diet: NPO until chest pain work up concluded. IVF: Well hydrated on exam. DVT ppx: Heparin 5000 units sq BID. GI ppx: not indicated at this time. WDW Dr. Chavez in AM. Jefry Boggs MD, R3 August 27, 2017 22:24
[2017-08-27] MEDS ORDERED: SODIUM CHLORIDE 0.9% FLUSH 10 ML FLUSH IV FLUSH PRN (22:45)
[2017-08-27] MEDS ORDERED: DEXTROSE 50% IN WATER 50 ML VIAL(D50) IV PUSH PRN (22:45)
[2017-08-27] MEDS ORDERED: ACETAMINOPHEN 500 MG CPLT PO PRN (22:45)
[2017-08-27] MEDS ORDERED: GLUCAGON 1 MG/ML VIAL OTHER PRN (22:45)
[2017-08-27] MEDS ORDERED: LACTULOSE SYRUP 20 GM/30 ML CUP PO PRN (23:00)
[2017-08-27] MEDS ORDERED: BISACODYL 10 MG SUPP RECTAL PRN (23:00)
[2017-08-27] MEDS ORDERED: METOCLOPRAMIDE HCL 10 MG/2 ML VIAL IV PUSH PRN (23:00)
[2017-08-27] MEDS ORDERED: SENNOSIDES 8.6 MG TAB PO PRN (23:00)
[2017-08-27] MEDS ORDERED: MAGNESIUM HYDROXIDE SUSP 30 ML CUP PO PRN (23:00)
[2017-08-27] MEDS: HEPARIN SODIUM - SQ 10,000 UNITS/ML VIAL SQ SCH (23:11)
[2017-08-27] MEDS: MORPHINE SULFATE 4 MG/ML INJ IV PUSH PRN (23:11)
[2017-08-27 23:38] VITALS: BP 161/74; PULSE 56; RESP 16; TEMP 97.6; O2SAT 91
[2017-08-28] MEDS ORDERED: cloNIDine HCL 0.1 MG TAB PO PRN (00:15)
[2017-08-28] MEDS: SODIUM CHLOR 0.9% 1000 ML INJ 1,000 ML IV SCH ×3 (01:26→13:03)
[2017-08-28 01:42] VITALS: PULSE 58
[2017-08-28 04:14] VITALS: BP 153/72; PULSE 59; RESP 16; TEMP 97.6; O2SAT 93
[2017-08-28] MEDS: NITROGLYCERIN 2% OINT 1 GM PACKET TOP SCH ×3 (05:29→13:03)
[2017-08-28 07:21] VITALS: BP 173/81; PULSE 64; RESP 18; TEMP 98.2; O2SAT 97
[2017-08-28] MEDS: MORPHINE SULFATE 4 MG/ML INJ IV PUSH PRN ×2 (07:33→13:01)
[2017-08-28] MEDS: INSULIN ASPART SUPPLEMENTAL SCALE SQ SCH ×3 (07:38→17:00)
--- NOTE | 2017-08-28 08:08 | HHI.FPPN ---
Subjective Remarks Pt seen and examined this morning. No acute events overnight. He denies any additional chest pain. He endorses headaches this morning, located in bilateral advent area, not associated with vision changes or aura. He was having these headaches prior to coming into the hospital, and prior to nitroglycerine use. He reports that the chest pain he had earlier this week was similar to the pain that he had prior to having CABG. Chest pain is associated with headaches, nausea, dizziness, shortness of breath. He denies any heavy lifting, repetitive movements or activities that are different from his normal. No recent trauma. He denies acute shortness of breath, abdominal pain, calf pain. He reports feeling improved. (Avni Madison MD R3) Objective Vitals Vital Signs Date Time Temp Pulse Resp B/P (MAP) Pulse Ox O2 Delivery O2 Flow Rate FiO2 08/28/17 07:40 18 08/28/17 07:21 98.2 64 18 173/81 (111) 97 08/28/17 04:14 97.6 59 16 153/72 (99) 93 08/28/17 01:42 58 08/27/17 23:38 97.6 56 16 161/74 (103) 91 08/27/17 23:17 08/27/17 21:21 62 18 141/71 (94) 98 Room Air 08/27/17 19:49 64 18 183/87 (119) 98 Room Air 08/27/17 19:49 98 Room Air 08/27/17 19:49 98 Room Air 08/27/17 19:01 97.7 66 16 213/92 (132) 100 I/O 08/27/17 08/27/17 08/27/17 08/28/17 08/28/17 08/28/17 07:00 15:00 23:00 07:00 15:00 23:00 Output Total 200 ml Balance -200 ml Output Urine Total 200 ml # Voids 1 (Avni Madison MD R3) Result Diagram: 08/27/17192608/27/171926 Objective Remarks GENERAL: This is a well-nourished, well-developed patient, in no apparent distress. SKIN: No rashes, ecchymoses or lesions. Cool and dry. HEAD: Atraumatic. Normocephalic. No temporal or scalp tenderness. EYES: Extraocular motions intact. No scleral icterus. No injection or drainage. ENT: Nose without bleeding, purulent drainage. Airway patent. NECK: Trachea midline. No JVD or lymphadenopathy. Supple, nontender, no meningeal signs. CARDIOVASCULAR: regular, no murmurs, 5 cm midline scar healing well. Pulses equal to all extremities. No edema in lower extremities. RESPIRATORY: Clear to auscultation. Breath sounds equal bilaterally. No wheezes , rales, or rhonchi. GASTROINTESTINAL: Abdomen soft, non-tender, nondistended. No hepato-splenomegaly , or palpable masses. No guarding. +BS MUSCULOSKELETAL: Pain with palpation of left upper chest and left lower chest. No bruising. Extremities without clubbing, cyanosis, or edema. No joint tenderness, effusion, or edema noted. No calf tenderness. Negative Homans sign bilaterally. Missing several toes on left foot. NEUROLOGICAL: Awake and alert. Cranial nerves II through XII intact. Motor and sensory grossly within normal limits. Normal speech. (Avni Madison MD R3) A/P Assessment and Plan 57 y/o male PMHx of T2DM, s/p CABG in July 2017, CAD, RA, and hypertension, presenting with 3 days of chest pain. Will be admitted for further evaluation. Discharge Planning Pt with no additional chest pain, ACS rule out negative, anticipate discharge later today. (Avni Madison MD R3) Attending Attestation Patients admission and EMR reviewed Patient interviewed and examtned Case discussed in detail with Dr Madison Agree with contents of note except pt reports no allergy to PCN Stable for discharge See Orders (Scott Rincon MD) Problem List: (1) Sinusitis ICD Codes: J32.9 - Chronic sinusitis, unspecified Plan: Pt reports recent headaches. Head CT with no intracranial abnormality however there is suspected chronic change of the left mastoid air cells and minimal right maxillary sinus disease. Patient with mild leukocytosis. -White blood cell count elevated to 13.3 today -We will prescribe Levaquin for sinusitis, pt with penicillin allergy (2) Chest pain ICD Codes: R07.9 - Chest pain, unspecified Status: Acute Plan: Resolved May be related to underlying ischemia / ACS, vs. musculoskeletal chest pain, vs. hypertensive urgency/emergency, vs. acid reflux, vs. esophageal spasms. PE lower on differential given negative CTA. No acute changes on EKG suggestive of ischemia Troponin less than 0.02 x2, labs from this morning pending Aspirin 243 mg given x 1 in ED. Morphine 2 mg IV for break through CP. Nitroglycerin paste q 6 hrs. Oxygen as needed. Beta-victoria as below. Consult CT surgery or cardiology if any change in clinical status or any indication of ACS. (3) Headache ICD Codes: R51 - Headache Plan: Likely tension type headaches vs. hypertensive urgency (BP on admission was 213/92). Control BP as below. CT head reassuring for no acute intracranial process. Neuro exam at time of admission reassuring and without deficits. Continue to monitor. (4) Dyslipidemia (high LDL; low HDL) ICD Codes: E78.4 - Other hyperlipidemia Status: Acute Plan: Continue home statin. (5) Type 2 diabetes mellitus with hyperosmolar nonketotic hyperglycemia ICD Codes: E11.01 - Type 2 diabetes mellitus with hyperosmolarity with coma Status: Resolved Plan: Continue metformin 1000 bid and SSI. (6) Hypertension ICD Codes: I10 - Essential (primary) hypertension Status: Chronic Plan: Uncontrolled on admission. Cont lisinopril 20 , metoprolol 25 bid, and nitro paste q 6 hrs. Clonidine 0.1 mg q 6 hr SBP > 160/90 mm Hg. (7) FEN Status: Acute Plan: Diet: NPO until chest pain work up concluded. IVF: NS 100/hr DVT ppx: Heparin 5000 units sq BID. GI ppx: not indicated at this time. WDW Dr. Rincon (Avni Madison MD R3) Avni Madison MD R3 August 28, 2017 08:08 Scott Rincon MD August 28, 2017 21:39
[2017-08-28] MEDS ORDERED: MULTIVITAMINS/MINERALS THERAPEUTIC TAB PO SCH (09:00)
[2017-08-28] MEDS ORDERED: DOCUSATE SODIUM 50 MG/SENNA 8.6 MG TAB PO SCH (09:00)
[2017-08-28] MEDS ORDERED: LISINOPRIL 20 MG TAB PO SCH (09:00)
[2017-08-28] MEDS ORDERED: SODIUM CHLORIDE 0.9% FLUSH 10 ML FLUSH IV FLUSH SCH (09:00)
[2017-08-28] MEDS ORDERED: METOPROLOL TARTRATE 25 MG TAB PO SCH (09:00)
--- NOTE | 2017-08-28 09:15 | EKG ---
Date Performed: 08/28/2017 Time Performed: 01:25:22 PTAGE: 57 years EKG: Sinus rhythm POSSIBLE ANTERIOR MYOCARDIAL INFARCTION ABNORMAL ECG PREVIOUS TRACING : 08/27/2017 19.18 DOCTOR: Ash Fletcher Interpretating Date/Time 08/28/2017 09:12:00
--- NOTE | 2017-08-28 09:21 | EKG ---
Date Performed: 08/27/2017 Time Performed: 19:18:59 PTAGE: 57 years EKG: Sinus rhythm BORDERLINE LEFT AXIS DEVIATION NONSPECIFIC T-WAVE ABNORMALITY BORDERLINE ECG NO PREVIOUS TRACING DOCTOR: Ash Fletcher Interpretating Date/Time 08/28/2017 09:16:15
[2017-08-28 09:41] LABS: AUTOMATED NEUTROPHIL # 8.9 TH/MM3 (1.8-7.7); BASOPHIL # 0.1 TH/MM3 (0-0.2); BASOPHIL % 0.8 % (0.0-2.0); EOSINOPHIL # 1.1 TH/MM3 (0-0.4); EOSINOPHIL % 8.6 % (0.0-4.0); HEMOGLOBIN 13.2 GM/DL (13.0-17.0); LYMPH % 18.2 % (9.0-44.0); LYMPHOCYTE # 2.4 TH/MM3 (1.0-4.8); MEAN CELL VOLUME 90.8 FL (80.0-100.0); MEAN CORPUSCULAR HEMOGLOBIN 30.7 PG (27.0-34.0); MEAN CORPUSCULAR HGB CONC 33.8 % (32.0-36.0); MEAN PLATELET VOLUME 10.7 FL (7.0-11.0); MONO % 5.3 % (0.0-8.0); MONOCYTE # 0.7 TH/MM3 (0-0.9); NEUT % 67.1 % (16.0-70.0); PLATELET COUNT 159 TH/MM3 (150-450); RED BLOOD COUNT 4.29 MIL/MM3 (4.50-5.90); RED CELL DISTRIBUTION WIDTH 13.5 % (11.6-17.2); WHITE BLOOD COUNT 13.3 TH/MM3 (4.0-11.0)
[2017-08-28 10:01] VITALS: BP 158/78
[2017-08-28 10:05] LABS: ALKALINE PHOSPHATASE 144 U/L (45-117); TOTAL BILIRUBIN ADULT 0.4 MG/DL (0.2-1.0); TOTAL PROTEIN 6.7 GM/DL (6.4-8.2); TROPONIN I 0.02 NG/ML (0.02-0.05)
[2017-08-28 10:22] LABS: ALBUMIN 3.2 GM/DL (3.4-5.0); ALT (GPT) 76 U/L (12-78); AST (GOT) 57 U/L (15-37); BICARBONATE 27.2 MEQ/L (21.0-32.0); BLOOD UREA NITROGEN 15 MG/DL (7-18); CALCIUM 8.8 MG/DL (8.5-10.1); CHLORIDE 107 MEQ/L (98-107); CREATININE 0.85 MG/DL (0.60-1.30); GLOMERULAR FILTRATION RATE 92 ML/MIN (>89); GLUCOSE,RANDOM 121 MG/DL (74-106); SODIUM (NA) 140 MEQ/L (136-145)
[2017-08-28] MEDS ORDERED: LEVA500T33 PO (10:25)
--- NOTE | 2017-08-28 10:28 | HHI.DCPOC ---
Discharge Care Plan Diagnosis: (1) CAD (coronary artery disease) (2) Headache (3) Sinusitis (4) Chest pain (5) HTN (hypertension) (6) Type 2 diabetes mellitus (7) Dyslipidemia (high LDL; low HDL) Goals to Promote Your Health * To prevent worsening of your condition and complications * To maintain your health at the optimal level Directions to Meet Your Goals Take your medications as prescribed Follow your dietary instruction Follow activity as directed Keep your appointments as scheduled Take your immunizations and boosters as scheduled If your symptoms worsen call your PCP, if no PCP go to Urgent Care Center or Emergency Room Smoking is Dangerous to Your Health. Avoid second hand smoke Call the 24-hour hour crisis hotline for domestic abuse at Avni Madison MD R3 August 28, 2017 10:27
[2017-08-28] MEDS ORDERED: LEVOFLOXACIN 500 MG TAB PO SCH (11:00)
[2017-08-28 11:08] VITALS: BP 166/81; PULSE 58; RESP 18; TEMP 98; O2SAT 95
[2017-08-28] MEDS: HEPARIN SODIUM - SQ 10,000 UNITS/ML VIAL SQ SCH (11:26)
[2017-08-28 11:53] LABS: BILIRUBIN, URINE NEG (NEG); BLOOD, URINE NEG (NEG); GLUCOSE,URINE NEG (NEG); KETONE, URINE TRACE mg/dL (NEG); MUCUS URINE FEW /lpf (OCC); NITRITE,URINE NEG (NEG); URINE COLOR YELLOW (YELLW/STRAW); URINE LEUKOCYTE ESTERASE NEG (NEG)
--- NOTE | 2017-08-28 12:32 | EKG ---
Date Performed: 08/28/2017 Time Performed: 07:40:45 PTAGE: 57 years EKG: SINUS BRADYCARDIA BORDERLINE LEFT AXIS DEVIATION NONSPECIFIC ST & T-WAVE ABNORMALITY BORDER LINE ECG PREVIOUS TRACING : 08/28/2017 01.25 DOCTOR: Ash Fletcher Interpretating Date/Time 08/28/2017 12:30:53
[2017-08-28 15:32] VITALS: BP 157/73; PULSE 67; RESP 18; TEMP 98.3; O2SAT 94
[2017-08-28] MEDS ORDERED: ATORVASTATIN 80 MG TAB PO SCH (21:00)
[2017-08-30] MEDS ORDERED: metFORMIN HCL 500 MG TAB PO SCH (09:00)
== END 2017-08-28 18:32 | disposition home or self-care (01) ==
LOC: NEPE 18:54 → NEDA 22:24 → NEPGCP 23:32
PROVIDERS: ADMIT Family Medicine; ATTEND Family Medicine
DX: R07.89 Other chest pain (principal); R51 Headache; R06.02 Shortness of breath; R42 Dizziness and giddiness; R11.0 Nausea; E78.4 Other hyperlipidemia; E11.01 Type 2 diabetes mellitus with hyperosmolarity with coma; I25.10 Atherosclerotic heart disease of native coronary artery without angina pectoris; I10 Essential (primary) hypertension; J32.9 Chronic sinusitis, unspecified; D72.829 Elevated white blood cell count, unspecified; R00.1 Bradycardia, unspecified; R94.31 Abnormal electrocardiogram [ECG] [EKG]; J84.10 Pulmonary fibrosis, unspecified; M06.9 Rheumatoid arthritis, unspecified; I25.2 Old myocardial infarction; K21.9 Gastro-esophageal reflux disease without esophagitis; B19.20 Unspecified viral hepatitis C without hepatic coma; H91.92 Unspecified hearing loss, left ear; F17.210 Nicotine dependence, cigarettes, uncomplicated; Z95.1 Presence of aortocoronary bypass graft; Z79.4 Long term (current) use of insulin; Z95.5 Presence of coronary angioplasty implant and graft; Z79.899 Other long term (current) drug therapy
CPT/HCPCS: 70450; 71045; 71275; 80048; 80053; 80076; 80307; 81001; 82550; 82948; 83735; 83880; 84484; 85025; 93005; 96361; 96372; 96374; 96375; 96376; 97161; 99285; G0378; G8987; G8988; J0780; J1644; J2270; J7030; Q9967

== ENCOUNTER 2017-09-17 11:02 | Emergency (ER) | payer SELFPAY ==
[~2017-09-17] VITALS: Ht 172.7 cm; Wt 80.0 kg
[~2017-09-17 11:02] MED LIST changes: -AMIO200T PO; +LEVA500T33 PO
[2017-09-17 11:18] VITALS: BP 169/81; PULSE 78; RESP 16; TEMP 98.4; O2SAT 98
[2017-09-17 11:35] VITALS: BP 177/82; PULSE 82; RESP 15; O2SAT 100
--- NOTE | 2017-09-17 12:08 | PD ---
HPI Chief Complaint: Skin Problem Time Seen by Provider: 11:59 Travel History International Travel<30 days: No Contact w/Intl Traveler<30days: No Traveled to known affect area: No History of Present Illness HPI 57-year-old male presents emergency department for evaluation of a wound on the medial aspect of his left thigh where his vessels were harvested for CABG that occurred at the end of July. Patient denies any fever chills. States that he was wearing shorts and the area had scabbed over, however he recently started wearing pants that he noticed that the scab was torn off. He noticed over the last 2 days that there is been a yellow discharge within the wound. He also said there is mild redness surrounding the area. He has not had any fever or chills. He denies any new injury. He denies any bleeding from the site. He denies any pain. Patient states he has been discharged from Dr. Castillo who did his CABG and is unable to get into Dr. Mae, his primary care provider at the clinic for 3 more weeks. He is concerned that he will get infection. He has no other symptoms to report. 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- HAS HEARING AMPLIFIER (NOT WITH HIME)) Diverticulitis: Yes Endocrine: Yes (diabetes) Gastrointestinal Disorders: Yes (COLON RESECTION) GERD: Yes Genitourinary: Yes Headaches: Yes Hepatitis: Yes (C) Hiatal Hernia: No Hypertension: Yes Immune Disorder: No Kidney Stones: Yes Musculoskeletal: Yes Neurologic: Yes Psychiatric: No Reproductive: No Respiratory: No Myocardial Infarction: Yes (2009) Thyroid Disease: No Ulcer: No Past Surgical History Abdominal Surgery: Yes (PARTIAL COLECTOMY) Appendectomy: Yes Cholecystectomy: No Coronary Artery Bypass Graft: No Coronary Stent: Yes (2 STENTS) Ear Surgery: No Endocrine Surgery: No Eye Surgery: No Genitourinary Surgery: No Gynecologic Surgery: No Hysterectomy: No Neurologic Surgery: No Oral Surgery: No Thoracic Surgery: No Tonsillectomy: Yes Other Surgery: Yes Family History Family Myocardial Infarction: Yes (father had mi) Social History Alcohol Use: No Tobacco Use: Yes (6 cigs per day) Substance Use: No (DRUG HX) Allergies-Medications (Allergen,Severity, Reaction): Coded Allergies: dolasetron (Unverified Allergy, Severe, 09/17/17) penicillin G (Unverified Allergy, Severe, 09/17/17) Reported Meds & Prescriptions Reported Meds & Active Scripts Active Bactrim DS (Sulfamethoxazole-Trimethoprim) 800-160 Mg Tab 1 Tab PO BID Lisinopril 20 Mg Tab 20 Mg PO DAILY Thera M Plus (Multivitamins/Minerals Therapeutic) 1 Tab 1 Tab PO DAILY Tgt Aspirin (Aspirin) 81 Mg Chw 81 Mg PO DAILY Metoprolol Tartrate 25 Mg Tab 25 Mg PO BID Atorvastatin (Atorvastatin Calcium) 80 Mg Tab 80 Mg PO HS Metformin (Metformin HCl) 1,000 Mg Tab 1,000 Mg PO BIDPC With meals Review of Systems Except as stated in HPI: all other systems reviewed are Neg Physical Exam Narrative GENERAL: Well-nourished, well-developed male patient in no acute distress. SKIN: Focused skin assessment warm/dry. 3 cm x 1 cm dehisced wound on the medial aspect of the left distal thigh. There is no active bleeding. There is mild erythema surrounding it. No fluctuation. No drainage. HEAD: Normocephalic. EYES: No scleral icterus. No injection or drainage. NECK: Supple, trachea midline. No JVD or lymphadenopathy. CARDIOVASCULAR: Regular rate and rhythm without murmurs, gallops, or rubs. RESPIRATORY: Breath sounds equal bilaterally. No accessory muscle use. MUSCULOSKELETAL: No cyanosis, or edema. BACK: Nontender without obvious deformity. No CVA tenderness. Data Data Last Documented VS Vital Signs Date Time Temp Pulse Resp B/P (MAP) Pulse Ox O2 Delivery O2 Flow Rate FiO2 09/17/17 13:09 09/17/17 11:35 82 15 100 Room Air 09/17/17 11:18 98.4 Orders Orders Ed Discharge Order (09/17/17 12:10) MDM Medical Decision Making Medical Screen Exam Complete: Yes Emergency Medical Condition: Yes Medical Record Reviewed: Yes Differential Diagnosis Infected wound versus wound dehiscence versus healing wound Narrative Course 57-year-old male presents emergency department for evaluation of his harvest site on his left thigh. Patient appears well. The site appears to have dehisced however it appears to be healing well. There are no active signs or symptoms of infection. I discussed the patient with Dr. Castillo, the patient's cardiothoracic surgeon to inform him the patient is here. He is comfortable with me discharging him home on oral antibiotics. Patient is encouraged to follow-up with his primary care provider and to return immediately with acute worsening symptoms. Diagnosis Primary Impression: Postoperative wound dehiscence Qualified Codes: T81.31XA - Disruption of external operation (surgical) wound , not elsewhere classified, initial encounter Additional Impression: S/P CABG x 4 Referrals: Primary Care Physician Patient Instructions: Acute Wound Care (DC), General Instructions Additional Instructions: Keep the area clean and dry Follow-up with your primary care provider Your antibiotic is free at [facility]. Start it today and take it until it is all gone Return immediately to the emergency department with any acute worsening of symptoms Med/Other Pt SpecificInfo: Prescription(s) given Scripts Sulfamethoxazole-Trimethoprim (Bactrim DS) 800-160 Mg Tab 1 TAB PO BID for Infection, #20 TAB 0 Refills Prov: Elizabeth Shane 09/17/17 Disposition: 01 DISCHARGE HOME Condition: Stable Elizabeth Shane September 17, 2017 12:08
[2017-09-17] MEDS ORDERED: BACT800T5 PO (12:13)
== END 2017-09-17 13:10 | disposition home or self-care (01) ==
LOC: NEPE 11:02
DX: T81.31XA Disruption of external operation (surgical) wound, not elsewhere classified, initial encounter (principal); F17.210 Nicotine dependence, cigarettes, uncomplicated; E11.9 Type 2 diabetes mellitus without complications; I10 Essential (primary) hypertension; Z79.84 Long term (current) use of oral hypoglycemic drugs
CPT/HCPCS: 99283